=== PATIENT | male | born 1950 | race Caucasian/White ===

== ENCOUNTER → 2016-08-21 | Outpatient (CLI) | payer MEDICARE ==
--- NOTE | 2016-08-21 14:57 | XR ---
EXAM TYPE: LUMBAR SPINE X RAY SERIES COMPARISON: NONE HISTORY: Lower back pain FINDINGS: Alignment is anatomic. The pedicles are intact. The transverse processes are intact. There is no s pondylolysis or spondylolisthesis. Hypertrophic change of the spine noted. There is diffuse osteopen ia. Facet arthropathy at all levels with most marked changes at L4-S1. Superior endplate compression deformity of L1. Vascular calcifications noted. IMPRESSION: 1. Chronic superior endplate compression deformity L1. 2 multilevel facet arthropathy..
--- NOTE | 2016-08-22 08:41 | ECHOF ---
Referral Reason:R06.02 Shortness of breath MEASUREMENTS -------- HEIGHT: 182.9 cm WEIGHT: 127.0 kg BP: 199/90 RVIDd: 2.9 cm (< 3.3) IVSd: 1.2 cm (0.6 - 1.1) LVIDd: 3.8 cm (3.9 - 5.3) LVPWd: 1.3 cm (0.6 - 1.1) IVSs: 1.7 cm LVIDs: 2.9 cm LVPWs: 1.7 cm LA Diam: 3.4 cm (2.7 - 3.8) Ao Diam: 3.5 cm (2.0 - 3.7) AV Cusp: 1.6 cm (1.5 - 2.6) LA Diam: 2.6 cm (2.7 - 3.8) MV EXCURSION: 12.842 mm (> 18.000) MV EF SLOPE: 59 mm/s (70 - 150) EPSS: 0.8 cm MV E Bipin: 0.52 m/s MV DecT: 215 ms MV A Bipin: 0.91 m/s MV E/A Ratio: 0.57 FINDINGS -------- Sinus rhythm. This was a technically adequate study. The left ventricular size is normal. There is mild concentric left ventricular hypertrophy. Overall left ventricular systolic function is normal with, an EF between 55 - 60 %. The right ventricle is normal in size. The left atrial size is normal. The right atrium is normal in size. Aortic valve is trileaflet and is mildly thickened. There is mild aortic regurgitation. Mild mitral annular calcification present. Trace tricuspid regurgitation present. Trace/mild (physiologic) pulmonic regurgitation. The aortic root size is normal. There is no pericardial effusion. CONCLUSIONS -------- 1. Sinus rhythm. 2. The aortic root size is normal. 3. There is no pericardial effusion. 4. This was a technically adequate study. 5. Overall left ventricular systolic function is normal with, an EF between 55 - 60 %. 6. The left atrial size is normal. 7. Aortic valve is trileaflet and is mildly thickened. 8. There is mild aortic regurgitation. 9. Mild mitral annular calcification present. 10. Trace tricuspid regurgitation present. 11. Trace/mild (physiologic) pulmonic regurgitation. ENGINE REPAIRER: Geeta Sargent RDCS
== END | disposition home or self-care (01) ==
LOC: RADECHMAIN 13:43
PROVIDERS: ATTEND Family Medicine
DX: I08.8 Other rheumatic multiple valve diseases (principal); I10 Essential (primary) hypertension; M46.97 Unspecified inflammatory spondylopathy, lumbosacral region; M46.96 Unspecified inflammatory spondylopathy, lumbar region; M43.8X6 Other specified deforming dorsopathies, lumbar region
CPT/HCPCS: 72100; 93306

== ENCOUNTER → 2018-11-11 | Outpatient (CLI) | payer MEDICARE ==
--- NOTE | 2018-11-11 07:36 | US ---
EXAMINATION TYPE: US abdomen complete DATE OF EXAM: 11/11/2018 COMPARISON: CT 07/11/2016 CLINICAL HISTORY: K81.0 Acute Cholecystitis. Extremely difficult and limited exam due to overlying saman wel gas and patient body habitus EXAM MEASUREMENTS: Liver Length: 21.5 cm Gallbladder Wall: 0.2 cm CBD: 0.5 cm Spleen: 9.3 cm Right Kidney: 10.6 x 5.1 x 4.5 cm Left Kidney: 12.6 x 5.7 x 6.2 cm Pancreas: Obscured by bowel gas Liver: Limited visualization. Enlarged. Coarse echotexture, attenuating, these findings limit evalua tion for underlying hepatic masses. Gallbladder: Measuring upper limits of normal, no stones visualized Evidence for sonographic Longoria's sign: No CBD: wnl as visualized, distal portion obscured by bowel gas Spleen: Limited visualization, wnl as visualized Right Kidney: Limited visualization, wnl as visualized Left Kidney: No hydronephrosis or masses seen Upper IVC: Limited visualization, wnl as visualized Abd Aorta: Not visualized due to overlying bowel gas IMPRESSION: Suboptimal examination given patient body habitus and overlying bowel gas however no sono graphic evidence of acute cholecystitis is seen. If there is further concern HIDA scan with CCK could be performed to evaluate for biliary dyskinesia and/or chronic cholecystitis. Remainder of the abdom inal organs are again suboptimal with complete obscuration of the pancreas. The liver demonstrates so nographic findings most commonly related to hepatic steatosis.
== END ==
LOC: RADUSWWP 06:46
PROVIDERS: ATTEND Family Medicine
DX: K76.0 Fatty (change of) liver, not elsewhere classified (principal); Z87.19 Personal history of other diseases of the digestive system
CPT/HCPCS: 76700

== ENCOUNTER → 2018-11-11 | Outpatient (CLI) | payer MEDICARE ==
[2018-11-11 12:12] LABS: ALT 26 U/L (10-49); AST 18 U/L (14-35); Alkaline Phosphatase 93 U/L (41-126); Amylase 32 U/L (23-121); Bilirubin, Conjugated <0.20 mg/dL (0.20-0.40); Globulin 2.2 g/dL (1.6-3.3); Lipase 37 U/L (14-60); Total Bilirubin 0.4 mg/dL (0.2-1.2); Total Protein 6.6 g/dL (6.2-8.2)
== END ==
LOC: LABWHC1 07:27
PROVIDERS: ATTEND Family Medicine
DX: I10 Essential (primary) hypertension (principal); E11.9 Type 2 diabetes mellitus without complications; Z79.899 Other long term (current) drug therapy
CPT/HCPCS: 36415; 80076; 82150; 83690; 84403

== ENCOUNTER 2018-11-25 08:09 | Day surgery (SDC) | payer MEDICARE ==
[2018-11-23 11:59] VITALS: BMI 39.0
[~2018-11-25 08:09] MED LIST: LACTATED RINGERS 1,000 ML IV SCH
[2018-11-25 08:35] VITALS: RESP 18; TEMP 98.2
[2018-11-25 08:42] LABS: Glucose,Whole Blood 164 mg/dL (75-99)
[2018-11-25] MEDS ORDERED: LIDOCAINE 1% INJ 10MG/ML (20 ML MDV) ONE (08:57)
[2018-11-25] MEDS ORDERED: PROPOFOL 10 MG/ML 20 ML VIAL IV ONE (08:57)
--- NOTE | 2018-11-25 09:02 | P.GSHP ---
History of Present Illness H&P Date: 11/25/18 Chief Complaint: GERD This is a 68-year-old male referred from Dr. Mike Garrett. Patient's had complaints of GERD. He presents today for EGD. Past Medical History Past Medical History: Diabetes Mellitus, Hypertension Additional Past Medical History / Comment(s): crohns disease, IBS History of Any Multi-Drug Resistant Organisms: None Reported Additional Past Surgical History / Comment(s): toe surgery, knee surgery, lt shoulder surgery with hardware Past Anesthesia/Blood Transfusion Reactions: No Reported Reaction Smoking Status: Never smoker - Past Family History Mother Family Medical History: Cancer Additional Family Medical History / Comment(s): lung Father Family Medical History: Cancer Additional Family Medical History / Comment(s): lung Medications and Allergies Home Medications Medication Instructions Recorded Confirmed Type Insulin NPH Human Isophane 100 unit SQ BID PRN 11/23/18 11/23/18 History [NovoLIN N] Insulin Regular [HumuLIN R] 0 units SQ BID PRN 11/23/18 11/23/18 History Lisinopril-Hctz 20-25 mg 1 tab PO DAILY 11/23/18 11/23/18 History [Zestoretic 20-25] Omeprazole 40 mg PO DAILY 11/23/18 11/23/18 History Sucralfate [Carafate] 1 gm PO DAILY 11/23/18 11/23/18 History Allergies Allergy/AdvReac Type Severity Reaction Status Date / Time naproxen Allergy Swelling Verified 11/25/18 08:22 Surgical - Exam Vital Signs Temp Pulse Resp BP Pulse Ox 98.2 F 87 18 181/75 97 11/25/18 08:30 11/25/18 08:30 11/25/18 08:30 11/25/18 08:30 11/25/18 08:30 - General well developed, well nourished, no distress - Eyes PERRL - ENT normal pinna - Neck no masses - Respiratory normal expansion - Cardiovascular Rhythm: regular - Abdomen Abdomen: soft, non tender Results - Labs Abnormal Lab Results - Last 24 Hours (Table) 11/25/18 Range/Units 08:38 POC Glucose (mg/dL) 164 H (75-99) mg/dL Assessment and Plan Assessment: GERD. We'll perform EGD.
--- NOTE | 2018-11-25 09:09 | P.OP ---
Date of Procedure: 11/25/18 Preoperative Diagnosis: GERD Postoperative Diagnosis: Antral gastritis No significant hiatal hernia Minimal esophagitis Procedure(s) Performed: EGD Anesthesia: MAC Surgeon: Leif Bae Pathology: other (Antrum, esophagus) Condition: stable Disposition: PACU Description of Procedure: The patient's placed on the endoscopy table in the lateral position. He received IV sedation. The gastroscope placed oropharynx passed in the esophagus into the stomach. Scope then placed through the pylorus. The first and second portion of duodenum appeared normal. Scope summer back and the antrum and this appeared mildly inflamed. A biopsies performed. The scope was unretroflexed and remainder of the stomach appeared normal. There was no significant hiatal hernia. The GE junction was at 40 cm. The distal esophagus appeared minimally inflamed a biopsies performed. The proximal esophagus appeared normal. Scope was withdrawn for patient.
[2018-11-25 09:37] VITALS: BP 147/69; PULSE 82
== END 2018-11-25 10:00 | disposition home or self-care (01) ==
LOC: ORWHC2ENDO 08:09
PROVIDERS: ATTEND Surgery
DX: K21.9 Gastro-esophageal reflux disease without esophagitis (principal); E11.9 Type 2 diabetes mellitus without complications; I10 Essential (primary) hypertension; K29.70 Gastritis, unspecified, without bleeding; K50.90 Crohn's disease, unspecified, without complications; Z79.4 Long term (current) use of insulin; Z80.1 Family history of malignant neoplasm of trachea, bronchus and lung; Z79.899 Other long term (current) drug therapy; Z88.8 Allergy status to other drugs, medicaments and biological substances
CPT/HCPCS: 88305; 43239; J2001; J2704

== ENCOUNTER → 2019-05-09 | Outpatient (CLI) | payer MEDICARE ==
[2019-05-09 12:35] LABS: Basophils # (A) 0.1 k/uL (0-0.2); Basophils % (A) 1 %; Eosinophils # (A) 0.6 k/uL (0-0.7); Eosinophils % (A) 5 %; HCT 51.2 % (39.0-53.0); HGB 16.5 gm/dL (13.0-17.5); Lymphocytes # (A) 2.7 k/uL (1.0-4.8); Lymphocytes % (A) 24 %; MCH 27.7 pg (25.0-35.0); MCHC 32.3 g/dL (31.0-37.0); MCV 85.6 fL (80.0-100.0); Mean Platelet Volume 5.7; Monocytes # (A) 0.8 k/uL (0-1.0); Monocytes % (A) 7 %; Neutrophils # (A) 6.7 k/uL (1.3-7.7); Neutrophils % (A) 60 %; Platelet Count 342 k/uL (150-450); RBC 5.98 m/uL (4.30-5.90); RDW 14.5 % (11.5-15.5); WBC 11.1 k/uL (3.8-10.6)
[2019-05-09 12:43] LABS: Cholesterol 202 mg/dL (<200); HDL Cholesterol 43 mg/dL (40-60); LDL Cholesterol,Calculated 131 mg/dL (0-99); Triglycerides 140 mg/dL (<150)
== END | disposition home or self-care (01) ==
LOC: LABWHC1 11:42
PROVIDERS: ATTEND Family Medicine
DX: I10 Essential (primary) hypertension (principal); E11.9 Type 2 diabetes mellitus without complications; R97.20 Elevated prostate specific antigen [PSA]; Z79.899 Other long term (current) drug therapy
CPT/HCPCS: 36415; 80061; 84443; 85025

== ENCOUNTER → 2019-05-18 | Outpatient (CLI) | payer MEDICARE ==
[2019-05-18 20:24] LABS: Hemoglobin A1C 8.4 % (4.0-6.0)
[2019-05-18 20:31] LABS: African American GFR (CKD) 99.9 (60.0-200.0); Albumin 4.2 g/dL (3.80-4.90); Albumin/Globulin Ratio 1.75 (1.60-3.17); Anion Gap 6.7 mmol/L (4.00-12.00); BUN/Creat Ratio 25.56 Ratio (12.00-20.00); Calcium 9.7 mg/dL (8.7-10.3); Carbon Dioxide 27.3 mmol/L (21.6-31.8); Globulin 2.4 g/dL (1.6-3.3); Potassium 5.4 mmol/L (3.5-5.5); Total Bilirubin 0.5 mg/dL (0.3-1.2); Total Protein 6.6 g/dL (6.2-8.2)
== END | disposition home or self-care (01) ==
LOC: LABWHC1 10:24
PROVIDERS: ATTEND Family Medicine
DX: E11.9 Type 2 diabetes mellitus without complications (principal); I10 Essential (primary) hypertension; R97.20 Elevated prostate specific antigen [PSA]; Z79.899 Other long term (current) drug therapy
CPT/HCPCS: 36415; 80053; 83036; 84153; 84403

== ENCOUNTER → 2019-05-24 | Outpatient (CLI) | payer MEDICARE | END | disposition home or self-care (01) | LOC: RADUSWWP 11:54 | PROVIDERS: ATTEND Family Medicine | DX: I73.9 Peripheral vascular disease, unspecified (principal) | CPT/HCPCS: 93923 ==

== ENCOUNTER 2019-06-08 03:10 | Observation (INO) | payer MEDICARE ==
--- NOTE | 2019-06-08 03:27 | ED ---
SOB HPI - General Chief Complaint: Shortness of Breath Stated Complaint: SOB Time Seen by Provider: 06/08/19 03:23 Source: patient Mode of arrival: wheelchair Limitations: no limitations - History of Present Illness Initial Comments: Brijesh is a 69-year-old gentleman who presents to the ER today for evaluation of shortness of breath. Patient reports that he's had progressively worsening shortness of breath for couple of days duration. Tonight he couldn't sleep due to feeling that he couldn't catch his breath. This became progressively worse around 3 AM, he began to feel lightheaded and diaphoretic at which time he contacted a family member to bring him to the hospital for evaluation. Also reports he's been constipated for 2 weeks which she feels is contributing to not being able take a deep breath. - Related Data Home Medications Medication Instructions Recorded Confirmed Insulin NPH Human Isophane 100 unit SQ BID PRN 11/23/18 11/23/18 [NovoLIN N] Insulin Regular [HumuLIN R] 0 units SQ BID PRN 11/23/18 11/23/18 Lisinopril-Hctz 20-25 mg 1 tab PO DAILY 11/23/18 11/23/18 [Zestoretic 20-25] Omeprazole 40 mg PO DAILY 11/23/18 11/23/18 Sucralfate [Carafate] 1 gm PO DAILY 11/23/18 11/23/18 Allergies Allergy/AdvReac Type Severity Reaction Status Date / Time naproxen Allergy Swelling Verified 11/25/18 08:22 Review of Systems ROS Statement: Those systems with pertinent positive or pertinent negative responses have been documented in the HPI. ROS Other: All systems not noted in ROS Statement are negative. Past Medical History Past Medical History: Diabetes Mellitus, Hypertension Additional Past Medical History / Comment(s): crohns disease, IBS History of Any Multi-Drug Resistant Organisms: None Reported Additional Past Surgical History / Comment(s): toe surgery Past Psychological History: No Psychological Hx Reported Smoking Status: Never smoker Past Alcohol Use History: None Reported Past Drug Use History: None Reported General Exam - General Exam Comments Initial Comments: Physical Exam GENERAL: Patient is well-developed and well-nourished. Patient is diaphoretic with increased work of breathing HENT: Normocephalic, Atraumatic. EYES: PERRL, EOMI PULMONARY: Tachypnea CARDIOVASCULAR: RRR ABDOMEN: Morbidly obese SKIN: Excoriations on bilateral lower extremities Diaphoretic : Deferred NEUROLOGIC: Patient is alert and oriented x3. Moving all extremities spontaneously MUSCULOSKELETAL: Normal extremities with adequate strength and full range of motion. 1+ edema bilateral lower extremities PSYCHIATRIC: Normal psychiatric evaluation. Limitations: no limitations Course Vital Signs 06/08/19 06/08/19 06/08/19 03:11 05:10 06:25 Temperature 97.9 F 98.7 F Pulse Rate 97 82 80 Respiratory 18 18 17 Rate Blood Pressure 204/101 188/89 175/97 O2 Sat by Pulse 96 94 L 96 Oximetry Medical Decision Making - Medical Decision Making The patient was seen and evaluated, is a morbidly obese 69-year-old gentleman presenting with shortness of breath. Upon standing patient becomes very diaphoretic and short of breath with oxygen saturations dipping to the 80s. In addition patient is noted to be profoundly hypertensive upon arrival despite reporting compliance with his home lisinopril. On supplemental oxygenation and full workup was ordered. Chest x-ray no acute findings, patient remains symptomatic therefore computed tomography scan for pulmonary embolism was ordered resulted with negative findings aside from a sided pleural effusion. Catapres was ordered for hypertension Troponin is detectable but not significantly elevated Labs are otherwise unremarkable Given the patient's advanced age, profound hypertension I will plan to admit for hypertensive emergency area patient is agreeable to this plan. Patient care was discussed with patient's primary care physician Dr. Castillo who agrees with plan for admission for hypertensive emergency with signs of heart failure. - Lab Data Result diagrams: 06/08/19 03:48 06/08/19 03:48 Lab Results 06/08/19 06/08/19 06/08/19 Range/Units 03:48 03:48 03:48 WBC 10.3 (3.8-10.6) k/uL RBC 6.11 H (4.30-5.90) m/uL Hgb 16.8 (13.0-17.5) gm/dL Hct 52.0 (39.0-53.0) % MCV 85.1 (80.0-100.0) fL MCH 27.5 (25.0-35.0) pg MCHC 32.3 (31.0-37.0) g/dL RDW 14.3 (11.5-15.5) % Plt Count 301 (150-450) k/uL Neutrophils % 57 % Lymphocytes % 29 % Monocytes % 7 % Eosinophils % 5 % Basophils % 1 % Neutrophils # 5.8 (1.3-7.7) k/uL Lymphocytes # 2.9 (1.0-4.8) k/uL Monocytes # 0.7 (0-1.0) k/uL Eosinophils # 0.5 (0-0.7) k/uL Basophils # 0.1 (0-0.2) k/uL PT (9.0-12.0) sec INR (<1.2) APTT (22.0-30.0) sec Sodium 137 (137-145) mmol/L Potassium 4.5 (3.5-5.1) mmol/L Chloride 104 (98-107) mmol/L Carbon Dioxide 25 (22-30) mmol/L Anion Gap 8 mmol/L BUN 13 (9-20) mg/dL Creatinine 0.75 (0.66-1.25) mg/dL Est GFR (CKD-EPI)AfAm >90 (>60 ml/min/1.73 sqM) Est GFR (CKD-EPI)NonAf >90 (>60 ml/min/1.73 sqM) Glucose 185 H (74-99) mg/dL Calcium 9.9 (8.4-10.2) mg/dL Total Bilirubin 0.7 (0.2-1.3) mg/dL AST 22 (17-59) U/L ALT 21 (21-72) U/L Alkaline Phosphatase 95 (38-126) U/L Troponin I (0.000-0.034) ng/mL NT-Pro-B Natriuret Pep 550 pg/mL Total Protein 7.3 (6.3-8.2) g/dL Albumin 4.0 (3.5-5.0) g/dL 06/08/19 06/08/19 Range/Units 03:48 03:48 WBC (3.8-10.6) k/uL RBC (4.30-5.90) m/uL Hgb (13.0-17.5) gm/dL Hct (39.0-53.0) % MCV (80.0-100.0) fL MCH (25.0-35.0) pg MCHC (31.0-37.0) g/dL RDW (11.5-15.5) % Plt Count (150-450) k/uL Neutrophils % % Lymphocytes % % Monocytes % % Eosinophils % % Basophils % % Neutrophils # (1.3-7.7) k/uL Lymphocytes # (1.0-4.8) k/uL Monocytes # (0-1.0) k/uL Eosinophils # (0-0.7) k/uL Basophils # (0-0.2) k/uL PT 10.2 (9.0-12.0) sec INR 0.9 (<1.2) APTT 25.2 (22.0-30.0) sec Sodium (137-145) mmol/L Potassium (3.5-5.1) mmol/L Chloride (98-107) mmol/L Carbon Dioxide (22-30) mmol/L Anion Gap mmol/L BUN (9-20) mg/dL Creatinine (0.66-1.25) mg/dL Est GFR (CKD-EPI)AfAm (>60 ml/min/1.73 sqM) Est GFR (CKD-EPI)NonAf (>60 ml/min/1.73 sqM) Glucose (74-99) mg/dL Calcium (8.4-10.2) mg/dL Total Bilirubin (0.2-1.3) mg/dL AST (17-59) U/L ALT (21-72) U/L Alkaline Phosphatase (38-126) U/L Troponin I 0.027 (0.000-0.034) ng/mL NT-Pro-B Natriuret Pep pg/mL Total Protein (6.3-8.2) g/dL Albumin (3.5-5.0) g/dL - EKG Data -: EKG Interpreted by Ne EKG shows normal: sinus rhythm EKG Comments: EKG was obtained due to complaint of shortness of breath and hypertension, EKG w as obtained 3:53 AM, rate is 88, rhythm is sinus there is normal axis, there are normal intervals, MS is 196, QRS is 104, QTC is 464. There are no acute ST elevations or depressions there is no evidence of acute ischemia or infarction. There is significant respiratory artifact. Disposition Clinical Impression: Hypertensive emergency, Morbid obesity, Hypoxia Disposition: ADMITTED IP TO THIS HOSP Condition: Serious Referrals: Mike Castillo MD [Primary Care Provider] - 1-2 days
[2019-06-08 04:36] LABS: Basophils # (A) 0.1 k/uL (0-0.2); Basophils % (A) 1 %; Eosinophils # (A) 0.5 k/uL (0-0.7); Eosinophils % (A) 5 %; HGB 16.8 gm/dL (13.0-17.5); Lymphocytes # (A) 2.9 k/uL (1.0-4.8); Lymphocytes % (A) 29 %; MCH 27.5 pg (25.0-35.0); MCHC 32.3 g/dL (31.0-37.0); MCV 85.1 fL (80.0-100.0); Mean Platelet Volume 6.5; Monocytes # (A) 0.7 k/uL (0-1.0); Monocytes % (A) 7 %; Neutrophils # (A) 5.8 k/uL (1.3-7.7); Neutrophils % (A) 57 %; Platelet Count 301 k/uL (150-450); RBC 6.11 m/uL (4.30-5.90); RDW 14.3 % (11.5-15.5); WBC 10.3 k/uL (3.8-10.6)
[2019-06-08 04:41] LABS: ALT 21 U/L (21-72); AST 22 U/L (17-59); African American GFR (CKD) >90 (>60 ml/min/1.73 sqM); Alkaline Phosphatase 95 U/L (38-126); Anion Gap 8 mmol/L; Blood Urea Nitrogen 13 mg/dL (9-20); Calcium 9.9 mg/dL (8.4-10.2); Carbon Dioxide 25 mmol/L (22-30); Chloride 104 mmol/L (98-107); Glucose 185 mg/dL (74-99); Non-African American GFR(CKD) >90 (>60 ml/min/1.73 sqM); Potassium 4.5 mmol/L (3.5-5.1); Sodium 137 mmol/L (137-145); Total Bilirubin 0.7 mg/dL (0.2-1.3); Total Protein 7.3 g/dL (6.3-8.2)
[2019-06-08] MEDS ORDERED: cloNIDine HCL 0.2 MG TAB PO STA (04:48)
--- NOTE | 2019-06-08 04:49 | XR ---
EXAM: XR Chest, 2 Views CLINICAL HISTORY: ITS.REASON XR Reason: difficulty breathing TECHNIQUE: Frontal and lateral views of the chest. COMPARISON: No relevant prior studies available. FINDINGS: Lungs: No consolidation or mass. Pleural space: No effusion. Heart: No cardiomegaly. Bones/joints: No acute findings. IMPRESSION: No acute cardiopulmonary process.
[2019-06-08 04:53] LABS: INR 0.9 (<1.2); Partial Thromboplastin Time 25.2 sec (22.0-30.0); Prothrombin Time 10.2 sec (9.0-12.0)
[2019-06-08] MEDS ORDERED: ONDANSETRON 4 MG/2 ML VIAL IVP STA (06:12)
[2019-06-08] MEDS ORDERED: MORPHINE SULFATE 4 MG/ML SYRINGE IVP STA (06:12)
--- NOTE | 2019-06-08 06:32 | CT ---
EXAM: CT Angiography Chest With Intravenous Contrast CLINICAL HISTORY: ITS.REASON CT Reason: hypoxia TECHNIQUE: Axial computed tomographic angiography images of the chest with intravenous contrast. CTDI is 19 mGy and DLP is 705 mGy-cm. This CT exam was performed using one or more of the following dose reduction techniques: automated exposure control, adjustment of the mA and/or kV according to patient size, and/or use of iterative reconstruction technique. MIP reconstructed images were created and reviewed. COMPARISON: 06/08/19 x-ray FINDINGS: Pulmonary arteries: No filling defects. Aorta: No thoracic aortic aneurysm. Lungs: No mass. No consolidation. Pleural space: No pneumothorax. Trace left pleural effusion. Heart: No cardiomegaly. No pericardial effusion. Bones/joints: No acute fracture or dislocation. Likely chronic minimal wedging of T2, T3, and T4 without retropulsion. Soft tissues: 2.3 cm partially calcified nodule in the right thyroid gland. Lymph nodes: No enlarged lymph nodes. IMPRESSION: 1. No pulmonary embolism. Trace left pleural effusion. 2. Minimal upper thoracic spine vertebral body wedging. 3. 2.3 cm partially calcified right thyroid gland nodule. Correlate with ultrasound.
[2019-06-08] MEDS ORDERED: NALOXONE 0.4 MG/ML 1 ML VIAL IV PRN (07:50)
[2019-06-08 11:21] LABS: Glucose,Whole Blood 238 mg/dL (75-99)
[2019-06-08] MEDS: HYDROcodone/APAP 5-325MG 1 EACH TAB PO PRN ×2 (11:57→19:36)
[2019-06-08 12:51] LABS: Glucose,Whole Blood 197 mg/dL (75-99)
[2019-06-08] MEDS: INSULIN REGULAR 100 UNIT/ML VIAL SQ SCH ×2 (12:52→17:31)
--- NOTE | 2019-06-08 13:35 | HP ---
HISTORY AND PHYSICAL This 69-year-old white male came to the emergency room after being severely short of breath at home before going to bed last night. He could not catch his breath. He was found to hypertension acceleration on admission to 220/120. He has been unable to get out of the chair due to severe back pain and leg neuropathy. He stated he cannot walk or move due to severe back pain. He has been constipated for 2 weeks and unable to take a deep breath. HOME MEDICINES: 1. Novolin N 20 units subcu . 2. Humulin R b.i.d. 3. Zestoretic one daily. 4. Omeprazole 40 daily. 5. Carafate 1 gram daily. ALLERGIES: NAPROSYN. REVIEW OF SYSTEMS: Fourteen-point review of systems negative except for severe shortness of breath. His refuses to take a sleep apnea test. CT of the chest in the ER negative for PE. PAST MEDICAL HISTORY: Diabetes mellitus, hypertension, Crohn disease, irritable bowel syndrome. He has had toe surgery. SOCIAL HISTORY: No smoking. No alcohol or drugs. PHYSICAL EXAMINATION: PSYCH: Fair mood and affect. Well developed, well nourished, white male, increased breathing, appears comfortable. HEENT: Normocephalic, atraumatic. Pupils equal, round, reactive. Lungs are tachypneic. HEART: Regular rate and rhythm. ABDOMEN: Morbidly obese. SKIN: Excoriation lower extremities. NEUROLOGIC: Moves all 4 extremities. MUSCULOSKELETAL: Limited strength in the lower extremities otherwise, but he can move in bed; 1+ edema. PSYCH: Fair mood and affect. Troponin was not significantly elevated. He had profound hypertension. CT of the chest as mentioned above. He is refusing sleep apnea testing. Labs are reviewed. Creatinine 0.95, glucose 185. ASSESSMENT: 1. Hypertension emergency. 2. Morbid obesity. 3. Hypoxemia. 4. Negative PE scan. Cardiology, pulmonary consult. Please see further orders. Will have to give him a lumbar epidural as he is unable to move his legs from severe back pain. MMODL / IJN: [id number] /
[2019-06-08] MEDS: LISINOPRIL-HCTZ 20-25 MG 1 EACH TAB PO SCH (14:44)
[2019-06-08 15:01] LABS: T4, Free (Free Thyroxine) 1.07 ng/dL (0.78-2.19)
--- NOTE | 2019-06-08 15:03 | CT ---
EXAMINATION TYPE: CT lumbar spine wo con DATE OF EXAM: 06/08/2019 COMPARISON: None HISTORY: 69-year-old male Low back pain TECHNIQUE: Contiguous axial scanning of the lumbar spine without IV contrast. Coronal and sagittal re constructions performed. CT DLP: 988 mGycm Automated exposure control for dose reduction was used. FINDINGS: There is some excreting contrast from the kidneys compatible with patient's earlier PE CT. Moderate e pisodic calcifications infrarenal abdominal aorta and iliac arteries. Mild degenerative change at the SI joints. Large patient body habitus results in excess of normal age artifacts limiting the evaluation. Trace grade 1 retrolistheses at L1-L2, L2-L3, L3-L4 with multilevel hypertrophic facet arthropathy. Vertebral body heights are preserved. On the right, resulting in moderate neuroforaminal narrowing at L4-L5. Mild to moderate at T11-T12 an d L3-L4. Mild at L5-S1. On the left, changes result in moderate neural foraminal stenoses at L2-L3, L3-L4, L4-L5. There is excessive noise artifact limiting assessment for any focal disc herniation. No bony spinal c anal compromise. IMPRESSION: 1. MILD MULTILEVEL DEGENERATIVE DISC DISEASE. HYPERTROPHIC FACET ARTHROPATHY WITH GRADE 1 RETROLISTHE SES FROM L1 THROUGH L4 LEVELS. 2. NO VERTEBRAL COMPRESSION COLLAPSE. 3. EXCESSIVE NOISE ARTIFACTS FROM PATIENT'S LARGE BODY HABITUS LIMITS ASSESSMENT FOR ANY FOCAL DISC H ERNIATION. NO BONY SPINAL CANAL COMPROMISE. 4. VARIABLE BILATERAL NEUROFORAMINAL STENOSES OUTLINED ABOVE, MODERATE ON THE RIGHT AT L4-L5 AND M ODERATE ON THE LEFT FROM L2 THROUGH L5 LEVELS.
--- NOTE | 2019-06-08 16:08 | P.PAINCN ---
History of Present Illness - Reason for Consult Consult date: 06/08/19 - History of Present Illness This is a 69-year-old patient with a history of morbid obesity, hypertension, diabetes, irritable bowel syndrome referred by Dr. Castillo with a chief complaint of chronic pain in bilateral low back which radiates to right buttocks, not past by. He also has a secondary pain complaintpain in the anterior left thigh that feels like an "estephanie horse" which occasionally ra diates to left knee and left groin. His main pain complaint today is low back pain. Pain was rated as 9/10 this morning, reduced to 0/10 with IV pain medication, currently rated as 5/10. Patient has been taking medications from primary care physician including Jamul 5/325 once daily, which has been increased to every 8 hours while inpatient. Of note, he was primarily admitted for shortness of breath, hypertensive emergency and signs of heart failure. Patient denies new-onset weakness, bowel/bladder incontinence, or any other signs or symptoms of cauda equina syndrome. There are no signs of acute intoxication, and no indications of medication diversion or overuse. Patient notes that pain worsens significantly with activities, and improves with rest, and medication. He did receive a dose of IV pain medication today, which significantly helped his pain, and provided him complete pain relief lasting about 3 hours. Patient HAS NOT had surgery. Patient HAS had injections previouslynone in his low back, however obtains greater trochanter injections with the primary care physician, which helps with pain. Patient HAS NOT had physical therapy recently. In addition to above, 13-point review of systems is also negative for chest pain, new onset weakness, abdominal pain, diarrhea, extreme fatigue, malaise, fever, skin changes, homicidal or suicidal ideation, or bowel or bladder incontinence. He does endorse shortness of breath, which has improved since receiving IV pain medication, constipation and nausea. Past Medical History Past Medical History: Diabetes Mellitus, Hypertension Additional Past Medical History / Comment(s): IDDM type II, neuropathy bilateral feet, borderline high cholesterol, gastritis, chrons, IBS, back pain in winter months, chronic L thigh pain. History of Any Multi-Drug Resistant Organisms: None Reported Past Surgical History: Orthopedic Surgery Additional Past Surgical History / Comment(s): L shoulder/collar bone crush injury with hardware, L knee surgery d/t injury, L great toe ulcer with debridement, EGD, colonoscopies. Past Anesthesia/Blood Transfusion Reactions: No Reported Reaction Past Psychological History: No Psychological Hx Reported Additional Psychological History / Comment(s): Pt has an adult son living with him. He is indpendent. Smoking Status: Never smoker Past Alcohol Use History: Rare Past Drug Use History: None Reported - Past Family History Father Additional Family Medical History / Comment(s): Father was an alcoholic. He of liver cirrhosis at the age of 37 yrs. Mother Family Medical History: Cancer Additional Family Medical History / Comment(s): Mother had "female" cancer. She was an alcoholic. Medications and Allergies Home Medications Medication Instructions Recorded Confirmed Type Insulin NPH Human Isophane 20 unit SQ HS 11/23/18 06/08/19 History [NovoLIN N] Lisinopril-Hctz 20-25 mg 1 tab PO DAILY 11/23/18 06/08/19 History [Zestoretic 20-25] Aspirin 675 mg PO Q4H PRN 06/08/19 06/08/19 History Fluvastatin Sodium [Lescol Xl] 80 mg PO HS 06/08/19 06/08/19 History Hydrocodone/Acetaminophen [Jamul 1 tab PO DAILY PRN 06/08/19 06/08/19 History 5-325] Insulin Regular, Human [NovoLIN R] 25 unit SQ AC-TID 06/08/19 06/08/19 History Methylcellulose (with Sugar) 2 gm PO DAILY 06/08/19 06/08/19 History [Citrucel Powder] Omeprazole [PriLOSEC] 20 mg PO DAILY 06/08/19 06/08/19 History Testosterone Cypionate 200 mg IM Q14D 06/08/19 06/08/19 History [Depo-Testosterone] Allergies Allergy/AdvReac Type Severity Reaction Status Date / Time naproxen Allergy Swelling Verified 06/08/19 09:30 Physical Exam Vitals: Vital Signs Temp Pulse Pulse Resp BP BP Pulse Ox 06/08/19 12:32 97.4 F L 92 18 180/79 99 06/08/19 08:57 97.4 F L 69 18 118/59 96 06/08/19 07:20 76 16 115/70 95 06/08/19 06:25 98.7 F 80 17 175/97 96 06/08/19 05:10 82 18 188/89 94 L 06/08/19 03:11 97.9 F 97 18 204/101 96 Intake and Output 06/08/19 06/08/19 06/08/19 06:59 14:59 22:59 Other: Weight 129.274 kg Physical exam: GENERAL: Well appearing, in no acute distress, morbidly obese PSYCH: Mood and affect is appropriate. Awake, alert, and oriented SKIN: Skin color, texture, turgor normal, no rashes or lesions HEENT: Normocephalic, atraumatic. EOM intact CV: No pedal edema RESP: Respirations are unlabored, no audible wheezing GI: Abdomen obese MUSCULOSKELETAL: Bilateral lower extremity strength is normal and symmetric. No atrophy or tone abnormalities are noted. Lumbar spine: Mild Tenderness to palpation over the lumbar spine and paraspinous muscles bilaterally. Buttocks: No pain to palpation over the PSIS, Scooter test is negative bilaterally Extremities: Peripheral joint ROM is full and pain free without obvious instability or laxity in all four extremities. No edema or skin discolorations noted. Gait: Gait is slow NEUR: Bilateral lower extremity coordination and muscle stretch reflexes are physiologic and symmetric. Negative clonus. No loss of sensation is noted. Cranial nerves are grossly intact. Results Results: Imaging: CT lumbar spine obtained today shows mild multilevel degenerative disc disease and hypertrophic facet arthropathy, grade 1 retrolisthesis from L 1 through L4 levels. Variable bilateral neuroforaminal stenosismoderate on the right at L4- 5 and moderate on the left from L2 through L5. CBC & Chem 7: 06/08/19 03:48 06/08/19 03:48 Labs: Abnormal Lab Results - Last 24 Hours (Table) 06/08/19 06/08/19 06/08/19 Range/Units 03:48 03:48 03:48 RBC 6.11 H (4.30-5.90) m/uL Glucose 185 H (74-99) mg/dL POC Glucose (mg/dL) (75-99) mg/dL Triglycerides 183 H (<150) mg/dL Cholesterol 245 H (<200) mg/dL LDL Cholesterol, Calc 165 H (0-99) mg/dL TSH 0.282 L (0.465-4.680) mIU/L 06/08/19 06/08/19 Range/Units 11:19 12:47 RBC (4.30-5.90) m/uL Glucose (74-99) mg/dL POC Glucose (mg/dL) 238 H 197 H (75-99) mg/dL Triglycerides (<150) mg/dL Cholesterol (<200) mg/dL LDL Cholesterol, Calc (0-99) mg/dL TSH (0.465-4.680) mIU/L Assessment and Plan Assessment: Assessment: 1. Lumbar spondylosis without myelopathy or radiculopathy, lumbar degenerative disc disease 2. 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 Morbid obesity 4. Hypertensive emergency Plan: Plan: 1. Explanation: Currently, given chronic nature of patient's pain, with no acute change and nonradicular symptomatology, patient is not a candidate for interventional pain procedures. In the future, patient may be a candidate for lumbar medial branch workup. Would recommend follow-up in the pain clinic for this, with PCP referral. 2. Investigations: CT lumbar spine reviewed 3. Medications: Would consider addition of gabapentin 300 mg 3 times a day for meralgia paresthetica. Narcotic management per primary care physician Thank you for allowing us to participate in the care of this patient. Please contact us if questions arise. PQRS Measure Charge Sheet PQRS Narrative: Smoking Status Never smoker Do You Want the Pneumonia Vaccine Up to Date Vaccine AT THIS TIME? Blood Pressure [Left Arm 180/79 Sitting] Blood Pressure 115/70 Pain Intensity [None] 0 Pain Intensity 4 Pain Scale Used Numeric (1 - 10) Scale Used Numeric (1 - 10) Home Medications: Ambulatory Orders Insulin NPH Human Isophane [NovoLIN N] 20 unit SQ HS 11/23/18 Lisinopril-Hctz 20-25 mg [Zestoretic 20-25] 1 tab PO DAILY 11/23/18 Aspirin 675 mg PO Q4H PRN 06/08/19 Fluvastatin Sodium [Lescol Xl] 80 mg PO HS 06/08/19 Hydrocodone/Acetaminophen [Jamul 5-325] 1 tab PO DAILY PRN 06/08/19 Insulin Regular, Human [NovoLIN R] 25 unit SQ AC-TID 06/08/19 Methylcellulose (with Sugar) [Citrucel Powder] 2 gm PO DAILY 06/08/19 Omeprazole [PriLOSEC] 20 mg PO DAILY 06/08/19 Testosterone Cypionate [Depo-Testosterone] 200 mg IM Q14D 06/08/19
--- NOTE | 2019-06-08 16:56 | CONS ---
CONSULTATION DATE OF SERVICE: 06/08/2019 HISTORY OF PRESENT ILLNESS: Patient is a 69-year-old male who states that he was experiencing some shortness of breath yesterday which progressively worsened throughout the day. The patient states he thought maybe it was a result of his chronic back pain and left leg pain that has resulted in constipation for 2 weeks, and this was causing his breathing to worsen. The patient states he lay down in bed to try and rest and could not get any air in at all, at which time he panicked, tried to work through that for a couple of hours, sat up, tried to relax, did not have any improvements and thought it best to get his shoes and socks on. The patient states that when he bent over to put on his shoes and socks, he could not breathe at all. At that time he woke his son and was brought to the emergency room at [facility]. PAST MEDICAL HISTORY: Past medical history is significant for Crohn's disease, diabetes mellitus, hypertension, irritable bowel syndrome, as well as chronic back and leg pain. PAST SURGICAL HISTORY: Past surgical history is significant for toe surgery. ALLERGIES: ALLERGIES include NAPROXEN, which causes swelling. MEDICATIONS: Medications patient takes at home include: 1. Novolin N 100 units subcutaneously b.i.d. 2. Humulin R subcutaneously b.i.d. No dose is documented. 3. Zestoretic 20/25 one tablet p.o. daily. 4. Omeprazole 40 mg p.o. daily. 5. Carafate 1 gram p.o. daily. SOCIAL HISTORY: Patient denies ever smoking. Denies alcohol intake. Denies illicit drug use. FAMILY HISTORY: Noncontributory. REVIEW OF SYSTEMS: GENERAL: Negative for any fever or chills. Patient does admit to an approximate 15- pound weight gain over the past few months due to the chronic pain and inability to move around much. HEENT: Negative for headaches, dizziness or lightheadedness. The patient does have difficulty hearing and does have bilateral hearing aids. Denies any acute visual changes. Does get stuffed up during the change of seasons. Denies nose bleeds. Denies sore throat. Denies difficulty swallowing. RESPIRATORY: Positive for worsening shortness of breath. No cough. Does have some congestion. CARDIOVASCULAR: Negative for chest pain or palpitations. GI: Positive for abdominal pain related to the constipation and history of Crohn's. Denies nausea and vomiting. The patient does admit to quitting his Crohn's medications many years ago because he has the same symptoms with or without the medications. Patient again has had constipation for the past 2 weeks. : Positive for difficulty initiating a stream standing up. Patient often has to sit in order to urinate and thinks that may be due to the constipation as well. ENDOCRINE: Positive for diabetes mellitus. MUSCULOSKELETAL: Positive for chronic pain. NEUROLOGIC: Negative for any seizures. Patient does have neuropathy to both feet. PSYCHIATRIC: Denies any anxiety or depression. PHYSICAL EXAMINATION: GENERAL: This is a 69-year-old male who is seen sitting up in bed. He is awake and alert. VITAL SIGNS: Temperature is 97.4, heart rate 92, respiratory rate 18, blood pressure 180/79. Oxygen saturation is 99% on room air. HEENT: Head is normocephalic, atraumatic. Pupils equal, round, react to light. Ears and nose: No discharge is noted. Mouth with moist mucous membranes. Mallampati is class IV. NECK: Short, thick, supple. Trachea is midline. LUNGS: With diminished breath sounds. No clear rales or wheezes. HEART: S1 and S2 are heard. Not tachycardic. ABDOMEN: Soft, obese. Bowel sounds are heard. EXTREMITIES: No edema. NEUROLOGIC: Patient is awake and alert. LABS: White count is 10.3, hemoglobin 16.8, hematocrit 52.0 with 301,000 platelets. PT is 10.2, INR 0.9. PTT is 25.2. Sodium is 137, potassium 4.5, chloride 104. CO2 is 25. Anion gap is 8., BUN is 13, creatinine 0.75. Glucose is 185. Calcium 9.9. Total bilirubin 0.7, AST 22, ALT 21, alkaline phosphatase 95. Troponin 0.027 and 0.019, respectively. BNP is 550. Total protein 7.3, albumin 4.0, triglycerides 183, cholesterol 245, LDL 165, HDL 43. TSH 0.282 with a free T4 of 1.07. IMAGING: Chest x-ray shows no acute cardiopulmonary process. CTA of the chest shows no pulmonary embolism, trace left pleural effusion, minimal upper thoracic spine vertebral body wedging, a 2.3 cm partially calcified right thyroid gland nodule; correlate with ultrasound. IMPRESSION AT THIS TIME: 1. Hypertensive emergency. 2. Dyspnea, possibly related to obstructive sleep apnea or obesity hypoventilation syndrome. 3. Morbid obesity. 4. Chronic pain. 5. Diabetes mellitus. PLAN: Cardiology consult for hypertension. Supplemental oxygen to maintain oxygen saturations greater than or equal to 92%. GI and DVT prophylaxis. Patient was counseled on the long-term sequelae of untreated obstructive sleep apnea and was encouraged to have that worked up as an outpatient. Echocardiogram pending. Thank you for the consultation. We will follow patient closely with you, making further changes as necessary. MMODL / IJN: [id number] /
[2019-06-08 17:20] LABS: Glucose,Whole Blood 151 mg/dL (75-99)
--- NOTE | 2019-06-08 18:01 | ECHOF ---
Referral Reason:sob MEASUREMENTS -------- HEIGHT: 182.9 cm WEIGHT: 129.3 kg BP: 180/79 IVSd: 1.4 cm (0.6 - 1.1) LVIDd: 4.1 cm (3.9 - 5.3) LVPWd: 1.3 cm (0.6 - 1.1) IVSs: 1.8 cm LVIDs: 2.5 cm LVPWs: 1.9 cm LA Diam: 3.4 cm (2.7 - 3.8) RVIDd: 3.1 cm (< 3.3) LAESV Index (A-L): 27.48 ml/m Ao Diam: 3.4 cm (2.0 - 3.7) AV Cusp: 1.7 cm (1.5 - 2.6) EPSS: 0.9 cm MV E Bipin: 0.87 m/s MV DecT: 244 ms MV A Bipin: 0.81 m/s MV E/A Ratio: 1.08 MV EF SLOPE: 67.05 mm/s (70 - 150) MV EXCURSION: 16.66 mm (> 18.000) TAPSE: 18.13 mm FINDINGS -------- Sinus rhythm. This was a technically adequate study. The left ventricular size is normal. There is moderate concentric left ventricular hypertrophy. O verall left ventricular systolic function is normal with, an EF between 60 - 65 %. The diastolic fi lling pattern indicates impaired relaxation 15.99. The right ventricle is normal in size. Normal LA size by volume 22+/-6 ml/m2. The right atrium is normal in size. Interatrial and interventricular septum intact. There is mild aortic valve sclerosis. There is trace to mild mitral regurgitation. The tricuspid valve appears structurally normal. The pulmonic valve was not well visualized. The aortic root size is normal. IVC Not well visulized. There is no pericardial effusion. CONCLUSIONS -------- 1. Sinus rhythm. 2. This was a technically adequate study. 3. The left ventricular size is normal. 4. There is moderate concentric left ventricular hypertrophy. 5. Overall left ventricular systolic function is normal with, an EF between 60 - 65 %. 6. The diastolic filling pattern indicates impaired relaxation 15.99.. 7. The right ventricle is normal in size. 8. Normal LA size by volume 22+/-6 ml/m2. 9. The right atrium is normal in size. 10. Interatrial and interventricular septum intact. 11. There is mild aortic valve sclerosis. 12. There is trace to mild mitral regurgitation. 13. The tricuspid valve appears structurally normal. 14. The pulmonic valve was not well visualized. 15. The aortic root size is normal. 16. IVC Not well visulized. 17. There is no pericardial effusion. SENIOR FINANCIAL ACCOUNTANT: Geeta Sargent RDCS
[2019-06-08 19:54] LABS: Glucose,Whole Blood 97 mg/dL (75-99)
[2019-06-08] MEDS ORDERED: ATORVASTATIN 10 MG TAB PO SCH (21:00)
[2019-06-08] MEDS ORDERED: INSULIN NPH 300 UNIT/3 ML VIAL SQ SCH (21:00)
[2019-06-08 21:42] VITALS: RESP 16
[2019-06-09] MEDS: HYDROcodone/APAP 5-325MG 1 EACH TAB PO PRN ×2 (03:42→11:39)
[2019-06-09 06:52] LABS: Glucose,Whole Blood 162 mg/dL (75-99)
[2019-06-09] MEDS ORDERED: PANTOPRAZOLE 40 MG TABLET PO SCH (07:30)
[2019-06-09] MEDS: LISINOPRIL-HCTZ 20-25 MG 1 EACH TAB PO SCH (08:16)
[2019-06-09] MEDS: INSULIN REGULAR 100 UNIT/ML VIAL SQ SCH ×2 (08:16→12:39)
[2019-06-09] MEDS ORDERED: PSYLLIUM HUSK 100% 6 GM PACKET PO SCH (09:00)
[2019-06-09] MEDS ORDERED: LISINOPRIL-HCTZ 20-25 MG 1 EACH TAB PO SCH (09:00)
--- NOTE | 2019-06-09 09:09 | P.CNOR ---
History of Present Illness - [facility] Consult date: 06/09/19 Requesting physician: Mike Castillo Consult reason: low back pain History of present illness: Patient is very pleasant 69-year-old male who is seen and examined the bedside for further evaluation for chronic low back pain. Patient originally presented emergency department yesterday, 06/08/2019, with shortness of breath. He was also found to be hypertensive with a blood pressure of 204/101. He was admitted for further evaluation. His blood pressure has improved but he continues to be hypertensive. During his admission he admits to recent increased back and left lower extremity radiculopathy. He's been seen and examined by pain management as well. He states he has seasonal back pain which is well-controlled in the summer but tends to worsen during the colder months. Over the past 2 months he has had some pain that radiates from the lumbar spine over the left hip over the lateral thigh to the knee. He states he takes approximately 7-8 showers per day as the hot water and massage does help alleviate his thigh pain temporarily. He has not worked through formal physical therapy for his lower extremities. He denies any injuries. He states he currently rides his bicycle frequently. He denies any lower extremity weakness bilaterally. He denies any right lower extremity radiculopathy. He states after being seen examined by pain management they're not planning for any procedural intervention. He states he has been told he does not have any significant findings to correlate with symptoms. Consultation has also been placed with cardiology. Patient has a medical history which includes diabetes mellitus and hypertension. Past Medical History Past Medical History: Diabetes Mellitus, Hypertension Additional Past Medical History / Comment(s): IDDM type II, neuropathy bilateral feet, borderline high cholesterol, gastritis, chrons, IBS, back pain in winter months, chronic L thigh pain. History of Any Multi-Drug Resistant Organisms: None Reported Past Surgical History: Orthopedic Surgery Additional Past Surgical History / Comment(s): L shoulder/collar bone crush injury with hardware, L knee surgery d/t injury, L great toe ulcer with debridement, EGD, colonoscopies. Past Anesthesia/Blood Transfusion Reactions: No Reported Reaction Past Psychological History: No Psychological Hx Reported Additional Psychological History / Comment(s): Pt has an adult son living with him. He is indpendent. Smoking Status: Never smoker Past Alcohol Use History: Rare Past Drug Use History: None Reported - Past Family History Father Additional Family Medical History / Comment(s): Father was an alcoholic. He of liver cirrhosis at the age of 37 yrs. Mother Family Medical History: Cancer Additional Family Medical History / Comment(s): Mother had "female" cancer. She was an alcoholic. Medications and Allergies Home Medications Medication Instructions Recorded Confirmed Type Insulin NPH Human Isophane 20 unit SQ HS 11/23/18 06/08/19 History [NovoLIN N] Lisinopril-Hctz 20-25 mg 1 tab PO DAILY 11/23/18 06/08/19 History [Zestoretic 20-25] Aspirin 675 mg PO Q4H PRN 06/08/19 06/08/19 History Fluvastatin Sodium [Lescol Xl] 80 mg PO HS 06/08/19 06/08/19 History Hydrocodone/Acetaminophen [[place] 1 tab PO DAILY PRN 06/08/19 06/08/19 History 5-325] Insulin Regular, Human [NovoLIN R] 25 unit SQ AC-TID 06/08/19 06/08/19 History Methylcellulose (with Sugar) 2 gm PO DAILY 06/08/19 06/08/19 History [Citrucel Powder] Omeprazole [PriLOSEC] 20 mg PO DAILY 06/08/19 06/08/19 History Testosterone Cypionate 200 mg IM Q14D 06/08/19 06/08/19 History [Depo-Testosterone] Allergies Allergy/AdvReac Type Severity Reaction Status Date / Time naproxen Allergy Swelling Verified 06/08/19 09:30 Physical Examination Physical exam: Patient is awake, alert, and oriented 3 Vital signs stable Adequate chest excursion with deep inspiration and expiration Patient currently has EKG leads intact Abdomen soft nontender Examination of lumbar spine reveals skin is intact with no abrasions, lacerations, or bruises; no erythema, purulence or signs of infection Dorsiflexion, plantarflexion, and extensor hallucis longus positive sustained bilaterally Lower extremity strength 5/5 bilaterally Straight leg test negative bilateral lower extremities No signs or symptoms of DVT; no calf pain No pain with internal and external rotation of the hips bilaterally Neurovascularly intact Results Pertinent studies: CT of the lumbar spine taken on 06/08/2019: No evidence of bony spinal canal compromise; no evidence of vertebral body compression fracture; multilevel facet hypertrophy; L1-2 degenerative disc disease with anterior osteophytic spurring; L2-3 degenerative disc disease and moderate left neural foraminal stenosis; L3-4 retrolisthesis and moderate bilateral neural foraminal stenosis; L4-5 moderate bilateral neural foraminal stenosis; L5-S1 mild left neural foraminal narrowing - Labs Labs: Abnormal Lab Results - Last 24 Hours (Table) 06/08/19 06/08/19 06/08/19 Range/Units 03:48 11: 12:47 POC Glucose (mg/dL) 238 H 197 H (75-99) mg/dL Triglycerides 183 H (<150) mg/dL Cholesterol 245 H (<200) mg/dL LDL Cholesterol, Calc 165 H (0-99) mg/dL TSH 0.282 L (0.465-4.680) mIU/L 06/08/19 06/09/19 Range/Units 17:18 06:50 POC Glucose (mg/dL) 151 H 162 H (75-99) mg/dL Triglycerides (<150) mg/dL Cholesterol (<200) mg/dL LDL Cholesterol, Calc (0-99) mg/dL TSH (0.465-4.680) mIU/L H & H 06/08/19 Range/Units 03:48 Hgb 16.8 (13.0-17.5) gm/dL Hct 52.0 (39.0-53.0) % Coagulation 06/08/19 Range/Units 03:48 INR 0.9 (<1.2) Result Diagrams: 06/08/19 03:48 06/08/19 03:48 Assessment and Plan Assessment: Assessment: Chronic low back pain Acute left lower extremity radiculopathy Lumbar degenerative disc disease L3-4 retrolisthesis Multilevel lumbar foraminal stenosis Lumbar facet arthropathy Hypertension with hypertensive emergency Diabetes mellitus Obesity Shortness of breath at presentation (1) Chronic low back pain Current Visit: Yes Status: Acute Code(s): M54.5 - LOW BACK PAIN; G89.29 - OTHER CHRONIC PAIN SNOMED Code(s): 457504327 (2) Lumbar back pain with radiculopathy affecting left lower extremity Current Visit: Yes Status: Acute Code(s): M54.16 - RADICULOPATHY, LUMBAR REGION SNOMED Code(s): 273600066 (3) Lumbar degenerative disc disease Current Visit: Yes Status: Acute Code(s): M51.36 - OTHER INTERVERTEBRAL DISC DEGENERATION, LUMBAR REGION SNOMED Code(s): 05054497 (4) Spondylolisthesis, lumbar region Current Visit: Yes Status: Acute Code(s): M43.16 - SPONDYLOLISTHESIS, LUMBAR REGION SNOMED Code(s): 086153490947079 (5) Foraminal stenosis of lumbar region Current Visit: Yes Status: Acute Code(s): M48.061 - SPINAL STENOSIS, LUMBAR REGION WITHOUT NEUROGENIC REYNA SNOMED Code(s): 429224285 (6) Lumbar facet arthropathy Current Visit: Yes Status: Acute Code(s): M47.816 - SPONDYLOSIS W/O MYELOPATHY OR RADICULOPATHY, LUMBAR REGION SNOMED Code(s): 929481511 (7) Hypertension Current Visit: Yes Status: Acute Code(s): I10 - ESSENTIAL (PRIMARY) HYPERTENSION SNOMED Code(s): 07895929 (8) Diabetes mellitus Current Visit: Yes Status: Acute Code(s): E11.9 - TYPE 2 DIABETES MELLITUS WITHOUT COMPLICATIONS SNOMED Code(s): 83201346 (9) Hypertensive emergency Current Visit: Yes Status: Acute Code(s): I16.1 - HYPERTENSIVE EMERGENCY SNOMED Code(s): 235298466968995 (10) Morbid obesity Current Visit: Yes Status: Acute Code(s): E66.01 - MORBID (SEVERE) OBESITY DUE TO EXCESS CALORIES SNOMED Code(s): 013226432 Plan: Plan: 1. After reviewing of imaging, physical examination the patient, and further discussion with the patient, we're not currently planning for any acute surgical intervention regards to his lumbar spine. He does have chronic low back pain which is seasonal. His pain is well-controlled during the summer months and is exacerbated during colder months. He has been experiencing newer left lower extremity radiculopathy radiating over the left anterior thigh that improves w ith heat and massage. He denies any injuries. We did discuss he could benefit by working through formal physical therapy. He's been seen and examined by pain management was not planning for procedural intervention at this time. His pain continues to be controlled with medication as prescribed by medicine. We discussed he should continue with oral medication for pain control. If his symptoms do not improve with time he could benefit from procedural treatment with pain management. We will plan to have him follow-up on an as-needed basis in the outpatient setting. We discussed he should exhaust all conservative treatment options before discussing the possibility of surgical intervention. He currently has other medical diagnoses which are required further workup including hypertension. At this time, patient be cleared for discharge from an orthopedic spine standpoint once cleared by other medical providers. Patient may continue to participate in regular activities of daily living to tolerance in regards to his lumbar spine. 2. Patient will continue be seen examined by other medical providers including medicine and cardiology for his other medical diagnoses including hypertension, diabetes mellitus, and shortness of breath Time with Patient: Greater than 30 (Including obtaining history, physical examination, reviewing of imaging, and dictation.)
--- NOTE | 2019-06-09 11:12 | P.CRDCN ---
History of Present Illness History of present illness: HISTORY OF PRESENTING ILLNESS This is a pleasant 69-year-old male past medical history significant for hypertension, dyslipdemia, insulin dependent diabetes mellitus, chronic back pain, crohns disease and obesity. He presented with shortness of breath, back pain and constipation. He does not follow in the office with a cathode maker for any reason. We have been asked to see him in consultation for uncontrolled hypertension. He states he has been struggling with constipation and has not had a bowel movement for the last 14 days. He took some over the counter laxatives yesterday and did have small results. He also has been struggling with left lower back pain with radiation down the left leg and mid back pain. He states he has these pains every year in the winter months and they subside in the spring/summer. The pain yesterday was particularly intense and he wasn't getting any relief from prescribed norco. Last evening while he was attempting to lay down to sleep he felt acutely short of breath. He sat up straight and the breathing improved back to baseline. He attempted this process a couple more times and each time the same scenario played out with dyspnea when he laid flat that improved when he sat up. He denies associated chest pain, dizziness or palpitations. No further shortness of breath since arriving at the hospital. Blood pressure on arrival was 204/101 and 188/89. He state he took his prescribed lisinopril/hctz that morning. He does not check his blood pressure at home. He also states he was in significant back pain upon arrival. He was given IV morphine and clonidine. Blood pressure did come down however is back up in the 180's. Home meds weren't resumed this morning and he didn't get lisinopril/hctz. DIAGNOSTICS EKG reveals sinus mechanism with no acute ST or T-wave abnormalities. Chest xray negative for an acute cardiopulmonary process. Laboratory reviewed, WBC 10.3, hgb 16.8, plt 201, sodium 137, potassium 4.5, creatinine 0.75, troponin 0.027, proBNP 550. Current cardiac medications include lisinopril/hctz 20/25 mg daily. and fluv astatin. Most recent echocardiogram obtained 2017 revealed preserved LV systolic function with EF 55-560% with no wall motion abnormalities. REVIEW OF SYSTEMS At the time of my exam: CONSTITUTIONAL: Denies fever or chills. CARDIOVASCULAR: Denies chest pain, shortness of breath, orthopnea, PND or p alpitations. RESPIRATORY: Denies cough. GASTROINTESTINAL: Denies abdominal pain, diarrhea, constipation, nausea or vomiting. MUSCULOSKELETAL: Denies myalgias. NEUROLOGIC: Denies numbness, tingling or weakness. ENDOCRINE: Denies fatigue, weight change, polydipsia or polyurina. GENITOURINARY: Denies burning, hematuria or urgency with micturation. HEMATOLOGIC: Denies history of anemia or bleeding. PHYSICAL EXAMINATION Blood pressure 180/79 heart rate 92 afebrile and maintaining oxygen saturaiton on room air. CONSTITUTIONAL: No apparent distress. HEENT: Head is normocephalic. Pupils are equal, round. Sclerae anicteric. Mucous membranes of the mouth are moist. No JVD. No carotid bruit. CHEST EXAMINATION: Lungs are clear to auscultation. No chest wall tenderness is noted on palpation or with deep breathing. Diminished at the bases. HEART EXAMINATION: Regular rate and rhythm. S1, S2 heard. Soft systolic ejection murmur at the base, no gallops or rub. ABDOMEN: Soft, nontender. Positive bowel sounds. EXTREMITIES: 2+ peripheral pulses, no lower extremity edema and no calf tenderness. NEUROLOGIC EXAMINATION: Patient is awake, alert and oriented x3. ASSESSMENT Shortness of breath, clinically euvolemic Hypertension, uncontrolled Acute on chronic back pain Constipation Dyslipidemia, pt has not been taking his statin on advice of PCP Insulin dependent diabetes mellitus Obestiy, BMI PLAN Check d-dimer and second troponin to rule out an acute event. Obtain 2D echocardiogram and doppler study to assess cardiac structure and function. Discontinue lisinopril/hcz and change to lisinopril 20 mg daily along with dyazide 37.5/25 mg daily. Initiate on atorvastatin 40 mg daily. Follow up in the office with Dr. Wilson for blood pressure evaluation in 1 week and outpatient stress testing once blood pressures are controlled. Thank you kindly for this consultation. Nurse Practitioner note has been reviewed, I agree with a documented findings and plan of care. Patient was seen and examined. Past Medical History Past Medical History: Diabetes Mellitus, Hypertension Additional Past Medical History / Comment(s): IDDM type II, neuropathy bilateral feet, borderline high cholesterol, gastritis, chrons, IBS, back pain in winter months, chronic L thigh pain. History of Any Multi-Drug Resistant Organisms: None Reported Past Surgical History: Orthopedic Surgery Additional Past Surgical History / Comment(s): L shoulder/collar bone crush injury with hardware, L knee surgery d/t injury, L great toe ulcer with debridement, EGD, colonoscopies. Past Anesthesia/Blood Transfusion Reactions: No Reported Reaction Past Psychological History: No Psychological Hx Reported Additional Psychological History / Comment(s): Pt has an adult son living with him. He is indpendent. Smoking Status: Never smoker Past Alcohol Use History: Rare Past Drug Use History: None Reported - Past Family History Father Additional Family Medical History / Comment(s): Father was an alcoholic. He of liver cirrhosis at the age of 37 yrs. Mother Family Medical History: Cancer Additional Family Medical History / Comment(s): Mother had "female" cancer. She was an alcoholic. Medications and Allergies Home Medications Medication Instructions Recorded Confirmed Type Insulin NPH Human Isophane 20 unit SQ HS 11/23/18 06/08/19 History [NovoLIN N] Aspirin 675 mg PO Q4H PRN 06/08/19 06/08/19 History Hydrocodone/Acetaminophen [[place] 1 tab PO DAILY PRN 06/08/19 06/08/19 History 5-325] Insulin Regular, Human [NovoLIN R] 25 unit SQ AC-TID 06/08/19 06/08/19 History Methylcellulose (with Sugar) 2 gm PO DAILY 06/08/19 06/08/19 History [Citrucel Powder] Omeprazole [PriLOSEC] 20 mg PO DAILY 06/08/19 06/08/19 History Testosterone Cypionate 200 mg IM Q14D 06/08/19 06/08/19 History [Depo-Testosterone] Atorvastatin [Lipitor] 40 mg PO DAILY #90 tab 06/09/19 Rx Lisinopril [Zestril] 20 mg PO DAILY #90 tab 06/09/19 Rx Triamterene-Hctz 37.5-25Mg 1 each PO DAILY #90 cap 06/09/19 Rx [Dyazide 37.5-25 Capsule] Allergies Allergy/AdvReac Type Severity Reaction Status Date / Time naproxen Allergy Swelling Verified 06/08/19 09:30 Physical Exam Vitals: Vital Signs Temp Pulse Pulse Resp BP BP Pulse Ox 06/08/19 12:32 97.4 F L 92 18 180/79 99 06/08/19 08:57 97.4 F L 69 18 118/59 96 06/08/19 07:20 76 16 115/70 95 06/08/19 06:25 98.7 F 80 17 175/97 96 06/08/19 05:10 82 18 188/89 94 L 06/08/19 03:11 97.9 F 97 18 204/101 96 Intake and Output 06/07/19 06/08/19 06/08/19 22:59 06:59 14:59 Other: Weight 129.274 kg Results 06/08/19 03:48 06/08/19 03:48 Cardiac Enzymes 06/08/19 06/08/19 Range/Units 03:48 03:48 AST 22 (17-59) U/L Troponin I 0.027 (0.000-0.034) ng/mL Coagulation 06/08/19 Range/Units 03:48 PT 10.2 (9.0-12.0) sec APTT 25.2 (22.0-30.0) sec CBC 06/08/19 Range/Units 03:48 WBC 10.3 (3.8-10.6) k/uL RBC 6.11 H (4.30-5.90) m/uL Hgb 16.8 (13.0-17.5) gm/dL Hct 52.0 (39.0-53.0) % Plt Count 301 (150-450) k/uL Comprehensive Metabolic Panel 06/08/19 Range/Units 03:48 Sodium 137 (137-145) mmol/L Potassium 4.5 (3.5-5.1) mmol/L Chloride 104 (98-107) mmol/L Carbon Dioxide 25 (22-30) mmol/L BUN 13 (9-20) mg/dL Creatinine 0.75 (0.66-1.25) mg/dL Glucose 185 H (74-99) mg/dL Calcium 9.9 (8.4-10.2) mg/dL AST 22 (17-59) U/L ALT 21 (21-72) U/L Alkaline Phosphatase 95 (38-126) U/L Total Protein 7.3 (6.3-8.2) g/dL Albumin 4.0 (3.5-5.0) g/dL Current Medications Generic Name Dose Route Start Last Admin Trade Name Freq PRN Reason Stop Dose Admin Hydrocodone Bitart/Acetaminophen 1 each 06/08/19 11:39 06/08/19 11:57 [place] 5-325 PO 1 each Q8HR PRN Administration Pain Atorvastatin Calcium 10 mg 06/08/19 21:00 Lipitor PO HS CHAY Lisinopril/HCTZ 1 each 06/08/19 13:45 Zestoretic 20-25 PO DAILY CHAY Insulin Human NPH 20 unit 06/08/19 21:00 Humulin N SQ HS CHAY Insulin Human Regular 25 unit 06/08/19 12:30 06/08/19 12:52 Humulin R SQ 25 unit AC-TID CHAY Administration Naloxone HCl 0.2 mg 06/08/19 07:50 Narcan IV Q2M PRN Opioid Reversal Pantoprazole Sodium 40 mg 06/09/19 07:30 Protonix PO AC-BRKFST CHAY Psyllium Hydrophilic Mucilloid 6 gm 06/09/19 09:00 Metamucil PO DAILY CHAY Intake and Output 06/07/19 06/08/19 06/08/19 22:59 06:59 14:59 Other: Weight 129.274 kg 06/08/19 03:48 06/08/19 03:48
[2019-06-09 11:15] LABS: Glucose,Whole Blood 123 mg/dL (75-99)
[2019-06-09] MEDS ORDERED: ATORVASTATIN 40 MG TAB PO SCH (11:15)
[2019-06-09] MEDS ORDERED: TRIAMTERENE-HCTZ 37.5-25MG 1 EACH CAP PO SCH (11:15)
[2019-06-09 12:47] VITALS: BP 128/63; PULSE 74; TEMP 98.5
--- NOTE | 2019-06-09 19:43 | PN ---
PROGRESS NOTE DATE OF SERVICE: 06/09/2019 This patient is less short of breath and is doing better overall. On physical examination, respiratory rate is 16, pulse rate of 74, temperature 98.5, blood pressure 128/63. Oxygen saturation on room air is 95%. HEENT reveals pupils that are redundant tissue in the posterior pharynx. Chest reveals occasional crackles at the base. Cardiovascular system is in S1, S2. Abdomen is soft. There is trace pedal edema. IMPRESSION AT THIS TIME: 1. Dyspnea, most likely secondary to obstructive sleep apnea and obesity hypoventilation syndrome with early cor pulmonale and pulmonary hypertension. 2. Hypertensive urgency. 3. Morbid obesity. 4. Diabetes mellitus. At this point in time, I agree with discharge planning. If the patient is motivated, would recommend an outpatient sleep study. Depending on how he does, we shall make further changes to his care. I would like to thank you for giving me the privilege of participating in his care. MMODL / IJN: [id number] /
[2019-06-10] MEDS ORDERED: LISINOPRIL 20 MG TAB PO SCH (09:00)
--- NOTE | 2019-06-18 21:55 | DS ---
DISCHARGE SUMMARY DATE OF ADMISSION: 06/08/2019. DATE OF DISCHARGE: 06/09/2019. DISCHARGE MEDICATIONS: 1. NPH insulin 20 units at night. 2. Lisinopril/hydrochlorothiazide 20/25 daily. 3. [place] 5/325 daily. 4. Testosterone Q 14 days 200 mg. 5. Aspirin 675 q 4 hours p.r.n. 6. Lescol-XL 80 mg daily. 7. Prilosec 20 mg daily. 8. Atorvastatin 40 mg daily. 9. Zestril 10 mg daily. Follow up in office in 1-2 weeks. CONDITION: Stable. PROGNOSIS: Guarded. The patient was admitted with hypertension acceleration due to significant lumbar pain. He had MRI of his lumbar spine. Consult with Pain Clinic. He will follow up with the Pain Clinic for possible injections in the spine. Cleared for neurosurgical evaluation. Pain medicines controlled his hypertension, due to decrease in pain amount. He will follow up as an outpatient in my office. MMODL / IJN: [id number] /
== END 2019-06-09 15:43 | disposition home or self-care (01) ==
LOC: EC 03:10 → 3NMEDONC 07:58
PROVIDERS: ADMIT Family Medicine; ATTEND Family Medicine
DX: M48.061 Spinal stenosis, lumbar region without neurogenic claudication (principal); M47.816 Spondylosis without myelopathy or radiculopathy, lumbar region; M47.26 Other spondylosis with radiculopathy, lumbar region; M43.16 Spondylolisthesis, lumbar region; M47.16 Other spondylosis with myelopathy, lumbar region; M51.16 Intervertebral disc disorders with radiculopathy, lumbar region; I16.1 Hypertensive emergency; I10 Essential (primary) hypertension; E66.01 Morbid (severe) obesity due to excess calories; Z68.38 Body mass index [BMI] 38.0-38.9, adult; K58.9 Irritable bowel syndrome, unspecified; G89.29 Other chronic pain; M79.652 Pain in left thigh; K59.00 Constipation, unspecified; E11.40 Type 2 diabetes mellitus with diabetic neuropathy, unspecified; R09.02 Hypoxemia; E78.00 Pure hypercholesterolemia, unspecified; M12.9 Arthropathy, unspecified; R06.09 Other forms of dyspnea; E11.41 Type 2 diabetes mellitus with diabetic mononeuropathy; G57.90 Unspecified mononeuropathy of unspecified lower limb; G62.9 Polyneuropathy, unspecified; E78.5 Hyperlipidemia, unspecified; Z87.19 Personal history of other diseases of the digestive system; Z87.828 Personal history of other (healed) physical injury and trauma; Z79.4 Long term (current) use of insulin; Z79.899 Other long term (current) drug therapy; Z79.82 Long term (current) use of aspirin; Z79.891 Long term (current) use of opiate analgesic; Z88.8 Allergy status to other drugs, medicaments and biological substances; Z81.1 Family history of alcohol abuse and dependence; Z83.79 Family history of other diseases of the digestive system; Z80.9 Family history of malignant neoplasm, unspecified
CPT/HCPCS: 96374; 96375; 99285; 36415; 93005; 93306; 85379; 84439; 83880; 80061; 80053; 84443; 84484; 85025; 85610; 85730; 71046; 72131; 71275; G0378 ×2; J2270; J2405; Q9967

== ENCOUNTER 2019-07-23 14:16 | Inpatient (IN) | payer MEDICARE ==
[2019-07-23] MEDS ORDERED: SODIUM CHLORIDE 0.9% 500 ML 500 ML IV STA (16:44)
[2019-07-23] MEDS ORDERED: SODIUM CHLORIDE 0.9% 1,000 ML IV STA (16:44)
--- NOTE | 2019-07-23 16:59 | XR ---
EXAMINATION TYPE: XR foot complete LT DATE OF EXAM: 07/23/2019 COMPARISON: NONE HISTORY: Foot infection TECHNIQUE: 3 views FINDINGS: There is plantar calcaneal spurring. There is soft tissue calcification posteriorly along t he Achilles tendon. Metatarsals are intact. I see no fracture nor dislocation. There is soft tissue s welling of the second toe. I see no focal bone destruction. IMPRESSION: Soft tissue swelling of the second toe. No specific sign of osteomyelitis.
[2019-07-23 17:30] LABS: Basophils % (A) 0 %; Eosinophils # (A) 0.3 k/uL (0-0.7); Eosinophils % (A) 2 %; HCT 47.1 % (39.0-53.0); HGB 15.6 gm/dL (13.0-17.5); Lymphocytes # (A) 3.5 k/uL (1.0-4.8); Lymphocytes % (A) 22 %; MCH 28.1 pg (25.0-35.0); MCHC 33.1 g/dL (31.0-37.0); MCV 84.8 fL (80.0-100.0); Mean Platelet Volume 6.9; Monocytes # (A) 1.5 k/uL (0-1.0); Monocytes % (A) 9 %; Neutrophils # (A) 10.4 k/uL (1.3-7.7); Neutrophils % (A) 64 %; Platelet Count 415 k/uL (150-450); RBC 5.55 m/uL (4.30-5.90); WBC 16.1 k/uL (3.8-10.6)
--- NOTE | 2019-07-23 17:37 | ED ---
Wound/Laceration HPI - General Chief Complaint: Wound/Laceration Stated Complaint: toe infection/wound Time Seen by Provider: 07/23/19 16:22 Source: patient, RN notes reviewed, old records reviewed Mode of arrival: ambulatory Limitations: no limitations - History of Present Illness Initial Comments: This is a 6-year-old male here for evaluation significant drainage from left foot. State that they think his second toe. Severity drainage and severe pain streaking up the leg. No fevers patient does have history of neuropathy and has had surgery on his left great toe. Patient unsure how long symptoms going on for he does have history of diabetes with peripheral neuropathy and has had 2 diabetes and diabetic foot ulcers -: days(s) Extremity Location: Left: Foot Patient Tetanus UTD: Yes Context: accidental, other (Secondary to chronic disease) Associated Symptoms: pain, loss of feeling/numbness - Related Data Home Medications Medication Instructions Recorded Confirmed Insulin NPH Human Isophane 20 unit SQ HS 11/23/18 06/08/19 [NovoLIN N] Aspirin 675 mg PO Q4H PRN 06/08/19 06/08/19 Hydrocodone/Acetaminophen [[place] 1 tab PO DAILY PRN 06/08/19 06/08/19 5-325] Insulin Regular, Human [NovoLIN R] 25 unit SQ AC-TID 06/08/19 06/08/19 Methylcellulose (with Sugar) 2 gm PO DAILY 06/08/19 06/08/19 [Citrucel Powder] Omeprazole [PriLOSEC] 20 mg PO DAILY 06/08/19 06/08/19 Testosterone Cypionate 200 mg IM Q14D 06/08/19 06/08/19 [Depo-Testosterone] Previous Rx's Medication Instructions Recorded Atorvastatin [Lipitor] 40 mg PO DAILY #90 tab 06/09/19 Lisinopril [Zestril] 20 mg PO DAILY #90 tab 06/09/19 Triamterene-Hctz 37.5-25Mg 1 each PO DAILY #90 cap 06/09/19 [Dyazide 37.5-25 Capsule] Allergies Allergy/AdvReac Type Severity Reaction Status Date / Time naproxen Allergy Swelling Verified 07/23/19 15:24 Review of Systems ROS Statement: Those systems with pertinent positive or pertinent negative responses have been documented in the HPI. ROS Other: All systems not noted in ROS Statement are negative. Past Medical History Past Medical History: Diabetes Mellitus, Hypertension Additional Past Medical History / Comment(s): IDDM type II, neuropathy bilateral feet, borderline high cholesterol, gastritis, chrons, IBS, back pain in winter months, chronic L thigh pain. History of Any Multi-Drug Resistant Organisms: None Reported Past Surgical History: Orthopedic Surgery Additional Past Surgical History / Comment(s): L shoulder/collar bone crush injury with hardware, L knee surgery d/t injury, L great toe ulcer with debridement, EGD, colonoscopies. Past Anesthesia/Blood Transfusion Reactions: No Reported Reaction Past Psychological History: No Psychological Hx Reported Smoking Status: Never smoker Past Alcohol Use History: Rare Past Drug Use History: None Reported - Past Family History Mother Family Medical History: Cancer Father Family Medical History: Cancer General Exam - General Exam Comments Initial Comments: Patient is open wound draining from left toe, second digit left foot Limitations: no limitations General appearance: alert, in no apparent distress Head exam: Present: atraumatic, normocephalic, normal inspection Eye exam: Present: normal appearance, PERRL, EOMI. Absent: scleral icterus, conjunctival injection, periorbital swelling ENT exam: Present: normal exam, mucous membranes moist Neck exam: Present: normal inspection. Absent: tenderness, meningismus, lymphadenopathy Respiratory exam: Present: normal lung sounds bilaterally. Absent: respiratory distress, wheezes, rales, rhonchi, stridor Cardiovascular Exam: Present: regular rate, normal rhythm, normal heart sounds. Absent: systolic murmur, diastolic murmur, rubs, gallop, clicks GI/Abdominal exam: Present: soft, normal bowel sounds. Absent: distended, tenderness, guarding, rebound, rigid Extremities exam: Present: normal inspection, full ROM, normal capillary refill. Absent: tenderness, pedal edema, joint swelling, calf tenderness Back exam: Present: normal inspection Neurological exam: Present: alert, oriented X3, CN II-XII intact Psychiatric exam: Present: normal affect, normal mood Skin exam: Present: warm, dry, intact, normal color. Absent: rash Course Vital Signs 07/23/19 15:22 Temperature 97.8 F Pulse Rate 79 Respiratory 16 Rate Blood Pressure 136/81 O2 Sat by Pulse 97 Oximetry - Reevaluation(s) Reevaluation #1: 07/23/19 18:09 Medical records reviewed Reevaluation #2: 07/23/19 18:10 Pain improve - Consultations Consultation #1: Spoke with Dr. Mcclain/[facility] is agreeable to admit patient Medical Decision Making - Medical Decision Making 69 male to the ER for evaluation of diabetic foot ulcer, streaking up the leg. Patient placed on antibiotics will be admitted for wound management - Lab Data Result diagrams: 07/23/19 17:00 07/23/19 17:00 Lab Results 07/23/19 07/23/19 07/23/19 Range/Units 17:00 17:00 17:00 WBC 16.1 H (3.8-10.6) k/uL RBC 5.55 (4.30-5.90) m/uL Hgb 15.6 (13.0-17.5) gm/dL Hct 47.1 (39.0-53.0) % MCV 84.8 (80.0-100.0) fL MCH 28.1 (25.0-35.0) pg MCHC 33.1 (31.0-37.0) g/dL RDW 13.0 (11.5-15.5) % Plt Count 415 (150-450) k/uL Neutrophils % 64 % Lymphocytes % 22 % Monocytes % 9 % Eosinophils % 2 % Basophils % 0 % Neutrophils # 10.4 H (1.3-7.7) k/uL Lymphocytes # 3.5 (1.0-4.8) k/uL Monocytes # 1.5 H (0-1.0) k/uL Eosinophils # 0.3 (0-0.7) k/uL Basophils # 0.0 (0-0.2) k/uL PT (9.0-12.0) sec INR (<1.2) APTT (22.0-30.0) sec Sodium 139 (137-145) mmol/L Potassium 4.5 (3.5-5.1) mmol/L Chloride 101 (98-107) mmol/L Carbon Dioxide 26 (22-30) mmol/L Anion Gap 12 mmol/L BUN 19 (9-20) mg/dL Creatinine 0.75 (0.66-1.25) mg/dL Est GFR (CKD-EPI)AfAm >90 (>60 ml/min/1.73 sqM) Est GFR (CKD-EPI)NonAf >90 (>60 ml/min/1.73 sqM) Glucose 91 (74-99) mg/dL Plasma Lactic Acid Vincent 1.8 (0.7-2.0) mmol/L Calcium 11.0 H (8.4-10.2) mg/dL Total Bilirubin 0.8 (0.2-1.3) mg/dL AST 28 (17-59) U/L ALT 41 (4-49) U/L Alkaline Phosphatase 143 H (38-126) U/L Troponin I (0.000-0.034) ng/mL Total Protein 7.5 (6.3-8.2) g/dL Albumin 4.1 (3.5-5.0) g/dL 07/23/19 07/23/19 Range/Units 17:00 17:00 WBC (3.8-10.6) k/uL RBC (4.30-5.90) m/uL Hgb (13.0-17.5) gm/dL Hct (39.0-53.0) % MCV (80.0-100.0) fL MCH (25.0-35.0) pg MCHC (31.0-37.0) g/dL RDW (11.5-15.5) % Plt Count (150-450) k/uL Neutrophils % % Lymphocytes % % Monocytes % % Eosinophils % % Basophils % % Neutrophils # (1.3-7.7) k/uL Lymphocytes # (1.0-4.8) k/uL Monocytes # (0-1.0) k/uL Eosinophils # (0-0.7) k/uL Basophils # (0-0.2) k/uL PT 9.8 (9.0-12.0) sec INR 0.9 (<1.2) APTT 23.6 (22.0-30.0) sec Sodium (137-145) mmol/L Potassium (3.5-5.1) mmol/L Chloride (98-107) mmol/L Carbon Dioxide (22-30) mmol/L Anion Gap mmol/L BUN (9-20) mg/dL Creatinine (0.66-1.25) mg/dL Est GFR (CKD-EPI)AfAm (>60 ml/min/1.73 sqM) Est GFR (CKD-EPI)NonAf (>60 ml/min/1.73 sqM) Glucose (74-99) mg/dL Plasma Lactic Acid Vincent (0.7-2.0) mmol/L Calcium (8.4-10.2) mg/dL Total Bilirubin (0.2-1.3) mg/dL AST (17-59) U/L ALT (4-49) U/L Alkaline Phosphatase (38-126) U/L Troponin I 0.013 (0.000-0.034) ng/mL Total Protein (6.3-8.2) g/dL Albumin (3.5-5.0) g/dL - EKG Data -: EKG Interpreted by Me (EKG shows sinus rhythm of 83, NM 90, QRS 100, QTC 477) - Radiology Data Radiology results: report reviewed (xr foot negative for acute disease), image reviewed Disposition Clinical Impression: Diabetes mellitus, Diabetic foot ulcer Narrative: Second Toe Left Foot draining Diabetic Ulcer Disposition: ADMITTED IP TO THIS [facility] Condition: Good Is patient prescribed a controlled substance at d/c from ED?: No Referrals: Mike Castillo MD [Primary Care Provider] - 1-2 days
[2019-07-23 17:38] LABS: INR 0.9 (<1.2); Prothrombin Time 9.8 sec (9.0-12.0)
[2019-07-23 17:39] LABS: Partial Thromboplastin Time 23.6 sec (22.0-30.0)
[2019-07-23 17:42] LABS: ALT 41 U/L (4-49); AST 28 U/L (17-59); African American GFR (CKD) >90 (>60 ml/min/1.73 sqM); Albumin 4.1 g/dL (3.5-5.0); Alkaline Phosphatase 143 U/L (38-126); Anion Gap 12 mmol/L; Blood Urea Nitrogen 19 mg/dL (9-20); Carbon Dioxide 26 mmol/L (22-30); Chloride 101 mmol/L (98-107); Glucose 91 mg/dL (74-99); Non-African American GFR(CKD) >90 (>60 ml/min/1.73 sqM); Potassium 4.5 mmol/L (3.5-5.1); Sodium 139 mmol/L (137-145); Total Bilirubin 0.8 mg/dL (0.2-1.3); Total Protein 7.5 g/dL (6.3-8.2)
[2019-07-23] MEDS ORDERED: SODIUM CHLORIDE 0.9% 1,000 ML IV ONE (18:12)
[2019-07-23] MEDS ORDERED: VANCOMYCIN IV PER PHARMACY 1 EACH MISC MISCELLANE PRN (18:12)
[2019-07-23] MEDS ORDERED: VANCOMYCIN 2,250 MG in SODIUM CHLORIDE 0.9% 500 ML 500 ML IVPB ONE (18:30)
[2019-07-23 21:43] LABS: Glucose,Whole Blood 160 mg/dL (75-99)
[2019-07-23] MEDS: INSULIN NPH 300 UNIT/3 ML VIAL SQ SCH (22:12)
[2019-07-23] MEDS: NON FORMULARY DRUG (Lubiprostone [Amitiza] 24 MCG) PO SCH (22:12)
[2019-07-23] MEDS: HYDROcodone/APAP 7.5-325MG 1 EACH TAB PO SCH (22:17)
[2019-07-23] MEDS: GABAPENTIN 300 MG CAP PO SCH (22:17)
[2019-07-24 07:11] LABS: Glucose,Whole Blood 98 mg/dL (75-99)
[2019-07-24] MEDS ORDERED: INSULIN ASPART (NovoLOG) 100 UNIT/ML VIAL SQ SCH (07:30)
[2019-07-24] MEDS: INSULIN ASPART (NovoLOG) 100 UNIT/ML VIAL SQ SCH ×4 (07:36→21:30)
[2019-07-24] MEDS: LISINOPRIL 10 MG TAB PO SCH (07:44)
[2019-07-24] MEDS: HYDROcodone/APAP 7.5-325MG 1 EACH TAB PO SCH ×3 (07:44→21:30)
[2019-07-24] MEDS: ATORVASTATIN 40 MG TAB PO SCH (07:44)
[2019-07-24] MEDS: TRIAMTERENE-HCTZ 37.5-25MG 1 EACH CAP PO SCH (07:45)
[2019-07-24] MEDS: GABAPENTIN 300 MG CAP PO SCH ×3 (07:45→21:31)
[2019-07-24] MEDS: NON FORMULARY DRUG (Lubiprostone [Amitiza] 24 MCG) PO SCH ×2 (07:46→21:40)
[2019-07-24] MEDS: PSYLLIUM HUSK 100% 6 GM PACKET PO SCH (07:46)
[2019-07-24] MEDS: ENOXAPARIN 40 MG/0.4 ML SYRINGE SQ SCH (07:46)
[2019-07-24] MEDS ORDERED: VANCOMYCIN 2,250 MG in SODIUM CHLORIDE 0.9% 500 ML 500 ML IVPB SCH (08:00)
[2019-07-24] MEDS: INSULIN REGULAR 100 UNIT/ML VIAL SQ SCH ×3 (09:36→17:16)
[2019-07-24] MEDS: VANCOMYCIN 2,250 MG in SODIUM CHLORIDE 0.9% 500 ML 500 ML IVPB SCH ×2 (09:41→23:42)
[2019-07-24 12:04] LABS: Glucose,Whole Blood 140 mg/dL (75-99)
--- NOTE | 2019-07-24 13:18 | HP ---
HISTORY AND PHYSICAL CHIEF COMPLAINT: A 69-year-old white male with significant drainage from his left foot second toe, severe drainage and severe pain and apparently an ulcer had just broke and bled into his sock at home. He has a history of diabetic neuropathy and he has hard callus on this area for the past couple years he has been fighting with, but no open wounds until just yesterday when it burst open and his entire toe is red and swollen, his left foot second toe. Chronic diabetic neuropathy. MEDICATIONS: He is on: 1. NPH insulin 20 units subcu at bedtime. 2. Aspirin 81 mg at home. 3. [place] 10 q.4 hours p.r.n. at home. 4. Novolin Regular 25 units subcu a.c. t.i.d. 5. Citrucel powder 2 grams daily. 6. 20 mg daily. 7. Testosterone 200 mg IM every 14 days. ALLERGIES: Allergies are to NAPROSYN. REVIEW OF SYSTEMS: Fourteen-point review of systems negative except for as mentioned in HPI. PAST MEDICAL HISTORY: Diabetes mellitus, hypertension, lumbar neuropathy, lumbar radiculopathy, type 2 diabetes insulin, irritable bowel syndrome, chronic thigh pain from nerve damage from his back, diabetic neuropathy, hypercholesterolemia, obesity, GERD. SURGERIES: Surgery of left shoulder, collarbone crush injury with hardware, left knee surgery, left great toe debridement in the past, EGD, colonoscopy. SOCIAL HISTORY: Does not smoke. Rare alcohol. No illicit drugs. FAMILY HISTORY: Mother with cancer. Father had cancer. PHYSICAL EXAMINATION: Temperature 97.8, pulse is 70s to 80s, respiratory rate is 16 to 18, blood pressure 130s over 80s, O2 saturation 97%. CARDIOVASCULAR: S1, S2. LUNGS: Transmitted upper airway sounds. BACK: Lumbar tenderness to palpation of paralumbar spine. Straight leg raise test positive in the left leg and right leg. Cranial nerves are intact. PSYCH: Fair mood and affect. SKIN: Significant redness to the second toe with necrotic ulcer on the medial aspect of the second toe on the left foot on the entire medial side of the toe black eschar type purulent drainage. The entire toe is red and warm. VASCULAR: Has 1+ dorsalis pedis, posterior tibial pulses to the leg. HEMATOLOGY: Negative Homans. White count 16.1, hemoglobin is 15.6, BUN is 19, creatinine 0.75. Lactic acid is 1.8. LFTs are normal. ASSESSMENT: 1. Diabetic wound infection of the left great toe with purulent drainage. Rule out osteomyelitis. 2. Severe cellulitis of the left foot, especially the toe in the dorsum of the tarsal area of the foot. 3. Insulin-dependent diabetes mellitus. 4. Diabetic neuropathy. 5. Lumbar disc disease. 6. Morbid obesity. Continue current medications include vancomycin, Rocephin. Infectious disease consult. Vascular consult. Bone scan of the foot will be done. Possible arterial Doppler will be ordered. Please see further orders. MMODL / IJN: [id number] /
[2019-07-24 14:52] VITALS: BMI 38.0
--- NOTE | 2019-07-24 14:54 | P.GSCN ---
History of Present Illness Consult date: 07/24/19 Reason for Consult: Necrotic left second toe Requesting physician: Mike Castillo History of present illness: The patient states that he's had an ulcer on the distal tip of the left second toe for several years. He is a poorly controlled insulin-dependent diabetic. He is severely obese. His sugars run in the 200s. Review of Systems All systems: negative - Constitutional Denies fever, Denies weight loss - EENT Eyes: denies blurred vision Ears, nose, mouth and throat: Denies dysphagia - Cardiovascular Denies chest pain, Denies shortness of breath - Respiratory Denies cough, Denies dyspnea, Denies hemoptysis - Gastrointestinal Reports as per HPI - Genitourinary Denies dysuria, Denies hematuria - Musculoskeletal Musculoskeleta Comment(s): Diabetic neuropathy affecting the feet - Integumentary Denies rash, Denies unusual bruising - Neurological Reports numbness, Reports sensory deficit, Denies confusion, Denies headaches, Denies paralysis, Denies syncope, Denies transient paralysis - Endocrine Endocrine Comment(s): Poorly controlled diabetes with sugars running in the 200s chronically - Hematologic/Lymphatic Denies easy bleeding, Denies easy bruising Past Medical History Past Medical History: Diabetes Mellitus, Hypertension Additional Past Medical History / Comment(s): IDDM type II, neuropathy bilateral feet, borderline high cholesterol, gastritis, chrons, IBS, back pain in winter months, chronic bilateral thigh pain. History of Any Multi-Drug Resistant Organisms: None Reported Past Surgical History: Orthopedic Surgery Additional Past Surgical History / Comment(s): L shoulder/collar bone crush injury with hardware, L knee surgery d/t injury, L great toe ulcer with debridement, EGD, colonoscopies. Past Anesthesia/Blood Transfusion Reactions: No Reported Reaction Past Psychological History: No Psychological Hx Reported Additional Psychological History / Comment(s): Pt has an adult son living with him. He is indpendent. Smoking Status: Never smoker Past Alcohol Use History: Rare Past Drug Use History: None Reported - Past Family History Mother Family Medical History: Cancer Father Family Medical History: Cancer Medications and Allergies Home Medications Medication Instructions Recorded Confirmed Type Insulin NPH Human Isophane 20 unit SQ HS 11/23/18 07/23/19 History [NovoLIN N] Aspirin 675 mg PO Q4H PRN 06/08/19 07/23/19 History Insulin Regular, Human [NovoLIN R] 25 unit SQ AC-TID 06/08/19 07/23/19 History Methylcellulose (with Sugar) 2 gm PO DAILY 06/08/19 07/23/19 History [Citrucel Powder] Testosterone Cypionate 200 mg IM Q14D 06/08/19 07/23/19 History [Depo-Testosterone] Atorvastatin [Lipitor] 40 mg PO DAILY #90 tab 06/09/19 07/23/19 Rx Gabapentin [Neurontin] 300 mg PO TID 07/23/19 07/23/19 History HYDROcodone/APAP 7.5-325MG [[place] 1 tab PO TID 07/23/19 07/23/19 History 7.5-325] Lisinopril 30 mg PO DAILY 07/23/19 07/23/19 History Lubiprostone [Amitiza] 24 mcg PO BID 07/23/19 07/23/19 History Triamterene-Hctz 37.5-25Mg 1 cap PO DAILY 07/23/19 07/23/19 History [Dyazide 37.5-25 Capsule] Allergies Allergy/AdvReac Type Severity Reaction Status Date / Time naproxen Allergy Swelling Verified 07/23/19 18:20 Surgical - Exam Osteopathic Statement: *. No significant issues noted on an osteopathic structural exam other than those noted in the History and Physical/Consult. Vital Signs Temp Pulse Resp BP Pulse Ox 97.8 F 79 16 136/81 97 07/23/19 15:22 07/23/19 15:22 07/23/19 15:22 07/23/19 15:22 07/23/19 15:22 - General well developed, well nourished, no distress, obese - Eyes normal ocular movement, no icteric - ENT no hearing loss, no congestion - Neck no masses, trachea midline - Respiratory normal respiratory effort, clear to auscultation - Abdomen Abdomen: soft, non tender, no guarding, no rigid, no rebound - Integumentary no rash, no abnormal pigmentation - Neurologic no disoriented, no combative - Musculoskeletal Blackened left second toe - Psychiatric oriented to time, oriented to person, oriented to place, speech is normal, memory intact Results - Labs 07/23/19 17:00 07/23/19 17:00 Abnormal Lab Results - Last 24 Hours (Table) 07/23/19 07/23/19 07/23/19 Range/Units 17:00 17:00 21:40 WBC 16.1 H (3.8-10.6) k/uL Neutrophils # 10.4 H (1.3-7.7) k/uL Monocytes # 1.5 H (0-1.0) k/uL POC Glucose (mg/dL) 160 H (75-99) mg/dL Calcium 11.0 H (8.4-10.2) mg/dL Alkaline Phosphatase 143 H (38-126) U/L 07/24/19 Range/Units 12:02 WBC (3.8-10.6) k/uL Neutrophils # (1.3-7.7) k/uL Monocytes # (0-1.0) k/uL POC Glucose (mg/dL) 140 H (75-99) mg/dL Calcium (8.4-10.2) mg/dL Alkaline Phosphatase (38-126) U/L Microbiology - Last 24 Hours (Table) 07/23/19 22:30 Gram Stain - Preliminary Toe - Left Second Wound Culture - Preliminary Diabetes panel 07/23/19 Range/Units 17:00 Sodium 139 (137-145) mmol/L Potassium 4.5 (3.5-5.1) mmol/L Chloride 101 (98-107) mmol/L Carbon Dioxide 26 (22-30) mmol/L BUN 19 (9-20) mg/dL Creatinine 0.75 (0.66-1.25) mg/dL Glucose 91 (74-99) mg/dL Calcium 11.0 H (8.4-10.2) mg/dL AST 28 (17-59) U/L ALT 41 (4-49) U/L Alkaline Phosphatase 143 H (38-126) U/L Total Protein 7.5 (6.3-8.2) g/dL Albumin 4.1 (3.5-5.0) g/dL Calcium panel 07/23/19 Range/Units 17:00 Calcium 11.0 H (8.4-10.2) mg/dL Albumin 4.1 (3.5-5.0) g/dL Pituitary panel 07/23/19 Range/Units 17:00 Sodium 139 (137-145) mmol/L Potassium 4.5 (3.5-5.1) mmol/L Chloride 101 (98-107) mmol/L Carbon Dioxide 26 (22-30) mmol/L BUN 19 (9-20) mg/dL Creatinine 0.75 (0.66-1.25) mg/dL Glucose 91 (74-99) mg/dL Calcium 11.0 H (8.4-10.2) mg/dL Adrenal panel 07/23/19 Range/Units 17:00 Sodium 139 (137-145) mmol/L Potassium 4.5 (3.5-5.1) mmol/L Chloride 101 (98-107) mmol/L Carbon Dioxide 26 (22-30) mmol/L BUN 19 (9-20) mg/dL Creatinine 0.75 (0.66-1.25) mg/dL Glucose 91 (74-99) mg/dL Calcium 11.0 H (8.4-10.2) mg/dL Total Bilirubin 0.8 (0.2-1.3) mg/dL AST 28 (17-59) U/L ALT 41 (4-49) U/L Alkaline Phosphatase 143 H (38-126) U/L Total Protein 7.5 (6.3-8.2) g/dL Albumin 4.1 (3.5-5.0) g/dL Assessment and Plan (1) Chronic ulcer of toe of left foot with necrosis of muscle Current Visit: Yes Status: Acute Code(s): L97.523 - NON-PRS CHRONIC ULCER OTH PRT LEFT FOOT W NECROSIS OF MUSCLE SNOMED Code(s): 347891366 (2) Diabetic ulcer of left foot associated with diabetes mellitus due to underlying condition, with necrosis of muscle Current Visit: Yes Status: Acute Code(s): E08.621 - DIABETES MELLITUS DUE TO UNDERLYING CONDITION W FOOT ULCER; L97.523 - NON-PRS CHRONIC ULCER OTH PRT LEFT FOOT W NECROSIS OF MUSCLE SNOMED Code(s): 405531384 (3) Morbid obesity Current Visit: No Status: Acute Code(s): E66.01 - MORBID (SEVERE) OBESITY DUE TO EXCESS CALORIES SNOMED Code(s): 058752318 Plan: I discussed options with the patient in detail. #1 We will get baseline lower extremity arterial Doppler studies #2 I'm recommended that he be much more diligent about controlling his blood sugars due to long-standing morbidities associated with poor control #3 I've recommended amputation of the left second toe as soon as possible. Regardless of the findings of his Doppler study this should occur before he gets a more proximal infectious process. The patient verbalizes an understanding of our recommendations and his agreement with them.
--- NOTE | 2019-07-24 17:01 | NM ---
EXAMINATION TYPE: NM bone 3 phase DATE OF EXAM: 07/24/2019 COMPARISON: NONE HISTORY: Triple phase bone scintigraphy was performed following the injection of 20.2 mCi Tc 99m MDP. Immedia te images and 3.5 hours post injection images acquired. FINDINGS: The flow study shows hyperemia of the left foot compared to the right. There is hyperemia of the toes of the left foot. There is on the delayed images significant increased uptake in the left second toe . There is also focal significant increased uptake in the distal left and right tibia. The remainder of exam is unremarkable. IMPRESSION: Delayed increased uptake in the left second toe is consistent with osteomyelitis. There is symmetric intense increased uptake in the distal left tibia and right tibia of uncertain sig nificance. This could relate to a bone infarct. There is mild delayed increased uptake in the tip of the right big toe that is also mildly suspicious for osteomyelitis or arthritic disease.
[2019-07-24 17:03] LABS: Glucose,Whole Blood 72 mg/dL (75-99)
[2019-07-24 20:39] LABS: Glucose,Whole Blood 149 mg/dL (75-99)
[2019-07-24] MEDS: INSULIN NPH 300 UNIT/3 ML VIAL SQ SCH (21:30)
--- NOTE | 2019-07-24 21:44 | P.CONS ---
History of Present Illness - Reason for Consult Consult date: 07/24/19 left 2nd toe infection Requesting physician: Joyce Mcclain - Chief Complaint left 2nd toe swelling , redness and drainage x few days - History of Present Illness Patient is a 77-year-old male presenting to the ER at [facility] yesterday with a chief complaint of left second toe pain swelling redness and discoloration patient did not recall any history of any trauma he noticed his left second toe started getting more swollen right with some disc oloration also noticing swelling redness and discomfort to the left foot dorsum area the pain to the left foot also moved without aching at times sharp about 8 out of 10 and radiation with some improvement with the pain medication patient denies high-grade fever however did have some chills with the symptom the patient was evaluated by the ER physician on arrival to the ER the patient has been afebrile patient did have glucose was 16.1 kidney function was normal patient did have x-rays of the left foot which did show second toe soft tissue swelling no evidence of any bony destruction local blood culture was obtained patient has been started on Rocephin and vancomycin admitted to hospital inf ectious was consulted for further recommendation regarding antibiotic therapy. Review of Systems CONSTITUTIONAL: Positive for weakness did have some chills but denies high- grade fever. EYES: No complaint. ENT: No complaint. RESPIRATORY: No complaint. CARDIOVASCULAR: No complaint. GENITOURINARY: No complaint. GASTROINTESTINAL: No complaint. MUSCULOSKELETAL: As per history of present illness. INTEGUMENTARY: As per history of present illness. PSYCHOLOGIC: No complaint. ENDOCRINE: No complaint. NEUROLOGIC: No complaint Past Medical History Past Medical History: Diabetes Mellitus, Hypertension Additional Past Medical History / Comment(s): IDDM type II, neuropathy bilateral feet, borderline high cholesterol, gastritis, chrons, IBS, back pain in winter months, chronic bilateral thigh pain. History of Any Multi-Drug Resistant Organisms: None Reported Past Surgical History: Orthopedic Surgery Additional Past Surgical History / Comment(s): L shoulder/collar bone crush injury with hardware, L knee surgery d/t injury, L great toe ulcer with debridement, EGD, colonoscopies. Past Anesthesia/Blood Transfusion Reactions: No Reported Reaction Past Psychological History: No Psychological Hx Reported Additional Psychological History / Comment(s): Pt has an adult son living with him. He is indpendent. Smoking Status: Never smoker Past Alcohol Use History: Rare Past Drug Use History: None Reported - Past Family History Mother Family Medical History: Cancer Father Family Medical History: Cancer Medications and Allergies Home Medications Medication Instructions Recorded Confirmed Type Insulin NPH Human Isophane 20 unit SQ HS 11/23/18 07/23/19 History [NovoLIN N] Aspirin 675 mg PO Q4H PRN 06/08/19 07/23/19 History Insulin Regular, Human [NovoLIN R] 25 unit SQ AC-TID 06/08/19 07/23/19 History Methylcellulose (with Sugar) 2 gm PO DAILY 06/08/19 07/23/19 History [Citrucel Powder] Testosterone Cypionate 200 mg IM Q14D 06/08/19 07/23/19 History [Depo-Testosterone] Atorvastatin [Lipitor] 40 mg PO DAILY #90 tab 06/09/19 07/23/19 Rx Gabapentin [Neurontin] 300 mg PO TID 07/23/19 07/23/19 History HYDROcodone/APAP 7.5-325MG [[place] 1 tab PO TID 07/23/19 07/23/19 History 7.5-325] Lisinopril 30 mg PO DAILY 07/23/19 07/23/19 History Lubiprostone [Amitiza] 24 mcg PO BID 07/23/19 07/23/19 History Triamterene-Hctz 37.5-25Mg 1 cap PO DAILY 07/23/19 07/23/19 History [Dyazide 37.5-25 Capsule] Allergies Allergy/AdvReac Type Severity Reaction Status Date / Time naproxen Allergy Swelling Verified 07/23/19 18:20 Physical Exam Vitals: Vital Signs Temp Pulse Resp BP Pulse Ox 07/24/19 13:35 98.1 F 65 16 169/80 99 07/24/19 08:40 97 07/24/19 05:53 97.9 F 67 17 163/82 98 Intake and Output 07/24/19 07/24/19 07/24/19 06:59 14:59 22:59 Intake Total 1000 Output Total 600 Balance -600 1000 Intake: Oral 1000 Output: Urine 600 Other: # Voids 2 Weight 127.006 kg GENERAL DESCRIPTION: Elderly male lying in bed, no distress. No tachypnea or accessory muscle of respiration use. HEENT: Shows Pallor , no scleral icterus. Oral mucous membrane is dry. NECK: Trachea central, no thyromegaly. LUNGS: Unlabored breathing. Clear to auscultation anteriorly. No wheeze or crackle. HEART: S1, S2, regular rate and rhythm. ABDOMEN: Soft, no tenderness , guarding or rigidity EXTREMITIES: Left second toe with swelling redness discoloration and foul- smelling drainage with some redness extending to dorsum of the left foot. SKIN: No rash, no masses palpable. NEUROLOGICAL: The patient is awake, alert, oriented x3, mood and affect normal. Results CBC & Chem 7: 07/23/19 17:00 07/23/19 17:00 Labs: Abnormal Lab Results - Last 24 Hours (Table) 07/23/19 07/24/19 07/24/19 Range/Units 21:40 12:02 17:01 POC Glucose (mg/dL) 160 H 140 H 72 L (75-99) mg/dL 07/24/19 Range/Units 20:37 POC Glucose (mg/dL) 149 H (75-99) mg/dL Microbiology - Last 24 Hours (Table) 07/23/19 17:00 Blood Culture - Preliminary Blood No Growth after 24 hours 07/23/19 22:30 Gram Stain - Preliminary Toe - Left Second Wound Culture - Preliminary Assessment and Plan Assessment: patient with left diabetic foot infection, Chung's grade 4 in this patient who did have a gangrene of his left second toe will need to call for both gram- positive as well as gram-negative pathogen with a likely likely responsible for this infection in this patient who did have uncontrolled diabetes mellitus (1) Wet gangrene Current Visit: Yes Status: Acute Code(s): I96 - GANGRENE, NOT ELSEWHERE CLASSIFIED SNOMED Code(s): 034995382 (2) Diabetic foot ulcer Current Visit: Yes Status: Acute Code(s): E11.621 - TYPE 2 DIABETES MELLITUS WITH FOOT ULCER; L97.509 - NON-PRESSURE CHRONIC ULCER OTH PRT UNSP FOOT W UNSP SEVERITY SNOMED Code(s): 454338974 Plan: 1-vancomycin pharmacy to dose her with a target trough of 15 while watching her kidney function and Vanco trough closely. 2-add Unasyn 3 g every 6 hours discontinue Rocephin 3-patient more likely will lose his left second toe because of gangrenous gonzales nges for which vascular surgery has been consulted We will follow on clinical condition and cultures to further adjust medication if needed Thank you for this consultation we will follow the patient along with you Time with Patient: Greater than 30
[2019-07-25] MEDS: AMPICILLIN-SULBACTAM 3 GM in SODIUM CHLORIDE 0.9% 100 ML IVPB SCH ×5 (00:06→23:58)
[2019-07-25 07:27] LABS: Glucose,Whole Blood 167 mg/dL (75-99)
[2019-07-25] MEDS: PSYLLIUM HUSK 100% 6 GM PACKET PO SCH (08:03)
[2019-07-25] MEDS: LISINOPRIL 10 MG TAB PO SCH (08:03)
[2019-07-25] MEDS: GABAPENTIN 300 MG CAP PO SCH ×3 (08:03→22:00)
[2019-07-25] MEDS: HYDROcodone/APAP 7.5-325MG 1 EACH TAB PO SCH ×3 (08:03→21:59)
[2019-07-25] MEDS: ENOXAPARIN 40 MG/0.4 ML SYRINGE SQ SCH (08:04)
[2019-07-25] MEDS: INSULIN ASPART (NovoLOG) 100 UNIT/ML VIAL SQ SCH ×4 (08:04→21:50)
[2019-07-25] MEDS: ATORVASTATIN 40 MG TAB PO SCH (08:04)
[2019-07-25] MEDS: INSULIN REGULAR 100 UNIT/ML VIAL SQ SCH ×3 (08:05→17:44)
[2019-07-25] MEDS: NON FORMULARY DRUG (Lubiprostone [Amitiza] 24 MCG) PO SCH ×2 (08:05→21:50)
[2019-07-25] MEDS: TRIAMTERENE-HCTZ 37.5-25MG 1 EACH CAP PO SCH (08:06)
[2019-07-25] MEDS ORDERED: IV FLUID CONTINUATION 1,000 ML IV ONE (09:23)
[2019-07-25] MEDS ORDERED: ONDANSETRON 4 MG/2 ML VIAL IVP ONE (09:32)
[2019-07-25] MEDS ORDERED: MIDAZOLAM 2 MG/2 ML VIAL ONE (09:34)
[2019-07-25] MEDS ORDERED: PROPOFOL 10 MG/ML 20 ML VIAL IV ONE (09:34)
[2019-07-25] MEDS ORDERED: fentaNYL (PF) 50 MCG/ML 2 ML AMP ONE (09:34)
[2019-07-25 10:02] LABS: ALT 30 U/L (4-49); AST 20 U/L (17-59); African American GFR (CKD) >90 (>60 ml/min/1.73 sqM); Albumin 3.4 g/dL (3.5-5.0); Alkaline Phosphatase 149 U/L (38-126); Anion Gap 8 mmol/L; Blood Urea Nitrogen 16 mg/dL (9-20); Calcium 9.9 mg/dL (8.4-10.2); Carbon Dioxide 25 mmol/L (22-30); Chloride 104 mmol/L (98-107); Glucose 159 mg/dL (74-99); Non-African American GFR(CKD) >90 (>60 ml/min/1.73 sqM); Potassium 4.5 mmol/L (3.5-5.1); Sodium 137 mmol/L (137-145); Total Bilirubin 0.7 mg/dL (0.2-1.3); Total Protein 6.5 g/dL (6.3-8.2)
[2019-07-25 10:07] LABS: Basophils % (A) 0 %; Eosinophils # (A) 0.3 k/uL (0-0.7); Eosinophils % (A) 2 %; HCT 43.7 % (39.0-53.0); HGB 14.3 gm/dL (13.0-17.5); Lymphocytes # (A) 2.6 k/uL (1.0-4.8); Lymphocytes % (A) 23 %; MCH 27.8 pg (25.0-35.0); MCHC 32.8 g/dL (31.0-37.0); MCV 84.8 fL (80.0-100.0); Monocytes # (A) 0.9 k/uL (0-1.0); Monocytes % (A) 8 %; Neutrophils # (A) 7.2 k/uL (1.3-7.7); Neutrophils % (A) 64 %; Platelet Count 365 k/uL (150-450); RBC 5.15 m/uL (4.30-5.90); RDW 13.1 % (11.5-15.5); WBC 11.3 k/uL (3.8-10.6)
--- NOTE | 2019-07-25 10:08 | P.OP ---
Date of Procedure: 07/25/19 Preoperative Diagnosis: Necrotic left second toe Postoperative Diagnosis: Same Procedure(s) Performed: Amputation left second toe through the proximal phalanx Anesthesia: MAC Surgeon: Shekhar Gibbons Estimated Blood Loss (ml): 30 Pathology: none sent Condition: stable Disposition: PACU Indications for Procedure: The patient had developed necrosis and purulence with total degeneration of the second toe. Operative Findings: The bone at the proximal proximal phalanx appeared healthy as did the tissues surrounding the area of amputation at the base of the toe. There appeared to be ample blood supply by physical appearance.. Description of Procedure: With the patient in supine position, under benefit of IV sedation, we prepped and draped in standard fashion. We made a circumferential incision around the base of the left second toe. We took it directly down to the bone using sharp dissection. The bone was divided with a bone cutter. We removed all obvious tendons with sharp dissection. We took the bone at least a centimeter above the skin line leaving only the proximal head of the proximal phalanx. We irrigated with saline and dressed the wound with absorptive silver. Sterile dressings were applied. The patient was taken recovery area in stable condition.
--- NOTE | 2019-07-25 10:09 | P.PN ---
Progress Note - Text Progress Note Date: 07/25/19 The patient underwent successful amputation of the left second toe. Proximal tissues appeared healthy. Due to the purulence of the toe we did not primarily close the wound. We dressed it with absorptive silver. We will follow as soon as possible in wound care. A wound VAC could be placed during hospital stay for follow-up in wound care. Antibiotics are deferred to ID.
[2019-07-25 10:24] LABS: Glucose,Whole Blood 151 mg/dL (75-99)
[2019-07-25] MEDS: VANCOMYCIN 2,250 MG in SODIUM CHLORIDE 0.9% 500 ML 500 ML IVPB SCH ×2 (11:09→22:00)
[2019-07-25] MEDS ORDERED: MORPHINE SULFATE 4 MG/ML SYRINGE IVP STA (11:12)
[2019-07-25 11:50] LABS: Erythrocyte Sedimentation Rate 43 mm/hr (0-15)
[2019-07-25 12:36] LABS: Glucose,Whole Blood 164 mg/dL (75-99)
[2019-07-25 17:20] LABS: Glucose,Whole Blood 197 mg/dL (75-99)
[2019-07-25 19:42] LABS: Hemoglobin A1C 8.2 % (4.0-6.0)
--- NOTE | 2019-07-25 19:50 | PN ---
PROGRESS NOTE This is a white male who has osteomyelitis of the left second toe. He underwent amputation of the left second toe today. The tissues were healthy. A wound V.A.C. was placed. Due to the purulence of the toe they did not do a primary closure and they had the wound V.A.C. put on. Will wait for infectious disease recommendations and possibly rehab placement on this patient. CARDIOVASCULAR: S1, S2. LUNGS: Clear. GI: Soft. Temperature 98, pulse 72 to 95, respiratory rate 16 to 18, blood pressure 119 to 150 over 60s to 70s. ASSESSMENT: 1. Osteomyelitis, left second toe, status post amputation of the toe. 2. Diabetic neuropathy. 3. Diabetes mellitus. 4. Morbid obesity. 5. Obstructive sleep apnea. Continue current antibiotics and medications. Wound V.A.C. to the toe. Await infectious disease recommendations. MMAGAPITO / VI: [id number] /
[2019-07-25 21:47] LABS: Glucose,Whole Blood 80 mg/dL (75-99)
--- NOTE | 2019-07-25 23:41 | PN ---
PROGRESS NOTE DATE OF SERVICE: 07/25/2019 REASON FOR FOLLOWUP: Left second toe diabetic foot infection with wet gangrene. INTERVAL HISTORY: The patient is currently afebrile. The patient was taken to the OR this morning. The patient is status post left second toe amputation. Patient tolerated the procedure. Post surgery the patient's pain is currently controlled. Denies having any chest pain, shortness of breath or cough. No abdominal pain or diarrhea. PHYSICAL EXAMINATION: Blood pressure is 158/76, pulse of 74, temperature 97.7. He is 97% on room air. General description is an elderly male lying in bed in no distress. RESPIRATORY SYSTEM: Unlabored breathing. Clear to auscultation anteriorly. HEART: S1, S2. Regular rate and rhythm. ABDOMEN: Soft. No tenderness. Left foot is currently dressed up. No obvious drainage on the dressing. LABS: Hemoglobin is 14.3, white count 11.3 with a BUN of 16, creatinine 0.63. Second toe culture with Gram-negative bacilli. DIAGNOSTIC IMPRESSION AND PLAN: Patient with left second toe wet gangrene, status post amputation with the infected part removed. Patient will not need to be on long-term antibiotic, especially if the blood culture remains negative. Will monitor his clinical course closely. Continue with supportive care. MMODL / IJN: [id number] /
[2019-07-26 00:20] LABS: Glucose,Whole Blood 274 mg/dL (75-99)
[2019-07-26] MEDS: INSULIN NPH 300 UNIT/3 ML VIAL SQ SCH ×2 (00:47→23:25)
[2019-07-26] MEDS: AMPICILLIN-SULBACTAM 3 GM in SODIUM CHLORIDE 0.9% 100 ML IVPB SCH ×3 (06:31→17:23)
[2019-07-26 06:55] LABS: Glucose,Whole Blood 159 mg/dL (75-99)
[2019-07-26] MEDS: ENOXAPARIN 40 MG/0.4 ML SYRINGE SQ SCH (07:29)
[2019-07-26] MEDS: PSYLLIUM HUSK 100% 6 GM PACKET PO SCH (07:29)
[2019-07-26] MEDS: INSULIN ASPART (NovoLOG) 100 UNIT/ML VIAL SQ SCH ×4 (07:30→23:26)
[2019-07-26] MEDS: GABAPENTIN 300 MG CAP PO SCH ×3 (07:30→23:27)
[2019-07-26] MEDS: ATORVASTATIN 40 MG TAB PO SCH (07:30)
[2019-07-26] MEDS: LISINOPRIL 10 MG TAB PO SCH (07:31)
[2019-07-26] MEDS: TRIAMTERENE-HCTZ 37.5-25MG 1 EACH CAP PO SCH (07:31)
[2019-07-26] MEDS: INSULIN REGULAR 100 UNIT/ML VIAL SQ SCH ×3 (07:37→17:14)
[2019-07-26] MEDS: NON FORMULARY DRUG (Lubiprostone [Amitiza] 24 MCG) PO SCH ×2 (07:42→23:23)
[2019-07-26] MEDS: HYDROcodone/APAP 7.5-325MG 1 EACH TAB PO SCH ×3 (08:42→23:26)
[2019-07-26] MEDS ORDERED: VANCOMYCIN TROUGH DUE 1 EACH MISC MISCELLANE ONE (09:00)
[2019-07-26] MEDS: VANCOMYCIN 2,250 MG in SODIUM CHLORIDE 0.9% 500 ML 500 ML IVPB SCH (09:29)
[2019-07-26 09:34] LABS: African American GFR (CKD) >90 (>60 ml/min/1.73 sqM); Non-African American GFR(CKD) >90 (>60 ml/min/1.73 sqM)
[2019-07-26 11:34] LABS: Glucose,Whole Blood 175 mg/dL (75-99)
[2019-07-26] MEDS ORDERED: MORPHINE SULFATE 4 MG/ML SYRINGE IVP STA (11:57)
--- NOTE | 2019-07-26 12:22 | P.PN ---
Subjective Progress Note Date: 07/26/19 Principal diagnosis: Necrotic left second toe. Previous medical history of multiple medical comorbidities including insulin dependant diabetes with current HgbA1c 8.2%, neuropathy to bilateral feet, previous left great toe ulcer with debridement, obesity POD#1 amputation left second toe through the proximal phalanx The patient is currently sitting up in bed in no acute distress with son at the bedside. States pain is minimal to left second toe, most of his pain is in his back. States he has been up to bedside commode with difficulty due to non- weight bearing status of left foot. Concerned over how he's going to bathe and function at home. Otherwise no new complaints. Objective - Vital Signs Vital signs: Vital Signs Temp 98.1 F 07/26/19 05:53 Pulse 69 07/26/19 05:53 Resp 12 07/26/19 05:53 BP 183/73 07/26/19 05:53 Pulse Ox 97 07/26/19 05:53 Intake & Output 07/25/19 07/26/19 07/26/19 18:59 06:59 18:59 Intake Total 250 Output Total 1002 1974 Balance -752 -1974 Weight 127.006 kg Intake: IV 250 Output: Urine 1000 1974 Estimated Blood Loss 2 Other: Voiding Method Toilet Toilet Urinal Urinal - Constitutional General appearance: Present: cooperative, no acute distress, obese - Respiratory Details: Lung sounds clear bilaterally. Respirations even, non-labored. Currently on room air with oxygen saturation 97%. - Cardiovascular Rhythm: regular Heart sounds: normal: S1, S2 - Gastrointestinal Gastrointestinal Comment(s): Abdomen soft, non-tender, non-distended, obese. Bowel sounds present x 4 quadrants. Tolerating diet - Genitourinary Genitourinary Comment(s): Continues to void - Integumentary Integumentary Comment(s): Skin is warm and dry. Left foot dressing removed, appears clean with minimal bloody drainage, no purulence noted. Measured: 2.5 cm dorsal to planter surface, 1.5 cm medial to lateral, and 1.5 cm deep. - Neurologic Neurologic: Present: CNII-XII intact - Musculoskeletal Musculoskeletal: Present: strength equal bilaterally - Psychiatric Psychiatric: Present: A&O x's 3, appropriate affect, intact judgment & insight - Allied health notes Allied health notes reviewed: nursing - Labs CBC & Chem 7: 07/25/19 08:58 07/26/19 08:19 Labs: Abnormal Lab Results - Last 24 Hours (Table) 07/25/19 07/25/19 07/25/19 Range/Units 08:58 12:34 17:03 POC Glucose (mg/dL) 164 H 197 H (75-99) mg/dL Hemoglobin A1c 8.2 H (4.0-6.0) % 07/26/19 07/26/19 07/26/19 Range/Units 00:20 06:54 11:31 POC Glucose (mg/dL) 274 H 159 H 175 H (75-99) mg/dL Hemoglobin A1c (4.0-6.0) % Microbiology - Last 24 Hours (Table) 07/23/19 22:30 Gram Stain - Final Toe - Left Second Wound Culture - Final Proteus vulgaris 07/23/19 17:00 Blood Culture - Preliminary Blood No Growth after 48 hours Assessment and Plan Assessment: 1. Necrotic left second toe, wound culture consistent with Proteus vulgaris, S/P amputation left second toe through the proximal phalanx 2. Insulin dependent diabetes with current HgbA1c 8.2% 3. Neuropathy to bilateral feet 4. Previous left great toe ulcer with debridement 5. Obesity Plan: The left second toe wound was irrigated with sterile saline. Wound vac was applied, to be changed M, W, F. Patient to follow up in wound care center with Dr. Gibbons. Left lower extremity should remain off-loaded, elevate when sitting. Patient's blood sugar should be better controlled. Antibiotics per infectious disease. Other medical comorbidities to be managed by Dr. Castillo. Will continue to see as needed while hospitalized. Time with Patient: Greater than 30
[2019-07-26 13:54] LABS: Glucose,Whole Blood 128 mg/dL (75-99)
[2019-07-26 17:06] LABS: Glucose,Whole Blood 70 mg/dL (75-99)
[2019-07-26 17:19] LABS: Glucose,Whole Blood 69 mg/dL (75-99)
[2019-07-26 17:54] LABS: Glucose,Whole Blood 107 mg/dL (75-99)
--- NOTE | 2019-07-26 21:27 | PN ---
PROGRESS NOTE Status post amputation for diabetic wound of the left second toe and positive bone scan for osteomyelitis. He apparently has to have no weightbearing. Otherwise, he has pain in his back radiating down his leg. LABORATORY DATA: Labs show sugars in the mid 100s. Creatinine 0.92. He is 96% on room air. Blood pressure 138/78, respiratory rate 12-16, pulse 60s-70s, temp 97-98. CARDIOVASCULAR: S1, S2. LUNGS: Transmitted upper airway sounds. Scattered wheeze. EXTREMITIES: Have bandages over the entire left lower leg status post amputation of the toe. ASSESSMENT: 1. Chronic obstructive pulmonary disease. 2. Neuropathy. 3. The patient remains status post amputation with left second toe gangrene status post amputation with affective part removed. Will not need to be on long-term antibiotics if the blood culture remains negative. Please see further orders for Dr. Murguia's antibiotic recommendation. Continue PT/OT and possible discharge home soon. MMODL / IJN: [id number] /
[2019-07-26] MEDS ORDERED: VANCOMYCIN 2,000 MG in SODIUM CHLORIDE 0.9% 500 ML 500 ML IVPB SCH (22:00)
[2019-07-26 22:29] LABS: Glucose,Whole Blood 213 mg/dL (75-99)
[2019-07-26 23:20] LABS: Glucose,Whole Blood 258 mg/dL (75-99)
[2019-07-27] MEDS: AMPICILLIN-SULBACTAM 3 GM in SODIUM CHLORIDE 0.9% 100 ML IVPB SCH ×3 (00:06→12:53)
[2019-07-27 07:03] LABS: Glucose,Whole Blood 170 mg/dL (75-99)
[2019-07-27] MEDS: LISINOPRIL 10 MG TAB PO SCH (07:32)
[2019-07-27] MEDS: PSYLLIUM HUSK 100% 6 GM PACKET PO SCH (07:32)
[2019-07-27] MEDS: INSULIN ASPART (NovoLOG) 100 UNIT/ML VIAL SQ SCH ×2 (07:32→12:53)
[2019-07-27] MEDS: ATORVASTATIN 40 MG TAB PO SCH (07:32)
[2019-07-27] MEDS: INSULIN REGULAR 100 UNIT/ML VIAL SQ SCH ×2 (07:32→12:53)
[2019-07-27] MEDS: GABAPENTIN 300 MG CAP PO SCH (07:33)
[2019-07-27] MEDS: ENOXAPARIN 40 MG/0.4 ML SYRINGE SQ SCH (07:33)
[2019-07-27] MEDS: TRIAMTERENE-HCTZ 37.5-25MG 1 EACH CAP PO SCH (07:33)
[2019-07-27] MEDS: HYDROcodone/APAP 7.5-325MG 1 EACH TAB PO SCH (08:04)
--- NOTE | 2019-07-27 08:11 | PN ---
PROGRESS NOTE DATE OF SERVICE: 07/26/2019 REASON FOR FOLLOWUP: Left second toe wet gangrene. INTERVAL HISTORY: The patient is currently afebrile, has been breathing comfortably. Patient denies having any chest pain or any cough. No nausea, no vomiting. No abdominal pain or any worsening pain to the left foot. PHYSICAL EXAMINATION: Blood pressure 132/78 with a pulse of 77, temperature is 97.7, he is 96% on room air. General description is an elderly male, lying in bed in no distress. RESPIRATORY SYSTEM: Unlabored breathing, clear to auscultation anteriorly. HEART: S1, S2. Regular rate and rhythm. The patient also with left 2nd toe amputated, side wound base looks clean with no slough tissue. No surrounding swelling, redness or any drainage. LABS: No new labs have been obtained today. Local cultures to finalize Proteus white count is sensitive to Unasyn. DIAGNOSTIC IMPRESSION AND PLAN: Patient with left 2nd to white gangrene status post amputation. Culture has been Proteus with no evidence of any MRSA. Vancomycin will be discontinued. The patient will continue with Unasyn. Local care has been switched over to wound VAC and monitor his clinical course closely. MMODL / IJN: [id number] /
[2019-07-27 08:23] LABS: Basophils # (A) 0.1 k/uL (0-0.2); Basophils % (A) 1 %; Eosinophils # (A) 0.7 k/uL (0-0.7); Eosinophils % (A) 5 %; HCT 43.3 % (39.0-53.0); HGB 14.5 gm/dL (13.0-17.5); Lymphocytes # (A) 3.3 k/uL (1.0-4.8); Lymphocytes % (A) 27 %; MCH 28.9 pg (25.0-35.0); MCHC 33.4 g/dL (31.0-37.0); MCV 86.6 fL (80.0-100.0); Mean Platelet Volume 6.8; Monocytes # (A) 0.9 k/uL (0-1.0); Monocytes % (A) 7 %; Neutrophils # (A) 6.9 k/uL (1.3-7.7); Neutrophils % (A) 57 %; Platelet Count 412 k/uL (150-450); RDW 12.9 % (11.5-15.5); WBC 12.1 k/uL (3.8-10.6)
[2019-07-27 08:28] LABS: ALT 26 U/L (4-49); AST 21 U/L (17-59); African American GFR (CKD) >90 (>60 ml/min/1.73 sqM); Albumin 3.6 g/dL (3.5-5.0); Alkaline Phosphatase 133 U/L (38-126); Anion Gap 9 mmol/L; Blood Urea Nitrogen 21 mg/dL (9-20); Calcium 10.3 mg/dL (8.4-10.2); Carbon Dioxide 30 mmol/L (22-30); Chloride 102 mmol/L (98-107); Glucose 152 mg/dL (74-99); Non-African American GFR(CKD) >90 (>60 ml/min/1.73 sqM); Potassium 4.6 mmol/L (3.5-5.1); Sodium 141 mmol/L (137-145); Total Bilirubin 0.7 mg/dL (0.2-1.3); Total Protein 6.9 g/dL (6.3-8.2)
[2019-07-27 12:09] LABS: Glucose,Whole Blood 189 mg/dL (75-99)
[2019-07-27] MEDS: NON FORMULARY DRUG (Lubiprostone [Amitiza] 24 MCG) PO SCH (12:52)
[2019-07-27 15:12] VITALS: BP 151/81; PULSE 65; RESP 16; TEMP 98.2
--- NOTE | 2019-07-27 16:44 | P.DS ---
Providers Date of admission: 07/23/19 18:12 Expected date of discharge: 07/27/19 Attending physician: Mike Castillo Consults: 07/23/19 20:59 Consult Physician Routine Consulting Provider: Brent Murguia Consult Reason/Comments: diabetic foot ulcer Do you want consulting provider notified?: Yes 07/24/19 12:25 Consult Physician Routine Consulting Provider: Shekhar Gibbons Consult Reason/Comments: necrotic left foot second toe Do you want consulting provider notified?: Yes Primary care physician: [facility] Course: Final Diagnoses: Diabetic foot ulcer ,Necrotic left second toe, gangrene, Proteus Vulgaris, status post amputation History of left great toe ulcer with debridement Diabetes mellitus, insulin-dependent, hemoglobin A1c 8.2 Neuropathy, diabetic Obesity, BMI 38 COPD Hospital course: This is a 69-year-old gentleman admitted with necrotic left second toe ,status post amputation. Tolerated procedure well. Evaluated by infectious disease, vascular surgery .Maintained on IV antibiotics. Patient is nonweightbearing status of left foot, will require a walker at discharge. Wound VAC applied, follow-up in wound care center, as advised. Significant clinical improvement. Cleared by vascular surgery and infectious disease for discharge. Tight blood sugar control. Patient being discharged home with home care in a stable condition with guarded prognosis. EXAM: GENERAL DESCRIPTION: Alert & Oriented X 3, no acute distress LUNGS: Unlabored breathing. Clear to auscultation anteriorly. No wheeze or crackle. HEART: S1, S2, regular rate and rhythm. ABDOMEN: Soft, no tenderness , guarding or rigidity. Positive bowel sounds EXTREMITIES: Left foot dressing clean dry and intact. Wound VAC applied. NEUROLOGICAL: No gross focal deficits. Microbiology - Last 24 Hours (Table) 07/23/19 22:30 Gram Stain - Final Toe - Left Second Wound Culture - Final Proteus vulgaris 07/23/19 17:00 Blood Culture - Preliminary Blood No Growth after 48 hours The impression and plan of care has been dictated as directed. : I performed a history and examination of this patient, discussed the same with the dictator. I agree with the dictator's note ,documented as a scribe. Any additional findings or plans will be noted. Patient Condition at Discharge: Stable Plan - Discharge Summary Discharge Rx Participant: No New Discharge Prescriptions: Continue Insulin NPH Human Isophane [NovoLIN N] 20 unit SQ HS Testosterone Cypionate [Depo-Testosterone] 200 mg IM Q14D Methylcellulose (with Sugar) [Citrucel Powder] 2 gm PO DAILY Insulin Regular, Human [NovoLIN R] 25 unit SQ AC-TID Atorvastatin [Lipitor] 40 mg PO DAILY #90 tab Lubiprostone [Amitiza] 24 mcg PO BID HYDROcodone/APAP 7.5-325MG [[place] 7.5-325] 1 tab PO TID Lisinopril 30 mg PO DAILY Gabapentin [Neurontin] 300 mg PO TID Triamterene-Hctz 37.5-25Mg [Dyazide 37.5-25 Capsule] 1 cap PO DAILY Discontinued Aspirin 675 mg PO Q4H PRN PRN Reason: Pain Discharge Medication List Insulin NPH Human Isophane [NovoLIN N] 20 unit SQ HS 11/23/18 [History] Insulin Regular, Human [NovoLIN R] 25 unit SQ AC-TID 06/08/19 [History] Methylcellulose (with Sugar) [Citrucel Powder] 2 gm PO DAILY 06/08/19 [History] Testosterone Cypionate [Depo-Testosterone] 200 mg IM Q14D 06/08/19 [History] Atorvastatin [Lipitor] 40 mg PO DAILY #90 tab 06/09/19 [Rx] Gabapentin [Neurontin] 300 mg PO TID 07/23/19 [History] HYDROcodone/APAP 7.5-325MG [[place] 7.5-325] 1 tab PO TID 07/23/19 [History] Lisinopril 30 mg PO DAILY 07/23/19 [History] Lubiprostone [Amitiza] 24 mcg PO BID 07/23/19 [History] Triamterene-Hctz 37.5-25Mg [Dyazide 37.5-25 Capsule] 1 cap PO DAILY 07/23/19 [History] Follow up Appointment(s)/Referral(s): [facility], [NON-STAFF] - Mike Castillo MD [Primary Care Provider] - 08/04/19 9:45 am [facility], [REFERRING] - [facility] [NON-STAFF] - 08/02/19 9:45 am (With Dr. Gibbons) Patient Instructions/Handouts: Diabetic Foot Ulcers (DC) Activity/Diet/Wound Care/Special Instructions: Antibiotics and wound care as per ID Dressing change to be completed every other day by home care: Clean wound with sterile saline Apply absorptive silver to wound bed Cover with 4x4 Wrap with kerlix Elevate left lower extremity when sitting Strict non-weight bearing to left lower extremity Walker Supplied by [facility] IV antibiotics will deliver karly [facility] home care will see you at home tomorrow 07/28/19 to set up and teach infusion.
--- NOTE | 2019-07-27 17:21 | PN ---
PROGRESS NOTE DATE OF SERVICE: 07/27/2019 REASON FOR FOLLOWUP: Left 2nd toe wet gangrene. INTERVAL HISTORY: The patient is currently afebrile, has been breathing comfortably. The patient denies having any chest pain or any cough. No nausea, vomiting. No abdominal pain. No pain to the ( ) area. PHYSICAL EXAMINATION: Blood pressure 153/74 with a pulse of 68, temperature 97.6, he is 98% on room air. General description is an elderly male up in the bed in no distress. Respiratory system: Unlabored breathing, clear to auscultation anteriorly. Heart S1, S2. Regular rate and rhythm. Abdomen soft, no tenderness. Left 2nd toe currently covered with a wound VAC. LABS: Hemoglobin 14.5, white count 12.1, creatinine 0.80. Wound culture with Proteus vulgaris. DIAGNOSTIC IMPRESSION AND PLAN: Patient with left 2nd toe wet gangrene status post amputation of left 2nd toe in view of the inflammation at the base of the wound and the wound culture with Proteus. Antibiotic will be adjusted to Rocephin 2 g daily along with oral Flagyl for 2 weeks. Local wound care with Vancomycin. Follow up in the office 1 week. Continue supportive care. MMODL / IJN: [id number] /
--- NOTE | 2019-08-01 07:58 | CDI ---
Documentation Clarification Form Date: 08/01/19 From: Selena Pulliam Phone: If you have a question about this query, please contact Patience Morales Crackling Press Operator at [phone] between 8am and 5pm. Admit Date: 07/23/19 Discharge Date: 07/27/19 Patient Name: Brijesh Akers Visit Number: [id number] ATTENTION: The Clinical Documentation Specialists (CDI) and [facility] Coding Staff appreciate your assistance in clarifying documentation. Please respond to the clarification below the line at the bottom and electronically sign. The CDI & [facility] Coding staff will review the response and follow-up if needed. Please note: Queries are made part of the Legal Health Record. If you have any questions, please contact the author of this message via ITS. Dear Dr. Mike Castillo, The patient has uncontrolled Type II diabetes, as indicated in the consult by Dr Murguia. POC Glucose: 160, 98, 140, 72, 149, 167, 151, 164, 197, 80, 274, 159, 175, 128, 70, 69, 107, 213, 258, 170, 189 Glucose: 91, 159, 152 A1c: 8.2 Treatment: Insulin NovoLOG Sliding Scale Protocol Per [facility] 2016 - query the provider for clarification whether the patient has hyperglycemia or hypoglycemia so that the appropriate code may be reported - uncontrolled diabetes indicates that the patient's blood sugar is not at an acceptable level, because it is either too high or too low. In order to capture the severity of Illness and necessary documentation specificity, please clarify if Type 2 uncontrolled diabetes is: Hyperglycemia Hypoglycemia Other, please specify Unable to Determine Please continue to document in your progress notes and discharge summary in order to capture severity of illness and risk of mortality. Include clinical findings that support your diagnosis. MTDD
--- NOTE | 2019-08-01 08:07 | CDI ---
Documentation Clarification Form Date: 08/01/19 From: Selena Pulliam Phone: If you have a question about this query, please contact Patience Morales, Transportation Agent at [phone] between 8am and 5pm. Admit Date: 07/23/19 Discharge Date: 07/27/19 Patient Name: Brijesh Akers Visit Number: [id number] ATTENTION: The Clinical Documentation Specialists (CDI) and [facility] Coding Staff appreciate your assistance in clarifying documentation. Please respond to the clarification below the line at the bottom and electronically sign. The CDI & [facility] Coding staff will review the response and follow-up if needed. Please note: Queries are made part of the Legal Health Record. If you have any questions, please contact the author of this message via ITS. Dear Dr. Mike Castillo, The diagnosis osteomyelitis was documented in the bone scan, and PNs 07/25 & 07/26, but is not noted in subsequent documentation. History/Risk Factors: HTN, MARYJANE, COPD, GERD, IBS, chronic pain Clinical Indicators: DM w neuropathy, ulcer w gangrene, cellulitis of LLL Path report: Left second toe, non-traumatic amputation: ulceration with suppurative necrosis gangrene focally extending to the periosseous space. Treatment: Amputation left second toe through the proximal phalanx and IV antibiotics Please clarify if the osteomyelitis was: Present/active/treated this admission Ruled out osteomyelitis Other, please specify Clinically unable to determine MTDD
--- NOTE | 2019-08-03 09:47 | DS ---
DISCHARGE SUMMARY Please add to the discharge summary: Hyperglycemia secondary to cellulitis and osteomyelitis of the foot. Osteomyelitis of the second toe on the left foot. MMODL / IJN: [id number] /
== END 2019-07-27 16:39 | disposition home health service (06) | DRG 617 ==
LOC: EC 14:16 → 6NMEDSUR 18:12
PROVIDERS: ADMIT Family Medicine; ATTEND Family Medicine
PROC: 0Y6S0Z1 Detachment at Left 2nd Toe, High, Open Approach (ICD-10-PCS; principal; 2019-07-25 07:30)
PROC: 05HF33Z Insertion of Infusion Device into Left Cephalic Vein, Percutaneous Approach (ICD-10-PCS; 2019-07-27 13:40)
DX: E11.69 Type 2 diabetes mellitus with other specified complication (principal); E11.52 Type 2 diabetes mellitus with diabetic peripheral angiopathy with gangrene; L03.116 Cellulitis of left lower limb; M86.9 Osteomyelitis, unspecified; I96 Gangrene, not elsewhere classified; E11.621 Type 2 diabetes mellitus with foot ulcer; E11.42 Type 2 diabetes mellitus with diabetic polyneuropathy; L97.523 Non-pressure chronic ulcer of other part of left foot with necrosis of muscle; B96.4 Proteus (mirabilis) (morganii) as the cause of diseases classified elsewhere; I10 Essential (primary) hypertension; E11.65 Type 2 diabetes mellitus with hyperglycemia; E78.00 Pure hypercholesterolemia, unspecified; G47.33 Obstructive sleep apnea (adult) (pediatric); J44.9 Chronic obstructive pulmonary disease, unspecified; K21.9 Gastro-esophageal reflux disease without esophagitis; K58.9 Irritable bowel syndrome, unspecified; G89.29 Other chronic pain; M79.651 Pain in right thigh; M79.652 Pain in left thigh; M51.16 Intervertebral disc disorders with radiculopathy, lumbar region; E66.01 Morbid (severe) obesity due to excess calories; Z68.38 Body mass index [BMI] 38.0-38.9, adult; Z79.82 Long term (current) use of aspirin; Z79.890 Hormone replacement therapy; Z79.4 Long term (current) use of insulin; Z79.899 Other long term (current) drug therapy; Z71.3 Dietary counseling and surveillance; Z87.19 Personal history of other diseases of the digestive system; Z98.890 Other specified postprocedural states; Z88.6 Allergy status to analgesic agent; Z80.9 Family history of malignant neoplasm, unspecified
CPT/HCPCS: 36410; 36415; 76937; 78315; 80053; 80202; 82565; 83036; 83605; 84484; 85025; 85610; 85652; 85730; 87040; 87070; 87077; 87186; 87205; 88305; 88311; 93005; 94760; 96360; 99285

== ENCOUNTER 2019-09-26 14:13 | Inpatient (IN) | payer MEDICARE ==
[2019-09-26] MEDS ORDERED: MORPHINE SULFATE 4 MG/ML SYRINGE IVP STA (15:11)
[2019-09-26] MEDS ORDERED: SODIUM CHLORIDE 0.9% 1,000 ML IV ONE (15:12)
[2019-09-26 15:39] LABS: Basophils % (A) 0 %; Eosinophils # (A) 0.3 k/uL (0-0.7); Eosinophils % (A) 2 %; HGB 15.1 gm/dL (13.0-17.5); Lymphocytes # (A) 1.8 k/uL (1.0-4.8); Lymphocytes % (A) 15 %; MCH 27.3 pg (25.0-35.0); MCHC 32.1 g/dL (31.0-37.0); MCV 85.2 fL (80.0-100.0); Mean Platelet Volume 7.1; Monocytes % (A) 9 %; Neutrophils # (A) 8.4 k/uL (1.3-7.7); Neutrophils % (A) 71 %; Platelet Count 341 k/uL (150-450); RBC 5.51 m/uL (4.30-5.90); RDW 13.6 % (11.5-15.5); WBC 11.8 k/uL (3.8-10.6)
--- NOTE | 2019-09-26 15:44 | XR ---
EXAMINATION TYPE: XR foot complete LT DATE OF EXAM: 09/26/2019 COMPARISON: 07/23/2019 HISTORY: Cellulitis TECHNIQUE: Three-view left foot FINDINGS: There is been interval amputation of the second digit. The medial distal second metatarsal head has poor visualization of the medial cortex. Early osteomyelitis at this level is not excluded. There is some soft tissue abnormality at the amputation site. First and third digits appear intact. Fourth fifth digits appear unremarkable. Metatarsal phalangeal joint spaces otherwise appear unremarkable. No acute fractures or dislocations are evident. Plantar c alcaneal heel spur is present. Calcification is noted along the plantar fascia and within the Christine s tendon region. IMPRESSION: 1. Subtle thinning and possible loss of the medial distal second metatarsal cortex could indicate ea rly underlying osteomyelitis.
[2019-09-26] MEDS: SODIUM CHLORIDE 0.9% 1,000 ML IV SCH (15:50)
--- NOTE | 2019-09-26 15:50 | ED ---
General Adult HPI - General Chief complaint: Extremity Injury, Lower Stated complaint: left foot pain Time Seen by Provider: 09/26/19 14:39 Source: patient, RN notes reviewed, old records reviewed Mode of arrival: wheelchair Limitations: no limitations - History of Present Illness Initial comments: Brijesh is a 69-year-old male with a history of diabetes presents emergency department today with redness and swelling over the left dorsum of his foot. Patient reports that he has noticed this worsening redness and swelling over the past 3 days. Patient reports that he had his second toe removed by Dr. Gibbons on the beginning of July. He is following up with wound care. He reports that he last saw wound care and previous Wednesday and at that time he did have some extensive debridement at that time. He is worried that that reintroduced infection. Patient is a diabetic. He is not on antibiotics at this time. - Related Data Home Medications Medication Instructions Recorded Confirmed Insulin NPH Human Isophane 20 unit SQ HS 11/23/18 07/23/19 [NovoLIN N] Insulin Regular, Human [NovoLIN R] 25 unit SQ AC-TID 06/08/19 07/23/19 Methylcellulose (with Sugar) 2 gm PO DAILY 06/08/19 07/23/19 [Citrucel Powder] Testosterone Cypionate 200 mg IM Q14D 06/08/19 07/23/19 [Depo-Testosterone] Gabapentin [Neurontin] 300 mg PO TID 07/23/19 07/23/19 HYDROcodone/APAP 7.5-325MG [[place] 1 tab PO TID 07/23/19 07/23/19 7.5-325] Lisinopril 30 mg PO DAILY 07/23/19 07/23/19 Lubiprostone [Amitiza] 24 mcg PO BID 07/23/19 07/23/19 Triamterene-Hctz 37.5-25Mg 1 cap PO DAILY 07/23/19 07/23/19 [Dyazide 37.5-25 Capsule] Previous Rx's Medication Instructions Recorded Atorvastatin [Lipitor] 40 mg PO DAILY #90 tab 06/09/19 Allergies Allergy/AdvReac Type Severity Reaction Status Date / Time naproxen Allergy Swelling Verified 09/26/19 14:27 Review of Systems ROS Statement: Those systems with pertinent positive or pertinent negative responses have been documented in the HPI. ROS Other: All systems not noted in ROS Statement are negative. Past Medical History Past Medical History: Diabetes Mellitus, Hypertension Additional Past Medical History / Comment(s): IDDM type II, neuropathy bilateral feet, borderline high cholesterol, gastritis, chrons, IBS, back pain in winter months, chronic bilateral thigh pain. History of Any Multi-Drug Resistant Organisms: None Reported Past Surgical History: Orthopedic Surgery Additional Past Surgical History / Comment(s): L shoulder/collar bone crush injury with hardware, L knee surgery d/t injury, L great toe ulcer with debridement, EGD, colonoscopies. Past Anesthesia/Blood Transfusion Reactions: No Reported Reaction Past Psychological History: No Psychological Hx Reported Smoking Status: Never smoker Past Alcohol Use History: Rare Past Drug Use History: None Reported - Past Family History Mother Family Medical History: Cancer Father Family Medical History: Cancer General Exam Limitations: no limitations General appearance: alert, in no apparent distress Head exam: Present: atraumatic, normocephalic, normal inspection Eye exam: Present: normal appearance, PERRL, EOMI. Absent: scleral icterus, conjunctival injection, periorbital swelling ENT exam: Present: normal exam, mucous membranes moist Neck exam: Present: normal inspection. Absent: tenderness, meningismus, lymphadenopathy Respiratory exam: Present: normal lung sounds bilaterally. Absent: respiratory distress, wheezes, rales, rhonchi, stridor Cardiovascular Exam: Present: regular rate, normal rhythm, normal heart sounds. Absent: systolic murmur, diastolic murmur, rubs, gallop, clicks GI/Abdominal exam: Present: soft, normal bowel sounds. Absent: distended, tenderness, guarding, rebound, rigid Extremities exam: Present: full ROM, normal capillary refill. Absent: normal inspection, tenderness, pedal edema, joint swelling, calf tenderness Left Knee exam: Present: normal inspection, full ROM Lower Leg exam: Present: normal inspection, full ROM Ankle exam: Present: normal inspection, full ROM Foot/Toe exam: Present: tenderness, swelling (Patient has tenderness, swelling erythema over the dorsum of the foot. Patient has amputated left second toe. Patient has open and oozing wound at the amputation site.). Absent: normal inspection, full ROM Gait: observed and normal Back exam: Present: normal inspection Course Vital Signs 09/26/19 09/26/19 14:18 17:13 Temperature 98.3 F Pulse Rate 96 89 Respiratory 18 18 Rate Blood Pressure 106/78 145/68 O2 Sat by Pulse 97 98 Oximetry Medical Decision Making - Medical Decision Making 69-year-old male presents today for erythema, swelling over the dorsum of the left foot. He is left second toe amputation Yamini has been following with wound care. He reports that his last wound care was last week, he scheduled for more tomorrow but noticed worsening redness and swelling for the past 2 days. Patient's x-ray shows some concern for beginning of osteomyelitis over the left second metatarsal. Patient previous wound culture was positive for enterococcus, Clostridium perfringens, cephalexin arteries. Patient has susceptibility to Zosyn and vancomycin. These were initiated on Patient. Patient is here with his son and they were informed of treatment plan for admission. Discussed the case with Dr. Rey Diggs discussed the case with Dr. Bowen. - Lab Data Result diagrams: 09/26/19 15:20 09/26/19 15:20 Lab Results 09/26/19 09/26/19 09/26/19 Range/Units 15:20 15:20 15:20 WBC 11.8 H (3.8-10.6) k/uL RBC 5.51 (4.30-5.90) m/uL Hgb 15.1 (13.0-17.5) gm/dL Hct 47.0 (39.0-53.0) % MCV 85.2 (80.0-100.0) fL MCH 27.3 (25.0-35.0) pg MCHC 32.1 (31.0-37.0) g/dL RDW 13.6 (11.5-15.5) % Plt Count 341 (150-450) k/uL Neutrophils % 71 % Lymphocytes % 15 % Monocytes % 9 % Eosinophils % 2 % Basophils % 0 % Neutrophils # 8.4 H (1.3-7.7) k/uL Lymphocytes # 1.8 (1.0-4.8) k/uL Monocytes # 1.0 (0-1.0) k/uL Eosinophils # 0.3 (0-0.7) k/uL Basophils # 0.0 (0-0.2) k/uL Sodium 132 L (137-145) mmol/L Potassium 5.4 H (3.5-5.1) mmol/L Chloride 95 L (98-107) mmol/L Carbon Dioxide 26 (22-30) mmol/L Anion Gap 11 mmol/L BUN 29 H (9-20) mg/dL Creatinine 1.03 (0.66-1.25) mg/dL Est GFR (CKD-EPI)AfAm 85 (>60 ml/min/1.73 sqM) Est GFR (CKD-EPI)NonAf 74 (>60 ml/min/1.73 sqM) Glucose 183 H (74-99) mg/dL Plasma Lactic Acid Vincent 1.1 (0.7-2.0) mmol/L Calcium 10.4 H (8.4-10.2) mg/dL Total Bilirubin 0.8 (0.2-1.3) mg/dL AST 33 (17-59) U/L ALT 40 (4-49) U/L Alkaline Phosphatase 183 H (38-126) U/L Total Protein 7.5 (6.3-8.2) g/dL Albumin 4.0 (3.5-5.0) g/dL - Radiology Data Radiology results: report reviewed Subtle thickening and possible loss of the medial distal second metatarsal cortex could indicate early underlining osteomyelitis. Disposition Clinical Impression: Diabetic ulcer of left foot associated with diabetes mellitus due to underlying condition, with necrosis of muscle, Cellulitis of foot Disposition: ADMITTED IP TO THIS [facility] Condition: Stable Is patient prescribed a controlled substance at d/c from ED?: No Referrals: Mike Castillo MD [Primary Care Provider] - 1-2 days Time of Disposition: 17:34
[2019-09-26 15:51] LABS: Calcium 10.4 mg/dL (8.4-10.2); Potassium 5.4 mmol/L (3.5-5.1); Total Bilirubin 0.8 mg/dL (0.2-1.3); Total Protein 7.5 g/dL (6.3-8.2)
[2019-09-26] MEDS ORDERED: LEVOFLOXACIN 750MG-D5W PMX 750 MG in DEXTROSE/WATER 1 150ML.BAG IVPB STA (17:10)
[2019-09-26] MEDS ORDERED: PIPERACILLIN-TAZOBACTAM 3.375 GM in SODIUM CHLORIDE 0.9% 100 ML IVPB STA (17:10)
[2019-09-26] MEDS ORDERED: NALOXONE 0.4 MG/ML 1 ML VIAL IV PRN (17:36)
[2019-09-26] MEDS ORDERED: LORazepam 2 MG/ML INJ IV PRN (17:36)
[2019-09-26] MEDS ORDERED: ACETAMINOPHEN TAB 325 MG TAB PO PRN (17:36)
[2019-09-26] MEDS ORDERED: TESTOSTERONE CYPIONATE 200 MG/ML 1ML VIAL IM SCH (17:45)
[2019-09-26 20:48] LABS: Glucose,Whole Blood 179 mg/dL (75-99)
[2019-09-26] MEDS ORDERED: INSULIN NPH 300 UNIT/3 ML VIAL SQ SCH (21:00)
[2019-09-26] MEDS: GABAPENTIN 300 MG CAP PO SCH (21:18)
[2019-09-26] MEDS: HYDROcodone/APAP 7.5-325MG 1 EACH TAB PO SCH (21:18)
[2019-09-26] MEDS: INSULIN DETEMIR (LEVEMIR) 100 UNIT/ML SYR SQ SCH (21:19)
[2019-09-26] MEDS: INSULIN ASPART (NovoLOG) 100 UNIT/ML VIAL SQ SCH (21:19)
[2019-09-26] MEDS: MORPHINE SULFATE 4 MG/ML SYRINGE IV PRN (23:35)
--- NOTE | 2019-09-26 23:45 | HP ---
HISTORY AND PHYSICAL This patient is a 69-year-old white male who was admitted with diabetic redness, swelling of the left dorsum of his foot that started after his foot was debrided like over a week ago by a surgeon. Since this time, redness and swelling and purulent pus have been coming out of the wound. We had a prior amputation of his toe. His entire foot is red, swollen, warm with streaking up the entire foot. Suspect broad-spectrum osteomyelitis throughout his foot. Await bone scan. Infectious disease and vascular consults. Broad-spectrum antibiotics will be continued. HOME MEDICATIONS: Novolin N, Novolin R, testosterone infusion, Neurontin 300 t.i.d., [place] 7.5 t.i.d., lisinopril 30 daily, Amitiza 25 mcg b.i.d., Dyazide 1 tablet daily. ALLERGIES: NAPROSYN. REVIEW OF SYSTEMS: Fourteen-point review of systems negative except for mentioned in HPI. MEDICAL HISTORY: Diabetes mellitus, hypertension, hypercholesterolemia, gastritis, IBS, chronic thigh pain, left shoulder and collar bone crush injury, left knee surgery, left great toe ulcer debridement, EGD, colonoscopies. SOCIAL HISTORY: Never smoked. Rare alcohol. No illicit drugs. FAMILY HISTORY: Mother cancer. Father cancer. PHYSICAL EXAMINATION: BMI is over 40. CARDIOVASCULAR: S1, S2. LUNGS: Clear. PSYCH: Poor mood and affect. HEMATOLOGIC: Generalized edema. ENDOCRINE: BMI is over 30. Entire foot on the right side is red, swollen and warm with the base of the toe where it was amputated with purulent drainage from it. Entire redness throughout the foot and streaking up the right foot and lower leg. VITAL SIGNS: Blood pressure 106 to 145 over 60s to 70s. Respiratory 18-20. Oxygen 97 to 98. Previous wound culture was positive for enterococcus, Clostridium perfringens cephalexin arteries susceptible to Zosyn, vancomycin which are being started. White count is 11.8. Will continue with IV antibiotics, broad-spectrum, and wait for infectious disease and vascular consults. Prognosis extremely guarded. Possibly amputation will be needed. MMODL / IJN: [id number] /
[2019-09-27] MEDS: PIPERACILLIN-TAZOBACTAM 3.375 GM in SODIUM CHLORIDE 0.9% 100 ML IVPB SCH ×2 (02:40→09:47)
[2019-09-27] MEDS: MORPHINE SULFATE 4 MG/ML SYRINGE IV PRN ×2 (03:36→08:05)
[2019-09-27] MEDS: SODIUM CHLORIDE 0.9% 1,000 ML IV SCH ×2 (04:59→17:07)
[2019-09-27 06:52] LABS: Glucose,Whole Blood 137 mg/dL (75-99)
[2019-09-27] MEDS: HYDROcodone/APAP 7.5-325MG 1 EACH TAB PO SCH ×3 (07:08→21:43)
[2019-09-27] MEDS: GABAPENTIN 300 MG CAP PO SCH ×3 (07:08→21:44)
[2019-09-27] MEDS: ATORVASTATIN 40 MG TAB PO SCH (07:08)
[2019-09-27] MEDS: LISINOPRIL 10 MG TAB PO SCH (07:08)
[2019-09-27] MEDS: INSULIN ASPART (NovoLOG) 100 UNIT/ML VIAL SQ SCH ×4 (07:09→21:11)
[2019-09-27] MEDS: PANTOPRAZOLE 40 MG/10 ML VIAL IV SCH (07:11)
[2019-09-27] MEDS: PSYLLIUM HUSK 100% 6 GM PACKET PO SCH (07:11)
[2019-09-27] MEDS ORDERED: INSULIN REGULAR 100 UNIT/ML VIAL SQ SCH (07:30)
[2019-09-27 07:37] LABS: Basophils % (A) 0 %; Eosinophils # (A) 0.3 k/uL (0-0.7); Eosinophils % (A) 2 %; HGB 13.4 gm/dL (13.0-17.5); Lymphocytes # (A) 2.9 k/uL (1.0-4.8); Lymphocytes % (A) 20 %; MCH 27.4 pg (25.0-35.0); MCV 85.8 fL (80.0-100.0); Mean Platelet Volume 7.4; Monocytes # (A) 1.4 k/uL (0-1.0); Monocytes % (A) 10 %; Neutrophils # (A) 9.8 k/uL (1.3-7.7); Neutrophils % (A) 67 %; Platelet Count 343 k/uL (150-450); RBC 4.89 m/uL (4.30-5.90); RDW 13.7 % (11.5-15.5); WBC 14.7 k/uL (3.8-10.6)
[2019-09-27 07:54] LABS: ALT 28 U/L (4-49); AST 24 U/L (17-59); African American GFR (CKD) >90 (>60 ml/min/1.73 sqM); Albumin 3.5 g/dL (3.5-5.0); Alkaline Phosphatase 164 U/L (38-126); Anion Gap 9 mmol/L; Blood Urea Nitrogen 22 mg/dL (9-20); Calcium 9.9 mg/dL (8.4-10.2); Carbon Dioxide 26 mmol/L (22-30); Chloride 99 mmol/L (98-107); Glucose 127 mg/dL (74-99); Non-African American GFR(CKD) 81 (>60 ml/min/1.73 sqM); Potassium 5.3 mmol/L (3.5-5.1); Sodium 134 mmol/L (137-145); Total Bilirubin 0.9 mg/dL (0.2-1.3); Total Protein 6.8 g/dL (6.3-8.2)
[2019-09-27] MEDS: TRIAMTERENE-HCTZ 37.5-25MG 1 EACH CAP PO SCH (07:59)
--- NOTE | 2019-09-27 10:52 | P.CONS ---
History of Present Illness - Reason for Consult Consult date: 09/27/19 Wound care - History of Present Illness This is a 69-year-old patient known to the wound care center with a nonhealing ulceration to the left second digit. Patient is post amputation of the left second toe secondary to necrotic infection. He is a poorly controlled diabetic. With a long-standing ulcer of the toe. Patient has been seen in the wound care center for approximate 6 weeks. At that time it was instructed for patient to follow-up with vascular surgery due to decline in the ulceration. Patient canceled the appointment due to cost. He was then rescheduled to see vascular surgery this month. Patient called the wound care center on Wednesday complaining of increased drainage redness to the dorsal foot and discomfort. Patient was instructed to go to the emergency center at that time for evaluation due to possible osteo-myelitis and/or infection. At that time patient declines stating that he would return to his next wound care visit. However he had increased pain and drainage and proceeded to the emergency department. X-ray in the emergency department did show possible osteomalacia. He is scheduled for bone scan today. Patient has been utilizing collagen silver at home. Review of Systems Review Of Systems: Constitutional: No fever, no chills, no night sweats. No weight change. Report weakness, fatigue no lethargy. No daytime sleepiness. Integumentary:reports wounds, no lesions. No rash or pruritus. No unusual bruising. No change in hair or nails. Past Medical History Past Medical History: Diabetes Mellitus, Hypertension Additional Past Medical History / Comment(s): IDDM type II, neuropathy bilateral feet, borderline high cholesterol, gastritis, chrons, IBS, back pain in winter months, chronic bilateral thigh pain. History of Any Multi-Drug Resistant Organisms: None Reported Past Surgical History: Orthopedic Surgery Additional Past Surgical History / Comment(s): L shoulder/collar bone crush injury with hardware, L knee surgery d/t injury, L great toe ulcer with debridement, EGD, colonoscopies. Past Anesthesia/Blood Transfusion Reactions: No Reported Reaction Past Psychological History: No Psychological Hx Reported Additional Psychological History / Comment(s): Pt has an adult son living with him. He is indpendent. Smoking Status: Never smoker Past Alcohol Use History: Rare Past Drug Use History: None Reported - Past Family History Mother Family Medical History: Cancer Father Family Medical History: Cancer Medications and Allergies Home Medications Medication Instructions Recorded Confirmed Type Insulin NPH Human Isophane See Protocol SQ HS 11/23/18 09/26/19 History [NovoLIN N] Insulin Regular, Human [NovoLIN R] See Protocol SQ AC-TID 06/08/19 09/26/19 History Methylcellulose (with Sugar) 2 gm PO DAILY 06/08/19 09/26/19 History [Citrucel Powder] Testosterone Cypionate 200 mg IM Q14D 06/08/19 09/26/19 History [Depo-Testosterone] Atorvastatin [Lipitor] 40 mg PO DAILY #90 tab 06/09/19 09/26/19 Rx Gabapentin [Neurontin] 300 mg PO TID@0900,1300,1800 07/23/19 09/26/19 History HYDROcodone/APAP 7.5-325MG [[place] 1 tab PO TID@0900,1300,1800 07/23/19 09/26/19 History 7.5-325] Lisinopril 30 mg PO DAILY 07/23/19 09/26/19 History Triamterene-Hctz 37.5-25Mg 1 cap PO DAILY 07/23/19 09/26/19 History [Dyazide 37.5-25 Capsule] Terbinafine [LamISIL] 250 mg PO DAILY 09/26/19 09/26/19 History Allergies Allergy/AdvReac Type Severity Reaction Status Date / Time naproxen Allergy Swelling Verified 09/26/19 19:15 Physical Exam Vitals: Vital Signs Temp Pulse Pulse Resp BP BP Pulse Ox 09/27/19 07:30 17 09/27/19 07:00 99.2 F 86 17 147/67 94 L 09/27/19 04:02 73 131/69 09/27/19 04:00 16 09/27/19 03:24 98.2 F 73 18 179/69 98 09/27/19 00:00 16 09/26/19 20:00 90 16 09/26/19 19:35 97.7 F 90 16 150/76 97 09/26/19 18:21 87 18 147/53 98 09/26/19 17:13 89 18 145/68 98 09/26/19 14:18 98.3 F 96 18 106/78 97 Intake and Output 09/26/19 09/27/19 09/27/19 22:59 06:59 14:59 Output Total 300 Balance -300 Output: Urine 300 Other: Voiding Method Toilet Toilet Urinal Urinal # Voids 1 1 Weight 119.295 kg Physical exam: General Appearance: Alert, cooperative, no distress, appears stated age. Skin: Patient has a grade 3 diabetic foot ulcer of the lower extremity located t o the left second digit. Measuring approximately 0.6 x 0.6 x 1.1 cm. There is bone exposed. No tunneling or undermining noted. Small amount of purulent drainage. There is erythema and induration noted to the dorsal foot. Patient also has a ulceration to the medial fifth digit that is healed at this time, all other Skin color, texture, tugor normal, no rashes or lesions. Neurologic: Alert oriented x3 Results CBC & Chem 7: 09/27/19 06:33 09/27/19 06:33 Labs: Abnormal Lab Results - Last 24 Hours (Table) 09/26/19 09/26/19 09/26/19 Range/Units 15:20 15:20 20:47 WBC 11.8 H (3.8-10.6) k/uL Neutrophils # 8.4 H (1.3-7.7) k/uL Monocytes # (0-1.0) k/uL Sodium 132 L (137-145) mmol/L Potassium 5.4 H (3.5-5.1) mmol/L Chloride 95 L (98-107) mmol/L BUN 29 H (9-20) mg/dL Glucose 183 H (74-99) mg/dL POC Glucose (mg/dL) 179 H (75-99) mg/dL Calcium 10.4 H (8.4-10.2) mg/dL Alkaline Phosphatase 183 H (38-126) U/L 09/27/19 09/27/19 09/27/19 Range/Units 06:33 06:33 06:51 WBC 14.7 H (3.8-10.6) k/uL Neutrophils # 9.8 H (1.3-7.7) k/uL Monocytes # 1.4 H (0-1.0) k/uL Sodium 134 L (137-145) mmol/L Potassium 5.3 H (3.5-5.1) mmol/L Chloride (98-107) mmol/L BUN 22 H (9-20) mg/dL Glucose 127 H (74-99) mg/dL POC Glucose (mg/dL) 137 H (75-99) mg/dL Calcium (8.4-10.2) mg/dL Alkaline Phosphatase 164 H (38-126) U/L Microbiology - Last 24 Hours (Table) 09/26/19 15:20 Gram Stain - Preliminary Foot - Left Wound Culture - Preliminary Gram Neg Bacilli Presumptive MRSA Assessment and Plan (1) Diabetic ulcer of left foot associated with diabetes mellitus due to underlying condition, with necrosis of bone Current Visit: Yes Status: Acute Code(s): E08.621 - DIABETES MELLITUS DUE TO UNDERLYING CONDITION W FOOT ULCER; L97.524 - NON-PRS CHRONIC ULCER OTH PRT LEFT FOOT W NECROSIS OF BONE SNOMED Code(s): 201508260 (2) Non-pressure chronic ulcer of other part of left foot with necrosis of bone Current Visit: Yes Status: Acute Code(s): L97.524 - NON-PRS CHRONIC ULCER OTH PRT LEFT FOOT W NECROSIS OF BONE SNOMED Code(s): 165998189 Plan: Apply dry absorptive silver, dry gauze, rolled gauze and secure with paper tape. Nonweightbearing to the forefoot of left foot. Patient to evaluated by vascular surgery for further recommendations. Patient will continue outpatient wound care upon discharge. Continue with prescribed antibiotics per infectious disease. Thank you come in for the consultation. Any questions please contact the wound care center DNP note has been reviewed and discussed with Dr. Gibbons and the impression and plan of care has been directed as dictated.
[2019-09-27 11:41] LABS: Glucose,Whole Blood 195 mg/dL (75-99)
--- NOTE | 2019-09-27 13:04 | NM ---
EXAMINATION TYPE: NM bone 3 phase DATE OF EXAM: 09/27/2019 COMPARISON: Prior 3 phase bone scan July 24, 2019. Most recent left foot x-ray September 26, 2019 and older x-ray July 23, 2019 HISTORY: History of second toe amputation 2 weeks ago with wound and cellulitis at site of amputation . Triple phase bone scintigraphy was performed following the injection of 23.2 mCi Tc 99m MDP. Immedia te images and 5 hours post injection images acquired. Images are performed of the bilateral ankles an d feet. FINDINGS: There is abnormal increased radiotracer uptake to the left foot versus right foot more prominent at f orefoot level medially on dynamic arterial images and soft tissue phase images similar to prior three -phase bone scan though is noted less prominent. Delayed phase images however do not show suspicious radiotracer uptake at area of clinical concern second toe remnant to suggest acute osteomyelitis. Fin dings support diagnosis of acute cellulitis or soft tissue infection. Delayed images show persistent radiotracer uptake in the distal tibias bilaterally and distal first t oe on the right of uncertain etiology possible degenerative change. IMPRESSION: As above.
[2019-09-27] MEDS: HYDROmorphone 1 MG/ML 1 ML SYRINGE IVP PRN ×2 (13:16→17:07)
[2019-09-27 14:11] VITALS: BMI 34.7
[2019-09-27] MEDS ORDERED: VANCOMYCIN IV PER PHARMACY 1 EACH MISC MISCELLANE PRN (15:05)
[2019-09-27] MEDS ORDERED: VANCOMYCIN 2,000 MG in SODIUM CHLORIDE 0.9% 500 ML 500 ML IVPB ONE (15:30)
[2019-09-27 17:05] LABS: Glucose,Whole Blood 154 mg/dL (75-99)
[2019-09-27 20:35] LABS: Glucose,Whole Blood 206 mg/dL (75-99)
[2019-09-27 20:50] LABS: Hemoglobin A1C 6.8 % (4.0-6.0)
[2019-09-27] MEDS: INSULIN DETEMIR (LEVEMIR) 100 UNIT/ML SYR SQ SCH (21:11)
[2019-09-27] MEDS: CEFEPIME 2 GM in SODIUM CHLORIDE 0.9% 100 ML IVPB SCH (21:13)
--- NOTE | 2019-09-27 22:46 | PN ---
PROGRESS NOTE This patient is a 69-year-old white male who states he is in chronic pain. Pain is not being controlled on his morphine 4 mg q.4 hours. His foot infection has osteomyelitis. He will have to be switched over to Dilaudid. The findings on the bone scan show acute cellulitis with soft tissue infection. Continue with IV cefepime. Await vascular surgery recommendations. Pain medicine will be changed. CARDIOVASCULAR: S1, S2. LUNGS: Clear. GI: Soft. His wound infection has stagnation of the wound related to residual bone and severe cellulitis of the foot, Apparently the patient missed two outpatient treatments with Vascular Surgery. is going to see him for vascular surgery along with Dr. Gibbons for possible debridement. Unclear etiology at this point. Three drug-resistant bacteria, including Clostridium perfringens, necrosis of the bone, non-pressure chronic ulcer on the other part of the left foot with necrosis of bone. Non-weightbearing. Vascular surgery recommendations. Continue IV cefepime. Please see further orders. MMODL / IJN: [id number] /
--- NOTE | 2019-09-27 23:26 | P.CONS ---
History of Present Illness - Reason for Consult Consult date: 09/27/19 left foot cellulitis Requesting physician: Mike Castillo - Chief Complaint left foot pain and redness x 1 week - History of Present Illness Patient is a 77-year-old male who was admitted to [facility] and of June 2019 with left second toe gangrene in this patient who status post left second toe amputation cultures at that time were positive for Serratia and Proteus patient was advised Rocephin 2 g daily and oral Flagyl for 2 weeks patient has been following with [facility] wound care center since his discharge from the hospital patient did went for his wound care visit last week but apparently the patient did have debridement of his left second toe wound patient mention subsequently he noticed that the area becoming more painful swollen and red patient describes the pain to be almost 10 out of 10 in severity and has been mostly throbbing to dull aching with associated swelling and noticed the redness however has been to his left foot with worsening swelling redness of the patient did call the wound care center he was advised to go to the hospital patient presented to [facility] ER yesterday on arrival to the ER the patient was afebrile white count was elevated 14,000 she did have x-rays of the foot there was suspicious for early osteomyelitis patient was started on Zosyn he did have local wound cultures obtained infectious disease was consulted for further recommendation about antibiotic patient also have a bone scan that has been not suspicious for osteomyelitis. Local wound cultures are showing MRSA and gram-negative Review of Systems Positive point has been mentioned in HPI rest of the systems are negative Past Medical History Past Medical History: Diabetes Mellitus, Hypertension Additional Past Medical History / Comment(s): IDDM type II, neuropathy bilateral feet, borderline high cholesterol, gastritis, chrons, IBS, back pain in winter months, chronic bilateral thigh pain. History of Any Multi-Drug Resistant Organisms: None Reported Past Surgical History: Orthopedic Surgery Additional Past Surgical History / Comment(s): L shoulder/collar bone crush injury with hardware, L knee surgery d/t injury, L great toe ulcer with debridement, EGD, colonoscopies. Past Anesthesia/Blood Transfusion Reactions: No Reported Reaction Past Psychological History: No Psychological Hx Reported Additional Psychological History / Comment(s): Pt has an adult son living with him. He is indpendent. Smoking Status: Never smoker Past Alcohol Use History: Rare Past Drug Use History: None Reported - Past Family History Mother Family Medical History: Cancer Father Family Medical History: Cancer Medications and Allergies Home Medications Medication Instructions Recorded Confirmed Type Insulin NPH Human Isophane See Protocol SQ HS 11/23/18 09/26/19 History [NovoLIN N] Insulin Regular, Human [NovoLIN R] See Protocol SQ AC-TID 06/08/19 09/26/19 History Methylcellulose (with Sugar) 2 gm PO DAILY 06/08/19 09/26/19 History [Citrucel Powder] Testosterone Cypionate 200 mg IM Q14D 06/08/19 09/26/19 History [Depo-Testosterone] Atorvastatin [Lipitor] 40 mg PO DAILY #90 tab 06/09/19 09/26/19 Rx Gabapentin [Neurontin] 300 mg PO TID@0900,1300,1800 07/23/19 09/26/19 History HYDROcodone/APAP 7.5-325MG [[place] 1 tab PO TID@0900,1300,1800 07/23/19 09/26/19 History 7.5-325] Lisinopril 30 mg PO DAILY 07/23/19 09/26/19 History Triamterene-Hctz 37.5-25Mg 1 cap PO DAILY 07/23/19 09/26/19 History [Dyazide 37.5-25 Capsule] Terbinafine [LamISIL] 250 mg PO DAILY 09/26/19 09/26/19 History Allergies Allergy/AdvReac Type Severity Reaction Status Date / Time naproxen Allergy Swelling Verified 09/26/19 19:15 Physical Exam Vitals: Vital Signs Temp Pulse Pulse Resp BP BP Pulse Ox 09/27/19 07:30 17 09/27/19 07:00 99.2 F 86 17 147/67 94 L 09/27/19 04:02 73 131/69 09/27/19 04:00 16 09/27/19 03:24 98.2 F 73 18 179/69 98 09/27/19 00:00 16 09/26/19 20:00 90 16 09/26/19 19:35 97.7 F 90 16 150/76 97 09/26/19 18:21 87 18 147/53 98 09/26/19 17:13 89 18 145/68 98 Intake and Output 09/26/19 09/27/19 09/27/19 22:59 06:59 14:59 Output Total 300 Balance -300 Output: Urine 300 Other: Voiding Method Toilet Toilet Urinal Urinal # Voids 1 1 1 Weight 119.295 kg 119.295 kg GENERAL DESCRIPTION: Elderly male lying in bed, no distress. No tachypnea or accessory muscle of respiration use. HEENT: Shows Pallor , no scleral icterus. Oral mucous membrane is dry. NECK: Trachea central, no thyromegaly. LUNGS: Unlabored breathing. Clear to auscultation anteriorly. No wheeze or crackle. HEART: S1, S2, regular rate and rhythm. ABDOMEN: Soft, no tenderness , guarding or rigidity EXTREMITIES: Left foot is swollen and red warm and tender to touch left second toe amputation site with a superficial wound with no slough tissue sKIN: No rash, no masses palpable. NEUROLOGICAL: The patient is awake, alert, oriented x3, mood and affect normal. Results CBC & Chem 7: 09/27/19 06:33 09/27/19 06:33 Labs: Abnormal Lab Results - Last 24 Hours (Table) 09/26/19 09/26/19 09/26/19 Range/Units 15:20 15:20 20:47 WBC 11.8 H (3.8-10.6) k/uL Neutrophils # 8.4 H (1.3-7.7) k/uL Monocytes # (0-1.0) k/uL Sodium 132 L (137-145) mmol/L Potassium 5.4 H (3.5-5.1) mmol/L Chloride 95 L (98-107) mmol/L BUN 29 H (9-20) mg/dL Glucose 183 H (74-99) mg/dL POC Glucose (mg/dL) 179 H (75-99) mg/dL Calcium 10.4 H (8.4-10.2) mg/dL Alkaline Phosphatase 183 H (38-126) U/L 09/27/19 09/27/19 09/27/19 Range/Units 06:33 06:33 06:51 WBC 14.7 H (3.8-10.6) k/uL Neutrophils # 9.8 H (1.3-7.7) k/uL Monocytes # 1.4 H (0-1.0) k/uL Sodium 134 L (137-145) mmol/L Potassium 5.3 H (3.5-5.1) mmol/L Chloride (98-107) mmol/L BUN 22 H (9-20) mg/dL Glucose 127 H (74-99) mg/dL POC Glucose (mg/dL) 137 H (75-99) mg/dL Calcium (8.4-10.2) mg/dL Alkaline Phosphatase 164 H (38-126) U/L 09/27/19 Range/Units 11:39 WBC (3.8-10.6) k/uL Neutrophils # (1.3-7.7) k/uL Monocytes # (0-1.0) k/uL Sodium (137-145) mmol/L Potassium (3.5-5.1) mmol/L Chloride (98-107) mmol/L BUN (9-20) mg/dL Glucose (74-99) mg/dL POC Glucose (mg/dL) 195 H (75-99) mg/dL Calcium (8.4-10.2) mg/dL Alkaline Phosphatase (38-126) U/L Microbiology - Last 24 Hours (Table) 09/26/19 15:20 Gram Stain - Preliminary Foot - Left Wound Culture - Preliminary Gram Neg Bacilli Presumptive MRSA Assessment and Plan Assessment: 1-patient presented to hospital with acute cellulitis of the left foot in this patient who did have history of left second toe gangrene status post amputation with recent debridement of his left foot second toe amputated site wound debridement, x-ray has been suspicious for osteomyelitis though the bone scan was not suspicious for it in the wound culture now showing presented with MRSA and gram-negative bacilli (1) Cellulitis of foot Current Visit: Yes Status: Acute Code(s): L03.119 - CELLULITIS OF UNSPECIFIED PART OF LIMB SNOMED Code(s): 793217712 Plan: 1-discontinue Zosyn 2-vancomycin pharmacy to dose her with a target trough of 15 while watching her kidney function and Vanco trough closely. 3-cefepime 2 g every 12 hours We will follow on clinical condition and cultures to further adjust medication if needed Thank you for this consultation we will follow the patient along with you Time with Patient: Greater than 30
[2019-09-27] MEDS: VANCOMYCIN 2,000 MG in SODIUM CHLORIDE 0.9% 500 ML 500 ML IVPB SCH (23:33)
[2019-09-28] MEDS: HYDROmorphone 1 MG/ML 1 ML SYRINGE IVP PRN ×6 (01:05→23:43)
[2019-09-28 06:48] LABS: Glucose,Whole Blood 124 mg/dL (75-99)
[2019-09-28] MEDS: SODIUM CHLORIDE 0.9% 1,000 ML IV SCH ×2 (07:01→20:34)
[2019-09-28] MEDS: PSYLLIUM HUSK 100% 6 GM PACKET PO SCH (07:01)
[2019-09-28] MEDS: LISINOPRIL 10 MG TAB PO SCH (07:01)
[2019-09-28] MEDS: GABAPENTIN 300 MG CAP PO SCH ×3 (07:01→21:25)
[2019-09-28] MEDS: ATORVASTATIN 40 MG TAB PO SCH (07:01)
[2019-09-28] MEDS: PANTOPRAZOLE 40 MG/10 ML VIAL IV SCH (07:01)
[2019-09-28] MEDS: INSULIN ASPART (NovoLOG) 100 UNIT/ML VIAL SQ SCH ×4 (07:02→20:41)
[2019-09-28] MEDS: TRIAMTERENE-HCTZ 37.5-25MG 1 EACH CAP PO SCH (07:03)
[2019-09-28] MEDS: HYDROcodone/APAP 7.5-325MG 1 EACH TAB PO SCH ×3 (08:33→21:25)
[2019-09-28] MEDS: CEFEPIME 2 GM in SODIUM CHLORIDE 0.9% 100 ML IVPB SCH ×2 (08:33→20:32)
[2019-09-28 11:24] LABS: Glucose,Whole Blood 161 mg/dL (75-99)
[2019-09-28] MEDS ORDERED: ONDANSETRON 4 MG/2 ML VIAL IVP PRN (12:01)
[2019-09-28] MEDS: VANCOMYCIN 2,000 MG in SODIUM CHLORIDE 0.9% 500 ML 500 ML IVPB SCH ×2 (12:07→23:01)
--- NOTE | 2019-09-28 13:31 | P.GSCN ---
History of Present Illness Consult date: 09/28/19 Reason for Consult: Non-healing Diabetic toe ulcer, s/p amputaion. History of present illness: The patient is a pleasant 69-year-old male known to the wound care center and Dr. Gibbons for a nonhealing ulcer to the left second digit status post amputation in June 2019. The patient has been following in the wound care clinic for the last 6 weeks, last week the patient did under go a debridement with Dr. Gibbons. The patient states the past couple days the pain had increased, as well as redness up his foot thus he came to the emergency department to be evaluated. Dr. Gibbons had recommended the patient to see vascular surgical services outpatient, however the patient never set up the appointment. The patient has a past medical history that includes type 2 diabetes mellitus, hypertension, neuropathy in bilateral feet, hyperlipidemia, gastritis, Crohn's, IBS. The patient denies any pain in his lower extremities at rest or with ambulation, other than the left foot where the ulcer is and bilateral hip pain. Patient denies any fevers, chills, shortness of breath, or chest pain. The patient has full range of motion of bilateral lower extremities and toes. Patient had a left foot x-ray that had shown subtle thickening and possible loss of the medial distal second metatarsal cortex that could indicate early underlying osteomyelitis. A nuclear med scan was ordered and completed that states delayed phase image however does not show suspicious radiotracer uptake. Clinical concern second toe remnant to suggest acute osteomyelitis. Findings support diagnosis of acute cellulitis or soft tissue infection. The patient previously underwent arterial Doppler studies of the lower extremities and May 2019 which showed multiphasic Doppler waveforms throughout the right lower extremity. Multiphasic at the femoral and popliteal on the left with a bit more atypical at the ankle level. Ankle brachial indices were 0.8 on the right and 0.72 on the left. The toe pressures 120 on the right, 95 on the left. Review of Systems Review of Systems completed and all pertinent positives and negatives as stated in the HPI. Past Medical History Past Medical History: Diabetes Mellitus, Hypertension Additional Past Medical History / Comment(s): IDDM type II, neuropathy bilateral feet, borderline high cholesterol, gastritis, chrons, IBS, back pain in winter months, chronic bilateral thigh pain. History of Any Multi-Drug Resistant Organisms: MRSA Year Discovered:: 09/26/19 MDRO Source:: LEFT FOOT Past Surgical History: Orthopedic Surgery Additional Past Surgical History / Comment(s): L shoulder/collar bone crush injury with hardware, L knee surgery d/t injury, L great toe ulcer with debridement, EGD, colonoscopies. Past Anesthesia/Blood Transfusion Reactions: No Reported Reaction Past Psychological History: No Psychological Hx Reported Additional Psychological History / Comment(s): Pt has an adult son living with him. He is indpendent. Smoking Status: Never smoker Past Alcohol Use History: Rare Past Drug Use History: None Reported - Past Family History Mother Family Medical History: Cancer Father Family Medical History: Cancer Medications and Allergies Home Medications Medication Instructions Recorded Confirmed Type Insulin NPH Human Isophane See Protocol SQ HS 11/23/18 09/26/19 History [NovoLIN N] Insulin Regular, Human [NovoLIN R] See Protocol SQ AC-TID 06/08/19 09/26/19 History Methylcellulose (with Sugar) 2 gm PO DAILY 06/08/19 09/26/19 History [Citrucel Powder] Testosterone Cypionate 200 mg IM Q14D 06/08/19 09/26/19 History [Depo-Testosterone] Atorvastatin [Lipitor] 40 mg PO DAILY #90 tab 06/09/19 09/26/19 Rx Gabapentin [Neurontin] 300 mg PO TID@0900,1300,1800 07/23/19 09/26/19 History HYDROcodone/APAP 7.5-325MG [[place] 1 tab PO TID@0900,1300,1800 07/23/19 09/26/19 History 7.5-325] Lisinopril 30 mg PO DAILY 07/23/19 09/26/19 History Triamterene-Hctz 37.5-25Mg 1 cap PO DAILY 07/23/19 09/26/19 History [Dyazide 37.5-25 Capsule] Terbinafine [LamISIL] 250 mg PO DAILY 09/26/19 09/26/19 History Allergies Allergy/AdvReac Type Severity Reaction Status Date / Time naproxen Allergy Swelling Verified 09/26/19 19:15 Surgical - Exam Vital Signs Temp Pulse Resp BP Pulse Ox 98.3 F 96 18 106/78 97 09/26/19 14:18 09/26/19 14:18 09/26/19 14:18 09/26/19 14:18 09/26/19 14:18 General appearance: The patient is alert, oriented, in no acute distress. HET: Head is normocephalic and atraumatic. Neck: Supple without lymphadenopathy. Trachea midline. Heart: S1 S2. Regular rate and rhythm. Lungs: No crackles or wheezes are heard. Abdomen: Soft, nontender, nondistended with bowel sounds. No peritoneal signs. No palpable organomegaly or masses. Extremities: Right Normal skin color and turgor. Good capillary refill bilaterally. Palpable bilateral femoral pulses. Right lower extremity with Multiphasic popliteal PT and DP signal. Left lower extremity with pedal edema, erythema along the dorsal aspect of foot, and dressing that is clean dry and intact over second toe amputation site. Left lower extremity with multiphasic popliteal and PT signal, with monophasic DP. Sensorimotor intact bilaterally. Neurological: No focal deficits. Strength and sensation are grossly intact. Results - Labs 09/27/19 06:33 09/28/19 06:48 Abnormal Lab Results - Last 24 Hours (Table) 09/27/19 09/27/19 09/27/19 Range/Units 06:33 11:39 17:03 POC Glucose (mg/dL) 195 H 154 H (75-99) mg/dL Hemoglobin A1c 6.8 H (4.0-6.0) % 09/27/19 09/28/19 Range/Units 20:33 06:45 POC Glucose (mg/dL) 206 H 124 H (75-99) mg/dL Hemoglobin A1c (4.0-6.0) % Microbiology - Last 24 Hours (Table) 09/26/19 15:20 Blood Culture - Preliminary Blood No Growth after 24 hours 09/26/19 15:20 Gram Stain - Preliminary Foot - Left Wound Culture - Preliminary Gram Neg Bacilli Presumptive MRSA Diabetes panel 09/27/19 09/28/19 Range/Units 06:33 06:48 Creatinine 1.11 (0.66-1.25) mg/dL Hemoglobin A1c 6.8 H (4.0-6.0) % Pituitary panel 09/28/19 Range/Units 06:48 Creatinine 1.11 (0.66-1.25) mg/dL Adrenal panel 09/28/19 Range/Units 06:48 Creatinine 1.11 (0.66-1.25) mg/dL Assessment and Plan Assessment: #1 Nonhealing Diabetic ulcer of the left foot, status post second toe amputation #2 peripheral arterial disease #3 diabetes mellitus type 2 Plan: Will order CT angiogram of the abdomen and pelvis with runoff to further evaluate lower extremity peripheral arterial disease. Continue with current treatment recommendations per wound care. Continue with current recommendations per infectious disease for antibiotic therapy. Further recommendations to come. Thank you for this consultation and allowing us to take part in the plan of care of this patient during his hospital stay. The above dictated assessment and findings were discussed with Dr. Oreilly. The impression and plan of care have been directed as dictated.
[2019-09-28 16:28] LABS: Glucose,Whole Blood 157 mg/dL (75-99)
[2019-09-28 20:35] LABS: Glucose,Whole Blood 149 mg/dL (75-99)
[2019-09-28] MEDS: INSULIN DETEMIR (LEVEMIR) 100 UNIT/ML SYR SQ SCH (20:35)
--- NOTE | 2019-09-28 20:49 | PN ---
PROGRESS NOTE SUBJECTIVE: 77-year-old white male, diabetic ulcerations, cellulitis of the foot. Bone scan is negative for osteomyelitis. Awaiting antibiotics for the PICC line to be placed possibly tomorrow and discharge home depending on wound cultures. Wait for Dr. Murguia's recommendations. CTA with runoff in the legs. CTA is pending. Awaiting vascular recommendations. CARDIOVASCULAR: S1, S2. Lungs are clear. Pain control is much better with IV Dilaudid. Morphine was not working. Left foot integument exam looks like decreased redness to the foot about 50% less than admission. He has a dressing over his amputated toe area which has a linear incision. ASSESSMENT: 1. Diabetic wound infection, osteomyelitis ruled out. 2. Cellulitis of the foot. Continue IV antibiotics. Await for recommendations per Infectious Disease for PICC line placement versus oral medications to be discharged home tomorrow most likely awaiting CTA with runoff of the fem fem pop area. 3. Test will be read. 4. Please see further orders. MMODL / IJN: [id number] /
--- NOTE | 2019-09-28 21:44 | CT ---
EXAMINATION TYPE: CT angio abd aorta w/Runoff DATE OF EXAM: 09/28/2019 COMPARISON: CT abdomen and pelvis 09/11/2015 HISTORY: 69-year-old male Non-healing diabetic ulcer s/p left toe amputation. TECHNIQUE: Contiguous axial scanning of the abdomen and pelvis with bilateral lower extremity run off performed without and with IV Contrast, patient injected with 100 mL of Isovue 370. Coronal/sagittal reconstructions performed. 3-D reconstructions generated on a dedicated independent workstation. CT DLP: 3983 mGycm Automated exposure control for dose reduction was used. FINDINGS: ABDOMEN: Heart upper limits of normal in size without pericardial effusion. Moderate bilateral gynecomastia. There are left breast microcalcifications demonstrated. Consider xavi mographic evaluation. Strands of atelectasis at the lung bases. No pleural effusion. Tiny hiatal hernia. Noncontrast and arterial phase imaging of the liver, gallbladder, adrenal glands and kidneys, spleen, pancreas show no gross abnormality. No dilated small bowel, free fluid, or free air. No mesenteric or retroperitoneal lymphadenopathy. Tiny fatty umbilical hernia. Moderate stool except in the sigmoid colon. Redundant sigmoid colon. No pericolonic inflammatory her ge. PELVIS: Bladder urine distended. Prostate gland measures 5.0 cm wide. Some pelvic phleboliths are noted. No a bnormal fluid collection in the pelvis. A couple prominent external iliac chain lymph nodes measuring up to 1.0 cm, nonspecific, probably reactive, minimally larger from 2016. VASCULATURE: Moderate atherosclerotic calcifications abdominal aorta. No aneurysm. Moderate atherosclerotic calcif ications are present at the origins of the celiac axis and bilateral roy renal arteries. RIGHT: Suspect moderate to severe noncalcified plaque within the proximal right SFA. Refer to axial image 16 5. Other areas of moderate atherosclerotic plaque and calcification throughout the remainder of the SFA. Mild scattered atherosclerotic calcifications within the popliteal artery. The artery becomes very diminutive below the knee. Anterior tibial artery not clearly seen beyond the upper third leg level. Peroneal artery not clearly seen beyond the mid leg level. Minimal faint posterior tibial artery runoff into the foot. LEFT: Moderate atherosclerotic calcification and narrowing proximal SFA. Severe atherosclerotic narrowing SFA at the adductor hiatus. Additional short segment moderate to severe atherosclerotic change upper to mid popliteal artery. The popliteal artery becomes extremely diminutive along its distal portion. Nonvisualization of the posterior tibial artery. Faint visualization of the peroneal artery to the di stal third leg level. Faint visualization of the anterior tibial artery to the hindfoot level. BONES: Some soft tissue air and post surgical changes involving the left second toe. Prominent fatty atrophy/infarcts involving the triceps surae musculature. IMPRESSION: 1. MODERATE ATHEROSCLEROTIC CALCIFICATIONS THROUGHOUT THE ABDOMINAL AORTA WITHOUT ANEURYSM. RIGHT: 2. MODERATE TO SEVERE NONCALCIFIED PLAQUE PROXIMAL SFA, additional scattered moderate atherosclerotic change throughout the remainder of the SFA, artery becoming very diminutive below the knee. 3. Anterior tibial artery not clearly seen beyond the upper third lead level. Peroneal artery not amrit eliseo seen beyond the mid leg level. Minimal faint runoff via the posterior tibial artery. LEFT: 4. Moderate atherosclerotic narrowing proximal SFA and severe atherosclerotic narrowing at the level of the adductor hiatus. 5. Moderate to severe short segment narrowing upper to mid popliteal artery. 6. Popliteal artery becomes extremely diminutive along its distal portion with nonvisualization of th e posterior tibial artery. Faint visualization of the peroneal artery to the distal third leg level. Faint visualization of the anterior tibial artery to the hindfoot level. OTHER: 7. Moderate bilateral gynecomastia. Microcalcifications in the left breast. Recommend diagnostic mamm ographic workup to further assess morphology of the calcifications.
--- NOTE | 2019-09-28 23:32 | PN ---
PROGRESS NOTE DATE OF SERVICE: 09/28/2019 REASON FOR FOLLOWUP: Left foot wound and cellulitis. INTERVAL HISTORY: The patient is currently afebrile, has been breathing comfortably. The patient denies having any chest pain or shortness of breath or cough. No nausea, no vomiting. No abdominal pain. Pain to the left foot is slight decreased in intensity. PHYSICAL EXAMINATION: Blood pressure 117/70 with a pulse of 73, temperature 99. He is 96% on room air. General description is an elderly male lying in bed in no distress. RESPIRATORY SYSTEM: Unlabored breathing. Clear to auscultation anteriorly. HEART: S1, S2. Regular rate and rhythm. ABDOMEN: Soft. No tenderness. Left foot swelling and redness slightly decreased. LABS: Creatinine is 1.11. Wound culture with presumptive MRSA and enterobacter. DIAGNOSTIC IMPRESSION AND PLAN: Patient with left foot wound with secondary cellulitis. Cultures with enterobacter and presumptive MRSA. Currently covered with cefepime and vancomycin; to continue while waiting for his condition to stabilize. Continue with supportive care. MMODL / IJN: [id number] /
[2019-09-29 06:56] LABS: Glucose,Whole Blood 156 mg/dL (75-99)
[2019-09-29] MEDS: INSULIN ASPART (NovoLOG) 100 UNIT/ML VIAL SQ SCH ×4 (07:07→21:56)
[2019-09-29] MEDS: PSYLLIUM HUSK 100% 6 GM PACKET PO SCH (07:50)
[2019-09-29] MEDS: CEFEPIME 2 GM in SODIUM CHLORIDE 0.9% 100 ML IVPB SCH ×2 (07:50→21:50)
[2019-09-29] MEDS: LISINOPRIL 10 MG TAB PO SCH (07:50)
[2019-09-29] MEDS: ATORVASTATIN 40 MG TAB PO SCH (07:50)
[2019-09-29] MEDS: TRIAMTERENE-HCTZ 37.5-25MG 1 EACH CAP PO SCH (07:51)
[2019-09-29] MEDS: PANTOPRAZOLE 40 MG TABLET PO SCH (07:51)
[2019-09-29] MEDS: GABAPENTIN 300 MG CAP PO SCH ×3 (07:51→21:51)
[2019-09-29] MEDS: SODIUM CHLORIDE 0.9% 1,000 ML IV SCH ×2 (07:52→21:57)
[2019-09-29] MEDS: HYDROcodone/APAP 7.5-325MG 1 EACH TAB PO SCH ×3 (08:00→21:50)
--- NOTE | 2019-09-29 10:59 | P.PN ---
Subjective Progress Note Date: 09/29/19 Patient was seen and examined sitting up in bed. Patient denies any changes through the night. Patient denies any fever or chills. His left toe amputation with dressing that is clean dry and intact. Patient states the pain in his left lower extremity has improved. CT angiogram of abdomen and aorta with runoff show moderate arthrosclerotic calcification throughout the abdominal aorta without aneurysm. Right lower extremity with moderate to severe noncalcified plaque proximal SFA. Anterior tibial artery not clearly seen beyond the upper third lead lead level. Minimal faint runoff via the posterior tibial artery. Left lower extremity shows moderate artherosclerotic narrowing proximal SFA and severe atherosclerotic narrowing at the level of the adductor hiatus. Moderate to severe short segment narrowing upper to mid popliteal artery. Popliteal artery becomes extremely diminutive along its distal portion with nonvisualization of the posterior tibial artery. Faint visualization of the peroneal artery to the distal third leg level. Faint visualization of the anterior tibial artery to the hindfoot. Objective - Vital Signs Vital signs: Vital Signs Temp 98.5 F 09/29/19 07:40 Pulse 75 09/29/19 07:40 Resp 16 09/29/19 07:40 BP 145/68 09/29/19 07:40 Pulse Ox 95 09/29/19 07:40 Intake & Output 09/28/19 09/29/19 09/29/19 18:59 06:59 18:59 Output Total 1050 Balance -1050 Output: Urine 1050 Other: Voiding Method Toilet Toilet Toilet Urinal Urinal Urinal # Voids 1 1 - Exam General appearance: The patient is alert, oriented, in no acute distress. HET: Head is normocephalic and atraumatic. Neck: Supple without lymphadenopathy. Trachea midline. Heart: S1 S2. Regular rate and rhythm. Lungs: No crackles or wheezes are heard. Extremities: Normal skin color and turgor. Left foot dorsal aspect with erythema and edema. Bilateral PT and DP Doppler signals. Sensorimotor intact. Neurological: No focal deficits. Strength and sensation are grossly intact. - Labs CBC & Chem 7: 09/27/19 06:33 09/29/19 07:06 Labs: Abnormal Lab Results - Last 24 Hours (Table) 09/28/19 09/28/19 09/28/19 Range/Units 11:23 16:26 20:33 POC Glucose (mg/dL) 161 H 157 H 149 H (75-99) mg/dL 09/29/19 Range/Units 06:52 POC Glucose (mg/dL) 156 H (75-99) mg/dL Microbiology - Last 24 Hours (Table) 09/26/19 15:20 Blood Culture - Preliminary Blood No Growth after 48 hours 09/26/19 15:20 Gram Stain - Preliminary Foot - Left Wound Culture - Preliminary Enterobacter cloacae Presumptive MRSA Assessment and Plan Assessment: #1 Nonhealing Diabetic ulcer of the left foot, status post second toe amputation #2 peripheral arterial disease #3 diabetes mellitus type 2 Plan: CT angiogram of abdomen and aorta with runoff reviewed with Dr. Mcdonald. From a vascular standpoint there is no need for acute intervention, Dr. Mcdonald recommends patient follow-up in their office for further outpatient workup. Continue recommendations per infectious disease and wound care. Further recommendations to follow. The above dictated assessment and findings were discussed with Dr. Mcdonald. The impression and plan of care have been directed as dictated.
[2019-09-29] MEDS ORDERED: VANCOMYCIN TROUGH DUE 1 EACH MISC MISCELLANE ONE (11:00)
[2019-09-29] MEDS: HYDROmorphone 1 MG/ML 1 ML SYRINGE IVP PRN ×2 (11:10→19:15)
[2019-09-29] MEDS: VANCOMYCIN 2,000 MG in SODIUM CHLORIDE 0.9% 500 ML 500 ML IVPB SCH (11:12)
[2019-09-29 11:43] LABS: Glucose,Whole Blood 137 mg/dL (75-99)
[2019-09-29 12:14] LABS: Prothrombin Time 10.5 sec (9.0-12.0)
[2019-09-29] MEDS ORDERED: LIDOCAINE 1% INJ 10MG/ML (20 ML MDV) SQ ONE (14:35)
--- NOTE | 2019-09-29 15:33 | IR ---
PICC LINE PLACEMENT: HISTORY: Infection requiring long-term antibiotic therapy PROCEDURE: Ultrasound and fluoroscopic guidance of PICC line placement. COMPLICATIONS: None ANESTHESIA: 1. 1% Lidocaine locally. FINDINGS/TECHNIQUE: The procedure was explained to the patient. The risks, complications, benefits and alternatives were discussed and any questions were answered. Informed consent was obtained. The patient was placed supine on the fluoroscopic table and prepped and draped in the usual sterile fash ion. Utilizing a 21 gauge needle and sonographic and fluoroscopic guidance, access in the left ceph alic vein was achieved and there is placement of a 0.018 guidewire. The vein is patent. A 4-F sheat h was placed over the guidewire. The guidewire and dilator were removed and a 4-F. PICC line was rishabh abhijeet through the sheath with the tip at the level of the SVC. The sheath was removed, the catheter wa s flushed and sutured into position. The patient was stable throughout the procedure and remained st able upon discharge from the Department of Radiology. The vein puncture was patent under ultrasound. A rendon scale image was obtained to document patency of the vein punctured. All elements of the maximal barrier technique were utilized. FLUOROSCOPY TIME: 0.7 minutes, one image submitted IMPRESSION: Successful PICC line placement under ultrasound and fluoroscopic guidance.
[2019-09-29 16:48] LABS: Glucose,Whole Blood 144 mg/dL (75-99)
[2019-09-29 20:20] LABS: Glucose,Whole Blood 182 mg/dL (75-99)
--- NOTE | 2019-09-29 20:53 | PN ---
PROGRESS NOTE DATE OF SERVICE: 09/29/2019 REASON FOR FOLLOWUP: Left foot wound and cellulitis. INTERVAL HISTORY: The patient is afebrile, has been breathing comfortably. Denies having any chest pain or any cough. No nausea, no vomiting. No abdominal pain. Pain to the left foot has decreased in intensity. No diarrhea. PHYSICAL EXAMINATION: Blood pressure 149/72 with a pulse of 67, temperature 98.6. He is 97% on room air. General description is an elderly male lying in bed in no distress. RESPIRATORY SYSTEM: Unlabored breathing. Decreased breath sounds in the bases. No wheeze. HEART: S1, S2. Regular rate and rhythm. ABDOMEN: Soft. No tenderness. Left foot swelling and redness slightly decreased. DIAGNOSTIC IMPRESSION AND PLAN: Patient with left foot wound with secondary cellulitis. Patient at this time to continue with vancomycin and cefepime while waiting for condition to stabilize and monitor clinical course closely. Continue with supportive care. MMODL / IJN: [id number] /
[2019-09-29] MEDS: INSULIN DETEMIR (LEVEMIR) 100 UNIT/ML SYR SQ SCH (21:53)
[2019-09-29 21:54] LABS: Glucose,Whole Blood 175 mg/dL (75-99)
[2019-09-30] MEDS: VANCOMYCIN 2,000 MG in SODIUM CHLORIDE 0.9% 500 ML 500 ML IVPB SCH ×3 (00:06→23:38)
[2019-09-30] MEDS: HYDROmorphone 1 MG/ML 1 ML SYRINGE IVP PRN ×2 (06:12→21:40)
[2019-09-30 06:51] LABS: Glucose,Whole Blood 114 mg/dL (75-99)
[2019-09-30] MEDS: ATORVASTATIN 40 MG TAB PO SCH (08:14)
[2019-09-30] MEDS: GABAPENTIN 300 MG CAP PO SCH ×3 (08:14→21:26)
[2019-09-30] MEDS: PANTOPRAZOLE 40 MG TABLET PO SCH (08:14)
[2019-09-30] MEDS: HYDROcodone/APAP 7.5-325MG 1 EACH TAB PO SCH ×3 (08:15→21:39)
[2019-09-30] MEDS: CEFEPIME 2 GM in SODIUM CHLORIDE 0.9% 100 ML IVPB SCH ×2 (08:16→21:26)
[2019-09-30] MEDS: INSULIN ASPART (NovoLOG) 100 UNIT/ML VIAL SQ SCH ×4 (08:16→21:39)
[2019-09-30] MEDS: LISINOPRIL 10 MG TAB PO SCH (08:16)
[2019-09-30] MEDS: PSYLLIUM HUSK 100% 6 GM PACKET PO SCH (08:16)
[2019-09-30] MEDS: TRIAMTERENE-HCTZ 37.5-25MG 1 EACH CAP PO SCH (08:17)
--- NOTE | 2019-09-30 10:01 | PN ---
PROGRESS NOTE DATE OF SERVICE: 09/29/2019 69-year-old white male who has had cellulitis of the left foot, significant nature trying to get a PICC line for possible IV antibiotics. Awaiting Dr. Rubio's recommendations. His PAD in the CTA shows multiple blockages in the legs with artery flow. Awaiting vascular recommendations on this. Possible discharge home with a PICC line over the next 24 to 48 hours. Lungs are clear. Cardiovascular S1, S2. Vitals are reviewed. Please await recommendations about possible discharge home soon with either PICC line or oral antibiotics. MMODL / IJN: [id number] /
[2019-09-30 11:56] LABS: Glucose,Whole Blood 145 mg/dL (75-99)
[2019-09-30 16:54] LABS: Glucose,Whole Blood 189 mg/dL (75-99)
--- NOTE | 2019-09-30 20:34 | PN ---
PROGRESS NOTE 69-year-old white male who is breathing better. He is trying to wean off his Dilaudid injections to go back to his home pain medicine. He still remains on IV vancomycin for MRSA cellulitis of the leg. He has had a PICC line placed. Waiting for Infectious Disease and insurance to cover his home IV vancomycin he will need for MRSA cellulitis of the left leg. Diabetes has been under control. Pain is improved. Cardiovascular: S1-S2. Psych: Fair mood and affect. Lungs clear. GI soft. Integument: Left foot has decreased redness and warmth to the distal foot. Third toe missing. Less purulent drainage from the wound. Redness mainly in the toes about 1-2 inches from the incision site, been greatly improved with IV vancomycin. He will need PICC line placed, which has been done an insurance to pay for home IV antibiotics. That is what we are waiting on to discharge the patient. MIKHAILL / IJN: [id number] /
[2019-09-30 21:27] LABS: Glucose,Whole Blood 143 mg/dL (75-99)
[2019-09-30] MEDS: INSULIN DETEMIR (LEVEMIR) 100 UNIT/ML SYR SQ SCH (21:39)
[2019-09-30] MEDS: SODIUM CHLORIDE 0.9% 1,000 ML IV SCH (23:47)
[2019-10-01] MEDS: SODIUM CHLORIDE 0.9% 1,000 ML IV SCH ×2 (05:00→21:00)
[2019-10-01 06:48] LABS: Glucose,Whole Blood 110 mg/dL (75-99)
[2019-10-01] MEDS: INSULIN ASPART (NovoLOG) 100 UNIT/ML VIAL SQ SCH ×4 (07:03→21:09)
[2019-10-01 07:04] LABS: Basophils % (A) 0 %; Eosinophils # (A) 0.6 k/uL (0-0.7); Eosinophils % (A) 4 %; HGB 11.7 gm/dL (13.0-17.5); Lymphocytes # (A) 1.7 k/uL (1.0-4.8); Lymphocytes % (A) 13 %; MCHC 32.6 g/dL (31.0-37.0); MCV 85.7 fL (80.0-100.0); Mean Platelet Volume 7.4; Monocytes # (A) 1.5 k/uL (0-1.0); Monocytes % (A) 11 %; Neutrophils # (A) 9.5 k/uL (1.3-7.7); Neutrophils % (A) 70 %; Platelet Count 362 k/uL (150-450); RDW 13.5 % (11.5-15.5); WBC 13.5 k/uL (3.8-10.6)
[2019-10-01 07:20] LABS: Calcium 9.4 mg/dL (8.4-10.2); Potassium 4.6 mmol/L (3.5-5.1)
[2019-10-01 07:40] LABS: C Reactive Protein 142.6 mg/L (<10.0)
[2019-10-01] MEDS: CEFEPIME 2 GM in SODIUM CHLORIDE 0.9% 100 ML IVPB SCH ×2 (08:18→21:08)
[2019-10-01] MEDS: HYDROcodone/APAP 7.5-325MG 1 EACH TAB PO SCH ×3 (08:19→21:09)
[2019-10-01] MEDS: ATORVASTATIN 40 MG TAB PO SCH (08:19)
[2019-10-01] MEDS: TRIAMTERENE-HCTZ 37.5-25MG 1 EACH CAP PO SCH (08:19)
[2019-10-01] MEDS: LISINOPRIL 10 MG TAB PO SCH (08:19)
[2019-10-01] MEDS: GABAPENTIN 300 MG CAP PO SCH ×3 (08:19→21:09)
[2019-10-01] MEDS: PANTOPRAZOLE 40 MG TABLET PO SCH (08:19)
[2019-10-01] MEDS: PSYLLIUM HUSK 100% 6 GM PACKET PO SCH (08:19)
--- NOTE | 2019-10-01 08:54 | PN ---
PROGRESS NOTE DATE OF SERVICE: 09/30/2019. REASON FOR FOLLOWUP: Left foot wound cellulitis. INTERVAL HISTORY: The patient is currently afebrile, has been breathing comfortably. The patient's overall pain to the left foot has decreased intensity. No chest pain. No abdominal pain. No diarrhea. PHYSICAL EXAMINATION: Blood pressure is 151/82 with a pulse of 64. Temperature 98.4. He is 97% on room air. General description is an elderly male lying in bed in no distress. Respiratory system: Unlabored breathing. Clear to auscultation anteriorly. Heart S1, S2. Regular rate and rhythm. ABDOMEN: Soft, no tenderness. Left foot swelling and redness has slightly decreased. DIAGNOSTIC IMPRESSION AND PLAN: Patient with left foot wound with secondary cellulitis. Culture did shows both gram- negative and MRSA. Patient is currently covered with vancomycin and cefepime. Plan is for finish therapy with oral Cipro x2 weeks in addition to IV vancomycin, pharmacy to dose x2 weeks. Once outpatient antibiotic arranged, he should be able to go to go home from ID standpoint. Discussed with the admitting physician. Continue supportive care. MMODL / IJN: [id number] /
[2019-10-01] MEDS: VANCOMYCIN 2,000 MG in SODIUM CHLORIDE 0.9% 500 ML 500 ML IVPB SCH ×2 (11:10→11:11)
[2019-10-01] MEDS: HYDROmorphone 1 MG/ML 1 ML SYRINGE IVP PRN (11:10)
[2019-10-01 11:14] LABS: Glucose,Whole Blood 148 mg/dL (75-99)
[2019-10-01 16:53] LABS: Glucose,Whole Blood 130 mg/dL (75-99)
--- NOTE | 2019-10-01 19:00 | PN ---
PROGRESS NOTE 69-year-old white male with diabetic foot ulcerations, cellulitis of the left leg, is greatly improving with IV vancomycin. He is waiting for insurance to cover home IV antibiotics with vancomycin, which Infectious Disease ordered due to MRSA in the wounds. Follow up as an outpatient. CARDIOVASCULAR: S1, S2. Lungs clear. GI soft. Integument redness, swelling, wound on the base of the second toe. Continue current treatments with antibiotics with IV wound care. Follow up in the next 24 to 48 hours. MMODL / IJN: [id number] /
[2019-10-01 20:28] VITALS: RESP 18
[2019-10-01 21:02] LABS: Glucose,Whole Blood 155 mg/dL (75-99)
[2019-10-01] MEDS: INSULIN DETEMIR (LEVEMIR) 100 UNIT/ML SYR SQ SCH (21:10)
[2019-10-02 00:30] VITALS: BP 166/64; PULSE 63; TEMP 98.2
[2019-10-02] MEDS: HYDROmorphone 1 MG/ML 1 ML SYRINGE IVP PRN (04:09)
[2019-10-02] MEDS: SODIUM CHLORIDE 0.9% 1,000 ML IV SCH (04:13)
--- NOTE | 2019-10-02 06:38 | PN ---
PROGRESS NOTE DATE OF SERVICE: 10/01/2019 REASON FOR FOLLOWUP: Left foot wound with secondary cellulitis. INTERVAL HISTORY: The patient is currently afebrile. He has been breathing comfortably. Denies having any chest pain or shortness of breath or cough. No abdominal pain. He did mention the left foot pain and swelling has improved. PHYSICAL EXAMINATION: Blood pressure 173/80 with a pulse of 58, temperature of 98.1. He is 95% on room air General description is an elderly male lying in bed in no distress. RESPIRATORY SYSTEM: Unlabored breathing. Clear to auscultation anteriorly. HEART: S1, S2. Regular rate and rhythm. ABDOMEN: Soft, no tenderness. Left foot still has some swelling though redness has improved. LABS: Hemoglobin 11.7, white count 13.5, creatinine 1.01. CRP is 142. DIAGNOSTIC IMPRESSION AND PLAN: Patient with left foot wound in this patient who is status post left second toe amputation. Wound culture with Enterobacter, MSSA and MRSA. The patient is currently on cefepime and vancomycin finish therapy with a 2-week course of IV vancomycin and oral Cipro. Close outpatient followup. Continue supportive care. MMODL / IJN: [id number] /
[2019-10-02 06:47] LABS: Glucose,Whole Blood 113 mg/dL (75-99)
[2019-10-02] MEDS ORDERED: oxyCODONE-APAP 7.5-325MG 1 EACH TAB PO STA (08:13)
[2019-10-02] MEDS: INSULIN ASPART (NovoLOG) 100 UNIT/ML VIAL SQ SCH ×2 (08:14→12:13)
[2019-10-02] MEDS: HYDROcodone/APAP 7.5-325MG 1 EACH TAB PO SCH (08:14)
[2019-10-02] MEDS: LISINOPRIL 10 MG TAB PO SCH (08:57)
[2019-10-02] MEDS: TRIAMTERENE-HCTZ 37.5-25MG 1 EACH CAP PO SCH (08:57)
[2019-10-02] MEDS: GABAPENTIN 300 MG CAP PO SCH (08:57)
[2019-10-02] MEDS: PANTOPRAZOLE 40 MG TABLET PO SCH (08:58)
[2019-10-02] MEDS: CEFEPIME 2 GM in SODIUM CHLORIDE 0.9% 100 ML IVPB SCH (08:58)
[2019-10-02] MEDS: ATORVASTATIN 40 MG TAB PO SCH (08:58)
[2019-10-02] MEDS: PSYLLIUM HUSK 100% 6 GM PACKET PO SCH (08:59)
[2019-10-02] MEDS ORDERED: VANCOMYCIN TROUGH DUE 1 EACH MISC MISCELLANE ONE (11:00)
[2019-10-02 11:41] LABS: Glucose,Whole Blood 132 mg/dL (75-99)
[2019-10-02] MEDS: VANCOMYCIN 2,000 MG in SODIUM CHLORIDE 0.9% 500 ML 500 ML IVPB SCH (12:13)
--- NOTE | 2019-10-02 13:19 | PN ---
PROGRESS NOTE DATE OF SERVICE: 10/02/2019. REASON FOR FOLLOWUP: Left foot diabetic foot wound with secondary cellulitis. INTERVAL HISTORY: The patient is currently afebrile. The patient has been breathing comfortably. The patient denies having any chest pain or shortness of breath or cough. No abdominal pain. Overall pain to the left foot area has improved. PHYSICAL EXAMINATION: Blood pressure 166/64 with a pulse of 63, temperature 98.2. He is 97% on room air. General description is an elderly male lying in bed in no distress. RESPIRATORY SYSTEM: Unlabored breathing, clear to auscultation anteriorly. HEART: S1, S2. Regular rate and rhythm. ABDOMEN: Soft, no tenderness. Left foot swelling and redness has improved. LABS: Hemoglobin 11.7, white count 13.5. No blood work was done today. DIAGNOSTIC IMPRESSION AND PLAN: Patient with left foot wound with secondary cellulitis. Culture has been positive with Enterobacter and MRSA. Patient is currently on vancomycin, pharmacy to dose. Dose needs to be adjusted to keep the trough around 15 for 2 weeks along with oral Cipro. Prescription for Cipro has already been sent and close outpatient followup. Questions and concerns were answered. MMODL / IJN: [id number] /
[2019-10-03] MEDS ORDERED: VANCOMYCIN 1,750 MG in SODIUM CHLORIDE 0.9% 500 ML 500 ML IVPB SCH ×2
== END 2019-10-02 16:24 | disposition home health service (06) | DRG 638 ==
LOC: EC 14:13 → 4SSUR 18:06
PROVIDERS: ADMIT Family Medicine; ATTEND Family Medicine
PROC: 02HV33Z Insertion of Infusion Device into Superior Vena Cava, Percutaneous Approach (ICD-10-PCS; principal; 2019-09-29 14:30)
DX: E11.621 Type 2 diabetes mellitus with foot ulcer (principal); L03.116 Cellulitis of left lower limb; K50.90 Crohn's disease, unspecified, without complications; L97.528 Non-pressure chronic ulcer of other part of left foot with other specified severity; E11.51 Type 2 diabetes mellitus with diabetic peripheral angiopathy without gangrene; B95.62 Methicillin resistant Staphylococcus aureus infection as the cause of diseases classified elsewhere; E11.65 Type 2 diabetes mellitus with hyperglycemia; E11.628 Type 2 diabetes mellitus with other skin complications; B96.89 Other specified bacterial agents as the cause of diseases classified elsewhere; L03.032 Cellulitis of left toe; Z79.4 Long term (current) use of insulin; E78.00 Pure hypercholesterolemia, unspecified; E78.5 Hyperlipidemia, unspecified; G89.29 Other chronic pain; I10 Essential (primary) hypertension; Z79.2 Long term (current) use of antibiotics; Z79.899 Other long term (current) drug therapy; Z79.890 Hormone replacement therapy; Z89.422 Acquired absence of other left toe(s)
CPT/HCPCS: 36415; 36573; 75635; 78315; 80048; 80053; 80202; 82565; 83036; 83605; 85025; 85610; 86140; 87040; 87070; 87077; 87186; 87205; 96361; 96365; 96367; 96375; 99285

== ENCOUNTER 2019-10-11 09:56 | Inpatient (IN) | payer MEDICARE ==
[2019-10-11 11:43] LABS: Glucose,Whole Blood 139 mg/dL (75-99)
[2019-10-11 12:45] LABS: Basophils # (A) 0.1 k/uL (0-0.2); Basophils % (A) 1 %; Eosinophils # (A) 0.5 k/uL (0-0.7); Eosinophils % (A) 4 %; HCT 42.7 % (39.0-53.0); HGB 13.6 gm/dL (13.0-17.5); Lymphocytes # (A) 2.1 k/uL (1.0-4.8); Lymphocytes % (A) 16 %; MCH 27.1 pg (25.0-35.0); MCHC 31.9 g/dL (31.0-37.0); MCV 84.8 fL (80.0-100.0); Monocytes # (A) 0.8 k/uL (0-1.0); Monocytes % (A) 6 %; Neutrophils # (A) 9.6 k/uL (1.3-7.7); Neutrophils % (A) 72 %; Platelet Count 602 k/uL (150-450); RBC 5.03 m/uL (4.30-5.90); RDW 12.9 % (11.5-15.5); WBC 13.3 k/uL (3.8-10.6)
[2019-10-11 12:56] LABS: Partial Thromboplastin Time 24.2 sec (22.0-30.0); Prothrombin Time 10.4 sec (9.0-12.0)
[2019-10-11 13:08] LABS: Albumin 3.8 g/dL (3.5-5.0); Calcium 10.4 mg/dL (8.4-10.2); Potassium 5.1 mmol/L (3.5-5.1); Total Bilirubin 0.3 mg/dL (0.2-1.3); Total Protein 7.7 g/dL (6.3-8.2)
[2019-10-11] MEDS: SODIUM CHLORIDE 0.9% 1,000 ML IV SCH (14:09)
[2019-10-11] MEDS: HYDROmorphone 1 MG/ML 1 ML SYRINGE IVP PRN ×3 (14:10→22:29)
--- OUTSIDE RECORDS SUMMARY | 2019-10-11 14:20 | XMS REPORT | Referral Summary ---
:1950 Author Name Maria Antoniamario Starr Address [address]. Unavailable [place] [id number] Care Team Providers Name Role Phone Shekhar Gibbons Unavailable Unavailable Roberta Lai Unavailable Unavailable Kristyn Kimble Unavailable Unavailable Zachary Bruno Unavailable Unavailable Allergies, Adverse Reactions and Alerts Substance Reaction Reaction Severity Status naproxen edema Moderate Active Medications Medication Directions Start Date Status testosterone cypionate 200 mg/mL 1 kit intramuscular weekly Unsp ecified active intramuscular kit gabapentin 300 mg capsule 1 capsule oral daily Unspecified a ctive atorvastatin 40 mg tablet 1 tablet oral daily Unspecified ac tive lisinopril 30 mg tablet 1 tablet oral daily Unspecified acti ve ceftriaxone 2 gram intravenous 1 recon soln intravenous daily Un specified active solution Humulin N NPH U-100 Insulin 20 suspension subcutaneous hs Unspec ified active (isophane susp) 100 unit/mL subcutaneous Novolin R Regular U-100 Insulin 20 solution injection sliding Un specified active 100 unit/mL injection solution scale before meals 3 x daily hydrocodone 7.5 mg-acetaminophen 1 tablet oral 3 x daily Unspeci fied active 325 mg tablet triamterene 37.5 1 tablet oral daily Unspecified active mg-hydrochlorothiazide 25 mg tablet Problems Problem Onset Date Status E08.621 - Diabetes mellitus due to underlying condition with foot 08/02/2019 active ulcer L97.524 - Non-pressure chronic ulcer of other part of left f oot 09/20/2019 active with necrosis of bone M65.072 - Abscess of tendon sheath, left ankle and foot 10/10 active Encounters Date Location 08/02/2019 12:00:00 AM [facility] Encounter Diagnosis: E08.621 - Diabetes mellitus due to underlying condition with foot ulcer Encounter Diagnosis: L97.524 - Non-pressure chronic ulcer of other part of left foot with necrosis of bone Encounter Diagnosis: M65.072 - Abscess of tendon sheath, left ankle and foot Vital signs Vital Value Unit Height 72 [in_i] Weight Measured 280 [lb_av] BP Systolic 187 mm[Hg] BP Diastolic 84 mm[Hg] BMI (Body Mass Index) 38 Unspecified Weight Measured 127.27 kg Body Temperature 97.6 [degF] Body Temperature 36.44 Susu O2 % BldC Oximetry Unspecified Unspecified Heart Rate 80 /min Respiratory Rate 20 /min Inhaled O2 concentration Unspecified Unspecified Immunizations Name Date Status Immunization information has not been included or does not e xist. Procedures Procedure Date Status Procedure information has not been included or does not exis t. Social History Social history information has not been included or does not exist. Goals Description Goal: Patient will not experience any in jury related to falls Goal: Patient will remain injury free re lated to falls Goal: Patient/caregiver will verbalize/d emonstrate measures taken to prevent injury and/or falls Goal: Patient/caregiver will demonstrate understanding of all current medications Goal: Patient/caregiver will demonstrate understanding of new oral/IV medications prescribed at the [facility] (topical prescript ions are covered under the skin breakdown problem) Goal: Necrotic/devitalized tissue will b e minimized in the wound bed Goal: Patient/caregiver will verbalize u nderstanding of reason and process for debridement of necrotic tissue Goal: Patient/caregiver will verbalize u nderstanding of the [facility] Goal: Patient will verbalize adequate pa in control and receive pain control interventions during procedures as neede d Goal: Patient/caregiver will verbalize a dequate pain control between visits Goal: Patient/caregiver will verbalize c omfort level met Goal: Patient/caregiver will verbalize u nderstanding of disease process and disease management Goal: Patient will remain free of wound infection Goal: Patient/caregiver will verbalize u nderstanding of or measures to prevent infection and contamination in the home setting Goal: Patient's soft tissue infection wi ll resolve Goal: Signs and symptoms of infection wi ll be recognized early to allow for prompt treatment Goal: Patient/caregiver will verbalize u nderstanding of skin care regimen Goal: Ulcer/skin breakdown will have a v olume reduction of 30% by week 4 Goal: Ulcer/skin breakdown will have a v olume reduction of 50% by week 8 Goal: Ulcer/skin breakdown will have a v olume reduction of 80% by week 12 Goal: Ulcer/skin breakdown will heal wit hin 14 weeks Health Concerns Description Problem: Abuse / Safety / Falls / Self C are Management Problem: Medication Problem: Necrotic Tissue Problem: Orientation to the Wound Care Alexa freeman Problem: Pain, Acute or Chronic Problem: Peripheral Neuropathy Problem: Soft Tissue Infection Problem: Wound/Skin Impairment Functional Status Description Date Cognitive Status: Alert and Oriented x 4 (Active) 2019 Ambulatory Status - Wheel Chair (Active) 10/11/2019 Assessment and Plan Description Microbiology: Anaerobic Wound Culture. 09/20/2019. Plan of Treatment: Patient referred to [facility] care Plan of Treatment: Apply topical anesthe tic as ordered Plan of Treatment: Excisional debridemen t Plan of Treatment: Administer pain contr ol measures as ordered Plan of Treatment: Patient referred for customized footwear/offloading Plan of Treatment: Consult for HBO Plan of Treatment: Systemic antibiotics Plan of Treatment: Education provided on Infection Plan of Treatment: Patient referred to [facility] care Plan of Treatment: Referred to [facility] for dressing supplies Plan of Treatment: Skin care regimen ini tiated Plan of Treatment: Topical wound managem ent initiated Assessment: Patient is status post amput ation of the left second toe secondary to necrotic infection. He has been a poorl y controlled diabetic. He had a long-standing ulcer on the toe08/09/2019 : No new complaints. Unable to utilize wound VAC due to cost.08/16/2019: No new compl aints08/30/2019: No anidjwjzni62/12/2020: No new cenxkufpud54/19/2020: No new complai nts09/20/2019: No govtarafbq76/11/2020: No complaints today. Status post hospitali zation for cellulitis in the foot. Currently on IV and oral antibiotics. They have n ot been packing the wound. They have simply been laying absorptive silver over top o f it.10/11/2019: No complaints. Results Name Specimen Value Unit Ref. Range Date Result information has not been included or does not exist. Medical Equipment Implanted Area TIANA Assigning Author [email or web address] Medical Equipment information has not been included or does not exist. Reason for Referral transition of care
--- NOTE | 2019-10-11 15:02 | P.GSHP ---
History of Present Illness H&P Date: 10/11/19 Chief Complaint: chronic ulcer of left foot This is a 69 year old man who follows in an outpatient basis with Dr. Mike Castillo and Dr. Shekhar Gibbons. He is post amputation of the left second toe secondary to necrotic infection and is a poorly controlled diabetic with a long- standing ulcer of the toe. He had been following in the wound care center for several weeks and was instructed to follow up with vascular surgery, however he was unable to make his appointment due to cost. He did have debridement completed in the wound care center. Subsequently he presented to [facility] emergency room a couple of weeks ago due to increased drainage and redness to the dorsum of the foot with increased discomfort. He was admitted for evaluation and treatment with consultation placed to Dr. Gibbons. Bone scan was completed which did not suggest osteomyelitis. There was some discoloration to the lateral aspect of the foot and Dr. Weeks was consulted, the patient had a computed tomography scan demonstrating moderate atherosclerotic disease of the SFA bilaterally, infrapopliteal disease. Recommendations were for catheter directed angiogram with possible intervention to be scheduled as an outpatient. The patient received a PICC line for IV antibiotics, and was discharged to home with oral and IV antibiotics to continue per infectious disease. Upon follow-up in the wound care center he was found to have tunneling into the wound approximated 10 cm and was directly admitted to the hospital with plans for surgical incision and debridement by Dr. Gibbons tomorrow, 10/12/2019. - Integumentary Integumentary: Reports as per HPI, Reports wounds Past Medical History Past Medical History: Diabetes Mellitus, Hyperlipidemia, Hypertension, Vascular Disorder Additional Past Medical History / Comment(s): IDDM type II, neuropathy bilateral feet, nonhealing ulcedr L foot-seen in C/home IV antibiotics, borderline high cholesterol, gastritis, chrons, IBS, back pain in winter months, chronic left thigh pain. History of Any Multi-Drug Resistant Organisms: MRSA Date of last positivie culture/infection: 09/26/19 MDRO Source:: LEFT FOOT Past Surgical History: Orthopedic Surgery Additional Past Surgical History / Comment(s): L 2nd toe amputation, PICC L arm, L shoulder/collar bone crush injury with hardware, L knee surgery/hardware d/t injury, L great toe ulcer with debridement, EGD, colonoscopies. Past Anesthesia/Blood Transfusion Reactions: No Reported Reaction Smoking Status: Never smoker - Past Family History Mother Family Medical History: Cancer Father Family Medical History: Cancer Medications and Allergies Home Medications Medication Instructions Recorded Confirmed Type Insulin NPH Human Isophane See Protocol SQ HS 11/23/18 10/11/19 History [NovoLIN N] Insulin Regular, Human [NovoLIN R] See Protocol SQ AC-TID 06/08/19 10/11/19 History Methylcellulose (with Sugar) 2 gm PO DAILY 06/08/19 10/11/19 History [Citrucel Powder] Testosterone Cypionate 200 mg IM Q14D 06/08/19 10/11/19 History [Depo-Testosterone] Atorvastatin [Lipitor] 40 mg PO DAILY #90 tab 06/09/19 10/11/19 Rx Gabapentin [Neurontin] 300 mg PO TID@0900,1300,1800 07/23/19 10/11/19 History Lisinopril 30 mg PO DAILY 07/23/19 10/11/19 History Triamterene-Hctz 37.5-25Mg 1 cap PO DAILY 07/23/19 10/11/19 History [Dyazide 37.5-25 Capsule] Terbinafine [LamISIL] 250 mg PO DAILY 09/26/19 10/11/19 History Ciprofloxacin HCl [Cipro] 500 mg PO Q12H #28 tab 09/30/19 10/11/19 Rx Sucralfate [Carafate] 1 gm PO QID 10/11/19 10/11/19 History cefTAZidime [Fortaz] 1 gm IVPB Q12HR 10/11/19 10/11/19 History oxyCODONE-APAP 10-325MG [Percocet 1 tab PO Q8HR PRN 10/11/19 10/11/19 History 10-325 mg] Allergies Allergy/AdvReac Type Severity Reaction Status Date / Time naproxen Allergy Swelling Verified 10/11/19 11:08 Surgical - Exam Vital Signs Temp Pulse Resp BP Pulse Ox 98.2 F 85 18 183/84 97 10/11/19 10:45 10/11/19 10:45 10/11/19 10:45 10/11/19 10:45 10/11/19 10:45 - General well developed, well nourished, no distress, no pain, obese - Eyes normal ocular movement - ENT no hearing loss - Neck no masses, no bruits, trachea midline - Respiratory Lungs sounds clear bilaterally. Respirations even, nonlabored. Currently on room air with oxygen saturation 97%. No chest wall deformities. No clubbing or cyanosis present. - Cardiovascular S1, S2 present. Regular rate and rhythm. Palpable peripheral pulses bilaterally. No edema present. No calf pain or tenderness noted. - Abdomen Abdomen: soft, non tender, bowel sounds - Genitourinary Deferred - Rectum Deferred - Integumentary Ulceration present to left foot, wrapped with Kerlex. no rash, no growths - Neurologic normal coordination - Musculoskeletal normal posture - Psychiatric oriented to time, oriented to person, oriented to place, speech is normal, memory intact Results - Labs 10/11/19 12:26 10/11/19 12:26 Abnormal Lab Results - Last 24 Hours (Table) 10/11/19 10/11/19 10/11/19 Range/Units 11:42 12:26 12:26 WBC 13.3 H (3.8-10.6) k/uL Plt Count 602 H (150-450) k/uL Neutrophils # 9.6 H (1.3-7.7) k/uL BUN 30 H (9-20) mg/dL Creatinine 1.32 H (0.66-1.25) mg/dL Glucose 174 H (74-99) mg/dL POC Glucose (mg/dL) 139 H (75-99) mg/dL Calcium 10.4 H (8.4-10.2) mg/dL Alkaline Phosphatase 226 H (38-126) U/L Diabetes panel 10/11/19 Range/Units 12:26 Sodium 137 (137-145) mmol/L Potassium 5.1 (3.5-5.1) mmol/L Chloride 101 (98-107) mmol/L Carbon Dioxide 24 (22-30) mmol/L BUN 30 H (9-20) mg/dL Creatinine 1.32 H (0.66-1.25) mg/dL Glucose 174 H (74-99) mg/dL Calcium 10.4 H (8.4-10.2) mg/dL AST 40 (17-59) U/L ALT 48 (4-49) U/L Alkaline Phosphatase 226 H (38-126) U/L Total Protein 7.7 (6.3-8.2) g/dL Albumin 3.8 (3.5-5.0) g/dL Calcium panel 10/11/19 Range/Units 12:26 Calcium 10.4 H (8.4-10.2) mg/dL Albumin 3.8 (3.5-5.0) g/dL Pituitary panel 10/11/19 Range/Units 12:26 Sodium 137 (137-145) mmol/L Potassium 5.1 (3.5-5.1) mmol/L Chloride 101 (98-107) mmol/L Carbon Dioxide 24 (22-30) mmol/L BUN 30 H (9-20) mg/dL Creatinine 1.32 H (0.66-1.25) mg/dL Glucose 174 H (74-99) mg/dL Calcium 10.4 H (8.4-10.2) mg/dL Adrenal panel 10/11/19 Range/Units 12:26 Sodium 137 (137-145) mmol/L Potassium 5.1 (3.5-5.1) mmol/L Chloride 101 (98-107) mmol/L Carbon Dioxide 24 (22-30) mmol/L BUN 30 H (9-20) mg/dL Creatinine 1.32 H (0.66-1.25) mg/dL Glucose 174 H (74-99) mg/dL Calcium 10.4 H (8.4-10.2) mg/dL Total Bilirubin 0.3 (0.2-1.3) mg/dL AST 40 (17-59) U/L ALT 48 (4-49) U/L Alkaline Phosphatase 226 H (38-126) U/L Total Protein 7.7 (6.3-8.2) g/dL Albumin 3.8 (3.5-5.0) g/dL Assessment and Plan Assessment: 1. Chronic nonhealing ulcer of the left foot, status post second toe amputation 2. Recent hospitalization for cellulitis 3. Peripheral arterial disease 4. Insulin-dependent diabetes mellitus 5. Bilateral lower extremity neuropathy Plan: The patient was seen and examined. Chart/diagnostics reviewed. Our plan is for incision and debridement of the left foot abscess tomorrow, 10/12/2019, with Dr. Gibbons. Dr. Blade consulted for antibiotic recommendations. Patient should be nothing by mouth after midnight. Medical management of other comorbidities per primary care service. Thank you for allowing us to participate in the care of this patient Time with Patient: Greater than 30
[2019-10-11] MEDS ORDERED: VANCOMYCIN IV PER PHARMACY 1 EACH MISC MISCELLANE PRN (15:10)
[2019-10-11 16:29] LABS: Glucose,Whole Blood 142 mg/dL (75-99)
[2019-10-11] MEDS: INSULIN ASPART (NovoLOG) 100 UNIT/ML VIAL SQ SCH ×2 (16:37→20:43)
[2019-10-11] MEDS: metroNIDAZOLE-NS PMX 500 MG in SALINE 1 100ML.BAG IVPB SCH ×2 (16:38→22:30)
--- NOTE | 2019-10-11 17:37 | HP ---
HISTORY AND PHYSICAL [id number] white male who was seen in the wound clinic after amputation of the left second toe due to necrotic infection and recent cellulitis, foot infection, for which he was hospitalized. He was sent home with an IV PICC line. He has been seen in the wound clinic. He saw Dr. Gibbons today. Despite IV PICC line medications at home he stuck a Q-tip throughout the entire foot from the end of the toe stump all the way into the foot to the mid foot to the heel associated with abscess throughout the entire foot. Possible amputation will be done, left BKA, if debridement does not work. This is scheduled for tomorrow. He has moderate atherosclerotic disease of the SFA bilaterally. Infrapopliteal disease. Possibly outpatient catheter-directed angiogram will be done. He was sent home with IV antibiotics and he is going to be admitted to have surgical debridement tomorrow and broad-spectrum antibiotics. He had a history of MRSA on his last wound culture prior to discharge on his last admission. PAST MEDICAL HISTORY: Insulin-dependent diabetes mellitus, hypertension, dyslipidemia, vascular disorder, recent cellulitis of the foot, status post toe amputation, for which IV PICC line antibiotics were being given at home, which apparently failed. History of MRSA in the culture. FAMILY HISTORY: Mother with cancer. Father with cancer. HOME MEDICINES: Insulin R and Humulin N, Lipitor 40 daily, Neurontin 300 t.i.d., lisinopril 30 daily, Dyazide 1 daily, Lamisil 250 daily, Cipro 500 b.i.d., Carafate 1 gram q.i.d., Fortaz 1 gram IV piggyback q.12 hours, Percocet 10/325 q.6 hours. ALLERGIES: NAPROSYN. PHYSICAL EXAMINATION: Temperature 98.2, pulse 80s to 90s, respiratory rate 16-20, blood pressure 160s to 180s over 84, oxygen 97. He is well developed, well nourished, obese. No acute distress. PSYCH: He appears calm. No acute distress. CARDIOVASCULAR: S1, S2. LUNGS: Essentially clear. Oxygen saturation 97%. No cyanosis, clubbing, edema. HEART: S1, S2. Abdomen is soft, nontender. : No suprapubic tenderness. MUSCULOSKELETAL: Normal posture. NEUROLOGIC: Alert and orient x3. LABS: White count 13.3, platelets 602, BUN 30, creatinine 1.32. ASSESSMENT: 1. Chronic nonhealing ulcer of the left foot, status post second toe amputation; severe cellulitis and abscess of the foot. 2. PAD. 3. Severe abscess of the left foot, for which incision and drainage will be done tomorrow. IV antibiotics have been started x3. Home medicines will be reordered. Accu-Chek protocol. Pain control. Please see further orders. MMODL / IJN: [id number] /
[2019-10-11] MEDS: VANCOMYCIN 1,750 MG in SODIUM CHLORIDE 0.9% 500 ML 500 ML IVPB SCH (17:38)
[2019-10-11] MEDS: GABAPENTIN 300 MG CAP PO SCH (17:38)
[2019-10-11] MEDS: SUCRALFATE 1 GM TAB PO SCH ×2 (17:38→20:43)
[2019-10-11 20:32] LABS: Glucose,Whole Blood 194 mg/dL (75-99)
--- NOTE | 2019-10-11 21:58 | P.CONS ---
History of Present Illness - Reason for Consult Consult date: 10/11/19 left diabetic foot infection Requesting physician: Shekhar Gibbons - Chief Complaint sent in by wound care center for left foot wound worsening - History of Present Illness Patient is a 69-year-old male who was recently admitted to the hospital as patient did have left second toe gangrene status post amputation subsequently admitted to hospital her with left second toe amputation site wound patient did have debridement of the wound culture subsequently grew MRSA and Enterobacter patient has been treated with IV vancomycin and oral Cipro patient was evaluated in the wound care center this morning he was noticed to have significant worsening of his wound which has been extending down the patient left foot swelling and redness has resolved patient be complaining of pain mostly in the thigh area no pain in the left foot and no fever no chills and denies any worsening drainage from his left foot wound, positive point has been mentioned in HPI rest of the systems are negative patient has been admitted to hospital for exploration of his wound and debridement infectious disease was consulted for management of his antibiotic therapy. Review of Systems Positive point has been mentioned in HPI rest of the systems are negative Past Medical History Past Medical History: Diabetes Mellitus, Hyperlipidemia, Hypertension, Vascular Disorder Additional Past Medical History / Comment(s): IDDM type II, neuropathy bilateral feet, nonhealing ulcedr L foot-seen in WCC/home IV antibiotics, borderline high cholesterol, gastritis, chrons, IBS, back pain in winter months, chronic left thigh pain. History of Any Multi-Drug Resistant Organisms: MRSA Year Discovered:: 09/26/19 MDRO Source:: LEFT FOOT Past Surgical History: Orthopedic Surgery Additional Past Surgical History / Comment(s): L 2nd toe amputation, PICC L arm, L shoulder/collar bone crush injury with hardware, L knee surgery/hardware d/t injury, L great toe ulcer with debridement, EGD, colonoscopies. Past Anesthesia/Blood Transfusion Reactions: No Reported Reaction Smoking Status: Never smoker - Past Family History Mother Family Medical History: Cancer Father Family Medical History: Cancer Medications and Allergies Home Medications Medication Instructions Recorded Confirmed Type Insulin NPH Human Isophane See Protocol SQ HS 11/23/18 10/11/19 History [NovoLIN N] Insulin Regular, Human [NovoLIN R] See Protocol SQ AC-TID 06/08/19 10/11/19 History Methylcellulose (with Sugar) 2 gm PO DAILY 06/08/19 10/11/19 History [Citrucel Powder] Testosterone Cypionate 200 mg IM Q14D 06/08/19 10/11/19 History [Depo-Testosterone] Atorvastatin [Lipitor] 40 mg PO DAILY #90 tab 06/09/19 10/11/19 Rx Gabapentin [Neurontin] 300 mg PO TID@0900,1300,1800 07/23/19 10/11/19 History Lisinopril 30 mg PO DAILY 07/23/19 10/11/19 History Triamterene-Hctz 37.5-25Mg 1 cap PO DAILY 07/23/19 10/11/19 History [Dyazide 37.5-25 Capsule] Terbinafine [LamISIL] 250 mg PO DAILY 09/26/19 10/11/19 History Ciprofloxacin HCl [Cipro] 500 mg PO Q12H #28 tab 09/30/19 10/11/19 Rx Sucralfate [Carafate] 1 gm PO QID 10/11/19 10/11/19 History cefTAZidime [Fortaz] 1 gm IVPB Q12HR 10/11/19 10/11/19 History oxyCODONE-APAP 10-325MG [Percocet 1 tab PO Q8HR PRN 10/11/19 10/11/19 History 10-325 mg] Allergies Allergy/AdvReac Type Severity Reaction Status Date / Time naproxen Allergy Swelling Verified 10/11/19 11:08 Physical Exam Vitals: Vital Signs Temp Pulse Resp BP Pulse Ox 10/11/19 13:48 97.5 F L 83 18 158/78 97 10/11/19 10:45 98.2 F 85 18 183/84 97 Intake and Output 10/11/19 10/11/19 10/11/19 06:59 14:59 22:59 Intake Total 296 Balance 296 Intake: Oral 296 Other: # Voids 1 Weight 117.934 kg GENERAL DESCRIPTION: Elderly male lying in bed, no distress. No tachypnea or accessory muscle of respiration use. HEENT: Shows Pallor , no scleral icterus. Oral mucous membrane is dry. NECK: Trachea central, no thyromegaly. LUNGS: Unlabored breathing. Clear to auscultation anteriorly. No wheeze or crackle. HEART: S1, S2, regular rate and rhythm. ABDOMEN: Soft, no tenderness , guarding or rigidity EXTREMITIES: No edema of feet. Left foot wound is significantly deep compared to last exam though there is no redness of the foot and no foul-smelling drainage SKIN: No rash, no masses palpable. NEUROLOGICAL: The patient is awake, alert, oriented x3, mood and affect normal. Results CBC & Chem 7: 10/11/19 12:26 10/11/19 12:26 Labs: Abnormal Lab Results - Last 24 Hours (Table) 10/11/19 10/11/19 10/11/19 Range/Units 11:42 12:26 12:26 WBC 13.3 H (3.8-10.6) k/uL Plt Count 602 H (150-450) k/uL Neutrophils # 9.6 H (1.3-7.7) k/uL BUN 30 H (9-20) mg/dL Creatinine 1.32 H (0.66-1.25) mg/dL Glucose 174 H (74-99) mg/dL POC Glucose (mg/dL) 139 H (75-99) mg/dL Calcium 10.4 H (8.4-10.2) mg/dL Alkaline Phosphatase 226 H (38-126) U/L Assessment and Plan Assessment: 1-patient with a left diabetic foot infection in this patient who is status post debridement of the wound few weeks ago culture that was positive for Enterobacter and MRSA , and this patient seemed to have not responded very well to IV vancomycin and oral Cipro therapy with concern for slight worsening of his infection (1) Cellulitis of foot Current Visit: No Status: Acute Code(s): L03.119 - CELLULITIS OF UNSPECIFIED PART OF LIMB SNOMED Code(s): 594491518 (2) Diabetic foot ulcer Current Visit: No Status: Acute Code(s): E11.621 - TYPE 2 DIABETES MELLITUS WITH FOOT ULCER; L97.509 - NON-PRESSURE CHRONIC ULCER OTH PRT UNSP FOOT W UNSP SEVERITY SNOMED Code(s): 587043258 Plan: 1- await surgical exploration and deep cultures 2-vancomycin pharmacy to dose her with a target trough of 15 while watching her kidney function and Vanco trough closely. 3-Rocephin 2 g daily and Flagyl 500 mg p.o. every 8 hour We will follow on clinical condition and cultures to further adjust medication if needed Thank you for this consultation we will follow the patient along with you Time with Patient: Greater than 30
[2019-10-12] MEDS: HYDROmorphone 1 MG/ML 1 ML SYRINGE IVP PRN ×4 (03:51→19:30)
[2019-10-12] MEDS: SODIUM CHLORIDE 0.9% 1,000 ML IV SCH ×2 (03:55→17:15)
[2019-10-12 06:54] LABS: Glucose,Whole Blood 125 mg/dL (75-99)
[2019-10-12] MEDS: INSULIN ASPART (NovoLOG) 100 UNIT/ML VIAL SQ SCH ×4 (08:06→20:55)
[2019-10-12] MEDS: SUCRALFATE 1 GM TAB PO SCH ×4 (08:07→20:58)
[2019-10-12] MEDS: ATORVASTATIN 40 MG TAB PO SCH (08:07)
[2019-10-12] MEDS: GABAPENTIN 300 MG CAP PO SCH ×3 (08:07→17:33)
[2019-10-12] MEDS: metroNIDAZOLE-NS PMX 500 MG in SALINE 1 100ML.BAG IVPB SCH ×2 (08:13→16:14)
[2019-10-12] MEDS ORDERED: LISINOPRIL 10 MG TAB PO SCH (09:00)
[2019-10-12] MEDS: VANCOMYCIN 1,750 MG in SODIUM CHLORIDE 0.9% 500 ML 500 ML IVPB SCH (09:18)
--- NOTE | 2019-10-12 09:58 | CDI ---
Documentation Clarification Form Date: 10/12/2019 09:08:00 AM From: Caitlin Collado RN, CCDS Admit Date: 10/11/2019 10:22:00 AM Patient Name: Brijesh Akers Visit Number: [id number] Discharge Date: ATTENTION: The Clinical Documentation Specialists (CDI) and [facility] Coding Staff appreciate your assistance in clarifying documentation. Please respond to the clarification below the line at the bottom and electronically sign. The CDI & [facility] Coding staff will review the response and follow-up if needed. Please note: Queries are made part of the Legal Health Record. If you have any questions, please contact the author of this message via ITS. Dr. Mike Castillo Diabetes is documented in the patient's past medical history with current/ongoing treatment. He present with a chronic nonhealing ulcer of the left foot. Clinical significance must be specified by the attending. 10/10 ID (Dr. Murguia) left diabetic foot ulcer, cellulitis of foot. History/risk factors: Diabetes Mellitus, Clinical Indicators: 69 year old male on 10/10 was admitted to the hospital after evaluation at the wound care center and was noticed to have significant worsening of his wound which as been extending down the patient left foot swelling and redness. Location of ulcer: left foot Treatment: Rocephin 2 gm IV daily Flagyl 500 mg po Q8 hrs Vancomycin (pharmacy to dose target trough of 15) Pending surgical exploration and deep cultures In your professional opinion, can you please clarify the etiology of the skin ulcer, if known? Diabetic foot ulcer with cellulitis of left foot Diabetic Neuropathy Diabetic Peripheral Vascular Disease Unable to determine Other condition, please specify AND Diabetes Type 1 Diabetes Type 2 Other, please specify AND [facility] Insulin Use Current Insulin Use No Insulin Use (Last Revision: April 2017) MTDD
[2019-10-12 10:45] LABS: Glucose,Whole Blood 115 mg/dL (75-99)
[2019-10-12] MEDS ORDERED: IV FLUID CONTINUATION 1,000 ML IV ONE (10:51)
[2019-10-12] MEDS ORDERED: IV FLUID CONTINUATION 300 ML IV ONE (10:52)
[2019-10-12] MEDS ORDERED: fentaNYL (PF) 50 MCG/ML 2 ML AMP ONE (11:31)
[2019-10-12] MEDS ORDERED: ONDANSETRON 4 MG/2 ML VIAL ONE (11:31)
[2019-10-12] MEDS ORDERED: MIDAZOLAM 2 MG/2 ML VIAL ONE (11:31)
[2019-10-12] MEDS ORDERED: PROPOFOL 10 MG/ML 20 ML VIAL IV ONE (11:31)
[2019-10-12] MEDS ORDERED: LIDOCAINE 1% INJ 10MG/ML (20 ML MDV) ONE (11:31)
[2019-10-12] MEDS ORDERED: SUCCINYLCHOLINE CHLORIDE 100 MG/5 ML SYR IV ONE (11:31)
[2019-10-12 12:18] LABS: Glucose,Whole Blood 119 mg/dL (75-99)
[2019-10-12] MEDS: HYDROmorphone 0.5 MG/0.5 ML SYRINGE IVP ONE ×2 (12:35→12:41)
[2019-10-12] MEDS: HYDROmorphone 1 MG/ML 1 ML SYRINGE IVP ONE ×2 (12:55→13:01)
--- NOTE | 2019-10-12 15:49 | P.PN ---
Subjective Progress Note Date: 10/12/19 This is a 69-year-old gentleman admitted with worsening left diabetic foot infection, status post recent debridement a few weeks ago, left second toe amputation, recent wound culture reporting MRSA and Enterobacter. Failed outpatient therapy with IV antibiotics of vancomycin with oral Cipro. Maintained on vancomycin as per pharmacy dosing, Rocephin and Flagyl as per infectious disease.Scheduled for surgical debridement/bx today. Afebrile,VSS. Creatinine maintained at 1.34, baseline 0.7. Denies chest pain, palpitations or shortness of breath. Blood sugars better controlled today. Objective - Vital Signs Vital signs: Vital Signs Temp 97.7 F 10/12/19 12:09 Pulse 66 10/12/19 13:01 Resp 14 10/12/19 13:01 BP 150/65 10/12/19 13:01 Pulse Ox 99 10/12/19 13:01 Intake & Output 10/11/19 10/12/19 10/12/19 18:59 06:59 18:59 Intake Total 592 250 Output Total 925 330 Balance 592 -925 -80 Weight 117.934 kg Intake: IV 250 Oral 592 Output: Urine 925 300 Estimated Blood Loss 30 Other: Voiding Method Toilet # Voids 1 - Exam PHYSICAL EXAM: VITAL SIGNS: As above GENERAL: Sitting up in bed, no acute distress HEENT: Conjunctivae normal. eyes normal. NECK: No JVD. No thyroid enlargement. No LNs CARDIOVASCULAR: S1, S2 regular.. No murmur RESPIRATION: Breath sounds diminished in the bases. No rhonchi or crackles. No wheezing. ABDOMEN: Soft, nontender . No guarding. no masses palpable. Bowel sounds heard. LEGS: No edema, Left foot dressing clean dry and intact. PSYCHIATRY: Alert and oriented X3, mood and affect normal. NERVOUS SYSTEM: Cranial N 2-12 grossly normal. Moves all 4 limbs. No focal deficits. Strength and sensation grossly intact.. Skin: no rash Joints: No active swelling. No inflammation. Lymphatic system. No LN neck axilla or groin. - Labs CBC & Chem 7: 10/11/19 12:26 10/12/19 07:08 Labs: Abnormal Lab Results - Last 24 Hours (Table) 10/11/19 10/11/19 10/11/19 Range/Units 12:26 12:26 16:27 ESR 61 H (0-15) mm/hr Creatinine (0.66-1.25) mg/dL POC Glucose (mg/dL) 142 H (75-99) mg/dL C-Reactive Protein 14.9 H (<10.0) mg/L 10/11/19 10/12/19 10/12/19 Range/Units 20:31 06:50 07:08 ESR (0-15) mm/hr Creatinine 1.34 H (0.66-1.25) mg/dL POC Glucose (mg/dL) 194 H 125 H (75-99) mg/dL C-Reactive Protein (<10.0) mg/L 10/12/19 10/12/19 Range/Units 10:43 12:17 ESR (0-15) mm/hr Creatinine (0.66-1.25) mg/dL POC Glucose (mg/dL) 115 H 119 H (75-99) mg/dL C-Reactive Protein (<10.0) mg/L Assessment and Plan Assessment: Chronic nonhealing left diabetic foot ulcer status post second toe amputation, recent debridement with cellulitis and abscess of foot. Recent cultures r eported Enterobacter and MRSA, failed outpatient treatment with vancomycin and Cipro. PAD Diabetes mellitus II Acute on chronic renal failure, stage III Hypertension Hyperlipidemia Diabetic neuropathy of bilateral feet History of IBS and gastritis Obesity, morbid, BMI 35.3 Plan: Continue on current medication regime ,monitoring and symptomatic treatment. Tight control of blood sugars close monitoring of Accu-Cheks. Surgical debridement pending. Antibiotics/Wound Care as per infectious disease. Close monitoring of renal function with repeat labs ordered for a.m. KARENA inhibitor discontinued. Norvasc added to med regime. Close monitoring of blood pressure. The impression and plan of care has been dictated as directed. : I performed a history and examination of this patient, discussed the same with the dictator. I agree with the dictator's note ,documented as a scribe. Any additional findings or plans will be noted.
[2019-10-12 16:54] LABS: Glucose,Whole Blood 114 mg/dL (75-99)
[2019-10-12 20:41] LABS: Glucose,Whole Blood 125 mg/dL (75-99)
[2019-10-12] MEDS: oxyCODONE-APAP 10-325MG 1 EACH TAB PO PRN (20:59)
[2019-10-13] MEDS: HYDROmorphone 1 MG/ML 1 ML SYRINGE IVP PRN ×5 (00:07→21:35)
[2019-10-13] MEDS: VANCOMYCIN 1,750 MG in SODIUM CHLORIDE 0.9% 500 ML 500 ML IVPB SCH ×2 (00:11→18:17)
[2019-10-13] MEDS: metroNIDAZOLE-NS PMX 500 MG in SALINE 1 100ML.BAG IVPB SCH ×4 (00:11→23:28)
[2019-10-13] MEDS: SODIUM CHLORIDE 0.9% 1,000 ML IV SCH ×2 (05:19→15:21)
[2019-10-13 07:06] LABS: Glucose,Whole Blood 144 mg/dL (75-99)
[2019-10-13 07:17] LABS: Basophils # (A) 0.1 k/uL (0-0.2); Basophils % (A) 0 %; Eosinophils # (A) 0.4 k/uL (0-0.7); Eosinophils % (A) 3 %; HCT 38.2 % (39.0-53.0); Lymphocytes # (A) 1.7 k/uL (1.0-4.8); Lymphocytes % (A) 13 %; MCH 26.9 pg (25.0-35.0); MCHC 31.4 g/dL (31.0-37.0); MCV 85.5 fL (80.0-100.0); Monocytes # (A) 1.2 k/uL (0-1.0); Monocytes % (A) 9 %; Neutrophils # (A) 9.6 k/uL (1.3-7.7); Neutrophils % (A) 73 %; Platelet Count 445 k/uL (150-450); RBC 4.47 m/uL (4.30-5.90); RDW 13.5 % (11.5-15.5); WBC 13.2 k/uL (3.8-10.6)
[2019-10-13 07:34] LABS: Calcium 9.3 mg/dL (8.4-10.2); Potassium 4.6 mmol/L (3.5-5.1)
[2019-10-13] MEDS: INSULIN ASPART (NovoLOG) 100 UNIT/ML VIAL SQ SCH ×4 (08:01→21:35)
[2019-10-13] MEDS: SUCRALFATE 1 GM TAB PO SCH ×4 (08:02→21:34)
[2019-10-13] MEDS: amLODIPine 10 MG TAB PO SCH (08:02)
[2019-10-13] MEDS: ATORVASTATIN 40 MG TAB PO SCH (08:02)
[2019-10-13] MEDS: GABAPENTIN 300 MG CAP PO SCH ×3 (08:02→17:57)
[2019-10-13 11:38] LABS: Glucose,Whole Blood 134 mg/dL (75-99)
[2019-10-13] MEDS ORDERED: LIDOCAINE 1% INJ 10MG/ML (20 ML MDV) SQ ONE (12:58)
[2019-10-13] MEDS ORDERED: fentaNYL (PF) 50 MCG/ML 2 ML AMP IVP ONE (12:58)
[2019-10-13] MEDS ORDERED: MIDAZOLAM 2 MG/2 ML VIAL IVP ONE ×2 (12:58→13:15)
[2019-10-13] MEDS ORDERED: IV FLUID CONTINUATION 700 ML IV ONE (13:05)
[2019-10-13] MEDS: HEPARIN SODIUM 1,000 UN/ML (10ML VL) IV ONE ×2 (13:13→13:50)
[2019-10-13] MEDS ORDERED: HYDROmorphone 1 MG/ML 1 ML SYRINGE IVP ONE ×2 (13:38→14:26)
[2019-10-13] MEDS: hydrALAZINE HCL 20 MG/ML 1 ML VIAL IV ONE ×2 (14:13→14:27)
[2019-10-13] MEDS ORDERED: MIDAZOLAM 2 MG/2 ML VIAL IV ONE (14:27)
[2019-10-13] MEDS ORDERED: IOPAMIDOL-250 100ML BTL INTRAARTER ONE (14:28)
[2019-10-13] MEDS ORDERED: CLOPIDOGREL 75 MG TAB PO ONE (14:32)
--- NOTE | 2019-10-13 15:19 | IR ---
EXAMINATION TYPE: IR management scientist femoral popliteal DATE OF EXAM: 10/13/2019 CLINICAL HISTORY: Left-sided peripheral vascular disease. TECHNIQUE: Fluoroscopy. COMPARISON: None. FINDINGS: Fluoroscopic guidance was provided during left lower extremity angiogram and angioplasty p rocedure performed by Dr. Mcdonald. A total of 18.6 minute of fluoroscopic time was utilized during the procedure and 26 cine runs are acquired. Please refer to procedure note for further details as I was not present or performed procedure. IMPRESSION: As Above.
--- NOTE | 2019-10-13 15:26 | P.PN ---
Subjective Progress Note Date: 10/13/19 This is a 69-year-old gentleman admitted with worsening left diabetic foot infection, status post recent debridement a few weeks ago, left second toe amputation, recent wound culture reporting MRSA and Enterobacter. Failed outpatient therapy with IV antibiotics of vancomycin with oral Cipro. Maintained on vancomycin as per pharmacy dosing, Rocephin and Flagyl as per infectious disease.Scheduled for surgical debridement/bx today. Afebrile,VSS. Creatinine maintained at 1.34, baseline 0.7. Denies chest pain, palpitations or shortness of breath. Blood sugars better controlled today. 10/13/2019 scheduled for angiogram today. Pain better controlled with Dilaudid. Receiving IV antibiotics via PICC. T-max 99.2, WBC 13.2. Preliminary cultures pending. Maintained on Rocephin, Flagyl, vancomycin as per ID. blood sugars controlled .denies chest pain, palpitations. Antihypertensives adjusted ye , blood pressure better controlled. Objective - Vital Signs Vital signs: Vital Signs Temp 97.3 F L 10/13/19 15:04 Pulse 93 10/13/19 15:04 Resp 20 10/13/19 15:04 BP 149/71 10/13/19 15:04 Pulse Ox 100 10/13/19 15:04 Intake & Output 10/12/19 10/13/19 10/13/19 18:59 06:59 18:59 Intake Total 250 300 Output Total 330 600 Balance -80 -600 300 Intake: IV 250 300 Output: Urine 300 600 Estimated Blood Loss 30 Other: Voiding Method Urinal Urinal # Voids 2 - Exam PHYSICAL EXAM: VITAL SIGNS: As above GENERAL: Sitting up in bed, no acute distress HEENT: Conjunctivae normal. eyes normal. NECK: No JVD. No thyroid enlargement. No LNs CARDIOVASCULAR: S1, S2 regular.. No murmur RESPIRATION: Breath sounds diminished in the bases. No rhonchi ,crackles, wheezing. ABDOMEN: Soft, nontender . No guarding. no masses palpable. Bowel sounds heard. LEGS: No edema, Left foot Sudeep wrapped dressing clean dry and intact, toes warm and pink. PSYCHIATRY: Alert and oriented X3, mood and affect normal. NERVOUS SYSTEM: Cranial N 2-12 grossly normal. No focal deficits. Strength and sensation grossly intact.. Skin: no rash Microbiology 10/12/19 12:01 Foot - Left Gram Stain - Preliminary 10/12/19 12:01 Foot - Left Wound Culture - Preliminary 10/12/19 12:01 Foot - Left Anaerobic Culture - Preliminary 10/11/19 15:49 Blood Blood Culture - Preliminary No Growth after 24 hours 10/11/19 15:44 Blood Blood Culture - Preliminary No Growth after 24 hours - Labs CBC & Chem 7: 10/13/19 06:46 10/13/19 06:46 Labs: Abnormal Lab Results - Last 24 Hours (Table) 10/12/19 10/12/19 10/13/19 Range/Units 16:52 20:40 06:46 WBC (3.8-10.6) k/uL Hgb (13.0-17.5) gm/dL Hct (39.0-53.0) % Neutrophils # (1.3-7.7) k/uL Monocytes # (0-1.0) k/uL BUN 25 H (9-20) mg/dL Glucose 154 H (74-99) mg/dL POC Glucose (mg/dL) 114 H 125 H (75-99) mg/dL 10/13/19 10/13/19 10/13/19 Range/Units 06:46 07:02 11:36 WBC 13.2 H (3.8-10.6) k/uL Hgb 12.0 L (13.0-17.5) gm/dL Hct 38.2 L (39.0-53.0) % Neutrophils # 9.6 H (1.3-7.7) k/uL Monocytes # 1.2 H (0-1.0) k/uL BUN (9-20) mg/dL Glucose (74-99) mg/dL POC Glucose (mg/dL) 144 H 134 H (75-99) mg/dL Microbiology - Last 24 Hours (Table) 10/12/19 12:01 Gram Stain - Preliminary Foot - Left Wound Culture - Preliminary 10/12/19 12:01 Anaerobic Culture - Preliminary Foot - Left 10/11/19 15:49 Blood Culture - Preliminary Blood No Growth after 24 hours 10/11/19 15:44 Blood Culture - Preliminary Blood No Growth after 24 hours Assessment and Plan Assessment: Chronic nonhealing left diabetic foot ulcer status post second toe amputation, recent debridement with cellulitis and abscess of foot. Recent cultures rep orted Enterobacter and MRSA, failed outpatient treatment with vancomycin and Cipro. PAD Diabetes mellitus II Acute on chronic renal failure, stage III Hypertension Hyperlipidemia Diabetic neuropathy of bilateral feet History of IBS and gastritis Obesity, morbid, BMI 35.3 Plan: Continue on current medication regime ,monitoring and symptomatic treatment. Angiogram pending .Maintain tight control of blood sugars close monitoring of Accu-Cheks. Antibiotics/Wound Care as per infectious disease. Close monitoring of renal function with repeat labs ordered for a.m. The impression and plan of care has been dictated as directed. : I performed a history and examination of this patient, discussed the same with the dictator. I agree with the dictator's note ,documented as a scribe. Any additional findings or plans will be noted.
--- NOTE | 2019-10-13 15:55 | P.GSCN ---
History of Present Illness Consult date: 10/13/19 History of present illness: The patient is a 69-year-old male who originally saw the outpatient after evaluation for his left second toe amputation for necrotic infection along with this point controlled diabetes. He was sent over from wound care for follow-up of vascular surgery for his abnormal ABIs. He was planned to undergo a angiogram with possible intervention today, but 2 days previous at his wound care appointment he was found to have tracking and tunneling of the wound and therefore directly admitted for planned surgical incision and drainage. This was undergone yesterday with no significant pockets of abscess noted. Given his nonhealing wound and abnormal ABIs limits continue to go forth with the angiogram. Risks and benefits were reviewed with the patient. He seemingly understood and was willing to proceed. He denies any fevers, chills, nausea, vomiting or issues otherwise. Review of Systems 14 point review of systems performed, pertinent positives and negatives per the HPI Past Medical History Past Medical History: Diabetes Mellitus, Hyperlipidemia, Hypertension, Vascular Disorder Additional Past Medical History / Comment(s): IDDM type II, neuropathy bilateral feet, nonhealing ulcedr L foot-seen in [facility]/home IV antibiotics, borderline high cholesterol, gastritis, chrons, IBS, back pain in winter months, chronic left thigh pain. History of Any Multi-Drug Resistant Organisms: MRSA Year Discovered:: 09/26/19 MDRO Source:: LEFT FOOT Past Surgical History: Orthopedic Surgery Additional Past Surgical History / Comment(s): L 2nd toe amputation, PICC L arm, L shoulder/collar bone crush injury with hardware, L knee surgery/hardware d/t injury, L great toe ulcer with debridement, EGD, colonoscopies. Past Anesthesia/Blood Transfusion Reactions: No Reported Reaction Smoking Status: Never smoker - Past Family History Mother Family Medical History: Cancer Father Family Medical History: Cancer Medications and Allergies Home Medications Medication Instructions Recorded Confirmed Type Insulin NPH Human Isophane See Protocol SQ HS 11/23/18 10/11/19 History [NovoLIN N] Insulin Regular, Human [NovoLIN R] See Protocol SQ AC-TID 06/08/19 10/11/19 History Methylcellulose (with Sugar) 2 gm PO DAILY 06/08/19 10/11/19 History [Citrucel Powder] Testosterone Cypionate 200 mg IM Q14D 06/08/19 10/11/19 History [Depo-Testosterone] Atorvastatin [Lipitor] 40 mg PO DAILY #90 tab 06/09/19 10/11/19 Rx Gabapentin [Neurontin] 300 mg PO TID@0900,1300,1800 07/23/19 10/11/19 History Lisinopril 30 mg PO DAILY 07/23/19 10/11/19 History Triamterene-Hctz 37.5-25Mg 1 cap PO DAILY 07/23/19 10/11/19 History [Dyazide 37.5-25 Capsule] Terbinafine [LamISIL] 250 mg PO DAILY 09/26/19 10/11/19 History Ciprofloxacin HCl [Cipro] 500 mg PO Q12H #28 tab 09/30/19 10/11/19 Rx Sucralfate [Carafate] 1 gm PO QID 10/11/19 10/11/19 History cefTAZidime [Fortaz] 1 gm IVPB Q12HR 10/11/19 10/11/19 History oxyCODONE-APAP 10-325MG [Percocet 1 tab PO Q8HR PRN 10/11/19 10/11/19 History 10-325 mg] Allergies Allergy/AdvReac Type Severity Reaction Status Date / Time naproxen Allergy Swelling Verified 10/11/19 11:08 Surgical - Exam Vital Signs Temp Pulse Resp BP Pulse Ox 98.2 F 85 18 183/84 97 10/11/19 10:45 10/11/19 10:45 10/11/19 10:45 10/11/19 10:45 10/11/19 10:45 Gen. is a pleasant cooperative obese male in no acute distress. HEENT is no cephalic, atraumatic, etc. he motion intact. Heart is regular at this time. Lungs are clear although decreased bilaterally. Abdomen soft obese nontender with a large pannus. Extremity show no clubbing, cyanosis or edema. Left lower extremity has a dressing in place and intact. Normal mood and affect. Skin without rashes. Results - Labs 10/13/19 06:46 10/13/19 06:46 Abnormal Lab Results - Last 24 Hours (Table) 10/12/19 10/12/19 10/13/19 Range/Units 16:52 20:40 06:46 WBC (3.8-10.6) k/uL Hgb (13.0-17.5) gm/dL Hct (39.0-53.0) % Neutrophils # (1.3-7.7) k/uL Monocytes # (0-1.0) k/uL BUN 25 H (9-20) mg/dL Glucose 154 H (74-99) mg/dL POC Glucose (mg/dL) 114 H 125 H (75-99) mg/dL 10/13/19 10/13/19 10/13/19 Range/Units 06:46 07:02 11:36 WBC 13.2 H (3.8-10.6) k/uL Hgb 12.0 L (13.0-17.5) gm/dL Hct 38.2 L (39.0-53.0) % Neutrophils # 9.6 H (1.3-7.7) k/uL Monocytes # 1.2 H (0-1.0) k/uL BUN (9-20) mg/dL Glucose (74-99) mg/dL POC Glucose (mg/dL) 144 H 134 H (75-99) mg/dL Microbiology - Last 24 Hours (Table) 10/12/19 12:01 Gram Stain - Preliminary Foot - Left Wound Culture - Preliminary 10/12/19 12:01 Anaerobic Culture - Preliminary Foot - Left 10/11/19 15:49 Blood Culture - Preliminary Blood No Growth after 24 hours 10/11/19 15:44 Blood Culture - Preliminary Blood No Growth after 24 hours Diabetes panel 10/13/19 Range/Units 06:46 Sodium 137 (137-145) mmol/L Potassium 4.6 (3.5-5.1) mmol/L Chloride 106 (98-107) mmol/L Carbon Dioxide 22 (22-30) mmol/L BUN 25 H (9-20) mg/dL Creatinine 1.19 (0.66-1.25) mg/dL Glucose 154 H (74-99) mg/dL Calcium 9.3 (8.4-10.2) mg/dL Calcium panel 10/13/19 Range/Units 06:46 Calcium 9.3 (8.4-10.2) mg/dL Pituitary panel 10/13/19 Range/Units 06:46 Sodium 137 (137-145) mmol/L Potassium 4.6 (3.5-5.1) mmol/L Chloride 106 (98-107) mmol/L Carbon Dioxide 22 (22-30) mmol/L BUN 25 H (9-20) mg/dL Creatinine 1.19 (0.66-1.25) mg/dL Glucose 154 H (74-99) mg/dL Calcium 9.3 (8.4-10.2) mg/dL Adrenal panel 10/13/19 Range/Units 06:46 Sodium 137 (137-145) mmol/L Potassium 4.6 (3.5-5.1) mmol/L Chloride 106 (98-107) mmol/L Carbon Dioxide 22 (22-30) mmol/L BUN 25 H (9-20) mg/dL Creatinine 1.19 (0.66-1.25) mg/dL Glucose 154 H (74-99) mg/dL Calcium 9.3 (8.4-10.2) mg/dL Assessment and Plan Assessment: #1 nonhealing left lower extremity wound #2 superficial femoral artery occlusive disease, infra popliteal occlusive disease #3 hypertension #4 diabetes #5 hyperlipidemia Plan: We will plan to go forth with the aortogram with possible revascularization today. Risks and benefits were discussed. He seemingly understands and is willing to proceed
--- NOTE | 2019-10-13 16:04 | P.PN ---
Subjective Progress Note Date: 10/12/19 Principal diagnosis: left diabetic foot infection and osteomyelitis Patient is a 69-year-old male with a past medical history significant for left second toe with gangrene status post amputation, patient subsequently did have a admission Hospital with left second toe amputation site wound that was debridement culture were positive for Enterobacter MRSA for the patient was getting vancomycin and oral Cipro now being admitted to hospital with worsening of his wound and concern for underlying deep infection On today's evaluation that is 10/12/2019, patient denies having any fever or any chills, the patient is status post surgical aspiration of his left foot the off icial report is pending on what was done, the patient denies having any chest pain shortness of breath or cough no nausea no vomiting no abdominal pain no diarrhea Objective - Vital Signs Vital signs: Vital Signs Temp 98.8 F 10/12/19 21:11 Pulse 67 10/12/19 21:11 Resp 18 10/12/19 21:11 BP 131/68 10/12/19 21:11 Pulse Ox 96 10/12/19 21:11 Intake & Output 10/12/19 10/12/19 10/13/19 06:59 18:59 06:59 Intake Total 250 Output Total 925 330 Balance -925 -80 Intake: IV 250 Output: Urine 925 300 Estimated Blood Loss 30 Other: Voiding Method Toilet # Voids 1 - Exam GENERAL DESCRIPTION:[ Patient is awake and alert in no distress] HEENT: [Oral mucosa is dry and no pharyngeal erythema] EYES : [No pallor or scleral icterus] RESPIRATORY SYSTEM: [Unlabored breathing clear to auscultation] CARDIA VASCULAR SYSTEM: [S1-S2 regular rate and rhythm no murmur] GI: [Abdominal soft there's no tenderness no organomegaly] EXTREMITIES: [Left foot is currently dressed up in OR dressing no drainage of the dressing] - Labs CBC & Chem 7: 10/13/19 06:46 10/13/19 06:46 Labs: Abnormal Lab Results - Last 24 Hours (Table) 10/12/19 10/12/19 10/12/19 Range/Units 06:50 07:08 10:43 Creatinine 1.34 H (0.66-1.25) mg/dL POC Glucose (mg/dL) 125 H 115 H (75-99) mg/dL 10/12/19 10/12/19 10/12/19 Range/Units 12:17 16:52 20:40 Creatinine (0.66-1.25) mg/dL POC Glucose (mg/dL) 119 H 114 H 125 H (75-99) mg/dL Microbiology - Last 24 Hours (Table) 10/12/19 12:01 Anaerobic Culture - Preliminary Foot - Left 10/12/19 12:01 Wound Culture - Preliminary Foot - Left 10/11/19 15:49 Blood Culture - Preliminary Blood No Growth after 24 hours 10/11/19 15:44 Blood Culture - Preliminary Blood No Growth after 24 hours Assessment and Plan Assessment: 1-patient with a left diabetic foot infection in this patient who is status post debridement of the wound few weeks ago culture that was positive for Enterobacter and MRSA , and this patient seemed to have not responded very well to IV vancomycin and oral Cipro therapy with concern for slight worsening of his infection (1) Cellulitis of foot Current Visit: No Status: Acute Code(s): L03.119 - CELLULITIS OF UNSPECIFIED PART OF LIMB SNOMED Code(s): 183464494 (2) Diabetic foot ulcer Current Visit: No Status: Acute Code(s): E11.621 - TYPE 2 DIABETES MELLITUS WITH FOOT ULCER; L97.509 - NON-PRESSURE CHRONIC ULCER OTH PRT UNSP FOOT W UNSP SEVERITY SNOMED Code(s): 316567725 Plan: 1--vancomycin pharmacy to dose with a target trough of 15 while watching her kidney function and Vanco trough closely. 2-Rocephin 2 g daily and Flagyl 500 mg p.o. every 8 hour Follow-up on or cultures and adjust antibiotic further if needed
--- NOTE | 2019-10-13 16:11 | P.OP ---
Date of Procedure: 10/13/19 Description of Procedure: Preoperative diagnosis: Nonhealing left lower extremity wound, abscess, abnormal ABIs Postoperative diagnosis: Same, hypertension Procedure: [Ultrasound-guided right common femoral artery access, right iliofemoral angiogram, third order selective left lower extremity angiogram, p ercutaneous transluminal balloon angioplasty 5 x 80 of left superficial femoral artery, closure device, 91 minutes of moderate conscious sedation] Surgeon: Lexii Mcdonald D.O. EBL: [10 mL] IV fluids: [See records] Urine output: [None] Drains: [None] Complications: [None immediately apparent] Condition: [Stable to recovery] Operative indication and findings: [The patient is a 69-year-old male with a nonhealing left lower extremity wound and second toe amputation site is now status post incision and drainage of a tunneling abscesses of the bottom of his foot. He underwent previous imaging and studies found to be abnormal ABIs on the left with evidence of superficial femoral artery occlusive disease as well as infrapopliteal occlusive disease. He presented to the hospital at wound care on Wednesday and was directly admitted for this. An angiogram was planned as an outpatient therefore today it is carried out. Risks and benefits were discussed He seemingly understood and was willing to proceed] Procedure in detail: [The patient was taken to the special suite and placed in supine position. The bilateral groins are prepped and draped in usual sterile fashion. A preprocedure timeout was performed, all parties are in agreement. The ultrasound was utilized in the right common femoral artery was identified. The skin overlying was necessary. Lidocaine plain. A multipurpose needle was used and the artery was cannulated. Seldinger technique was used and a 5-Icelandic sheath was placed. Right iliofemoral anagrams performed. There is no evidence of significant narrowing of his chronic disease noted. An Up & Over catheter was utilized and a left lower extremity angiogram was performed. There are multiple areas of high-grade stenosis and near occlusion of the superficial femoral artery. The peroneal artery is patent to the level of the ankle. There was occlusion of the left anterior tibial artery shortly beyond its takeoff with some reconstitution distally. There is no evidence of any posterior tibial artery noted. A long 6 Enedelia was placed into the superficial femoral artery. The patient was heparinized and ACT is were followed. A guidewire and crossing catheter were used to cross the areas of high-grade stenosis and near occlusion. A 5 x 80 chocolate balloon was used at the areas of the lesions followed by a 5 x 200 drug-coated balloon. There was a small area of dissection noted, it was not flow limiting and while still visualized, improved greatly after the drug- coated balloon. Flow was brisk through this area. Attempts were made at engaging the anterior tibial artery to cross which were unsuccessful. That point the procedure was concluded. Catheters and wires were removed. A short 6-Icelandic sheath was exchanged over the wire. A vascular closure device was utilized. Pressure was held until hemostasis was adequate. The patient was sent back to his room in stable condition and tolerated the procedure well.]
[2019-10-13 16:36] LABS: Glucose,Whole Blood 129 mg/dL (75-99)
--- NOTE | 2019-10-13 16:56 | P.PN ---
Subjective Progress Note Date: 10/13/19 Principal diagnosis: Chronic nonhealing ulcer of left foot, status post second toe amputation. Past medical history significant for recent hospitalization for cellulitis, peripher al arterial disease, insulin-dependent diabetes mellitus, bilateral lower extremity neuropathy. POD #1 incision and drainage abscess and bone debridement left foot performed by Dr. Shekhar Gibbons. The patient is laying in bed on the cardiac stepdown unit. He is no acute distress. He is status post ultrasound-guided right common femoral artery access, right iliofemoral angiogram, third order selective left lower extremity angiogram, percutaneous transluminal balloon angioplasty 580 of left superficial femoral artery, closure device performed by Dr. Mcdonald. Currently the patient denies any complaints of pain or shortness of breath. His dressing is dry and intact to his left foot wounds, with some dried old drainage. Oxygen saturation is 99% on room air and he is achieving 2500 mL on his incentive spirometry. Objective - Vital Signs Vital signs: Vital Signs Temp 97.4 F L 10/13/19 15:20 Pulse 99 10/13/19 15:20 Resp 22 10/13/19 15:20 BP 159/88 10/13/19 15:20 Pulse Ox 99 10/13/19 15:20 Intake & Output 10/12/19 10/13/19 10/13/19 18:59 06:59 18:59 Intake Total 250 300 Output Total 330 600 Balance -80 -600 300 Intake: IV 250 300 Output: Urine 300 600 Estimated Blood Loss 30 Other: Voiding Method Urinal Urinal # Voids 2 - Constitutional General appearance: Present: cooperative, no acute distress, obese - Respiratory Details: Lung sounds essentially clear throughout. Respirations are symmetrical and nonlabored. Oxygen saturation is 99% on room air. Achieving 2500 mL on his incentive spirometry. - Cardiovascular Details: Regular rhythm and rate. S1 and S2 present, negative for S3, gallop or murmur. No edema present. - Gastrointestinal Gastrointestinal Comment(s): Abdomen is soft, nontender and nondistended. Active bowel sounds present in all 4 abdominal quadrants. No guarding or rigidity. No organomegaly appreciated. - Genitourinary Genitourinary Comment(s): Voiding clear yellow urine. - Integumentary Integumentary Comment(s): Skin is warm and dry. No clubbing or cyanosis is present. Wound to his left foot second toe amputation site, clean with some scant serosanguineous drainage as well as to his plantar aspect of his left foot. - Neurologic Neurologic Comment(s): Hard of hearing Neurologic: Present: CNII-XII intact - Musculoskeletal Musculoskeletal: Present: strength equal bilaterally - Psychiatric Psychiatric: Present: A&O x's 3, appropriate affect, intact judgment & insight - Allied health notes Allied health notes reviewed: nursing - Labs CBC & Chem 7: 10/13/19 06:46 10/13/19 06:46 Labs: Abnormal Lab Results - Last 24 Hours (Table) 10/12/19 10/12/19 10/13/19 Range/Units 16:52 20:40 06:46 WBC (3.8-10.6) k/uL Hgb (13.0-17.5) gm/dL Hct (39.0-53.0) % Neutrophils # (1.3-7.7) k/uL Monocytes # (0-1.0) k/uL BUN 25 H (9-20) mg/dL Glucose 154 H (74-99) mg/dL POC Glucose (mg/dL) 114 H 125 H (75-99) mg/dL 10/13/19 10/13/19 10/13/19 Range/Units 06:46 07:02 11:36 WBC 13.2 H (3.8-10.6) k/uL Hgb 12.0 L (13.0-17.5) gm/dL Hct 38.2 L (39.0-53.0) % Neutrophils # 9.6 H (1.3-7.7) k/uL Monocytes # 1.2 H (0-1.0) k/uL BUN (9-20) mg/dL Glucose (74-99) mg/dL POC Glucose (mg/dL) 144 H 134 H (75-99) mg/dL 10/13/19 Range/Units 16:28 WBC (3.8-10.6) k/uL Hgb (13.0-17.5) gm/dL Hct (39.0-53.0) % Neutrophils # (1.3-7.7) k/uL Monocytes # (0-1.0) k/uL BUN (9-20) mg/dL Glucose (74-99) mg/dL POC Glucose (mg/dL) 129 H (75-99) mg/dL Microbiology - Last 24 Hours (Table) 10/12/19 12:01 Gram Stain - Preliminary Foot - Left Wound Culture - Preliminary 10/12/19 12:01 Anaerobic Culture - Preliminary Foot - Left 10/11/19 15:49 Blood Culture - Preliminary Blood No Growth after 24 hours 10/11/19 15:44 Blood Culture - Preliminary Blood No Growth after 24 hours Assessment and Plan Assessment: 1. Chronic nonhealing ulcer of the left foot, status post incision and drainage abscess and bone debridement left foot 2. Recent hospitalization for cellulitis 3. Peripheral arterial disease 4. Insulin-dependent diabetes mellitus 5. Bilateral lower extremity neuropathy Plan: 1. Change dressing to his left foot wounds every other day using Aquacel silver rope. Cover with 4 x 4 gauze and secured with Kerlix wrap. 2. Continue to encourage use of his incentive spirometry every hour while awake. 3. Antibiotic management per infectious disease recommendations. 4. Medical management and other comorbidities per primary care service. 5. More recommendations to follow based on patient's clinical course. Time with Patient: Greater than 30
[2019-10-13 20:35] LABS: Glucose,Whole Blood 143 mg/dL (75-99)
[2019-10-14 06:11] LABS: Basophils % (A) 0 %; Eosinophils # (A) 0.3 k/uL (0-0.7); Eosinophils % (A) 2 %; HCT 38.5 % (39.0-53.0); HGB 12.4 gm/dL (13.0-17.5); Lymphocytes # (A) 1.7 k/uL (1.0-4.8); Lymphocytes % (A) 13 %; MCH 26.9 pg (25.0-35.0); MCHC 32.2 g/dL (31.0-37.0); MCV 83.7 fL (80.0-100.0); Mean Platelet Volume 7.1; Monocytes # (A) 1.1 k/uL (0-1.0); Monocytes % (A) 9 %; Neutrophils # (A) 9.6 k/uL (1.3-7.7); Neutrophils % (A) 74 %; Platelet Count 450 k/uL (150-450); RDW 13.2 % (11.5-15.5); WBC 13.1 k/uL (3.8-10.6)
[2019-10-14 06:20] LABS: Glucose,Whole Blood 138 mg/dL (75-99)
[2019-10-14 06:35] LABS: African American GFR (CKD) >90 (>60 ml/min/1.73 sqM); Anion Gap 8 mmol/L; Blood Urea Nitrogen 17 mg/dL (9-20); Calcium 9.3 mg/dL (8.4-10.2); Carbon Dioxide 21 mmol/L (22-30); Chloride 106 mmol/L (98-107); Glucose 139 mg/dL (74-99); Non-African American GFR(CKD) 79 (>60 ml/min/1.73 sqM); Potassium 4.2 mmol/L (3.5-5.1); Sodium 135 mmol/L (137-145)
[2019-10-14] MEDS: INSULIN ASPART (NovoLOG) 100 UNIT/ML VIAL SQ SCH ×4 (06:47→22:07)
[2019-10-14] MEDS ORDERED: VANCOMYCIN TROUGH DUE 1 EACH MISC MISCELLANE ONE (07:00)
[2019-10-14] MEDS: oxyCODONE-APAP 10-325MG 1 EACH TAB PO PRN ×2 (08:36→21:57)
[2019-10-14] MEDS: GABAPENTIN 300 MG CAP PO SCH ×3 (08:36→17:17)
[2019-10-14] MEDS: metroNIDAZOLE-NS PMX 500 MG in SALINE 1 100ML.BAG IVPB SCH (08:37)
[2019-10-14] MEDS: ATORVASTATIN 40 MG TAB PO SCH (08:37)
[2019-10-14] MEDS: VANCOMYCIN 1,750 MG in SODIUM CHLORIDE 0.9% 500 ML 500 ML IVPB SCH (08:37)
[2019-10-14] MEDS: amLODIPine 10 MG TAB PO SCH (08:37)
[2019-10-14] MEDS: CLOPIDOGREL 75 MG TAB PO SCH (08:37)
[2019-10-14] MEDS: SUCRALFATE 1 GM TAB PO SCH ×4 (08:37→21:57)
[2019-10-14] MEDS: SODIUM CHLORIDE 0.9% 1,000 ML IV SCH ×2 (08:38→15:46)
[2019-10-14 11:29] LABS: Glucose,Whole Blood 124 mg/dL (75-99)
[2019-10-14] MEDS: DOCUSATE 100 MG CAP PO SCH ×2 (14:06→22:06)
[2019-10-14 17:01] LABS: Glucose,Whole Blood 137 mg/dL (75-99)
[2019-10-14] MEDS: metroNIDAZOLE 500 MG TAB PO SCH (17:17)
--- NOTE | 2019-10-14 17:47 | P.PN ---
Subjective Progress Note Date: 10/13/19 Principal diagnosis: left diabetic foot infection and osteomyelitis Patient is a 69-year-old male with a past medical history significant for left second toe with gangrene status post amputation, patient subsequently did have a admission Hospital with left second toe amputation site wound that was debridement culture were positive for Enterobacter MRSA for the patient was getting vancomycin and oral Cipro now being admitted to hospital with worsening of his wound and concern for underlying deep infection On today's evaluation that is 10/13/2019, patient remains to be afebrile, the patient is status post left lower extremity angiogram and balloon angioplasty with the patient tolerated, the patient denies having any chest pain shortness of breath or cough no nausea no vomiting no abdominal pain no diarrhea Objective - Vital Signs Vital signs: Vital Signs Temp 97.4 F L 10/13/19 15:20 Pulse 99 10/13/19 15:20 Resp 22 10/13/19 15:20 BP 159/88 10/13/19 15:20 Pulse Ox 99 10/13/19 15:20 Intake & Output 10/12/19 10/13/19 10/13/19 18:59 06:59 18:59 Intake Total 250 300 Output Total 330 600 Balance -80 -600 300 Intake: IV 250 300 Output: Urine 300 600 Estimated Blood Loss 30 Other: Voiding Method Urinal Urinal # Voids 2 - Exam GENERAL DESCRIPTION:[ Patient is awake and alert in no distress] HEENT: [Oral mucosa is dry and no pharyngeal erythema] EYES : [No pallor or scleral icterus] RESPIRATORY SYSTEM: [Unlabored breathing clear to auscultation] CARDIA VASCULAR SYSTEM: [S1-S2 regular rate and rhythm no murmur] GI: [Abdominal soft there's no tenderness no organomegaly] EXTREMITIES: [Left foot is currently dressed up in OR dressing no drainage of the dressing] - Labs CBC & Chem 7: 10/14/19 05:41 10/14/19 05:41 Labs: Abnormal Lab Results - Last 24 Hours (Table) 10/12/19 10/12/19 10/13/19 Range/Units 16:52 20:40 06:46 WBC (3.8-10.6) k/uL Hgb (13.0-17.5) gm/dL Hct (39.0-53.0) % Neutrophils # (1.3-7.7) k/uL Monocytes # (0-1.0) k/uL BUN 25 H (9-20) mg/dL Glucose 154 H (74-99) mg/dL POC Glucose (mg/dL) 114 H 125 H (75-99) mg/dL 10/13/19 10/13/19 10/13/19 Range/Units 06:46 07:02 11:36 WBC 13.2 H (3.8-10.6) k/uL Hgb 12.0 L (13.0-17.5) gm/dL Hct 38.2 L (39.0-53.0) % Neutrophils # 9.6 H (1.3-7.7) k/uL Monocytes # 1.2 H (0-1.0) k/uL BUN (9-20) mg/dL Glucose (74-99) mg/dL POC Glucose (mg/dL) 144 H 134 H (75-99) mg/dL Microbiology - Last 24 Hours (Table) 10/12/19 12:01 Gram Stain - Preliminary Foot - Left Wound Culture - Preliminary 10/12/19 12:01 Anaerobic Culture - Preliminary Foot - Left 10/11/19 15:49 Blood Culture - Preliminary Blood No Growth after 24 hours 10/11/19 15:44 Blood Culture - Preliminary Blood No Growth after 24 hours Assessment and Plan Assessment: 1-patient with a left diabetic foot infection in this patient who is status post debridement of the wound few weeks ago culture that was positive for Enterobacter and MRSA , and this patient seemed to have not responded very well to IV vancomycin and oral Cipro therapy with concern for slight worsening of his infection (1) Cellulitis of foot Current Visit: No Status: Acute Code(s): L03.119 - CELLULITIS OF UNSPECIFIED PART OF LIMB SNOMED Code(s): 602910368 (2) Diabetic foot ulcer Current Visit: No Status: Acute Code(s): E11.621 - TYPE 2 DIABETES MELLITUS WITH FOOT ULCER; L97.509 - NON-PRESSURE CHRONIC ULCER OTH PRT UNSP FOOT W UNSP SEVERITY SNOMED Code(s): 931999074 Plan: 1--vancomycin pharmacy to dose with a target trough of 15 while watching her kidney function and Vanco trough closely. 2-Rocephin 2 g daily and Flagyl 500 mg p.o. every 8 hour Local wound care to continue per vascular surgery culture is being monitored closely Time with Patient: Less than 30
--- NOTE | 2019-10-14 17:50 | P.PN ---
Subjective Progress Note Date: 10/14/19 Principal diagnosis: left diabetic foot infection and osteomyelitis Patient is a 69-year-old male with a past medical history significant for left second toe with gangrene status post amputation, patient subsequently did have a admission Hospital with left second toe amputation site wound that was debridement culture were positive for Enterobacter MRSA for the patient was getting vancomycin and oral Cipro now being admitted to hospital with worsening of his wound and concern for underlying deep infection, the patient is status post surgical debridement followed by angiogram and angioplasty that was completed on 10/13/2019 On today's evaluation that is 10/14/2019, patient denies any fever or any chills denies any chest pain shortness of breath or cough no diarrhea and no pain to the left foot wound area Objective - Vital Signs Vital signs: Vital Signs Temp 98.5 F 10/14/19 15:33 Pulse 87 10/14/19 15:33 Resp 18 10/14/19 15:33 BP 163/74 10/14/19 15:33 Pulse Ox 98 10/14/19 15:33 Intake & Output 10/13/19 10/14/19 10/14/19 18:59 06:59 18:59 Intake Total 440 1450 Output Total 475 1225 1550 Balance -35 -1225 -100 Weight 118.8 kg Intake: IV 300 Intake, IV Titration 730 Amount Sodium Chloride 0.9% 1, 80 000 ml @ 20 mls/hr IV . Q24H [facility] Rx#:[id number] Vancomycin 1,750 mg In 500 Sodium Chloride 0.9% 500 ml 500 ml @ 167 mls/hr IVPB Q16H [facility] Rx#: [id number] cefTRIAXone 2 gm In 50 Sodium Chloride 0.9% 50 ml @ 100 mls/hr IVPB Q24HR [facility] Rx#:[id number] metroNIDAZOLE-NS PMX 500 100 mg In Saline 1 100ml.bag @ 100 mls/hr IVPB Q8HR [facility] Rx#:[id number] Oral 140 720 Output: Urine 475 1225 1550 Other: Voiding Method Urinal Toilet Urinal # Voids 1 1 1 # Bowel Movements 1 - Exam GENERAL DESCRIPTION:[ Patient is awake and alert in no distress] HEENT: [Oral mucosa is dry and no pharyngeal erythema] EYES : [No pallor or scleral icterus] RESPIRATORY SYSTEM: [Unlabored breathing clear to auscultation] CARDIA VASCULAR SYSTEM: [S1-S2 regular rate and rhythm no murmur] GI: [Abdominal soft there's no tenderness no organomegaly] EXTREMITIES: [Left foot is currently dressed up there is no drainage on the dressing - Labs CBC & Chem 7: 10/14/19 05:41 10/14/19 05:41 Labs: Abnormal Lab Results - Last 24 Hours (Table) 10/13/19 10/14/19 10/14/19 Range/Units 20:34 05:41 05:41 WBC 13.1 H (3.8-10.6) k/uL Hgb 12.4 L (13.0-17.5) gm/dL Hct 38.5 L (39.0-53.0) % Neutrophils # 9.6 H (1.3-7.7) k/uL Monocytes # 1.1 H (0-1.0) k/uL Sodium 135 L (137-145) mmol/L Carbon Dioxide 21 L (22-30) mmol/L Glucose 139 H (74-99) mg/dL POC Glucose (mg/dL) 143 H (75-99) mg/dL 10/14/19 10/14/19 10/14/19 Range/Units 06:18 11:27 16:58 WBC (3.8-10.6) k/uL Hgb (13.0-17.5) gm/dL Hct (39.0-53.0) % Neutrophils # (1.3-7.7) k/uL Monocytes # (0-1.0) k/uL Sodium (137-145) mmol/L Carbon Dioxide (22-30) mmol/L Glucose (74-99) mg/dL POC Glucose (mg/dL) 138 H 124 H 137 H (75-99) mg/dL Microbiology - Last 24 Hours (Table) 10/12/19 12:01 Gram Stain - Preliminary Foot - Left Wound Culture - Preliminary Presumptive MRSA 10/11/19 15:49 Blood Culture - Preliminary Blood No Growth after 48 hours 10/11/19 15:44 Blood Culture - Preliminary Blood No Growth after 48 hours Assessment and Plan Assessment: 1-patient with a left diabetic foot infection in this patient who is status post debridement of the wound few weeks ago culture that was positive for Enterobacter and MRSA , and this patient seemed to have not responded very well to IV vancomycin and oral Cipro therapy with concern for slight worsening of his infection, admitted for surgical debridement and angiogram which has been completed (1) Cellulitis of foot Current Visit: No Status: Acute Code(s): L03.119 - CELLULITIS OF UNSPECIFIED PART OF LIMB SNOMED Code(s): 667873381 (2) Diabetic foot ulcer Current Visit: No Status: Acute Code(s): E11.621 - TYPE 2 DIABETES MELLITUS WITH FOOT ULCER; L97.509 - NON-PRESSURE CHRONIC ULCER OTH PRT UNSP FOOT W UNSP SEVERITY SNOMED Code(s): 807790792 Plan: 1--we will continue the patient on vancomycin pharmacy to dose with a target trough of 15 while watching her kidney function and Vanco trough closely along with Rocephin 2 g daily and Flagyl 500 mg p.o. every 8 hour while waiting for the culture finalized Time with Patient: Less than 30
[2019-10-14 20:23] LABS: Glucose,Whole Blood 128 mg/dL (75-99)
--- NOTE | 2019-10-14 22:41 | PN ---
PROGRESS NOTE SUBJECTIVE: 69-year-old with abscess, left foot, status post debridement. Awaiting for final cultures and broad-spectrum antibiotics. CARDIOVASCULAR: S1, S2. Lungs clear. GI soft. Extremities: Bandage on left leg. ASSESSMENT: 1. Status post abscess left foot. 2. Diabetic wound infection. 3. Insulin-dependent diabetes mellitus. 4. Hypertension. 5. Neuropathy. 6. Degenerative disc disease. Continue broad-spectrum antibiotics. Await for wound cultures. PICC line. Possible discharge home on Wednesday. MMODL / IJN: [id number] /
[2019-10-15] MEDS: metroNIDAZOLE 500 MG TAB PO SCH ×4 (00:20→23:41)
[2019-10-15] MEDS: VANCOMYCIN 1,750 MG in SODIUM CHLORIDE 0.9% 500 ML 500 ML IVPB SCH ×2 (00:20→17:54)
[2019-10-15] MEDS: HYDROmorphone 1 MG/ML 1 ML SYRINGE IVP PRN ×3 (04:09→23:41)
[2019-10-15 06:04] LABS: Basophils % (A) 0 %; Eosinophils # (A) 0.6 k/uL (0-0.7); Eosinophils % (A) 5 %; HCT 37.9 % (39.0-53.0); HGB 12.4 gm/dL (13.0-17.5); Lymphocytes # (A) 2.4 k/uL (1.0-4.8); Lymphocytes % (A) 20 %; MCH 27.5 pg (25.0-35.0); MCHC 32.6 g/dL (31.0-37.0); MCV 84.4 fL (80.0-100.0); Monocytes # (A) 1.1 k/uL (0-1.0); Monocytes % (A) 9 %; Neutrophils # (A) 7.3 k/uL (1.3-7.7); Neutrophils % (A) 63 %; Platelet Count 422 k/uL (150-450); RBC 4.49 m/uL (4.30-5.90); RDW 13.4 % (11.5-15.5); WBC 11.6 k/uL (3.8-10.6)
[2019-10-15 06:16] LABS: ALT 25 U/L (4-49); AST 25 U/L (17-59); African American GFR (CKD) >90 (>60 ml/min/1.73 sqM); Albumin 3.1 g/dL (3.5-5.0); Alkaline Phosphatase 161 U/L (38-126); Anion Gap 8 mmol/L; Blood Urea Nitrogen 14 mg/dL (9-20); Calcium 9.4 mg/dL (8.4-10.2); Carbon Dioxide 22 mmol/L (22-30); Chloride 107 mmol/L (98-107); Glucose 128 mg/dL (74-99); Non-African American GFR(CKD) 81 (>60 ml/min/1.73 sqM); Potassium 3.9 mmol/L (3.5-5.1); Sodium 137 mmol/L (137-145); Total Bilirubin 0.4 mg/dL (0.2-1.3); Total Protein 6.5 g/dL (6.3-8.2)
[2019-10-15 06:25] LABS: Glucose,Whole Blood 128 mg/dL (75-99)
[2019-10-15] MEDS: INSULIN ASPART (NovoLOG) 100 UNIT/ML VIAL SQ SCH ×4 (06:39→21:50)
[2019-10-15] MEDS: oxyCODONE-APAP 10-325MG 1 EACH TAB PO PRN ×2 (07:33→21:52)
[2019-10-15] MEDS: SUCRALFATE 1 GM TAB PO SCH ×4 (07:33→21:52)
[2019-10-15] MEDS: DOCUSATE 100 MG CAP PO SCH ×2 (07:34→21:52)
[2019-10-15] MEDS: CLOPIDOGREL 75 MG TAB PO SCH (07:34)
[2019-10-15] MEDS: amLODIPine 10 MG TAB PO SCH (07:34)
[2019-10-15] MEDS: ATORVASTATIN 40 MG TAB PO SCH (07:34)
[2019-10-15] MEDS: GABAPENTIN 300 MG CAP PO SCH ×3 (07:34→17:55)
--- NOTE | 2019-10-15 11:35 | DS ---
DISCHARGE SUMMARY ADDENDUM: Please add to discharge summary: DISCHARGE DIAGNOSES: 1. Skin ulcer secondary to diabetic foot ulcer with cellulitis of the left foot. 2. Diabetic neuropathy. 3. Peripheral artery vascular disease. 4. All of the above. MMODL / IJN: [id number] /
[2019-10-15 11:43] LABS: Glucose,Whole Blood 138 mg/dL (75-99)
--- NOTE | 2019-10-15 12:31 | P.PN ---
Subjective Progress Note Date: 10/15/19 Principal diagnosis: Chronic nonhealing ulcer of left foot, status post second toe amputation. Past medical history significant for recent hospitalization for cellulitis, peripher al arterial disease, insulin-dependent diabetes mellitus, bilateral lower extremity neuropathy. POD #3 incision and drainage abscess and bone debridement left foot performed by Dr. Shekhar Gibbons. The patient is laying in bed on the cardiac stepdown unit. He is no acute distress. Currently denies any complaints of pain or shortness of breath. Reports he is anxious to be discharged home. Dressing to his left foot remains clean dry and intact. Left before meals PICC line remains in place with antibiotics managed per infectious disease recommendations. He remains afebrile the last 24 hours. Objective - Vital Signs Vital signs: Vital Signs Temp 98.3 F 10/15/19 07:29 Pulse 74 10/15/19 07:29 Resp 18 10/15/19 07:29 BP 147/73 10/15/19 07:29 Pulse Ox 98 10/15/19 07:29 Intake & Output 10/14/19 10/15/19 10/15/19 18:59 06:59 18:59 Intake Total 1690 Output Total 1550 1600 Balance 140 -1600 Weight 117.6 kg Intake: Intake, IV Titration 730 Amount Sodium Chloride 0.9% 1, 80 000 ml @ 20 mls/hr IV . Q24H [facility] Rx#:[id number] Vancomycin 1,750 mg In 500 Sodium Chloride 0.9% 500 ml 500 ml @ 167 mls/hr IVPB Q16H [facility] Rx#: [id number] cefTRIAXone 2 gm In 50 Sodium Chloride 0.9% 50 ml @ 100 mls/hr IVPB Q24HR [facility] Rx#:[id number] metroNIDAZOLE-NS PMX 500 100 mg In Saline 1 100ml.bag @ 100 mls/hr IVPB Q8HR [facility] Rx#:[id number] Oral 960 Output: Urine 1550 1600 Other: Voiding Method Toilet Toilet Urinal Urinal # Voids 1 - Constitutional General appearance: Present: cooperative, no acute distress, obese - Respiratory Details: Lung sounds essentially clear throughout. Respirations are symmetrical and nonlabored. Oxygen saturation is 99% on room air. Achieving 2500 mL on his incentive spirometry. - Cardiovascular Details: Regular rhythm and rate. S1 and S2 present, negative for S3, gallop or murmur. No edema present. - Gastrointestinal Gastrointestinal Comment(s): Abdomen is soft, nontender and nondistended. Active bowel sounds present in all 4 abdominal quadrants. No guarding or rigidity. No organomegaly appreciated. Obese. - Genitourinary Genitourinary Comment(s): Voiding clear yellow urine. - Integumentary Integumentary Comment(s): Skin is warm and dry. No clubbing or cyanosis is present. Wound to his left foot second toe amputation site, clean with some scant serosanguineous drainage as well as to his plantar aspect of his left foot. - Neurologic Neurologic: Present: CNII-XII intact - Musculoskeletal Musculoskeletal: Present: generalized weakness, strength equal bilaterally - Psychiatric Psychiatric: Present: A&O x's 3, appropriate affect, intact judgment & insight - Allied health notes Allied health notes reviewed: nursing - Labs CBC & Chem 7: 10/15/19 05:38 10/15/19 05:38 Labs: Abnormal Lab Results - Last 24 Hours (Table) 10/14/19 10/14/19 10/15/19 Range/Units 16:58 20:21 05:38 WBC 11.6 H (3.8-10.6) k/uL Hgb 12.4 L (13.0-17.5) gm/dL Hct 37.9 L (39.0-53.0) % Monocytes # 1.1 H (0-1.0) k/uL Glucose (74-99) mg/dL POC Glucose (mg/dL) 137 H 128 H (75-99) mg/dL Alkaline Phosphatase (38-126) U/L Albumin (3.5-5.0) g/dL 10/15/19 10/15/19 10/15/19 Range/Units 05:38 06:23 11:42 WBC (3.8-10.6) k/uL Hgb (13.0-17.5) gm/dL Hct (39.0-53.0) % Monocytes # (0-1.0) k/uL Glucose 128 H (74-99) mg/dL POC Glucose (mg/dL) 128 H 138 H (75-99) mg/dL Alkaline Phosphatase 161 H (38-126) U/L Albumin 3.1 L (3.5-5.0) g/dL Microbiology - Last 24 Hours (Table) 10/12/19 12:01 Gram Stain - Preliminary Foot - Left Wound Culture - Preliminary Methicillin resist S. aureus Gram Neg Bacilli 10/12/19 12:01 Anaerobic Culture - Preliminary Foot - Left 10/11/19 15:49 Blood Culture - Preliminary Blood No Growth after 72 hours 10/11/19 15:44 Blood Culture - Preliminary Blood No Growth after 72 hours Assessment and Plan Assessment: 1. Chronic nonhealing ulcer of the left foot, status post incision and drainage abscess and bone debridement left foot 2. Recent hospitalization for cellulitis 3. Peripheral arterial disease 4. Insulin-dependent diabetes mellitus 5. Bilateral lower extremity neuropathy Plan: 1. Change dressing to his left foot wounds every other day using Aquacel silver rope. Cover with 4 x 4 gauze and secured with Kerlix wrap. Dressing changed this a.m. 2. Continue to encourage use of his incentive spirometry every hour while awake. 3. Antibiotic management per infectious disease recommendations. 4. Medical management and other comorbidities per primary care service. 5. Continue no weightbearing status to his left foot. 6. More recommendations to follow based on patient's clinical course. Time with Patient: Greater than 30
[2019-10-15 16:51] LABS: Glucose,Whole Blood 167 mg/dL (75-99)
--- NOTE | 2019-10-15 19:35 | P.PN ---
Subjective Progress Note Date: 10/15/19 Principal diagnosis: left diabetic foot infection and osteomyelitis Patient is a 69-year-old male with a past medical history significant for left second toe with gangrene status post amputation, patient subsequently did have a admission Hospital with left second toe amputation site wound that was debridement culture were positive for Enterobacter MRSA for the patient was getting vancomycin and oral Cipro now being admitted to hospital with worsening of his wound and concern for underlying deep infection, the patient is status post surgical debridement followed by angiogram and angioplasty that was completed on 10/13/2019 On today's evaluation that is 10/15/2019, patient remains to be afebrile, the patient denies having any chest pain or shortness of breath or cough no nausea no vomiting no abdominal pain and denies pain to the left foot area dressing was changed earlier by nurse practitioner for vascular team and our mention overall improvement in his left foot Objective - Vital Signs Vital signs: Vital Signs Temp 98.5 F 10/15/19 15:40 Pulse 73 10/15/19 15:40 Resp 18 10/15/19 15:40 BP 160/76 10/15/19 15:40 Pulse Ox 100 10/15/19 15:40 Intake & Output 10/15/19 10/15/19 10/16/19 06:59 18:59 06:59 Intake Total 360 Output Total 1600 600 Balance -1600 -240 Weight 117.6 kg Intake: Oral 360 Output: Urine 1600 600 Other: Voiding Method Toilet Urinal Urinal - Exam GENERAL DESCRIPTION:[ Patient is awake and alert in no distress] HEENT: [Oral mucosa is dry and no pharyngeal erythema] EYES : [No pallor or scleral icterus] RESPIRATORY SYSTEM: [Unlabored breathing clear to auscultation] CARDIA VASCULAR SYSTEM: [S1-S2 regular rate and rhythm no murmur] GI: [Abdominal soft there's no tenderness no organomegaly] EXTREMITIES: [Left foot is currently dressed up there is no drainage on the dressing - Labs CBC & Chem 7: 10/15/19 05:38 10/15/19 05:38 Labs: Abnormal Lab Results - Last 24 Hours (Table) 10/14/19 10/15/19 10/15/19 Range/Units 20:21 05:38 05:38 WBC 11.6 H (3.8-10.6) k/uL Hgb 12.4 L (13.0-17.5) gm/dL Hct 37.9 L (39.0-53.0) % Monocytes # 1.1 H (0-1.0) k/uL Glucose 128 H (74-99) mg/dL POC Glucose (mg/dL) 128 H (75-99) mg/dL Alkaline Phosphatase 161 H (38-126) U/L Albumin 3.1 L (3.5-5.0) g/dL 10/15/19 10/15/19 10/15/19 Range/Units 06:23 11:42 16:49 WBC (3.8-10.6) k/uL Hgb (13.0-17.5) gm/dL Hct (39.0-53.0) % Monocytes # (0-1.0) k/uL Glucose (74-99) mg/dL POC Glucose (mg/dL) 128 H 138 H 167 H (75-99) mg/dL Alkaline Phosphatase (38-126) U/L Albumin (3.5-5.0) g/dL Microbiology - Last 24 Hours (Table) 10/11/19 15:44 Blood Culture - Preliminary Blood No Growth after 96 hours 10/11/19 15:49 Blood Culture - Preliminary Blood No Growth after 96 hours 10/12/19 12:01 Gram Stain - Final Foot - Left Wound Culture - Final Methicillin resist S. aureus Enterobacter cloacae 10/12/19 12:01 Anaerobic Culture - Preliminary Foot - Left Assessment and Plan Assessment: 1-patient with a left diabetic foot infection in this patient who is status post debridement of the wound few weeks ago culture that was positive for Enterobacter and MRSA , and this patient seemed to have not responded very well to IV vancomycin and oral Cipro therapy with concern for slight worsening of his infection, admitted for surgical debridement and angiogram which has been compl eted, wound culture showing Enterobacter and MRSA (1) Cellulitis of foot Current Visit: No Status: Acute Code(s): L03.119 - CELLULITIS OF UNSPECIFIED PART OF LIMB SNOMED Code(s): 681596551 (2) Diabetic foot ulcer Current Visit: No Status: Acute Code(s): E11.621 - TYPE 2 DIABETES MELLITUS WITH FOOT ULCER; L97.509 - NON-PRESSURE CHRONIC ULCER OTH PRT UNSP FOOT W UNSP SEVERITY SNOMED Code(s): 054567887 Plan: 1--we will continue the patient on vancomycin pharmacy to dose with a target trough of 15 while watching her kidney function and Vanco trough closely along with Rocephin 2 g daily and Flagyl 500 mg p.o. every 8 hour , with plan to continue with vancomycin and Rocephin in the IV along with oral Flagyl for 4-6 weeks depending upon clinical response, along with weekly morning, CBC BMP and a sed rate Time with Patient: Less than 30
[2019-10-15 20:34] LABS: Glucose,Whole Blood 163 mg/dL (75-99)
--- NOTE | 2019-10-15 20:55 | PN ---
PROGRESS NOTE 69-year-old white male with abscess, left foot, status post wound debridement. Awaiting for cultures to come back, which so far is MRSA. Remains on 3 IV antibiotics. Possible PICC line versus oral antibiotics to be sent home tomorrow. Wound care continues. PTCA of the arteries of the legs have been done. Cardiovascular S1-S2. Lungs clear. GI soft. Hematology negative Homans. Continue current treatments. Possible discharge home on a PICC line tomorrow. MMODL / IJN: [id number] /
[2019-10-15] MEDS: SODIUM CHLORIDE 0.9% 1,000 ML IV SCH (22:27)
[2019-10-16] MEDS: oxyCODONE-APAP 10-325MG 1 EACH TAB PO PRN ×2 (06:01→15:07)
[2019-10-16 06:02] LABS: Glucose,Whole Blood 112 mg/dL (75-99)
[2019-10-16] MEDS: INSULIN ASPART (NovoLOG) 100 UNIT/ML VIAL SQ SCH ×2 (06:31→11:56)
[2019-10-16] MEDS: GABAPENTIN 300 MG CAP PO SCH ×2 (08:28→15:03)
[2019-10-16] MEDS: SUCRALFATE 1 GM TAB PO SCH ×2 (08:28→15:03)
[2019-10-16] MEDS: ATORVASTATIN 40 MG TAB PO SCH (08:28)
[2019-10-16] MEDS: DOCUSATE 100 MG CAP PO SCH (08:28)
[2019-10-16] MEDS: CLOPIDOGREL 75 MG TAB PO SCH (08:28)
[2019-10-16] MEDS: amLODIPine 10 MG TAB PO SCH (08:28)
[2019-10-16] MEDS: VANCOMYCIN 1,750 MG in SODIUM CHLORIDE 0.9% 500 ML 500 ML IVPB SCH (09:40)
[2019-10-16] MEDS: metroNIDAZOLE 500 MG TAB PO SCH ×2 (09:40→16:07)
[2019-10-16 10:21] VITALS: TEMP 98
[2019-10-16 11:34] LABS: Glucose,Whole Blood 142 mg/dL (75-99)
[2019-10-16 12:48] VITALS: BP 140/72; PULSE 86; RESP 16
--- NOTE | 2019-10-16 14:19 | P.DS ---
Providers Date of admission: 10/11/19 10:22 Expected date of discharge: 10/16/19 Attending physician: Mike Castillo Consults: 10/11/19 11:19 Consult Physician Routine Consulting Provider: Brent Murguia Consult Reason/Comments: antibiotics Do you want consulting provider notified?: Yes Placement Type Exists?: Yes 10/11/19 13:59 Consult Physician Routine Consulting Provider: Shekhar Gibbons Consult Reason/Comments: Left Foot Incision and Drainage Do you want consulting provider notified?: Already Contacted Primary care physician: [facility] Course: Final Diagnoses: Chronic nonhealing left diabetic foot ulcer status post second toe amputation, recent debridement with cellulitis and abscess of foot. Recent cultures reported Enterobacter and MRSA, failed outpatient treatment with vancomycin and Cipro. Status post I&D PAD Diabetes mellitus II Acute on chronic renal failure, stage III Hypertension Hyperlipidemia Diabetic neuropathy of bilateral feet History of IBS and gastritis Obesity, morbid, BMI 35.3 Hospital course:This is a 69-year-old gentleman admitted with worsening left diabetic foot infection, status post recent debridement a few weeks ago, left second toe amputation, recent wound culture reporting MRSA and Enterobacter. Failed outpatient therapy with IV antibiotics of vancomycin with oral Cipro. Maintained on vancomycin as per pharmacy dosing, Rocephin and Flagyl as per infectious disease.Scheduled for surgical debridement/bx today. Afebrile,VSS. Creatinine maintained at 1.34, baseline 0.7. Denies chest pain, palpitations or shortness of breath. Blood sugars better controlled today. Status post I&D, tolerated procedure well. Maintained on IV antibiotic therapy as per infectious disease with wound care as per vascular surgery. Remains afebrile .Significant clinical improvement. Patient is being discharged home in stable condition with guarded prognosis, pending vascular and ID clearance and final DC recommendations. Microbiology 10/11/19 15:44 Blood Blood Culture - Preliminary No Growth after 96 hours 10/11/19 15:49 Blood Blood Culture - Preliminary No Growth after 96 hours 10/12/19 12:01 Foot - Left Gram Stain - Final 10/12/19 12:01 Foot - Left Wound Culture - Final Methicillin resist S. aureus Enterobacter cloacae 10/12/19 12:01 Foot - Left Anaerobic Culture - Preliminary The impression and plan of care has been dictated as directed. : I performed a history and examination of this patient, discussed the same with the dictator. I agree with the dictator's note ,documented as a scribe. Any additional findings or plans will be noted. Patient Condition at Discharge: Stable Plan - Discharge Summary Discharge Rx Participant: No New Discharge Prescriptions: New Docusate [Colace] 100 mg PO BID #20 cap amLODIPine [Norvasc] 10 mg PO DAILY #30 tab Clopidogrel [Plavix] 75 mg PO DAILY #30 tab metroNIDAZOLE [Flagyl] 500 mg PO Q8HR #90 tab cefTRIAXone [Rocephin] 2 gm IM Q24H #40 vial Vancomycin 1,500 mg IVPB Q12HR #80 bag Continue Insulin NPH Human Isophane [NovoLIN N] See Protocol SQ HS Testosterone Cypionate [Depo-Testosterone] 200 mg IM Q14D Methylcellulose (with Sugar) [Citrucel Powder] 2 gm PO DAILY Insulin Regular, Human [NovoLIN R] See Protocol SQ AC-TID Atorvastatin [Lipitor] 40 mg PO DAILY #90 tab Gabapentin [Neurontin] 300 mg PO TID@0900,1300,1800 oxyCODONE-APAP 10-325MG [Percocet 10-325 mg] 1 tab PO Q8HR PRN PRN Reason: Pain Sucralfate [Carafate] 1 gm PO QID Discontinued Lisinopril 30 mg PO DAILY Triamterene-Hctz 37.5-25Mg [Dyazide 37.5-25 Capsule] 1 cap PO DAILY Terbinafine [LamISIL] 250 mg PO DAILY Ciprofloxacin HCl [Cipro] 500 mg PO Q12H #28 tab cefTAZidime [Fortaz] 1 gm IVPB Q12HR Discharge Medication List Insulin NPH Human Isophane [NovoLIN N] See Protocol SQ HS 11/23/18 [History] Insulin Regular, Human [NovoLIN R] See Protocol SQ AC-TID 06/08/19 [History] Methylcellulose (with Sugar) [Citrucel Powder] 2 gm PO DAILY 06/08/19 [History] Testosterone Cypionate [Depo-Testosterone] 200 mg IM Q14D 06/08/19 [History] Atorvastatin [Lipitor] 40 mg PO DAILY #90 tab 06/09/19 [Rx] Gabapentin [Neurontin] 300 mg PO TID@0900,1300,1800 07/23/19 [History] Sucralfate [Carafate] 1 gm PO QID 10/11/19 [History] oxyCODONE-APAP 10-325MG [Percocet 10-325 mg] 1 tab PO Q8HR PRN 10/11/19 [History] Clopidogrel [Plavix] 75 mg PO DAILY #30 tab 10/16/19 [Rx] Docusate [Colace] 100 mg PO BID #20 cap 10/16/19 [Rx] Vancomycin 1,500 mg IVPB Q12HR #80 bag 10/16/19 [Rx] amLODIPine [Norvasc] 10 mg PO DAILY #30 tab 10/16/19 [Rx] cefTRIAXone [Rocephin] 2 gm IM Q24H #40 vial 10/16/19 [Rx] metroNIDAZOLE [Flagyl] 500 mg PO Q8HR #90 tab 10/16/19 [Rx] Follow up Appointment(s)/Referral(s): [facility], [NON-STAFF] - Mike Castillo MD [Primary Care Provider] - 10/18/19 10:45 am (Wednesday ) [facility], [REFERRING] - W[facility] Healing,[place] [NON-STAFF] - 10/25/19 8:30 am (Wednesday) Brent Murguia MD [STAFF PHYSICIAN] - 1 Week Ambulatory/Diagnostic Orders: Complete Blood Count w/diff [LAB.AMB] Time Frame: 3 Days, Location: None Selected Patient Instructions/Handouts: Debridement (DC) Activity/Diet/Wound Care/Special Instructions: No weight bearing to left foot until further notice.
--- NOTE | 2019-10-16 17:02 | PN ---
PROGRESS NOTE DATE OF SERVICE: 10/16/2019 REASON FOR FOLLOWUP: Left foot osteomyelitis. INTERVAL HISTORY: The patient is currently afebrile. The patient has been breathing comfortably. The patient denies having any chest pain or shortness of breath or cough. No nausea, no vomiting or pain to the left foot area. PHYSICAL EXAMINATION: Blood pressure 140/72 with a pulse of 86, temperature 98. He is 100% on room air. General description is an elderly male lying in bed in no distress. RESPIRATORY SYSTEM: Unlabored breathing. Clear to auscultation anteriorly. HEART: S1, S2. Regular rate and rhythm. ABDOMEN: Soft. No tenderness. Left foot is currently dressed up. No obvious drainage on the dressing. LABS: Wound culture with MRSA Enterobacter, and other cultures currently pending. DIAGNOSTIC IMPRESSION AND PLAN: Patient with left foot osteomyelitis in this patient who did have debridement of his wound. The patient's culture is now showing MRSA enterobacter; the same bacteria he grew last time. Antibiotic in the form of vancomycin, Pharmacy to dose, Rocephin 2 grams daily, and oral Flagyl for another 40 days, weekly monitoring of CBC, BMP and sed rate and close outpatient followup. Local wound care per Surgery. MMODL / IJN: [id number] /
--- NOTE | 2019-10-18 10:06 | P.OP ---
Date of Procedure: 10/12/19 Preoperative Diagnosis: Diabetic infection left foot including second metatarsal with osteomyelitis Postoperative Diagnosis: Same Procedure(s) Performed: Surgical debridement of left foot including second metatarsal on the left Anesthesia: AYAHA Surgeon: Shekhar Gibbons Estimated Blood Loss (ml): 30 Pathology: other (Bone cultures) Condition: stable Disposition: PACU Indications for Procedure: The patient developed further infection into the plantar aspect of the left foot. Because of cellulitic changes the patient is on IV antibiotics. Operative Findings: We found soft bone and some purulence into the deep compartment of the foot around the second metatarsal Description of Procedure: With the patient spine position, under benefit of general anesthesia, we prepped and draped in standard fashion. We started with a rongeur and removed the remaining portion of the proximal phalanx and began with this second metatarsal. Because of the pocket into the deep compartment of the foot we made an incision on the plantar aspect. We exposed the area around the metatarsal through this to gain adequate drainage. We removed any nonviable soft tissue and the second metatarsal up to good bone. We packed the wound with Kerlix after irrigation. Sterile dressings were applied. The patient tolerated the procedure well and was taken to recovery area in stable condition.
--- NOTE | 2019-10-19 13:03 | CDI ---
Documentation Clarification Form Date: 10/19/19 From: Patricia Fernando Phone: If you have a question about this query, please contact Patience Morales [facility] Remover at [phone] between 8am and 5pm. Admit Date: 10/11/19 Discharge Date:10/16/19 Patient Name: Brijesh Akers Visit Number: [id number] ATTENTION: The Clinical Documentation Specialists (CDI) and [facility] Coding Staff appreciate your assistance in clarifying documentation. Please respond to the clarification below the line at the bottom and electronically sign. The CDI & [facility] staff will review the response and follow-up if needed. Please note: Queries are made part of the Legal Health Record. If you have any questions, please contact the author of this message via ITS. Dear Dr. Castillo Please render your opinion on the clinical significance of the patients BUN/Creatinine/GFR levels. History/Risk Factors: Acute renal failure, Diabetes, hypertension Patients Historical BUN/CR/GFR: 07/11/16: BUN > 60 BUN/CR/GFR on admit: 24/08. Clinical Indicators: Elevated creatinine, decreased GFR Current BUN/CR/GFR: 14/0.95/81 Treatment: IV NS @75 mls/hr In order to capture the severity of condition, please clarify if the labs/clinical indicators signify: CKD Ruled Out CKD Stage 1 (GFR > 90) CKD Stage 2 (GFR 60-89) CKD Stage 3 (GFR 30-59) CKD Stage 4 (GFR 15-29) CKD Stage 5 (GFR <15) ESRD Other, please specify Unable to determine MTDD
== END 2019-10-16 16:47 | disposition home health service (06) | DRG 616 ==
LOC: 4SSUR 10:22 → 3SCARD 10-13 14:37
PROVIDERS: ADMIT Family Medicine; ATTEND Family Medicine
PROC: 0Y6N0ZB Detachment at Left Foot, Partial 2nd Ray, Open Approach (ICD-10-PCS; principal; 2019-10-12 11:30)
PROC: B41F1ZZ Fluoroscopy of Right Lower Extremity Arteries using Low Osmolar Contrast (ICD-10-PCS; 2019-10-13 07:30)
PROC: B41G1ZZ Fluoroscopy of Left Lower Extremity Arteries using Low Osmolar Contrast (ICD-10-PCS; 2019-10-13 07:30)
PROC: 047L3Z1 Dilation of Left Femoral Artery using Drug-Coated Balloon, Percutaneous Approach (ICD-10-PCS; 2019-10-13 07:30)
DX: E11.621 Type 2 diabetes mellitus with foot ulcer (principal); I77.77 Dissection of artery of lower extremity; L03.116 Cellulitis of left lower limb; L97.429 Non-pressure chronic ulcer of left heel and midfoot with unspecified severity; M86.9 Osteomyelitis, unspecified; K50.90 Crohn's disease, unspecified, without complications; L02.612 Cutaneous abscess of left foot; E11.69 Type 2 diabetes mellitus with other specified complication; E11.628 Type 2 diabetes mellitus with other skin complications; E11.42 Type 2 diabetes mellitus with diabetic polyneuropathy; N17.9 Acute kidney failure, unspecified; E11.22 Type 2 diabetes mellitus with diabetic chronic kidney disease; E11.51 Type 2 diabetes mellitus with diabetic peripheral angiopathy without gangrene; I70.203 Unspecified atherosclerosis of native arteries of extremities, bilateral legs; B95.62 Methicillin resistant Staphylococcus aureus infection as the cause of diseases classified elsewhere; B96.89 Other specified bacterial agents as the cause of diseases classified elsewhere; I10 Essential (primary) hypertension; E11.65 Type 2 diabetes mellitus with hyperglycemia; E66.01 Morbid (severe) obesity due to excess calories; E78.00 Pure hypercholesterolemia, unspecified; E78.5 Hyperlipidemia, unspecified; M79.652 Pain in left thigh; G89.29 Other chronic pain; Z68.35 Body mass index [BMI] 35.0-35.9, adult; Z79.4 Long term (current) use of insulin; Z79.899 Other long term (current) drug therapy; Z86.14 Personal history of Methicillin resistant Staphylococcus aureus infection; Z89.422 Acquired absence of other left toe(s); Z88.6 Allergy status to analgesic agent; Z80.9 Family history of malignant neoplasm, unspecified
CPT/HCPCS: 37225; 75716; 80048; 80053; 80202; 82565; 85025; 85610; 85652; 85730; 86140; 86850; 86900; 86901; 87040; 87070; 87075; 87077; 87186; 87205

== ENCOUNTER 2019-12-29 12:12 | Inpatient (IN) | payer MEDICARE ==
[2019-12-29] MEDS ORDERED: cefTRIAXone 2 GM VIAL IM SCH (15:15)
--- NOTE | 2019-12-29 16:12 | CT ---
EXAMINATION TYPE: CT brain wo con DATE OF EXAM: 12/29/2019 COMPARISON: None HISTORY: AMS/confusion CT DLP: 1064.3 mGycm Automated exposure control for dose reduction was used. TECHNIQUE: CT scan of the head is performed without contrast. FINDINGS: There is no acute intracranial hemorrhage or midline shift identified. There is diffuse v entricular and sulcal prominence consistent with diffuse age-related cerebral atrophy. There is low- attenuation in the periventricular white matter consistent with chronic small vessel ischemic change. Intake calcifications are incidentally noted of the superior oblique muscles distally bilaterally a t the myotendinous junction. Atherosclerosis noted of the intracranial vasculature. Low-lying cerebel lar tonsils are incidentally seen. Very scant mucosal thickening in the right maxillary sinus. Remain ing visualized paranasal sinuses and mastoid air cells are well aerated. IMPRESSION: No acute intracranial hemorrhage or midline shift. There is diffuse age-related cerebra l atrophy and chronic small vessel ischemic change noted.
[2019-12-29 16:51] LABS: Glucose,Whole Blood 145 mg/dL (75-99)
--- NOTE | 2019-12-29 16:54 | XR ---
EXAMINATION TYPE: XR chest 2V DATE OF EXAM: 12/29/2019 COMPARISON: 06/08/2019 HISTORY: Dyspnea TECHNIQUE: Frontal and lateral views of the chest are obtained. FINDINGS: There is no focal air space opacity, pleural effusion, or pneumothorax seen. Tortuosity of the thoracic aorta is similar to the prior exam. Chronic platelike atelectasis or scarring within th e left lower lung peripherally. The cardiac silhouette size is within normal limits. The osseous st ructures are intact. Mild multilevel degenerative change of the spine. IMPRESSION: No acute cardiopulmonary process.
[2019-12-29 17:04] LABS: Basophils % (A) 0 %; Eosinophils # (A) 0.5 k/uL (0-0.7); Eosinophils % (A) 4 %; HCT 44.7 % (39.0-53.0); HGB 14.6 gm/dL (13.0-17.5); Lymphocytes # (A) 2.2 k/uL (1.0-4.8); Lymphocytes % (A) 17 %; MCH 28.1 pg (25.0-35.0); MCHC 32.7 g/dL (31.0-37.0); MCV 85.9 fL (80.0-100.0); Mean Platelet Volume 7.3; Monocytes % (A) 8 %; Neutrophils % (A) 69 %; Platelet Count 334 k/uL (150-450); RDW 14.9 % (11.5-15.5)
[2019-12-29 17:12] LABS: ALT 23 U/L (4-49); AST 26 U/L (17-59); African American GFR (CKD) >90 (>60 ml/min/1.73 sqM); Albumin 4.2 g/dL (3.5-5.0); Alkaline Phosphatase 101 U/L (38-126); Anion Gap 13 mmol/L; Blood Urea Nitrogen 17 mg/dL (9-20); Calcium 10.4 mg/dL (8.4-10.2); Carbon Dioxide 21 mmol/L (22-30); Chloride 100 mmol/L (98-107); Glucose 157 mg/dL (74-99); Non-African American GFR(CKD) >90 (>60 ml/min/1.73 sqM); Sodium 134 mmol/L (137-145); Total Bilirubin 1.1 mg/dL (0.2-1.3); Total Protein 7.6 g/dL (6.3-8.2)
[2019-12-29] MEDS: SUCRALFATE 1 GM TAB PO SCH ×2 (17:27→21:03)
[2019-12-29] MEDS: SODIUM CHLORIDE 0.9% 1,000 ML IV SCH (17:28)
[2019-12-29] MEDS: metroNIDAZOLE 500 MG TAB PO SCH (17:28)
[2019-12-29] MEDS: INSULIN ASPART (NovoLOG) 100 UNIT/ML VIAL SQ SCH ×2 (17:28→20:34)
[2019-12-29 18:14] LABS: Appearance,Urine Clear (Clear); Bilirubin,Urine Negative (Negative); Blood,Urine Negative (Negative); Color,Urine Light Yellow; Glucose,Urine (UA) Negative (Negative); Ketones,Urine Trace (Negative); Leukocyte Esterase,Urine Negative (Negative); Nitrite,Urine Negative (Negative); Protein,Urine 1+ (Negative); Specific Gravity,Urine 1.009 (1.001-1.035); Squamous Epithelial Cell,Urine <1 /hpf (0-4); Urobilinogen,Urine <2.0 mg/dL (<2.0); WBC,Urine <1 /hpf (0-5)
[2019-12-29 18:15] LABS: T4, Free (Free Thyroxine) 1.89 ng/dL (0.78-2.19)
[2019-12-29] MEDS: oxyCODONE-APAP 10-325MG 1 EACH TAB PO PRN (20:25)
[2019-12-29] MEDS: DOCUSATE 100 MG CAP PO SCH (20:25)
[2019-12-29 20:32] LABS: Glucose,Whole Blood 138 mg/dL (75-99)
[2019-12-29] MEDS ORDERED: RX INFO: IV CONTRAST WAS GIVEN 1 EACH MISC MISCELLANE PRN (21:24)
--- NOTE | 2019-12-29 22:29 | P.CNNES ---
History of Present Illness Consult date: 12/29/19 Requesting physician: Mike Castillo Reason for Consult: Confusion History of Present Illness: Patient is a 69-year-old male admitted to the hospital for mental confusion and difficulty with ambulation. Patient not able to tell anything about confusion. According to nursing report, patient's son has mentioned that he has been confused for the past 1 week. Patient's son also has mentioned that he is also having problems with his baseline ambulation. He is a wound in the left foot, but was able to bear weight in the left foot. However in the last 1 week, he has difficulty getting up, and getting transfer from the bed to the wheelchair. His son has to lift him up. Patient tells me that he has history of low back pain for the last couple years. Lately it has been extending to the left buttock to the left hip and down to the left knee. It has been getting worse and worse. Patient states when he stands up, his left leg gives out. It also starts hurting a lot. He feels his left knee is going to buckle up. If he is laying comfortable, he has no pain. However if he tries to pick it up and tries to use it, then it hurts. Patient had computed tomography scan of the head, which revealed no acute int racranial hemorrhage or midline shift. There is diffuse age-related cerebral atrophy and chronic small vessel ischemic change. Chest x-ray showed no acute process. Patient's blood test shows WBC 13.0, hemoglobin 14.6, platelets 334. Sodium 134, potassium 4.0, liver panel normal. Calcium mildly elevated 10.4. UA is negative. TSH is decreased 0.025 and free T4 is normal 1.89. Ammonia normal. Patient's last hemoglobin A1c 6.8 on 09/27/2019. Patient's 2-D echo from 06/08/2019 showed sinus rhythm, normal left-ventricular size. Moderate concentric LVH. EF is 60-65%. Normal left atrial size. Interatrial and interventricular septum intact. Mild aortic valve sclerosis. Patient has history of diabetes for the last 10 years. He denies any tobacco or alcohol. He does have some peripheral vascular disease. Review of Systems As mentioned above in history of present less. Patient denies any chest pain shortness of breath wheezing or cough. Denies any diplopia nausea vomiting diarrhea. Complains of significant back and leg pains. Past Medical History Past Medical History: Diabetes Mellitus, Hyperlipidemia, Hypertension, Vascular Disorder Additional Past Medical History / Comment(s): IDDM type II, neuropathy bilateral feet, nonhealing ulcer L foot-seen in [facility], gastritis, chrons, IBS, back pain, chronic left thigh/sciatica pain History of Any Multi-Drug Resistant Organisms: MRSA Date of last positivie culture/infection: 10/12/19 MDRO Source:: left foot wound Past Surgical History: Orthopedic Surgery Additional Past Surgical History / Comment(s): L 2nd toe amputation 06/2019 & debridement in 09/2019, PICC L arm removed 12/20/2019, L shoulder/collar bone crush injury with hardware, L knee surgery/hardware d/t injury, Left great debridement for wound, EGD, colonoscopies. Past Anesthesia/Blood Transfusion Reactions: No Reported Reaction Past Psychological History: No Psychological Hx Reported Additional Psychological History / Comment(s): Pt has an adult son living with him who is his caregiver. He has just completed home care for IV ABX/wound care thru [facility]. He fell on 12/22/2019 at home- hasnt walked since- son helps him get around with wheelchair, He is using a walker, able to put weight on left heel per son, lawrence. Smoking Status: Never smoker Past Alcohol Use History: Rare Past Drug Use History: None Reported - Past Family History Mother Family Medical History: Cancer Father Family Medical History: Cancer Medications and Allergies Home Medications Medication Instructions Recorded Confirmed Type Insulin Regular, Human [NovoLIN R] See Protocol SQ AC-TID 06/08/19 12/29/19 History Testosterone Cypionate 200 mg IM Q14D 06/08/19 12/29/19 History [Depo-Testosterone] Atorvastatin [Lipitor] 40 mg PO DAILY #90 tab 06/09/19 12/29/19 Rx oxyCODONE-APAP 10-325MG [Percocet 1 tab PO 5XD PRN 10/11/19 12/29/19 History 10-325 mg] Clopidogrel [Plavix] 75 mg PO DAILY #30 tab 10/16/19 12/29/19 Rx Docusate [Colace] 100 mg PO BID #20 cap 10/16/19 12/29/19 Rx amLODIPine [Norvasc] 10 mg PO DAILY #30 tab 10/16/19 12/29/19 Rx Cyclobenzaprine HCl 5 mg PO HS 12/29/19 12/29/19 History Gabapentin [Neurontin] 600 mg PO TID 12/29/19 12/29/19 History Omeprazole 20 mg PO DAILY 12/29/19 12/29/19 History Allergies Allergy/AdvReac Type Severity Reaction Status Date / Time naproxen Allergy Swelling Verified 12/29/19 15:50 Physical Examination - Vital Signs Vital Signs: Vital Signs Temp Pulse Resp BP Pulse Ox 12/29/19 14:44 98.2 F 65 16 143/78 98 Intake and Output 12/29/19 12/29/19 12/29/19 06:59 14:59 22:59 Output Total 375 Balance -375 Output: Urine 375 Other: Voiding Method Urinal Diaper Incontinent Weight 109 kg On examination patient is an elderly male, in no acute distress. Patient is alert and awake. Patient states that it is middle of November and the year is 2019. He knows he is in [facility] in [place] and name of the current president. Speech and language functions are normal. Attention and concentration and fund of knowledge is somewhat limited. Patient has slightly decreased attention, speaks tangential at times. Sometimes difficult to understand the concept he is trying to tell. On cranial examination pupils are round and reactive to light, visual ahumada are full, extra muscles are intact. Face symmetric, tongue protrudes the midline. Palatal elevation sensation normal. Hearing is slightly decreased shoulder shrug normal. On muscle strength testing the strength is completely normal in both upper limbs. In the lower limbs (right/left) hip flexion 4+/2, hip adduction 5/4, hip abduction 5/5, knee extension 5/2, ankle dorsiflexion 5/2. Reflexes are biceps 2+/1+, brachioradialis 1/trace, knee 0/0, ankles 0/0. Sensory is decreased in the left leg mainly in the femoral nerve distribution. Bulk is decreased in the left quadriceps and distally in the leg. Patient has wound in the left foot. No ataxia for [id number] testing. Tone is normal in the arms. Gait not able to be performed. Patient's chest is clear. Abdomen is soft and nontender. No edema. S1 and S2 is audible. Results - Laboratory Findings CBC and BMP: 12/29/19 16:44 12/29/19 16:44 Abnormal Lab Findings: Abnormal Labs 12/29/19 12/29/19 12/29/19 16:44 16:44 16:44 WBC 13.0 H Neutrophils # 9.0 H D-Dimer 0.94 H Sodium 134 L Carbon Dioxide 21 L Glucose 157 H POC Glucose (mg/dL) Calcium 10.4 H TSH 0.025 L Urine Protein Urine Ketones 12/29/19 12/29/19 16:50 17:20 WBC Neutrophils # D-Dimer Sodium Carbon Dioxide Glucose POC Glucose (mg/dL) 145 H Calcium TSH Urine Protein 1+ H Urine Ketones Trace H Assessment and Plan Assessment: * Altered mental status, possibly mild delirium. * Left leg weakness, probable lumbosacral plexopathy. Rule out spinal stenosis. * Diabetes * Peripheral arterial disease Plan: * MRI of the lumbar spine to rule out spinal stenosis. * EMG and nerve conductions of left lower extremity to evaluate for lumbosacral plexopathy. * May need lumbar puncture to evaluate for proteins, to rule out inflammatory plexo-polyneuropathy. * Agree with checking hemoglobin A1c, CRP, ESR. I will check B12, folate, DARLING, serum protein electrophoresis and immunofixation electrophoresis. * For delirium, we will see above blood tests results. We will check carotid Doppler to rule out stenosis. * Neurology coverage not available over the weekend. Dr. Kevin will be recovering neurology service from Wednesday.
--- NOTE | 2019-12-29 23:23 | CT ---
EXAMINATION TYPE: CT angio chest DATE OF EXAM: 12/29/2019 COMPARISON: 06/08/2019 HISTORY: elevated d-dimer CT DLP: 504.6 mGycm Automated exposure control for dose reduction was used. CONTRAST: Performed with IV Contrast, patient injected with 100 mL of Isovue 370. There are 3-D post processed images. The lungs are clear of consolidation. There is no evidence of a pulmonary mass. There is no pleural e ffusion. There is mild linear density at the right and left posterior lung bases. There is no pericar dial effusion. There are no hilar masses. There is no mediastinal adenopathy. Thoracic aorta is intact. The ascending aorta measures 4.2 cm. There is no dissection. There is normal contrast opacification of the pulmonary arteries. I see no filling defect. Thoracic spine is intact. Bony thorax is intact. Upper abdominal soft tissues are intact. Impression no evidence of pulmonary embolism. Mild aneurysm ascending aorta unchanged. Mild subsegmental atelec tasis at the posterior lung bases.
[2019-12-30] MEDS: metroNIDAZOLE 500 MG TAB PO SCH ×4 (00:49→23:45)
[2019-12-30] MEDS: SODIUM CHLORIDE 0.9% 1,000 ML IV SCH ×2 (03:52→17:11)
[2019-12-30] MEDS: oxyCODONE-APAP 10-325MG 1 EACH TAB PO PRN ×3 (03:57→20:42)
[2019-12-30 07:24] LABS: Glucose,Whole Blood 142 mg/dL (75-99)
[2019-12-30 07:55] LABS: Basophils # (A) 0.1 k/uL (0-0.2); Basophils % (A) 1 %; Eosinophils # (A) 0.3 k/uL (0-0.7); Eosinophils % (A) 2 %; HCT 46.2 % (39.0-53.0); HGB 14.8 gm/dL (13.0-17.5); Lymphocytes # (A) 1.9 k/uL (1.0-4.8); Lymphocytes % (A) 14 %; MCH 27.3 pg (25.0-35.0); MCHC 32.1 g/dL (31.0-37.0); MCV 85.1 fL (80.0-100.0); Monocytes # (A) 1.2 k/uL (0-1.0); Monocytes % (A) 9 %; Neutrophils # (A) 9.8 k/uL (1.3-7.7); Neutrophils % (A) 72 %; Platelet Count 338 k/uL (150-450); RBC 5.43 m/uL (4.30-5.90); WBC 13.6 k/uL (3.8-10.6)
[2019-12-30 08:12] LABS: ALT 23 U/L (4-49); AST 28 U/L (17-59); African American GFR (CKD) >90 (>60 ml/min/1.73 sqM); Albumin 4.2 g/dL (3.5-5.0); Alkaline Phosphatase 104 U/L (38-126); Anion Gap 11 mmol/L; Blood Urea Nitrogen 11 mg/dL (9-20); Calcium 10.1 mg/dL (8.4-10.2); Carbon Dioxide 24 mmol/L (22-30); Chloride 101 mmol/L (98-107); Glucose 145 mg/dL (74-99); Non-African American GFR(CKD) >90 (>60 ml/min/1.73 sqM); Potassium 4.1 mmol/L (3.5-5.1); Sodium 136 mmol/L (137-145); Total Bilirubin 1.1 mg/dL (0.2-1.3); Total Protein 7.5 g/dL (6.3-8.2)
[2019-12-30] MEDS: INSULIN ASPART (NovoLOG) 100 UNIT/ML VIAL SQ SCH ×4 (08:27→20:42)
[2019-12-30] MEDS: SUCRALFATE 1 GM TAB PO SCH ×4 (08:27→21:08)
[2019-12-30] MEDS: DOCUSATE 100 MG CAP PO SCH ×2 (08:27→20:42)
[2019-12-30] MEDS: CLOPIDOGREL 75 MG TAB PO SCH (08:27)
[2019-12-30] MEDS: ATORVASTATIN 40 MG TAB PO SCH (08:27)
[2019-12-30] MEDS: amLODIPine 10 MG TAB PO SCH (08:27)
--- NOTE | 2019-12-30 10:04 | P.CONS ---
History of Present Illness - Reason for Consult Consult date: 12/29/19 SEPSIS Requesting physician: Mike Castillo - Chief Complaint weakness and confusion x 1 week - History of Present Illness Patient is a 69-year-old male with a past medical history significant for diabetic foot infection of the left foot status post amputation of the left second toe patient has recently completed his antibiotic therapy and his PICC line was subsequently discontinued patient has not been brought back to the hospital as a direct admit from his PCP with patient once soon for difficulty ambulation and increasing confusion there is no clear history of any fall patient denies any high-grade fever or chills no headache no URI symptoms no chest pain shortness of breath or cough no nausea no vomiting no abdominal pain however the patient is having diarrhea for the last few days with a few loose stools no blood or mucus in the stool no urinary symptoms and no symptoms referable to his left foot, patient has been admitted to the hospital work-up has been ordered which is not back yet infectious disease has been consulted for possible sepsis and antibiotics. Review of Systems Positive point has been mentioned in HPI rest of the systems are negative Past Medical History Past Medical History: Diabetes Mellitus, Hyperlipidemia, Hypertension, Vascular Disorder Additional Past Medical History / Comment(s): IDDM type II, neuropathy bilateral feet, nonhealing ulcer L foot-seen in [facility], gastritis, chrons, IBS, back pain, chronic left thigh/sciatica pain History of Any Multi-Drug Resistant Organisms: MRSA Year Discovered:: 10/12/19 MDRO Source:: left foot wound Past Surgical History: Orthopedic Surgery Additional Past Surgical History / Comment(s): L 2nd toe amputation 06/2019 & debridement in 09/2019, PICC L arm removed 12/20/2019, L shoulder/collar bone crush injury with hardware, L knee surgery/hardware d/t injury, Left great debridement for wound, EGD, colonoscopies. Past Anesthesia/Blood Transfusion Reactions: No Reported Reaction Past Psychological History: No Psychological Hx Reported Additional Psychological History / Comment(s): Pt has an adult son living with him who is his caregiver. He has just completed home care for IV ABX/wound care thru [facility]. He fell on 12/22/2019 at home- hasnt walked since- son helps him get around with wheelchair, He is using a walker, able to put weight on left heel per son, lawrence. Smoking Status: Never smoker Past Alcohol Use History: Rare Past Drug Use History: None Reported - Past Family History Mother Family Medical History: Cancer Father Family Medical History: Cancer Medications and Allergies Home Medications Medication Instructions Recorded Confirmed Type Insulin Regular, Human [NovoLIN R] See Protocol SQ AC-TID 06/08/19 12/29/19 History Testosterone Cypionate 200 mg IM Q14D 06/08/19 12/29/19 History [Depo-Testosterone] Atorvastatin [Lipitor] 40 mg PO DAILY #90 tab 06/09/19 12/29/19 Rx oxyCODONE-APAP 10-325MG [Percocet 1 tab PO 5XD PRN 10/11/19 12/29/19 History 10-325 mg] Clopidogrel [Plavix] 75 mg PO DAILY #30 tab 10/16/19 12/29/19 Rx Docusate [Colace] 100 mg PO BID #20 cap 10/16/19 12/29/19 Rx amLODIPine [Norvasc] 10 mg PO DAILY #30 tab 10/16/19 12/29/19 Rx Cyclobenzaprine HCl 5 mg PO HS 12/29/19 12/29/19 History Gabapentin [Neurontin] 600 mg PO TID 12/29/19 12/29/19 History Omeprazole 20 mg PO DAILY 12/29/19 12/29/19 History Allergies Allergy/AdvReac Type Severity Reaction Status Date / Time naproxen Allergy Swelling Verified 12/29/19 15:50 Physical Exam Vitals: Vital Signs Temp Pulse Resp BP Pulse Ox 12/29/19 21:00 98.6 F 83 18 153/80 94 L 12/29/19 14:44 98.2 F 65 16 143/78 98 Intake and Output 12/29/19 12/29/19 12/30/19 14:59 22:59 06:59 Output Total 375 Balance -375 Output: Urine 375 Other: Voiding Method Urinal Diaper Incontinent Weight 109 kg GENERAL DESCRIPTION: Elderly male lying in bed, no distress. No tachypnea or accessory muscle of respiration use. HEENT: Shows Pallor , no scleral icterus. Oral mucous membrane is dry. NECK: Trachea central, no thyromegaly. LUNGS: Unlabored breathing. Clear to auscultation anteriorly. No wheeze or crackle. HEART: S1, S2, regular rate and rhythm. ABDOMEN: Soft, no tenderness , guarding or rigidity EXTREMITIES: Left foot wound is almost healed up there is no swelling no redness or any purulent drainage. SKIN: No rash, no masses palpable. NEUROLOGICAL: The patient is awake, alert, oriented x2, mood and affect normal. Results CBC & Chem 7: 12/30/19 07:20 12/30/19 07:20 Labs: Abnormal Lab Results - Last 24 Hours (Table) 12/29/19 12/29/19 12/29/19 Range/Units 16:44 16:44 16:44 WBC 13.0 H (3.8-10.6) k/uL Neutrophils # 9.0 H (1.3-7.7) k/uL D-Dimer 0.94 H (<0.60) mg/L FEU Sodium 134 L (137-145) mmol/L Carbon Dioxide 21 L (22-30) mmol/L Glucose 157 H (74-99) mg/dL POC Glucose (mg/dL) (75-99) mg/dL Calcium 10.4 H (8.4-10.2) mg/dL TSH 0.025 L (0.465-4.680) mIU/L Urine Protein (Negative) Urine Ketones (Negative) 12/29/19 12/29/19 12/29/19 Range/Units 16:50 17:20 20:29 WBC (3.8-10.6) k/uL Neutrophils # (1.3-7.7) k/uL D-Dimer (<0.60) mg/L FEU Sodium (137-145) mmol/L Carbon Dioxide (22-30) mmol/L Glucose (74-99) mg/dL POC Glucose (mg/dL) 145 H 138 H (75-99) mg/dL Calcium (8.4-10.2) mg/dL TSH (0.465-4.680) mIU/L Urine Protein 1+ H (Negative) Urine Ketones Trace H (Negative) Assessment and Plan Assessment: -patient presenting to the hospital with generalized weakness confusion and this patient recently completed an extended course of antibiotics for his left foot osteomyelitis, the patient left foot wound is healing well with no evidence of any cellulitis the only positive symptom has been diarrhea and in view of the recent exposure to antibiotics will need to rule out C. difficile to the likely etiology. (1) Diarrhea Current Visit: Yes Status: Acute Code(s): R19.7 - DIARRHEA, UNSPECIFIED SNOMED Code(s): 83485747 (2) Diabetic foot ulcer Current Visit: No Status: Acute Code(s): E11.621 - TYPE 2 DIABETES MELLITUS WITH FOOT ULCER; L97.509 - NON-PRESSURE CHRONIC ULCER OTH PRT UNSP FOOT W UNSP SEVERITY SNOMED Code(s): 324913381 Plan: 1-await CBC BMP blood cultures also obtain urine culture as well as chest x-ray 2-check a stool for C. difficile 3-empirically add Flagyl 500 p.o. every 8 hour 4-local wound care to the left foot wound with dry Aquacel packing every 48 hour 5-gentle IV fluid We will follow on clinical condition and cultures to further adjust medication if needed Thank you for this consultation we will follow the patient along with you Time with Patient: Greater than 30
--- NOTE | 2019-12-30 10:55 | US ---
EXAMINATION TYPE: US carotid duplex BILAT DATE OF EXAM: 12/30/2019 COMPARISON: NONE CLINICAL HISTORY: Altered mental status, weakness. AMS EXAM MEASUREMENTS: RIGHT: Peak Systolic Velocity (PSV) cm/sec ----- Right CCA: 96.8 ----- Right ICA: 149.9 ----- Right ECA: 236.1 ICA/CCA ratio: 1.5 RIGHT: End Diastole cm/sec ----- Right CCA: 11.0 ----- Right ICA: 13.0 ----- Right ECA: 10.7 LEFT: Peak Systolic Velocity (PSV) cm/sec ----- Left CCA: 122.2 ----- Left ICA: 94.3 ----- Left ECA: 198.9 ICA/CCA ratio: 0.8 LEFT: End Diastole cm/sec ----- Left CCA: 15.3 ----- Left ICA: 13.0 ----- Left ECA: 20.0 VERTEBRALS (direction of flow): Right Vertebral: Antegrade Left Vertebral: Antegrade Rhythm: Arrhythmia No significant stenosis seen IMPRESSION: 1. 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 2. Elevated flow, both ECAs. Criteria for Assigning % of Stenosis / Diameter reduction (Estimation based on the indirect measurements of the internal carotid artery velocities (ICA PSV). 1. Normal (no stenosis)=ICA PSV < 125 cm/s: ratio < 2.0: ICA EDV<40 cm/s. 2. Less than 50% stenosis=ICA PSV < 125 cm/s: ratio < 2.0: ICA EDV<40 cm/s. 3. 50 to 69% stenosis=ICA PSV of 125 to 230 cm/s: ration 2.0 ? 4.0: ICA EDV 40-100 cm/s. 4. Greater than 70% stenosis to near occlusion= ICA PSV > 230 cm/s: ratio > 4.0: ICA EDV > 100 cm/s. 5. Near occlusion= ICA PSV velocities may be low or undetectable: variable ratio and ICA EDV. 6. Total occlusion=unable to detect flow.
[2019-12-30 12:34] LABS: Glucose,Whole Blood 150 mg/dL (75-99)
--- NOTE | 2019-12-30 13:11 | HP ---
HISTORY AND PHYSICAL 75-year-old white male has been on IV antibiotics for diabetic wound infection for multiple weeks, status post amputation of his left second toe. In the last week, especially worse in the last 2 days been worsening confusion, altered mental status, talking out of his head, making no sense as well as inability to move his left leg. He denies any chest pain or shortness of breath. I am going to admit him due to altered mental status and possible CVA. PAST MEDICAL HISTORY: Diabetes mellitus, dyslipidemia, hypertension, vascular disorder, nonhealing ulcer of his foot, headache, chronic left sciatic pain, degenerative disc disease, insulin- dependent diabetes mellitus, chronic lumbar disc disease. No history of psychotic issues or confusion like this in the past. His adult son was with him. IV antibiotics. Never smoked. FAMILY HISTORY: Mother with cancer. Father cancer. MEDICATIONS: Home medicines: See list. ALLERGIES: NAPROSYN. PHYSICAL EXAMINATION: VITAL SIGNS: Temp: 98.6, respiratory 16 to 18, pulse is 60s to : 80s, blood pressure 140s to 150s over 50s to 70s. PSYCH: He appears to be confused, talking on different subject that do not make sense at this point and intermittently. LUNGS are clear. GI soft. HEMATOLOGY negative Homans. PSYCH: Fair mood and affect. NEUROLOGIC: Cranial nerves appear to be intact. MUSCULOSKELETAL: Left leg does not move maybe 10 to 20 degrees due to his pain. INTEGUMENT: Left wound on the left distal stump. ASSESSMENT: 1. Generalized weakness, confusion, possible delirium. 2. Chronic wound, left foot cellulitis of the foot. 3. Chronic diarrhea, unclear etiology. 4. Diabetic foot ulcer, delirium versus stroke. MRI has been ordered. Stool for C diff. Urine cultures. Continue Flagyl. Wound care. Neurology and Infectious Disease consult. MMODL / IJN: [id number] /
[2019-12-30] MEDS: hydrALAZINE HCL 20 MG/ML 1 ML VIAL IVP PRN (13:38)
[2019-12-30 14:51] VITALS: BMI 32.5
[2019-12-30 16:56] LABS: Protein, Total 6.8 g/dL (6.2-8.2)
[2019-12-30 17:04] LABS: Folate, Serum 7.6 ng/mL
--- NOTE | 2019-12-30 17:10 | P.CN ---
Psychiatric Consult - . Consult date: 12/30/19 Consult:: IDENTIFYING DATA: The patient is a 69-year-old male admitted to medicine service for evaluation of a one-week history of weakness and confusion. HISTORY OF PRESENT ILLNESS: I reviewed the medical record and interviewed the patient. He began the interview with perseverating about what he calls "phantom pain". He explained in detail the location and frequency of his pain until I redirected him to the reason for his hospitalization. He appears unaware of the reason for hospitalization. He feels that his son forced him to come to the hospital. During the interview he had difficulty with word finding and had difficulty explaining his concerns. He denied feeling depressed or having thoughts of or suicide. He denied feeling persistently anxious. He denied alcohol or drug use problems. He denied psychotic symptoms such as hallucinations, paranoia or thought disturbances. PAST PSYCHIATRIC HISTORY: I did not understand her responses to questions about past psychiatric treatment. He talked about "having known" several psychiatrists but has not spoken to 1 in several years. He denied past psychiatric hospitalizations. PAST MEDICAL HISTORY: See admission medical and psychiatric history.. ALLERGIES: Approximately. SUBSTANCE USE HISTORY: He denied a history of substance use problems. FAMILY PSYCHIATRIC/SUBSTANCE USE HISTORY: He talked about a nephew who has what appears to be schizophrenia. 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 SOCIAL HISTORY: He graduated from [employer] with a degree in engineering. He is and has 2 children.. He is retired and lives alone. His son as his primary source of support. MENTAL STATUS EXAM: He presented as a casually groomed elderly male who was pleasant on approach. He made eye contact and attended the interview. He had no distinguishing features or prominent physical abnormalities. He had a blunted facial expression. He is alert and oriented to person, place and year (he initially thought the month was March, corrected himself and said it was mainly). He showed no abnormality of psychomotor activity. Her speech was spontaneous, halting, vague and overly detailed. He perseverated on pain and family issues. His affect was stable and appropriate. He denied suicidal ideation and wishes. He denied homicidal ideation. He denied feeling hopeless, helpless or worthless. He did not express ideas reference, paranoid ideation or delusions. His thinking is slow and concrete but his associations appeared coherent and logical. He denied hallucinations didn't appear to be responding to internal stimuli. We completed the [facility] Orientation Memory and Concentration Test. His total weighted error score was 20; total weighted a score greater than 10 is consistent with a dementia. He knew the year but thought the month was November (he corrected himself after he said the month was March). He was able to register memory phrase "Mike Farooq, [address] [place] [address]" he did not estimate the actual time correctly (within 1 hour actual time). He was able to count backwards from 20-1 (he had difficulty with this task). He was unable to name the months of the year in reverse order. He could not recall the memory phrase after distraction exercise as. IMPRESSIONS: He is a 69-year-old male who presented to the medicine unit with weakness and increasing confusion. During our interview he perseverated about pain and the concerns of his son. He denied mood, anxiety or psychotic symptoms. He had difficulty with word finding and abstraction. On formal mental status status testing he had difficulty with orientation, concentration attention and short-term memory. I suspect that he has a dementia. DIAGNOSIS: Unspecified neurocognitive disorder, rule out major neurocognitive disorder due to Alzheimer's disease, low body disease, neurovascular disease etc. PLAN: There is no indication for transfer the psychiatric unit or referral for outpatient mental health services at this time. If his dementia were to progress where he developed behavioral problems that he would benefit from psychiatric assessment and psychiatric treatment. He should be evaluated further for causes of dementia and if one suspects Alzheimer's dementia consider treatment with the memory enhancing agent. Thank you for this consult. I got suicidal. Case.. 12/30/19 16:55
[2019-12-30 17:15] LABS: Glucose,Whole Blood 149 mg/dL (75-99)
[2019-12-30 17:23] LABS: Glucose,Whole Blood 144 mg/dL (75-99)
[2019-12-30 20:26] LABS: Glucose,Whole Blood 161 mg/dL (75-99)
--- NOTE | 2019-12-31 00:30 | PN ---
PROGRESS NOTE DATE OF SERVICE: 12/30/2019 REASON FOR FOLLOW UP: 1. Diarrhea and a question of possible sepsis. 2. Left foot wound. INTERVAL HISTORY: The patient is currently afebrile. He is slightly more awake and alert today. Feeling slightly better. No chest pain or cough. Complaining of some pain to the left leg area. No abdominal pain. Still having some diarrhea but no bowel movement today. PHYSICAL EXAMINATION: Blood pressure is 136/83, pulse of 102, temperature of 97.5. He is 96% on room air. General description is an elderly male lying in bed in no distress. Respiratory system: Unlabored breathing, clear to auscultation anteriorly. HEART: S1, S2. Regular rate and rhythm. ABDOMEN: Soft, no tenderness. Left foot is currently dressed up. LABS: Hemoglobin is 14.8, white count 13.6, BUN of 11, creatinine 0.69. Liver enzymes are normal. Stool for C difficile requested, not complete. DIAGNOSTIC IMPRESSION AND PLAN: 1. Patient admitted to the hospital with mental status changes and weakness and also concern for diarrhea. Stool for C difficile has been requested and not done. The patient to continue empiric Flagyl. 2. Left foot wound. Continue local care with Aquacel Silver dressing and monitor clinical course closely. MMODL / IJN: [id number] /
[2019-12-31] MEDS: oxyCODONE-APAP 10-325MG 1 EACH TAB PO PRN ×3 (03:54→20:51)
[2019-12-31 06:58] LABS: Glucose,Whole Blood 137 mg/dL (75-99)
[2019-12-31] MEDS: CLOPIDOGREL 75 MG TAB PO SCH (07:40)
[2019-12-31] MEDS: ATORVASTATIN 40 MG TAB PO SCH (07:40)
[2019-12-31] MEDS: SODIUM CHLORIDE 0.9% 1,000 ML IV SCH ×2 (07:40→20:51)
[2019-12-31] MEDS: amLODIPine 10 MG TAB PO SCH (07:40)
[2019-12-31] MEDS: SUCRALFATE 1 GM TAB PO SCH ×4 (07:40→20:51)
[2019-12-31] MEDS: DOCUSATE 100 MG CAP PO SCH ×2 (07:40→20:51)
[2019-12-31] MEDS: metroNIDAZOLE 500 MG TAB PO SCH ×3 (07:40→22:55)
[2019-12-31] MEDS: INSULIN ASPART (NovoLOG) 100 UNIT/ML VIAL SQ SCH ×4 (07:43→20:52)
[2019-12-31] MEDS: FUROSEMIDE 20 MG TAB PO SCH (10:45)
[2019-12-31] MEDS: ATENOLOL 25 MG TAB PO SCH ×2 (10:45→20:51)
[2019-12-31 12:34] LABS: Glucose,Whole Blood 119 mg/dL (75-99)
[2019-12-31] MEDS: MEMANTINE 5 MG TAB PO SCH (12:39)
[2019-12-31] MEDS: hydrALAZINE HCL 20 MG/ML 1 ML VIAL IVP PRN (16:42)
[2019-12-31 16:57] LABS: Glucose,Whole Blood 142 mg/dL (75-99)
[2019-12-31 19:19] VITALS: RESP 18
[2019-12-31 20:47] LABS: Glucose,Whole Blood 118 mg/dL (75-99)
[2020-01-01] MEDS: oxyCODONE-APAP 10-325MG 1 EACH TAB PO PRN (04:22)
--- NOTE | 2020-01-01 04:44 | PN ---
PROGRESS NOTE SUBJECTIVE: A 69-year-old white male, confusion, altered mental status. Psych saw him recommended him to be dementia, Alzheimer's, started on Namenda 5 mg daily. Hypertension acceleration was started on atenolol 25 b.i.d., Lasix 20 daily. CARDIOVASCULAR: S1, S2. LUNGS: Clear. GI: Soft. HEMATOLOGY: Negative Homans. PSYCH: Fair mood and affect. ASSESSMENT: 1. Confusion, altered mental status. 2. Hypertension. 3. Dementia. 4. Delirium. Started Atenolol 25 b.i.d., Namenda 5 mg daily. Follow up next 24 to 48 hours. Possible discharge if blood pressure corrects. MMODL / IJN: [id number] /
--- NOTE | 2020-01-01 05:20 | PN ---
PROGRESS NOTE DATE OF SERVICE: 12/31/2019 REASON FOR FOLLOWUP: 1. Diarrhea. 2. Left foot wound. INTERVAL HISTORY: The patient did have one episode of loose stool last night. Unfortunately stools were not collected. No bowel movement today per the nurse. The patient complaining of pain to the left leg area. Denies any chest pain or shortness of breath or cough. No nausea or vomiting. PHYSICAL EXAMINATION: Blood patient 144/75 with the pulse of 81, temperature 97.9. He is 97% on room air. General description is an elderly male lying in bed in no distress. RESPIRATORY SYSTEM: Unlabored breathing, clear to auscultation anteriorly. HEART: S1, S2. Regular rate and rhythm. ABDOMEN: Soft, no tenderness. Left foot is currently dressed up. LABS: Blood culture has been negative. DIAGNOSTIC IMPRESSION AND PLAN: 1. Patient with diarrhea in this patient has been exposed to antibiotic for the left foot osteomyelitis. We are waiting for stool for Clostridium difficile culture. Continue empiric Flagyl. 2. Left foot wound. Local wound care to continue with dry Aquacel Silver dressing and continue with supportive care. MMODL / IJN: [id number] /
[2020-01-01 07:25] LABS: Glucose,Whole Blood 118 mg/dL (75-99)
[2020-01-01] MEDS: INSULIN ASPART (NovoLOG) 100 UNIT/ML VIAL SQ SCH ×2 (08:46→15:39)
[2020-01-01] MEDS: SUCRALFATE 1 GM TAB PO SCH ×3 (10:06→18:23)
[2020-01-01] MEDS: ATORVASTATIN 40 MG TAB PO SCH (10:06)
[2020-01-01] MEDS: MEMANTINE 5 MG TAB PO SCH (10:06)
[2020-01-01] MEDS: ATENOLOL 25 MG TAB PO SCH ×2 (10:06→18:24)
[2020-01-01] MEDS: CLOPIDOGREL 75 MG TAB PO SCH (10:06)
[2020-01-01] MEDS: amLODIPine 10 MG TAB PO SCH (10:07)
[2020-01-01] MEDS: FUROSEMIDE 20 MG TAB PO SCH (10:07)
[2020-01-01] MEDS: metroNIDAZOLE 500 MG TAB PO SCH ×3 (10:07→18:24)
[2020-01-01] MEDS: DOCUSATE 100 MG CAP PO SCH (10:10)
[2020-01-01] MEDS: SODIUM CHLORIDE 0.9% 1,000 ML IV SCH (10:10)
--- NOTE | 2020-01-01 10:44 | MR ---
EXAMINATION TYPE: MR lumbar spine wo con DATE OF EXAM: 01/01/2020 COMPARISON: CT lumbar spine 06/08/2019 HISTORY: Left leg weakness, spinal stenosis TECHNIQUE: Multiplanar, multisequence images of the lumbar spine were acquired. L1-L2: Normal disc appearance without desiccation. No herniation, protrusion or disc bulging. No ca nal stenosis is present. Foramina are patent bilaterally. L2-L3: Increased signal posterior aspect of the disc and the left paracentral location may represent annular tear. Posterior broad-based disc bulge causes mild anterior mass effect on the thecal sac. Th ere is some facet arthropathy with hypertrophy ligamentum flavum causing some posterior lateral mass effect on the thecal sac. No significant central stenosis or foraminal encroachment. L3-L4: Posterior broad-based disc bulge causes mild anterior mass effect on the thecal sac. There is facet arthropathy with hypertrophy ligamentum flavum causing posterior lateral mass effect on the the sharri sac. Circumferential extension endplate disc complex encroaches somewhat on the neural foramen on the left and right L4-L5: Small posterior disc bulge causes slight anterior mass effect on the thecal sac. No canal esthela nosis is present. Foramina are remarkable for circumferential extension of endplate disc complex enc roaches somewhat on the foramen greater on the right. There is arthropathy with hypertrophy ligamentu m flavum causes some posterior lateral mass effect on the thecal sac. L5-S1: Normal disc appearance without desiccation. No herniation, protrusion or disc bulging. No ca nal stenosis is present. Foramina are patent bilaterally. There is some facet arthropathy change. Lumbar segments are intact. No paraspinal masses are identified. Conus medullaris has a normal appe arance, lipoma the filum terminale is suspected. There is multilevel spondylosis. Loss of disc height and signal is greatest at L2-3, L1 to, endplate discogenic marrow signal changes are present. There is a spinal curvature. Calcification present along the anterior aspect of the disc at T12-L1 as noted on CT. IMPRESSION: Degenerative disc disease and facet arthropathy as described.
[2020-01-01 11:21] LABS: Glucose,Whole Blood 135 mg/dL (75-99)
[2020-01-01 13:00] VITALS: PULSE 85; TEMP 98.2
[2020-01-01 14:19] LABS: Albumin 3.48 g/dL (3.80-4.90); Gamma Globulin 1.03 g/dL (0.70-1.50)
[2020-01-01 17:06] LABS: Glucose,Whole Blood 117 mg/dL (75-99)
[2020-01-01 19:17] VITALS: BP 177/87
--- NOTE | 2020-01-09 23:12 | DS ---
DISCHARGE SUMMARY DATE OF ADMISSION: 12/29/2019 DATE OF DISCHARGE: 01/01/2020 CONDITION: Stable. PROGNOSIS: Guarded. Ambulate as tolerated. MEDICATIONS: Medications include: 1. Testosterone 200 mg IM q.14. 2. Accu-Chek protocol before meals t.i.d. 3. Lipitor 40 mg daily. 4. Percocet 10/325 five times a day. 5. Colace 100 mg b.i.d. 6. Norvasc 10 mg daily. 7. Plavix 75 mg daily. 8. Neurontin 600 t.i.d. 9. Flexeril 5 mg at bedtime. 10.Omeprazole 20 mg daily. 11.Flagyl 500 t.i.d. 12.Tenormin 25 b.i.d. 13.Lasix 20 mg daily. 14.Namenda 5 mg daily. The patient was admitted with chronic diarrhea, left foot wound infection, for which Dr. Murguia saw him. He had a lumbar MRI which showed severe degenerative disk disease. He had psychiatry consult for confusion. He had a chest CTA which was negative. Carotid Doppler was negative. Neurology consult for delirium versus psychotic behavior. He had a UTI, for which IV antibiotics were given. His mental status slowly improved over time. He has severe lumbar disk herniations in his lumbar MRI. IV antibiotics will be continued for the foot infection. Psychiatry cleared him for discharge. He will follow up as an outpatient. MMTESSAL / ASHLEYN: [id number] /
== END 2020-01-01 18:51 | disposition home health service (06) | DRG 57 ==
LOC: 5NMEDONC 14:00
PROVIDERS: ADMIT Family Medicine; ATTEND Family Medicine
DX: G30.9 Alzheimer's disease, unspecified (principal); F05 Delirium due to known physiological condition; L03.116 Cellulitis of left lower limb; M86.9 Osteomyelitis, unspecified; F02.80 Dementia in other diseases classified elsewhere, unspecified severity, without behavioral disturbance, psychotic disturbance, mood disturbance, and anxiety; E11.51 Type 2 diabetes mellitus with diabetic peripheral angiopathy without gangrene; E11.621 Type 2 diabetes mellitus with foot ulcer; E78.5 Hyperlipidemia, unspecified; G54.1 Lumbosacral plexus disorders; I10 Essential (primary) hypertension; I35.8 Other nonrheumatic aortic valve disorders; K58.0 Irritable bowel syndrome with diarrhea; L97.529 Non-pressure chronic ulcer of other part of left foot with unspecified severity; Z79.4 Long term (current) use of insulin; Z79.02 Long term (current) use of antithrombotics/antiplatelets; Z79.899 Other long term (current) drug therapy; Z80.9 Family history of malignant neoplasm, unspecified; Z89.422 Acquired absence of other left toe(s); Z88.6 Allergy status to analgesic agent; G89.29 Other chronic pain; M54.30 Sciatica, unspecified side; Z86.14 Personal history of Methicillin resistant Staphylococcus aureus infection; Z11.59 Encounter for screening for other viral diseases
CPT/HCPCS: 70450; 71046; 71275; 72148; 80053; 81001; 82140; 82607; 82746; 83036; 84165; 84439; 84443; 84484; 85025; 85379; 85652; 86038; 86141; 86334; 87040; 93005; 93880

== ENCOUNTER → 2020-05-17 | Outpatient (CLI) | payer MEDICARE ==
[2020-05-17 09:58] LABS: Basophils # (A) 0.1 k/uL (0-0.2); Basophils % (A) 1 %; Eosinophils # (A) 0.4 k/uL (0-0.7); Eosinophils % (A) 3 %; HCT 44.2 % (39.0-53.0); HGB 14.4 gm/dL (13.0-17.5); Lymphocytes # (A) 2.6 k/uL (1.0-4.8); Lymphocytes % (A) 21 %; MCHC 32.6 g/dL (31.0-37.0); MCV 88.9 fL (80.0-100.0); Mean Platelet Volume 7.1; Monocytes # (A) 0.9 k/uL (0-1.0); Monocytes % (A) 7 %; Neutrophils # (A) 8.4 k/uL (1.3-7.7); Neutrophils % (A) 67 %; Platelet Count 306 k/uL (150-450); RBC 4.97 m/uL (4.30-5.90); RDW 13.4 % (11.5-15.5); WBC 12.5 k/uL (3.8-10.6)
[2020-05-17 15:54] LABS: African American GFR (CKD) 77.9 (60.0-200.0); Albumin 3.8 g/dL (3.80-4.90); Albumin/Globulin Ratio 1.58 (1.60-3.17); Calcium 10.7 mg/dL (8.7-10.3); Globulin 2.4 g/dL (1.6-3.3); LDL Cholesterol,Calculated 65.6 mg/dL (0.0-131.0); Non-African American GFR(CKD) 67.2 (60.0-200.0); Total Bilirubin 0.7 mg/dL (0.2-1.2); Total Protein 6.2 g/dL (6.2-8.2); VLDL Calculation 16.4 mg/dL (5.00-40.00)
[2020-05-17 17:08] LABS: Erythrocyte Sedimentation Rate 5 mm/Hr (0-20)
[2020-05-17 18:30] LABS: Hemoglobin A1C 6.2 % (4.0-6.0)
== END | disposition home or self-care (01) ==
LOC: LABWHC1 08:55
PROVIDERS: ATTEND Family Medicine
DX: I10 Essential (primary) hypertension (principal); E11.9 Type 2 diabetes mellitus without complications; Z79.899 Other long term (current) drug therapy
CPT/HCPCS: 36415; 80053; 80061; 83036; 84443; 85025; 85652

== ENCOUNTER 2020-05-25 03:21 | Emergency (ER) | payer MEDICARE ==
[2020-05-25 03:30] VITALS: TEMP 98.7
[2020-05-25] MEDS ORDERED: SODIUM CHLORIDE 0.9% 1,000 ML IV STA (03:43)
[2020-05-25] MEDS ORDERED: SENNOSIDES-DOCUSATE SODIUM 1 EACH TAB PO STA (03:44)
--- NOTE | 2020-05-25 03:46 | ED ---
Abdominal Pain HPI - General Chief Complaint: Urogenital Stated Complaint: Unable to go to the bathroom Time Seen by Provider: 05/25/20 03:23 Source: patient, RN notes reviewed, old records reviewed Mode of arrival: wheelchair Limitations: physical limitation - History of Present Illness Initial Comments: this is a 70-year-old male he presents today for evaluation. Patient is presenting for evaluation of2 complaints, first inability urinateand biliary started yesterday has worsened today. Also difficulty with bowel movements as well. Patient has a known history of difficulty with bowel movements usually can take magnesium citrate have improvement. Patient has no pain but he feels no pain MD Complaint: abdominal pain, other (unable to urinate) -: days(s) Location: suprapubic Radiation: suprapubic Migration to: no migration Severity: moderate Severity scale (1-10): 7 Quality: fullness Consistency: constant Improves With: nothing Worsens With: nothing Associated Symptoms: nausea, constipation - Related Data Home Medications Medication Instructions Recorded Confirmed Insulin Regular, Human [NovoLIN R] See Protocol SQ AC-TID 06/08/19 12/29/19 Testosterone Cypionate 200 mg IM Q14D 06/08/19 12/29/19 [Depo-Testosterone] oxyCODONE-APAP 10-325MG [Percocet 1 tab PO 5XD PRN 10/11/19 12/29/19 10-325 mg] Cyclobenzaprine HCl 5 mg PO HS 12/29/19 12/29/19 Gabapentin [Neurontin] 600 mg PO TID 12/29/19 12/29/19 Omeprazole 20 mg PO DAILY 12/29/19 12/29/19 Previous Rx's Medication Instructions Recorded Atorvastatin [Lipitor] 40 mg PO DAILY #90 tab 06/09/19 Clopidogrel [Plavix] 75 mg PO DAILY #30 tab 10/16/19 Docusate [Colace] 100 mg PO BID #20 cap 10/16/19 amLODIPine [Norvasc] 10 mg PO DAILY #30 tab 10/16/19 Furosemide [Lasix] 20 mg PO DAILY 90 Days #90 tab 01/01/20 Memantine [Namenda] 5 mg PO DAILY 90 Days #90 tab 01/01/20 atenoloL [Tenormin] 25 mg PO BID 90 Days #180 tab 01/01/20 metroNIDAZOLE [Flagyl] 500 mg PO Q8HR tab 01/01/20 Allergies Allergy/AdvReac Type Severity Reaction Status Date / Time naproxen Allergy Swelling Verified 05/25/20 03:31 Review of Systems ROS Statement: Those systems with pertinent positive or pertinent negative responses have been documented in the HPI. ROS Other: All systems not noted in ROS Statement are negative. Past Medical History Past Medical History: Diabetes Mellitus, Hyperlipidemia, Hypertension, Vascular Disorder Additional Past Medical History / Comment(s): IDDM type II, neuropathy bilateral feet, nonhealing ulcer L foot-seen in C, gastritis, chrons, IBS, back pain, chronic left thigh/sciatica painpain. 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 Past Anesthesia/Blood Transfusion Reactions: No Reported Reaction Past Psychological History: No Psychological Hx Reported Smoking Status: Never smoker Past Alcohol Use History: Rare Past Drug Use History: None Reported - Past Family History Mother Family Medical History: Cancer Father Family Medical History: Cancer General Exam Limitations: physical limitation General appearance: alert, in no apparent distress Head exam: Present: atraumatic, normocephalic, normal inspection Eye exam: Present: normal appearance, PERRL, EOMI. Absent: scleral icterus, conjunctival injection, periorbital swelling ENT exam: Present: normal exam, mucous membranes moist Neck exam: Present: normal inspection. Absent: tenderness, meningismus, lymphadenopathy Respiratory exam: Present: normal lung sounds bilaterally. Absent: respiratory distress, wheezes, rales, rhonchi, stridor Cardiovascular Exam: Present: regular rate, normal rhythm, normal heart sounds. Absent: systolic murmur, diastolic murmur, rubs, gallop, clicks GI/Abdominal exam: Present: soft, normal bowel sounds. Absent: distended, tenderness, guarding, rebound, rigid Extremities exam: Present: normal inspection, full ROM, normal capillary refill. Absent: tenderness, pedal edema, joint swelling, calf tenderness Back exam: Present: normal inspection Neurological exam: Present: alert, oriented X3, CN II-XII intact Psychiatric exam: Present: normal affect, normal mood Skin exam: Present: warm, dry, intact, normal color. Absent: rash Course Vital Signs 05/25/20 05/25/20 03:26 04:00 Temperature 98.7 F Pulse Rate 62 84 Respiratory 16 18 Rate Blood Pressure 147/67 174/69 O2 Sat by Pulse 98 Oximetry - Reevaluation(s) Reevaluation #1: 05/25/20 03:46 medical records reviewed Reevaluation #2: 05/25/20 03:46 bladder scan shows greater than thousand Reevaluation #3: 05/25/20 05:35 a she is having multiple recurrent bowel movements here in the ER, bladder scan 1500 is resolved Reevaluation #4: 05/25/20 05:35 patient informed results and findings, questions answered okay for discharge Medical Decision Making - Medical Decision Making 1 male DF for evaluation patient presents today for evaluation regards to difficulty bowel movement urination, significant urinary retention, patient is fully placed will be discharged with labored follow-up with urology and placed on bowel regimen at home - Lab Data Result diagrams: 05/25/20 03:50 05/25/20 03:50 Lab Results 05/25/20 05/25/20 05/25/20 Range/Units 03:50 03:50 03:50 WBC 17.5 H (3.8-10.6) k/uL RBC 5.32 (4.30-5.90) m/uL Hgb 15.7 (13.0-17.5) gm/dL Hct 46.7 (39.0-53.0) % MCV 87.9 (80.0-100.0) fL MCH 29.4 (25.0-35.0) pg MCHC 33.5 (31.0-37.0) g/dL RDW 12.9 (11.5-15.5) % Plt Count 301 (150-450) k/uL Neutrophils % 79 % Lymphocytes % 10 % Monocytes % 6 % Eosinophils % 3 % Basophils % 1 % Neutrophils # 13.8 H (1.3-7.7) k/uL Lymphocytes # 1.7 (1.0-4.8) k/uL Monocytes # 1.1 H (0-1.0) k/uL Eosinophils # 0.5 (0-0.7) k/uL Basophils # 0.1 (0-0.2) k/uL Sodium 132 L (137-145) mmol/L Potassium 4.5 (3.5-5.1) mmol/L Chloride 99 (98-107) mmol/L Carbon Dioxide 24 (22-30) mmol/L Anion Gap 9 mmol/L BUN 13 (9-20) mg/dL Creatinine 0.57 L (0.66-1.25) mg/dL Est GFR (CKD-EPI)AfAm >90 (>60 ml/min/1.73 sqM) Est GFR (CKD-EPI)NonAf >90 (>60 ml/min/1.73 sqM) Glucose 194 H (74-99) mg/dL Calcium 9.8 (8.4-10.2) mg/dL Phosphorus 2.9 (2.5-4.5) mg/dL Magnesium 2.6 H (1.6-2.3) mg/dL Total Bilirubin 0.9 (0.2-1.3) mg/dL AST 38 (17-59) U/L ALT 24 (4-49) U/L Alkaline Phosphatase 139 H (38-126) U/L Creatine Kinase 68 (55-170) U/L NT-Pro-B Natriuret Pep pg/mL Total Protein 7.3 (6.3-8.2) g/dL Albumin 4.0 (3.5-5.0) g/dL Urine Color Light Yellow Urine Appearance Clear (Clear) Urine pH 7.0 (5.0-8.0) Ur Specific [place] 1.008 (1.001-1.035) Urine Protein Trace H (Negative) Urine Glucose (UA) 4+ H (Negative) Urine Ketones Negative (Negative) Urine Blood Negative (Negative) Urine Nitrite Negative (Negative) Urine Bilirubin Negative (Negative) Urine Urobilinogen <2.0 (<2.0) mg/dL Ur Leukocyte Esterase Negative (Negative) 05/25/20 Range/Units 03:50 WBC (3.8-10.6) k/uL RBC (4.30-5.90) m/uL Hgb (13.0-17.5) gm/dL Hct (39.0-53.0) % MCV (80.0-100.0) fL MCH (25.0-35.0) pg MCHC (31.0-37.0) g/dL RDW (11.5-15.5) % Plt Count (150-450) k/uL Neutrophils % % Lymphocytes % % Monocytes % % Eosinophils % % Basophils % % Neutrophils # (1.3-7.7) k/uL Lymphocytes # (1.0-4.8) k/uL Monocytes # (0-1.0) k/uL Eosinophils # (0-0.7) k/uL Basophils # (0-0.2) k/uL Sodium (137-145) mmol/L Potassium (3.5-5.1) mmol/L Chloride (98-107) mmol/L Carbon Dioxide (22-30) mmol/L Anion Gap mmol/L BUN (9-20) mg/dL Creatinine (0.66-1.25) mg/dL Est GFR (CKD-EPI)AfAm (>60 ml/min/1.73 sqM) Est GFR (CKD-EPI)NonAf (>60 ml/min/1.73 sqM) Glucose (74-99) mg/dL Calcium (8.4-10.2) mg/dL Phosphorus (2.5-4.5) mg/dL Magnesium (1.6-2.3) mg/dL Total Bilirubin (0.2-1.3) mg/dL AST (17-59) U/L ALT (4-49) U/L Alkaline Phosphatase (38-126) U/L Creatine Kinase (55-170) U/L NT-Pro-B Natriuret Pep 678 pg/mL Total Protein (6.3-8.2) g/dL Albumin (3.5-5.0) g/dL Urine Color Urine Appearance (Clear) Urine pH (5.0-8.0) Ur Specific [place] (1.001-1.035) Urine Protein (Negative) Urine Glucose (UA) (Negative) Urine Ketones (Negative) Urine Blood (Negative) Urine Nitrite (Negative) Urine Bilirubin (Negative) Urine Urobilinogen (<2.0) mg/dL Ur Leukocyte Esterase (Negative) - EKG Data -: EKG Interpreted by Me (EKG is sinus rhythm 60PR 212 QRS 108 QTc 442) - Radiology Data Radiology results: report reviewed (x-ray abdominal series with chest is negative for acute disease), image reviewed Disposition Clinical Impression: Urinary retention, Abdominal pain, Constipation, Diarrhea, Chronic low back pain Disposition: HOME SELF-CARE Condition: Fair Instructions (If sedation given, give patient instructions): Abdominal Pain (ED) Is patient prescribed a controlled substance at d/c from ED?: No Referrals: Mike Castillo MD [Primary Care Provider] - 1-2 days
[2020-05-25 04:39] LABS: Appearance,Urine Clear (Clear); Basophils # (A) 0.1 k/uL (0-0.2); Basophils % (A) 1 %; Bilirubin,Urine Negative (Negative); Blood,Urine Negative (Negative); Color,Urine Light Yellow; Eosinophils # (A) 0.5 k/uL (0-0.7); Eosinophils % (A) 3 %; Glucose,Urine (UA) 4+ (Negative); HCT 46.7 % (39.0-53.0); HGB 15.7 gm/dL (13.0-17.5); Ketones,Urine Negative (Negative); Leukocyte Esterase,Urine Negative (Negative); Lymphocytes # (A) 1.7 k/uL (1.0-4.8); Lymphocytes % (A) 10 %; MCH 29.4 pg (25.0-35.0); MCHC 33.5 g/dL (31.0-37.0); MCV 87.9 fL (80.0-100.0); Mean Platelet Volume 7.3; Monocytes # (A) 1.1 k/uL (0-1.0); Monocytes % (A) 6 %; Neutrophils # (A) 13.8 k/uL (1.3-7.7); Neutrophils % (A) 79 %; Nitrite,Urine Negative (Negative); Platelet Count 301 k/uL (150-450); Protein,Urine Trace (Negative); RBC 5.32 m/uL (4.30-5.90); RDW 12.9 % (11.5-15.5); Specific Gravity,Urine 1.008 (1.001-1.035); Urobilinogen,Urine <2.0 mg/dL (<2.0); WBC 17.5 k/uL (3.8-10.6)
[2020-05-25 04:49] VITALS: RESP 18
[2020-05-25 04:54] LABS: ALT 24 U/L (4-49); AST 38 U/L (17-59); African American GFR (CKD) >90 (>60 ml/min/1.73 sqM); Alkaline Phosphatase 139 U/L (38-126); Anion Gap 9 mmol/L; Blood Urea Nitrogen 13 mg/dL (9-20); Calcium 9.8 mg/dL (8.4-10.2); Carbon Dioxide 24 mmol/L (22-30); Chloride 99 mmol/L (98-107); Creatine Kinase 68 U/L (55-170); Glucose 194 mg/dL (74-99); Magnesium 2.6 mg/dL (1.6-2.3); Non-African American GFR(CKD) >90 (>60 ml/min/1.73 sqM); Phosphorus 2.9 mg/dL (2.5-4.5); Potassium 4.5 mmol/L (3.5-5.1); Sodium 132 mmol/L (137-145); Total Bilirubin 0.9 mg/dL (0.2-1.3); Total Protein 7.3 g/dL (6.3-8.2)
[2020-05-25] MEDS ORDERED: polyethylene glycoL 3350 17 GM POWD.PACK PO STA (05:34)
--- NOTE | 2020-05-25 05:38 | XR ---
EXAM: XR Abdomen, 2 Views and XR Chest, 1 View CLINICAL HISTORY: Pain. TECHNIQUE: Frontal view of the chest, frontal view of the abdomen/pelvis and upright or decubitus view of the abdomen. COMPARISON: No relevant prior studies available. FINDINGS: Lungs: Unremarkable. No consolidation. Pleural space: Unremarkable. No pneumothorax. Heart: Unremarkable. No cardiomegaly. Mediastinum: Unremarkable. Intraperitoneal space: No free air. Gastrointestinal tract: Unremarkable. No dilation. Bones/joints: Unremarkable. IMPRESSION: No acute findings.
--- NOTE | 2020-05-25 05:39 | ED ---
Medical Decision Making - Medical Decision Making addendum regarding follow-up for urology - Lab Data Result diagrams: 05/25/20 03:50 05/25/20 03:50 Lab Results 05/25/20 05/25/20 05/25/20 Range/Units 03:50 03:50 03:50 WBC 17.5 H (3.8-10.6) k/uL RBC 5.32 (4.30-5.90) m/uL Hgb 15.7 (13.0-17.5) gm/dL Hct 46.7 (39.0-53.0) % MCV 87.9 (80.0-100.0) fL MCH 29.4 (25.0-35.0) pg MCHC 33.5 (31.0-37.0) g/dL RDW 12.9 (11.5-15.5) % Plt Count 301 (150-450) k/uL Neutrophils % 79 % Lymphocytes % 10 % Monocytes % 6 % Eosinophils % 3 % Basophils % 1 % Neutrophils # 13.8 H (1.3-7.7) k/uL Lymphocytes # 1.7 (1.0-4.8) k/uL Monocytes # 1.1 H (0-1.0) k/uL Eosinophils # 0.5 (0-0.7) k/uL Basophils # 0.1 (0-0.2) k/uL Sodium 132 L (137-145) mmol/L Potassium 4.5 (3.5-5.1) mmol/L Chloride 99 (98-107) mmol/L Carbon Dioxide 24 (22-30) mmol/L Anion Gap 9 mmol/L BUN 13 (9-20) mg/dL Creatinine 0.57 L (0.66-1.25) mg/dL Est GFR (CKD-EPI)AfAm >90 (>60 ml/min/1.73 sqM) Est GFR (CKD-EPI)NonAf >90 (>60 ml/min/1.73 sqM) Glucose 194 H (74-99) mg/dL Calcium 9.8 (8.4-10.2) mg/dL Phosphorus 2.9 (2.5-4.5) mg/dL Magnesium 2.6 H (1.6-2.3) mg/dL Total Bilirubin 0.9 (0.2-1.3) mg/dL AST 38 (17-59) U/L ALT 24 (4-49) U/L Alkaline Phosphatase 139 H (38-126) U/L Creatine Kinase 68 (55-170) U/L NT-Pro-B Natriuret Pep pg/mL Total Protein 7.3 (6.3-8.2) g/dL Albumin 4.0 (3.5-5.0) g/dL Urine Color Light Yellow Urine Appearance Clear (Clear) Urine pH 7.0 (5.0-8.0) Ur Specific [place] 1.008 (1.001-1.035) Urine Protein Trace H (Negative) Urine Glucose (UA) 4+ H (Negative) Urine Ketones Negative (Negative) Urine Blood Negative (Negative) Urine Nitrite Negative (Negative) Urine Bilirubin Negative (Negative) Urine Urobilinogen <2.0 (<2.0) mg/dL Ur Leukocyte Esterase Negative (Negative) 05/25/20 Range/Units 03:50 WBC (3.8-10.6) k/uL RBC (4.30-5.90) m/uL Hgb (13.0-17.5) gm/dL Hct (39.0-53.0) % MCV (80.0-100.0) fL MCH (25.0-35.0) pg MCHC (31.0-37.0) g/dL RDW (11.5-15.5) % Plt Count (150-450) k/uL Neutrophils % % Lymphocytes % % Monocytes % % Eosinophils % % Basophils % % Neutrophils # (1.3-7.7) k/uL Lymphocytes # (1.0-4.8) k/uL Monocytes # (0-1.0) k/uL Eosinophils # (0-0.7) k/uL Basophils # (0-0.2) k/uL Sodium (137-145) mmol/L Potassium (3.5-5.1) mmol/L Chloride (98-107) mmol/L Carbon Dioxide (22-30) mmol/L Anion Gap mmol/L BUN (9-20) mg/dL Creatinine (0.66-1.25) mg/dL Est GFR (CKD-EPI)AfAm (>60 ml/min/1.73 sqM) Est GFR (CKD-EPI)NonAf (>60 ml/min/1.73 sqM) Glucose (74-99) mg/dL Calcium (8.4-10.2) mg/dL Phosphorus (2.5-4.5) mg/dL Magnesium (1.6-2.3) mg/dL Total Bilirubin (0.2-1.3) mg/dL AST (17-59) U/L ALT (4-49) U/L Alkaline Phosphatase (38-126) U/L Creatine Kinase (55-170) U/L NT-Pro-B Natriuret Pep 678 pg/mL Total Protein (6.3-8.2) g/dL Albumin (3.5-5.0) g/dL Urine Color Urine Appearance (Clear) Urine pH (5.0-8.0) Ur Specific [place] (1.001-1.035) Urine Protein (Negative) Urine Glucose (UA) (Negative) Urine Ketones (Negative) Urine Blood (Negative) Urine Nitrite (Negative) Urine Bilirubin (Negative) Urine Urobilinogen (<2.0) mg/dL Ur Leukocyte Esterase (Negative) Disposition Clinical Impression: Urinary retention, Abdominal pain, Constipation, Diarrhea, Chronic low back pain Disposition: HOME SELF-CARE Condition: Fair Instructions (If sedation given, give patient instructions): Abdominal Pain (ED) Prescriptions: Polyethylene Glycol 3350 [Miralax] 17 gm PO DAILY #527 gm Is patient prescribed a controlled substance at d/c from ED?: No Referrals: Mike Castillo MD [Primary Care Provider] - 1-2 days Alexander Mas MD [STAFF PHYSICIAN] - 1-2 days
[2020-05-25 05:50] VITALS: BP 138/52; PULSE 68
== END 2020-05-25 05:51 | disposition home or self-care (01) ==
LOC: EC 03:21
DX: R33.9 Retention of urine, unspecified (principal); K59.00 Constipation, unspecified; G89.29 Other chronic pain; M54.5 Low back pain; R10.9 Unspecified abdominal pain; E11.40 Type 2 diabetes mellitus with diabetic neuropathy, unspecified; Z79.4 Long term (current) use of insulin; Z79.890 Hormone replacement therapy; Z79.899 Other long term (current) drug therapy; Z88.6 Allergy status to analgesic agent
CPT/HCPCS: 36415; 74022; 80053; 81003; 82550; 83735; 83880; 84100; 85025; 93005; 96360; 99284

== ENCOUNTER 2020-05-25 17:02 | Observation (INO) | payer MEDICARE ==
[2020-05-25] MEDS ORDERED: SODIUM CHLORIDE 0.9% 1,000 ML IV STA (17:33)
--- NOTE | 2020-05-25 17:38 | ED ---
General Adult HPI - General Chief complaint: Urogenital Stated complaint: sanchez cath unable to urinate Time Seen by Provider: 05/25/20 17:09 Source: patient, RN notes reviewed, old records reviewed Mode of arrival: ambulatory Limitations: no limitations - History of Present Illness Initial comments: 70 yo male presenting for evaluation of decreased urine output. Patient was in the emergency department earlier today, Sanchez catheter was placed for urinary retention patient had normal kidney function at that time. According to his son who is at bedside he has not had any urine in his Sanchez catheter bag since the time of discharge. He's been somewhat more confused however he does have history of dementia. He's been tired. No fever. No vomiting. Patient has had some oral intake although this has not been normal over the past 24 hours. - Related Data Home Medications Medication Instructions Recorded Confirmed Testosterone Cypionate 200 mg IM Q14D 06/08/19 05/25/20 [Depo-Testosterone] Cyclobenzaprine HCl 5 mg PO HS 12/29/19 05/25/20 Omeprazole 20 mg PO DAILY 12/29/19 05/25/20 Gabapentin [Neurontin] 300 mg PO Q8H 05/25/20 05/25/20 Insulin Regular, Human [NovoLIN R] 5 - 10 unit SQ TID-W/MEALS 05/25/20 05/25/20 Pregabalin [Lyrica] 150 mg PO BID 05/25/20 05/25/20 oxyCODONE HCL [oxyCODONE HCL (IR)] 20 mg PO TID 05/25/20 05/25/20 Previous Rx's Medication Instructions Recorded Atorvastatin [Lipitor] 40 mg PO DAILY #90 tab 06/09/19 Clopidogrel [Plavix] 75 mg PO DAILY #30 tab 10/16/19 Docusate [Colace] 100 mg PO BID #20 cap 10/16/19 amLODIPine [Norvasc] 10 mg PO DAILY #30 tab 10/16/19 Furosemide [Lasix] 20 mg PO DAILY 90 Days #90 tab 01/01/20 Memantine [Namenda] 5 mg PO DAILY 90 Days #90 tab 01/01/20 atenoloL [Tenormin] 25 mg PO BID 90 Days #180 tab 01/01/20 Allergies Allergy/AdvReac Type Severity Reaction Status Date / Time naproxen Allergy Swelling Verified 05/25/20 20:20 Review of Systems ROS Statement: Those systems with pertinent positive or pertinent negative responses have been documented in the HPI. ROS Other: All systems not noted in ROS Statement are negative. Past Medical History Past Medical History: Diabetes Mellitus, Hyperlipidemia, Hypertension, Vascular Disorder Additional Past Medical History / Comment(s): IDDM type II, neuropathy bilateral feet, nonhealing ulcer L foot-seen in [facility], gastritis, chrons, IBS, back pain, chronic left thigh/sciatica painpain. 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 Past Anesthesia/Blood Transfusion Reactions: No Reported Reaction Past Psychological History: No Psychological Hx Reported Smoking Status: Never smoker Past Alcohol Use History: Rare Past Drug Use History: None Reported - Past Family History Mother Family Medical History: Cancer Father Family Medical History: Cancer General Exam Limitations: no limitations General appearance: in no apparent distress, lethargic Head exam: Present: atraumatic, normocephalic Eye exam: Present: normal appearance, PERRL ENT exam: Present: normal exam Neck exam: Present: normal inspection. Absent: tenderness, meningismus Respiratory exam: Present: normal lung sounds bilaterally. Absent: respiratory distress Cardiovascular Exam: Present: regular rate, normal rhythm GI/Abdominal exam: Present: soft. Absent: distended, tenderness Extremities exam: Present: pedal edema Neurological exam: Present: alert Skin exam: Present: warm, dry, intact. Absent: cyanosis, diaphoretic Course Vital Signs 05/25/20 05/25/20 17:03 22:42 Temperature 97.5 F L 98.6 F Pulse Rate 64 50 L Respiratory 18 16 Rate Blood Pressure 98/61 114/43 O2 Sat by Pulse 95 97 Oximetry EKG Findings - EKG Comments: EKG Findings:: EKG: Sinus rhythm, rate of 61, QRS duration 102, QTC 414. inte rpreted as junctional rhythm although I do see regular periods. Medical Decision Making - Medical Decision Making 70-YEAR-OLD MALE PRESENTING WITH DECREASED URINE OUTPUT. IDID ULTRASOUND HIS BLADDER, THERE IS NO LARGE RETENTION. hIS Sanchez CATHETER IS REPLACED. lABORATORY TESTING IS OBTAINED Pt has an increasing white blood cell count from uncertain etiology. He has less than 50 mL of fluid in his Sanchez catheter bag. He had an x-ray of the chest yesterday which was negative for focal pneumonia. His kidney function has remained stable from yesterday. He has a high lactic acid at 6.2. He receives 2 L of normal saline and does have some increase in urine production. Further history from the patient's son states that he had attempted to encourage oral hydration at home but the patient was not drinking well over the past 24 hours. Ultrasound of the kidneys and bladder will be obtained. Patient is given continuous IV hydration. Repeat laboratory studies will be ordered and repeat lactic acid. I discussed case with Dr. Diaz who will admit. - Lab Data Result diagrams: 05/26/20 06:30 05/26/20 06:30 Lab Results 05/25/20 05/25/20 05/25/20 Range/Units 17:40 17:40 17:40 WBC 23.8 H (3.8-10.6) k/uL RBC 5.50 (4.30-5.90) m/uL Hgb 15.6 (13.0-17.5) gm/dL Hct 48.4 (39.0-53.0) % MCV 88.0 (80.0-100.0) fL MCH 28.3 (25.0-35.0) pg MCHC 32.2 (31.0-37.0) g/dL RDW 13.0 (11.5-15.5) % Plt Count 330 (150-450) k/uL Neutrophils % 82 % Lymphocytes % 8 % Monocytes % 7 % Eosinophils % 0 % Basophils % 1 % Neutrophils # 19.6 H (1.3-7.7) k/uL Lymphocytes # 2.0 (1.0-4.8) k/uL Monocytes # 1.7 H (0-1.0) k/uL Eosinophils # 0.1 (0-0.7) k/uL Basophils # 0.2 (0-0.2) k/uL PT 9.9 (9.0-12.0) sec INR 1.0 (<1.2) APTT 22.2 (22.0-30.0) sec Sodium 131 L (137-145) mmol/L Potassium 4.6 (3.5-5.1) mmol/L Chloride 98 (98-107) mmol/L Carbon Dioxide 22 (22-30) mmol/L Anion Gap 11 mmol/L BUN 18 (9-20) mg/dL Creatinine 0.89 (0.66-1.25) mg/dL Est GFR (CKD-EPI)AfAm >90 (>60 ml/min/1.73 sqM) Est GFR (CKD-EPI)NonAf 86 (>60 ml/min/1.73 sqM) Glucose 161 H (74-99) mg/dL Lactic Ac Sepsis Rflx Plasma Lactic Acid Vincent (0.7-2.0) mmol/L Calcium 9.7 (8.4-10.2) mg/dL Magnesium 3.5 H (1.6-2.3) mg/dL Total Bilirubin 1.0 (0.2-1.3) mg/dL AST 27 (17-59) U/L ALT 19 (4-49) U/L Alkaline Phosphatase 187 H (38-126) U/L Total Protein 6.4 (6.3-8.2) g/dL Albumin 3.4 L (3.5-5.0) g/dL 05/25/20 05/25/20 Range/Units 17:40 18:39 WBC (3.8-10.6) k/uL RBC (4.30-5.90) m/uL Hgb (13.0-17.5) gm/dL Hct (39.0-53.0) % MCV (80.0-100.0) fL MCH (25.0-35.0) pg MCHC (31.0-37.0) g/dL RDW (11.5-15.5) % Plt Count (150-450) k/uL Neutrophils % % Lymphocytes % % Monocytes % % Eosinophils % % Basophils % % Neutrophils # (1.3-7.7) k/uL Lymphocytes # (1.0-4.8) k/uL Monocytes # (0-1.0) k/uL Eosinophils # (0-0.7) k/uL Basophils # (0-0.2) k/uL PT (9.0-12.0) sec INR (<1.2) APTT (22.0-30.0) sec Sodium (137-145) mmol/L Potassium (3.5-5.1) mmol/L Chloride (98-107) mmol/L Carbon Dioxide (22-30) mmol/L Anion Gap mmol/L BUN (9-20) mg/dL Creatinine (0.66-1.25) mg/dL Est GFR (CKD-EPI)AfAm (>60 ml/min/1.73 sqM) Est GFR (CKD-EPI)NonAf (>60 ml/min/1.73 sqM) Glucose (74-99) mg/dL Lactic Ac Sepsis Rflx Y Plasma Lactic Acid Vincent 6.2 H* (0.7-2.0) mmol/L Calcium (8.4-10.2) mg/dL Magnesium (1.6-2.3) mg/dL Total Bilirubin (0.2-1.3) mg/dL AST (17-59) U/L ALT (4-49) U/L Alkaline Phosphatase (38-126) U/L Total Protein (6.3-8.2) g/dL Albumin (3.5-5.0) g/dL Disposition Clinical Impression: Anuria and oliguria, Lactic acidosis, Dehydration Disposition: ADMITTED IP TO THIS [facility] Condition: Stable Is patient prescribed a controlled substance at d/c from ED?: No Decision to Admit Reason: Admit from EC Decision Date: 05/25/20 Decision Time: 18:52
[2020-05-25 18:03] LABS: Basophils # (A) 0.2 k/uL (0-0.2); Basophils % (A) 1 %; Eosinophils # (A) 0.1 k/uL (0-0.7); Eosinophils % (A) 0 %; HCT 48.4 % (39.0-53.0); HGB 15.6 gm/dL (13.0-17.5); Lymphocytes % (A) 8 %; MCH 28.3 pg (25.0-35.0); MCHC 32.2 g/dL (31.0-37.0); Mean Platelet Volume 7.7; Monocytes # (A) 1.7 k/uL (0-1.0); Monocytes % (A) 7 %; Neutrophils # (A) 19.6 k/uL (1.3-7.7); Neutrophils % (A) 82 %; Platelet Count 330 k/uL (150-450); WBC 23.8 k/uL (3.8-10.6)
[2020-05-25 18:19] LABS: Partial Thromboplastin Time 22.2 sec (22.0-30.0); Prothrombin Time 9.9 sec (9.0-12.0)
[2020-05-25 18:32] LABS: ALT 19 U/L (4-49); AST 27 U/L (17-59); African American GFR (CKD) >90 (>60 ml/min/1.73 sqM); Albumin 3.4 g/dL (3.5-5.0); Alkaline Phosphatase 187 U/L (38-126); Anion Gap 11 mmol/L; Blood Urea Nitrogen 18 mg/dL (9-20); Calcium 9.7 mg/dL (8.4-10.2); Carbon Dioxide 22 mmol/L (22-30); Chloride 98 mmol/L (98-107); Glucose 161 mg/dL (74-99); Magnesium 3.5 mg/dL (1.6-2.3); Non-African American GFR(CKD) 86 (>60 ml/min/1.73 sqM); Potassium 4.6 mmol/L (3.5-5.1); Sodium 131 mmol/L (137-145); Total Protein 6.4 g/dL (6.3-8.2)
[2020-05-25] MEDS ORDERED: cefTRIAXone IN SWFI 1,000 MG/10 ML SYRINGE IVP STA (18:41)
[2020-05-25] MEDS ORDERED: SODIUM CHLORIDE 0.9% 1,000 ML IV ONE (18:41)
[2020-05-25] MEDS ORDERED: NALOXONE 0.4 MG/ML 1 ML VIAL IV PRN (18:45)
[2020-05-25] MEDS ORDERED: ACETAMINOPHEN TAB 325 MG TAB PO PRN (18:45)
[2020-05-25] MEDS: SODIUM CHLORIDE 0.9% 1,000 ML IV SCH (19:13)
[2020-05-25 19:32] LABS: Appearance,Urine Cloudy (Clear); Bacteria,Urine Rare /hpf; Bilirubin,Urine 1+ (Negative); Blood,Urine Small (Negative); Color,Urine Dark Brown; Glucose,Urine (UA) Negative (Negative); Hyaline Casts,Urine 18 /lpf (0-2); Ketones,Urine Negative (Negative); Leukocyte Esterase,Urine Small (Negative); Mucus,Urine Few /hpf; Nitrite,Urine Negative (Negative); PH, Urine 5.5 (5.0-8.0); Protein,Urine 1+ (Negative); RBC,Urine 7 /hpf (0-5); Specific Gravity,Urine 1.021 (1.001-1.035); Squamous Epithelial Cell,Urine 2 /hpf (0-4); WBC,Urine 5 /hpf (0-5)
--- NOTE | 2020-05-25 19:52 | US ---
EXAMINATION TYPE: US kidneys/renal and bladder DATE OF EXAM: 05/25/2020 COMPARISON: NONE CLINICAL HISTORY: anuria. No urine output EXAM MEASUREMENTS: Right Kidney: 11.6 x 5.0 x 5.9 cm Left Kidney: 10.6 x 4.9 x 4.1 cm Right Kidney: No hydronephrosis or masses seen Left Kidney: No hydronephrosis or masses seen Bladder: Not full, has cathter in. Bilateral Jets seen: No IMPRESSION: 1. Renal ultrasound appears unremarkable. 2. Nonvisualization of the urinary bladder as there is a Mcdonald catheter present.
[2020-05-25 23:20] VITALS: RESP 18
[2020-05-26] MEDS: SODIUM CHLORIDE 0.9% 1,000 ML IV SCH ×4 (04:05→19:53)
[2020-05-26 06:08] LABS: Glucose,Whole Blood 99 mg/dL (75-99)
[2020-05-26 07:58] LABS: ALT 17 U/L (4-49); AST 23 U/L (17-59); African American GFR (CKD) >90 (>60 ml/min/1.73 sqM); Albumin 2.6 g/dL (3.5-5.0); Alkaline Phosphatase 124 U/L (38-126); Anion Gap 3 mmol/L; Blood Urea Nitrogen 16 mg/dL (9-20); Calcium 8.8 mg/dL (8.4-10.2); Carbon Dioxide 26 mmol/L (22-30); Chloride 105 mmol/L (98-107); Glucose 95 mg/dL (74-99); Non-African American GFR(CKD) >90 (>60 ml/min/1.73 sqM); Sodium 134 mmol/L (137-145); Total Bilirubin 0.8 mg/dL (0.2-1.3); Total Protein 5.2 g/dL (6.3-8.2)
[2020-05-26 08:05] LABS: Basophils % (A) 0 %; Eosinophils # (A) 0.4 k/uL (0-0.7); Eosinophils % (A) 3 %; HCT 40.9 % (39.0-53.0); Lymphocytes % (A) 15 %; MCH 28.7 pg (25.0-35.0); MCHC 31.8 g/dL (31.0-37.0); MCV 90.3 fL (80.0-100.0); Mean Platelet Volume 7.3; Monocytes # (A) 1.2 k/uL (0-1.0); Monocytes % (A) 9 %; Neutrophils % (A) 72 %; Platelet Count 240 k/uL (150-450); RBC 4.52 m/uL (4.30-5.90); RDW 13.3 % (11.5-15.5); WBC 13.8 k/uL (3.8-10.6)
--- NOTE | 2020-05-26 11:09 | P.NPCON ---
History of Present Illness - Reason for Consult acute renal failure - History of Present Illness Reason for consultation: Anuria History of present illness: Patient is a 70-year-old male seen in consultation for low urine output. Patient states his appetite has been just fair the last few days. He came to the hospital yesterday morning and had a Mcdonald catheter placed. However he noticed no urine output and returned to the hospital. He currently has a Mcdonald catheter and urine output overnight was 750 mL. No hematuria. No vomiting or diarrhea. No chest pain or shortness of breath. No edema. Denies regular use of nonsteroidals. Denies family history of renal disease. He does have long-standing history of diabetes mellitus. GFR is at baseline. Creatinine 0.69 today. Blood pressure was also noted to be as low as 98/61 but is in the systolic 120s now. No dizziness or syncopal episodes. Patient has history of hypertension or but's antihypertensives are all currently held. He did receive 2 L of normal saline bolus on admission and is currently maintained on normal saline at 1 30 mL an hour. He is also on antibiotics for presumed UTI. Vital signs are stable. General: The patient appeared well nourished and normally developed. HEENT: Head exam is unremarkable. Neck is without jugular venous distension. LUNGS: Breath sounds decreased. HEART: Rate and Rhythm are regular. ABDOMEN: Abdominal exam reveals normal bowel sounds. Non-tender and non- distended. EXTREMITITES: No edema. Past Medical History Past Medical History: Diabetes Mellitus, Hyperlipidemia, Hypertension, Vascular Disorder Additional Past Medical History / Comment(s): IDDM type II, neuropathy bilateral feet, nonhealing ulcer L foot-seen in [facility], gastritis, chrons, IBS, back pain, chronic left thigh/sciatica painpain. 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 Past Anesthesia/Blood Transfusion Reactions: No Reported Reaction Past Psychological History: No Psychological Hx Reported Additional Psychological History / Comment(s): Pt has an adult son living with him who is his caregiver. He has just completed home care for IV ABX/wound care thru [facility]. He fell on 12/22/2019 at home- hasnt walked since- son helps him get around with wheelchair, He is using a walker, able to put weight on left heel per son, lawrence. Smoking Status: Never smoker Past Alcohol Use History: Rare Past Drug Use History: None Reported - Past Family History Mother Family Medical History: Cancer Father Family Medical History: Cancer Medications and Allergies Home Medications Medication Instructions Recorded Confirmed Type Testosterone Cypionate 200 mg IM Q14D 06/08/19 05/25/20 History [Depo-Testosterone] Atorvastatin [Lipitor] 40 mg PO DAILY #90 tab 06/09/19 05/25/20 Rx Clopidogrel [Plavix] 75 mg PO DAILY #30 tab 10/16/19 05/25/20 Rx Docusate [Colace] 100 mg PO BID #20 cap 10/16/19 05/25/20 Rx amLODIPine [Norvasc] 10 mg PO DAILY #30 tab 10/16/19 05/25/20 Rx Cyclobenzaprine HCl 5 mg PO HS 12/29/19 05/25/20 History Omeprazole 20 mg PO DAILY 12/29/19 05/25/20 History Furosemide [Lasix] 20 mg PO DAILY 90 Days #90 tab 01/01/20 05/25/20 Rx Memantine [Namenda] 5 mg PO DAILY 90 Days #90 tab 01/01/20 05/25/20 Rx atenoloL [Tenormin] 25 mg PO BID 90 Days #180 tab 01/01/20 05/25/20 Rx Gabapentin [Neurontin] 300 mg PO Q8H 05/25/20 05/25/20 History Insulin Regular, Human [NovoLIN R] 5 - 10 unit SQ TID-W/MEALS 05/25/20 05/25/20 History Pregabalin [Lyrica] 150 mg PO BID 05/25/20 05/25/20 History oxyCODONE HCL [oxyCODONE HCL (IR)] 20 mg PO TID 05/25/20 05/25/20 History Allergies Allergy/AdvReac Type Severity Reaction Status Date / Time naproxen Allergy Swelling Verified 05/25/20 20:20 Physical Exam Vitals: Vital Signs Temp Pulse Pulse Resp BP BP Pulse Ox 05/26/20 08:20 98.1 F 67 18 127/62 95 05/26/20 04:17 98.2 F 59 L 18 124/61 99 05/26/20 00:58 97.5 F L 57 L 18 138/63 99 05/25/20 23:08 97.5 F L 59 L 18 138/63 98 05/25/20 22:42 98.6 F 50 L 16 114/43 97 05/25/20 17:03 97.5 F L 64 18 98/61 95 Intake and Output 05/25/20 05/26/20 05/26/20 23:59 06:59 14:59 Intake Total 50 Output Total 750 Balance -700 Intake: Oral 50 Output: Urine 750 Uretheral (Mcdonald) Other: Voiding Method Indwelling Catheter Weight Results - Lab Results Most recent lab results Calcium 8.8 mg/dL (8.4-10.2) 05/26/20 06:30 Magnesium 3.0 mg/dL (1.6-2.3) H 05/26/20 06:30 05/26/20 06:30 05/26/20 06:30 Assessment and Plan Plan: Assessment: 1. Oliguria secondary to hypovolemia and hypotension improved with IV hydration. GFR at baseline. Now nonoliguric. 2. Diabetes mellitus. 3. Benign hypertension. Controlled. Plan: Decreased normal saline to 80 mL an hour. Encouraged oral intake. Hold diuretics and antihypertensives. Avoid nephrotoxins. Check urine culture. No evidence of hydronephrosis noted on kidney ultrasound. Can do trial of void later today. Thank you for the consultation. I will continue to follow the patient with you during his hospital stay
[2020-05-26 12:13] LABS: Glucose,Whole Blood 128 mg/dL (75-99)
[2020-05-26 12:41] LABS: T4, Free (Free Thyroxine) 1.31 ng/dL (0.78-2.19)
[2020-05-26] MEDS: PANTOPRAZOLE 40 MG TABLET PO SCH (13:09)
[2020-05-26] MEDS: CLOPIDOGREL 75 MG TAB PO SCH (13:13)
[2020-05-26] MEDS: GABAPENTIN 300 MG CAP PO SCH ×2 (13:13→15:45)
[2020-05-26 17:14] LABS: Glucose,Whole Blood 157 mg/dL (75-99)
[2020-05-26] MEDS: amLODIPine 10 MG TAB PO SCH (17:32)
[2020-05-26 20:53] LABS: Glucose,Whole Blood 163 mg/dL (75-99)
--- NOTE | 2020-05-26 21:22 | P.HPIM ---
History of Present Illness H&P Date: 05/26/20 Chief Complaint: no Urine output Patient is a 70-year-old male with a known history of hypertension, hyperlipidemia, diabetes type 2, diabetic peripheral neuropathy, nonhealing ulcer on the left foot and is on follow-up with wound care clinic, Crohn's disease, IBS and left thigh sciatic pain who has been bedridden for the past 3 to 6 months was brought to ER by his son due to low urine output. According to the patient he has not had urine output since yesterday morning and when he came to ER Mcdonald catheter was placed. However no urine output was noticed. Patient was started on IV hydration and was admitted to the hospital for evaluation. Laboratory data showed WBC 23.8, hemoglobin 15.6, platelets 330 Sodium 131, potassium 4.6, chloride 98, BUN 18 and creatinine 0.89 Lactic acid was 6.2 Magnesium 3.5 Alk phos 187 and urinalysis showed small leukocyte esterase with 1+ protein and 5 RBCs and 2 WBCs. EKG showed normal sinus rhythm Ultrasound of the abdomen/renal appears unremarkable. Patient was hypotensive on admission with blood pressure 98/61 and heart rate of 64 Review of Systems Constitutional: Patient denies any fever or chills . No generalized weakness. +weight loss and loss of appetite. Abdomen: Patient denied nausea vomiting and diarrhea and abdominal pain. Cardiovascular: Patient denies any chest pain or short of breath no palpitations. Respiratory: patient denied any cough or sputum production. No shortness of breath Neurologic: Patient denied any numbness or tingling headache. Musculoskeletal: Patient denies any complaints of joint swelling or deformity. Skin: Negative Psychiatric: Negative Endocrine: No heat or cold intolerance. No recent weight gain. Genitourinary: No dysuria or hematuria. All other 14 point ROS negative except the above Past Medical History Past Medical History: Diabetes Mellitus, Hyperlipidemia, Hypertension, Vascular Disorder Additional Past Medical History / Comment(s): IDDM type II, neuropathy bilateral feet, nonhealing ulcer L foot-seen in [facility], gastritis, chrons, IBS, back pain, chronic left thigh/sciatica painpain. 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 Past Anesthesia/Blood Transfusion Reactions: No Reported Reaction Past Psychological History: No Psychological Hx Reported Additional Psychological History / Comment(s): Pt has an adult son living with him who is his caregiver. He has just completed home care for IV ABX/wound care thru [place]. He fell on 12/22/2019 at home- hasnt walked since- son helps him get around with wheelchair, He is using a walker, able to put weight on left heel per son, lawrence. Smoking Status: Never smoker Past Alcohol Use History: Rare Past Drug Use History: None Reported - Past Family History Mother Family Medical History: Cancer Father Family Medical History: Cancer Medications and Allergies Home Medications Medication Instructions Recorded Confirmed Type Testosterone Cypionate 200 mg IM Q14D 06/08/19 05/25/20 History [Depo-Testosterone] Atorvastatin [Lipitor] 40 mg PO DAILY #90 tab 06/09/19 05/25/20 Rx Clopidogrel [Plavix] 75 mg PO DAILY #30 tab 10/16/19 05/25/20 Rx Docusate [Colace] 100 mg PO BID #20 cap 10/16/19 05/25/20 Rx amLODIPine [Norvasc] 10 mg PO DAILY #30 tab 10/16/19 05/25/20 Rx Omeprazole 20 mg PO DAILY 12/29/19 05/25/20 History Furosemide [Lasix] 20 mg PO DAILY 90 Days #90 tab 01/01/20 05/25/20 Rx Memantine [Namenda] 5 mg PO DAILY 90 Days #90 tab 01/01/20 05/25/20 Rx atenoloL [Tenormin] 25 mg PO BID 90 Days #180 tab 01/01/20 05/25/20 Rx Gabapentin [Neurontin] 300 mg PO Q8H 05/25/20 05/25/20 History Insulin Regular, Human [NovoLIN R] 5 - 10 unit SQ TID-W/MEALS 05/25/20 05/25/20 History Pregabalin [Lyrica] 150 mg PO BID 05/25/20 05/25/20 History oxyCODONE HCL [oxyCODONE HCL (IR)] 20 mg PO TID 05/25/20 05/25/20 History Allergies Allergy/AdvReac Type Severity Reaction Status Date / Time naproxen Allergy Swelling Verified 05/25/20 20:20 Physical Exam Vitals: Vital Signs Temp Pulse Pulse Resp BP BP Pulse Ox 05/26/20 08:20 98.1 F 67 18 127/62 95 05/26/20 04:17 98.2 F 59 L 18 124/61 99 05/26/20 00:58 97.5 F L 57 L 18 138/63 99 05/25/20 23:08 97.5 F L 59 L 18 138/63 98 05/25/20 22:42 98.6 F 50 L 16 114/43 97 05/25/20 17:03 97.5 F L 64 18 98/61 95 Intake and Output 05/25/20 05/26/20 05/26/20 23:59 06:59 14:59 Intake Total 50 Output Total 750 Balance -700 Intake: Oral 50 Output: Urine 750 Uretheral (Mcdonald) Other: Voiding Method Indwelling Catheter Weight PHYSICAL EXAMINATION: Patient is lying in the bed comfortably, no acute distress, awake alert and oriented. hard of heraing. HEENT: Normocephalic. Neck is supple. Pupils reactive. Nostrils clear. Oral cavity is moist. Ears reveal no drainage. Neck reveals no JVD, carotid bruits, or thyromegaly. CHEST EXAMINATION: Trachea is central. Symmetrical expansion. Lung ahumada clear to auscultation and percussion. CARDIAC: Normal S1, S2 with no gallops. No murmurs ABDOMEN: Soft. Bowel sounds normal. No organomegaly. No abdominal bruits. Extremities: reveal no edema. No clubbing or cyanosis Neurologically awake, alert, oriented x2-3 .Bilateral lower extremity weakness. Able to move his legs while in the bed. Skin: No rash or skin lesions. Psychiatric: Coperative. Musculoskeletal: No joint swelling or deformity. Results CBC & Chem 7: 05/26/20 06:30 05/26/20 06:30 Labs: Abnormal Lab Results - Last 24 Hours (Table) 05/25/20 05/25/20 05/25/20 Range/Units 17:40 17:40 17:40 WBC 23.8 H (3.8-10.6) k/uL Neutrophils # 19.6 H (1.3-7.7) k/uL Monocytes # 1.7 H (0-1.0) k/uL Sodium 131 L (137-145) mmol/L Glucose 161 H (74-99) mg/dL Plasma Lactic Acid Vincent 6.2 H* (0.7-2.0) mmol/L Magnesium 3.5 H (1.6-2.3) mg/dL Alkaline Phosphatase 187 H (38-126) U/L Total Protein (6.3-8.2) g/dL Albumin 3.4 L (3.5-5.0) g/dL Urine Protein (Negative) Urine Blood (Negative) Urine Bilirubin (Negative) Ur Leukocyte Esterase (Negative) Urine RBC (0-5) /hpf Urine Bacteria (None) /hpf Hyaline Casts (0-2) /lpf Urine Mucus (None) /hpf 05/25/20 05/25/20 05/25/20 Range/Units 19:10 19:27 20:57 WBC (3.8-10.6) k/uL Neutrophils # (1.3-7.7) k/uL Monocytes # (0-1.0) k/uL Sodium (137-145) mmol/L Glucose (74-99) mg/dL Plasma Lactic Acid Vincent 4.7 H* 3.8 H* (0.7-2.0) mmol/L Magnesium (1.6-2.3) mg/dL Alkaline Phosphatase (38-126) U/L Total Protein (6.3-8.2) g/dL Albumin (3.5-5.0) g/dL Urine Protein 1+ H (Negative) Urine Blood Small H (Negative) Urine Bilirubin 1+ H (Negative) Ur Leukocyte Esterase Small H (Negative) Urine RBC 7 H (0-5) /hpf Urine Bacteria Rare H (None) /hpf Hyaline Casts 18 H (0-2) /lpf Urine Mucus Few H (None) /hpf 05/26/20 05/26/20 Range/Units 06:30 06:30 WBC 13.8 H (3.8-10.6) k/uL Neutrophils # 10.0 H (1.3-7.7) k/uL Monocytes # 1.2 H (0-1.0) k/uL Sodium 134 L (137-145) mmol/L Glucose (74-99) mg/dL Plasma Lactic Acid Vincent (0.7-2.0) mmol/L Magnesium 3.0 H (1.6-2.3) mg/dL Alkaline Phosphatase (38-126) U/L Total Protein 5.2 L (6.3-8.2) g/dL Albumin 2.6 L (3.5-5.0) g/dL Urine Protein (Negative) Urine Blood (Negative) Urine Bilirubin (Negative) Ur Leukocyte Esterase (Negative) Urine RBC (0-5) /hpf Urine Bacteria (None) /hpf Hyaline Casts (0-2) /lpf Urine Mucus (None) /hpf Thrombosis Risk Factor Assmnt - DVT/VTE Prophylaxis DVT/VTE Prophylaxis: Pharmacologic Prophylaxis ordered - Choose All That Apply Any of the Below Risk Factors Present?: No Other Risk Factors: Yes Each Risk Factor Represents 2 Points: Age 61-74 years Thrombosis Risk Factor Assessment Total Risk Factor Score: 2 Thrombosis Risk Factor Assessment Level: Low Risk Assessment and Plan Assessment: Oliguria secondary to hypovolemia and decrease of oral intake. Improved with IV hydration. Leukocytosis likely reactive. On empiric antibiotics in the form of ceftriaxone. Hypertension. Patient was hypotensive on admission. Chronic back pain and sciatic pain History of Crohn's disease History of pituitary adenoma. Was seen by endocrinology previously and recommended no further work-up. Last seen 3 years ago. Diabetes type 2 Diabetic peripheral neuropathy Hyperlipidemia Chronic nonhealing left foot ulcer currently on wound care clinic follow-up Medical debility with wheelchair bound. DVT prophylaxis with heparin subcu Plan: Patient will be continued on IV hydration and Mcdonald catheter was placed. Will do trial void this afternoon. Continue with empiric antibiotics and follow-up with urine culture report. Blood pressure medications including diuretics were on hold currently. We will also hold Flexeril and narcotic pain medications and follow-up closely. Encourage oral intake and stool softeners for constipation. Further recommendations based on the clinical course. Nephrology is on board. Time with Patient: Greater than 30
[2020-05-27] MEDS: HEPARIN SODIUM,PORCINE 5,000 UNIT/ML 1 ML VIAL SQ SCH ×2 (01:15→08:38)
[2020-05-27] MEDS: GABAPENTIN 300 MG CAP PO SCH ×2 (01:15→08:38)
[2020-05-27] MEDS: DOCUSATE 100 MG CAP PO SCH ×2 (01:18→08:39)
[2020-05-27 06:19] LABS: Glucose,Whole Blood 137 mg/dL (75-99)
[2020-05-27] MEDS: PANTOPRAZOLE 40 MG TABLET PO SCH (06:36)
[2020-05-27] MEDS: amLODIPine 10 MG TAB PO SCH (08:38)
[2020-05-27] MEDS: CLOPIDOGREL 75 MG TAB PO SCH (08:38)
[2020-05-27 08:52] LABS: Basophils % (A) 0 %; Eosinophils # (A) 0.4 k/uL (0-0.7); Eosinophils % (A) 4 %; HCT 37.6 % (39.0-53.0); HGB 12.5 gm/dL (13.0-17.5); Lymphocytes # (A) 1.7 k/uL (1.0-4.8); Lymphocytes % (A) 19 %; MCH 29.6 pg (25.0-35.0); MCHC 33.3 g/dL (31.0-37.0); Mean Platelet Volume 6.9; Monocytes # (A) 0.7 k/uL (0-1.0); Monocytes % (A) 7 %; Neutrophils # (A) 6.2 k/uL (1.3-7.7); Neutrophils % (A) 68 %; Platelet Count 224 k/uL (150-450); RBC 4.23 m/uL (4.30-5.90); RDW 12.9 % (11.5-15.5); WBC 9.1 k/uL (3.8-10.6)
[2020-05-27 09:18] LABS: African American GFR (CKD) >90 (>60 ml/min/1.73 sqM); Anion Gap 3 mmol/L; Blood Urea Nitrogen 7 mg/dL (9-20); Calcium 8.9 mg/dL (8.4-10.2); Carbon Dioxide 25 mmol/L (22-30); Chloride 108 mmol/L (98-107); Glucose 143 mg/dL (74-99); Non-African American GFR(CKD) >90 (>60 ml/min/1.73 sqM); Potassium 3.4 mmol/L (3.5-5.1); Sodium 136 mmol/L (137-145)
[2020-05-27] MEDS ORDERED: POTASSIUM CHLORIDE ER 20 MEQ TAB.ER PO STA (10:07)
--- NOTE | 2020-05-27 10:10 | P.PN ---
Subjective Patient is seen in follow-up for low urine output. Urine output improved with IV hydration. Mcdonald catheter removed. He's been voiding on his own. Oral intake fair. He wants to go home. Vital signs are stable. General: The patient appeared well nourished and normally developed. HEENT: Head exam is unremarkable. Neck is without jugular venous distension. LUNGS: Lungs are clear to auscultation and percussion. Breath sounds decreased. HEART: Rate and Rhythm are regular. ABDOMEN: Soft, nontender. EXTREMITITES: No clubbing, cyanosis, or edema. Objective - Vital Signs Vital signs: Vital Signs Temp 98.0 F 05/27/20 08:37 Pulse 77 05/27/20 08:37 Resp 18 05/27/20 08:37 BP 169/74 05/27/20 08:37 Pulse Ox 95 05/27/20 08:37 Intake & Output 05/26/20 05/27/20 05/27/20 18:59 06:59 18:59 Intake Total 410 450 Output Total 2700 3100 950 Balance -2290 -2650 -950 Weight 97 kg Intake: Oral 410 450 Output: Urine 2700 3100 950 Other: Voiding Method Indwelling Catheter Urinal Urinal # Bowel Movements 1 1 - Labs CBC & Chem 7: 05/27/20 08:31 05/27/20 08:31 Labs: Abnormal Lab Results - Last 24 Hours (Table) 05/26/20 05/26/20 05/26/20 Range/Units 06:30 12:07 17:12 RBC (4.30-5.90) m/uL Hgb (13.0-17.5) gm/dL Hct (39.0-53.0) % Sodium (137-145) mmol/L Potassium (3.5-5.1) mmol/L Chloride (98-107) mmol/L BUN (9-20) mg/dL Creatinine (0.66-1.25) mg/dL Glucose (74-99) mg/dL POC Glucose (mg/dL) 128 H 157 H (75-99) mg/dL TSH 0.030 L (0.465-4.680) mIU/L 05/26/20 05/27/20 05/27/20 Range/Units 20:52 06:18 08:31 RBC (4.30-5.90) m/uL Hgb (13.0-17.5) gm/dL Hct (39.0-53.0) % Sodium 136 L (137-145) mmol/L Potassium 3.4 L (3.5-5.1) mmol/L Chloride 108 H (98-107) mmol/L BUN 7 L (9-20) mg/dL Creatinine 0.53 L (0.66-1.25) mg/dL Glucose 143 H (74-99) mg/dL POC Glucose (mg/dL) 163 H 137 H (75-99) mg/dL TSH (0.465-4.680) mIU/L 05/27/20 Range/Units 08:31 RBC 4.23 L (4.30-5.90) m/uL Hgb 12.5 L (13.0-17.5) gm/dL Hct 37.6 L (39.0-53.0) % Sodium (137-145) mmol/L Potassium (3.5-5.1) mmol/L Chloride (98-107) mmol/L BUN (9-20) mg/dL Creatinine (0.66-1.25) mg/dL Glucose (74-99) mg/dL POC Glucose (mg/dL) (75-99) mg/dL TSH (0.465-4.680) mIU/L Microbiology - Last 24 Hours (Table) 05/25/20 19:27 Blood Culture - Preliminary Blood No Growth after 24 hours 05/26/20 10:35 Urine Culture - Preliminary Urine,Catheterized Assessment and Plan Plan: Assessment: 1. Oliguria secondary to hypovolemia and hypotension improved with IV hydration. GFR at baseline. Now nonoliguric. No evidence of hydronephrosis noted on kidney ultrasound. 2. Diabetes mellitus. 3. Benign hypertension. Amlodipine resumed. 4. Hypokalemia from poor intake and feeling diuresis. Magnesium normal. Plan: Decrease normal saline to 50 mL an hour. Encouraged oral intake. Hold diuretics. Avoid nephrotoxins. Replace potassium. 40 mEq today.
[2020-05-27 12:04] LABS: Glucose,Whole Blood 167 mg/dL (75-99)
[2020-05-27 12:12] VITALS: BP 160/67; PULSE 71; TEMP 98.2
== END 2020-05-27 15:44 | disposition home or self-care (01) ==
LOC: EC 17:02 → 3SCARD 18:45
PROVIDERS: ADMIT Family Medicine; ATTEND Family Medicine
DX: E86.1 Hypovolemia (principal); E86.0 Dehydration; E87.6 Hypokalemia; E87.2 Acidosis; D72.829 Elevated white blood cell count, unspecified; I10 Essential (primary) hypertension; I95.9 Hypotension, unspecified; G89.29 Other chronic pain; M54.9 Dorsalgia, unspecified; M79.652 Pain in left thigh; M54.32 Sciatica, left side; K50.90 Crohn's disease, unspecified, without complications; D35.2 Benign neoplasm of pituitary gland; E11.42 Type 2 diabetes mellitus with diabetic polyneuropathy; E11.621 Type 2 diabetes mellitus with foot ulcer; L97.529 Non-pressure chronic ulcer of other part of left foot with unspecified severity; E78.5 Hyperlipidemia, unspecified; R53.81 Other malaise; Z99.3 Dependence on wheelchair; F03.90 Unspecified dementia, unspecified severity, without behavioral disturbance, psychotic disturbance, mood disturbance, and anxiety; Z86.79 Personal history of other diseases of the circulatory system; Z79.890 Hormone replacement therapy; Z79.899 Other long term (current) drug therapy; Z79.4 Long term (current) use of insulin; Z79.891 Long term (current) use of opiate analgesic; Z79.02 Long term (current) use of antithrombotics/antiplatelets; Z88.6 Allergy status to analgesic agent; Z87.19 Personal history of other diseases of the digestive system; Z86.14 Personal history of Methicillin resistant Staphylococcus aureus infection; Z98.890 Other specified postprocedural states; Z89.422 Acquired absence of other left toe(s); Z87.828 Personal history of other (healed) physical injury and trauma; Z80.9 Family history of malignant neoplasm, unspecified
CPT/HCPCS: 96365; 96366 ×2; 96372; 96376; 96361; 99285; 51702; 36415; 93005; 84439; 80053 ×2; 80048; 84443; 83605; 83735 ×3; 85025 ×3; 85610; 85730; 81001; 87040; 87086; 76770; G0378 ×3; J1644; J0696 ×3

== ENCOUNTER → 2020-05-29 | Outpatient (CLI) | payer MEDICARE ==
[2020-05-29 21:13] LABS: Albumin 4.1 g/dL (3.80-4.90); Albumin/Globulin Ratio 1.71 (1.60-3.17); Anion Gap 9.6 mmol/L (4.00-12.00); BUN/Creat Ratio 15.71 Ratio (12.00-20.00); Calcium 10.1 mg/dL (8.7-10.3); Carbon Dioxide 27.4 mmol/L (21.6-31.8); Globulin 2.4 g/dL (1.6-3.3); Magnesium 2.1 mg/dL (1.5-2.4); Non-African American GFR(CKD) 94.9 (60.0-200.0); Potassium 4.1 mmol/L (3.5-5.5); Total Bilirubin 0.7 mg/dL (0.3-1.2); Total Protein 6.5 g/dL (6.2-8.2)
== END | disposition home or self-care (01) ==
LOC: LABWHC1 12:04
PROVIDERS: ATTEND Family Medicine
DX: I10 Essential (primary) hypertension (principal)
CPT/HCPCS: 36415; 80053; 83735

== ENCOUNTER 2020-11-07 09:45 | Emergency (ER) | payer MEDICARE ==
[2020-11-07 09:49] VITALS: RESP 18; TEMP 98.3
[2020-11-07] MEDS ORDERED: SODIUM CHLORIDE 0.9% 1,000 ML IV STA (10:16)
[2020-11-07] MEDS ORDERED: MORPHINE SULFATE 4 MG/ML SYRINGE IVP STA ×2 (10:21→14:13)
[2020-11-07] MEDS ORDERED: FAMOTIDINE 20 MG/2 ML VIAL IV STA (10:21)
[2020-11-07] MEDS ORDERED: ONDANSETRON 4 MG/2 ML VIAL IVP STA ×2 (10:21→14:13)
--- NOTE | 2020-11-07 10:31 | ED ---
Nausea/Vomiting/Diarrhea HPI - General Chief complaint: Nausea/Vomiting/Diarrhea Stated complaint: Vomiting Time Seen by Provider: 11/07/20 09:56 Source: patient Mode of arrival: wheelchair Limitations: physical limitation - History of Present Illness Initial comments: 70-year-old male patient presents to the emergency department today for evaluation of upper abdominal pain and vomiting. Symptoms are going on for the last 2 days. He has been unable to keep down any food and only small sips of warm water. Unable to take his home medications. Denies any fever or chills. Denies history of abdominal surgery or bowel obstruction. States he has had 2 bowel movements over the last couple of days and is passing gas. Denies any hematemesis, hematochezia, or melena. Denies history of similar symptoms. Denies any new medications, recent travel, or sick contacts. Patient denies any recent rash, cough, shortness of breath, chest pain, back pain, numbness, tingling, dizziness, weakness, hematuria, dysuria, urinary urgency, urinary frequency, headache, visual changes, or any other complaints. - Related Data Home Medications Medication Instructions Recorded Confirmed Testosterone Cypionate 200 mg IM Q14D 06/08/19 11/07/20 [Depo-Testosterone] Insulin Regular, Human [NovoLIN R] 5 - 10 unit SQ AC-TID 05/25/20 11/07/20 oxyCODONE HCL [oxyCODONE HCL (IR)] 20 mg PO TID 05/25/20 11/07/20 Atenolol [Tenormin] 50 mg PO BID 11/07/20 11/07/20 Furosemide [Lasix] 40 mg PO DAILY 11/07/20 11/07/20 Memantine [Namenda] 5 mg PO BID 11/07/20 11/07/20 Previous Rx's Medication Instructions Recorded Ondansetron [Zofran ODT] 4 mg PO Q8HR PRN #10 tab 11/07/20 Allergies Allergy/AdvReac Type Severity Reaction Status Date / Time naproxen Allergy Swelling Verified 11/07/20 12:08 gabapentin AdvReac Confusion Verified 11/07/20 12:08 Review of Systems ROS Statement: Those systems with pertinent positive or pertinent negative responses have been documented in the HPI. ROS Other: All systems not noted in ROS Statement are negative. Past Medical History Past Medical History: Diabetes Mellitus, Hyperlipidemia, Hypertension, Vascular Disorder Additional Past Medical History / Comment(s): IDDM type II, neuropathy bilateral feet, nonhealing ulcer L foot-seen in [facility], gastritis, chrons, IBS, back pain, chronic left thigh/sciatica painpain. 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 Past Anesthesia/Blood Transfusion Reactions: No Reported Reaction Past Psychological History: No Psychological Hx Reported Smoking Status: Never smoker Past Alcohol Use History: Rare Past Drug Use History: None Reported - Past Family History Mother Family Medical History: Cancer Father Family Medical History: Cancer General Exam Limitations: physical limitation General appearance: alert, in no apparent distress, other (This is a well- developed, well-nourished adult male patient in no acute distress. Vital signs upon presentation are temperature 98.3F, pulse 80, respirations 18, blood pressure 160/77, pulse ox 99% on room air.) Eye exam: Present: normal appearance, PERRL, EOMI. Absent: scleral icterus, conjunctival injection, periorbital swelling ENT exam: Present: normal exam, normal oropharynx, mucous membranes moist Respiratory exam: Present: normal lung sounds bilaterally. Absent: respiratory distress, wheezes, rales, rhonchi, stridor Cardiovascular Exam: Present: regular rate, normal rhythm, normal heart sounds. Absent: systolic murmur, diastolic murmur, rubs, gallop, clicks GI/Abdominal exam: Present: soft, tenderness (Upper abdominal tenderness), normal bowel sounds. Absent: distended, guarding, rebound, rigid Neurological exam: Present: alert, oriented X3, CN II-XII intact Psychiatric exam: Present: normal affect, normal mood Skin exam: Present: warm, dry, intact, normal color. Absent: rash Course Vital Signs 11/07/20 09:46 Temperature 98.3 F Pulse Rate 80 Respiratory 18 Rate Blood Pressure 160/77 O2 Sat by Pulse 99 Oximetry Medical Decision Making - Medical Decision Making 70-year-old male patient presents to the emergency department today for evaluat ion of upper abdominal pain and nausea and vomiting for the last 2 days. Physical examination did reveal midepigastric tenderness. Labs reviewed and did reveal elevated white blood cell count of 15.4. Remainder of labs are unremarkable. CT of the pelvis was negative. He is given IV fluids and m edications with IV. Upon reevaluation is resting comfortably in bed states he is feeling better. Does for couple being discharged home at this time. He will be given a prescription for Zofran. He is instructed to follow-up with his primary care physician for recheck in 1-2 days. Return parameters were discussed in detail. He verbalizes understanding and agrees with this plan. Case discussed with my attending Dr. Beasley. - Lab Data Result diagrams: 11/07/20 10:06 11/07/20 10:06 Lab Results 11/07/20 11/07/20 11/07/20 Range/Units 10:00 10:06 10:06 WBC 15.4 H (3.8-10.6) k/uL RBC 4.87 (4.30-5.90) m/uL Hgb 14.1 (13.0-17.5) gm/dL Hct 40.8 (39.0-53.0) % MCV 83.7 (80.0-100.0) fL MCH 29.0 (25.0-35.0) pg MCHC 34.6 (31.0-37.0) g/dL RDW 12.8 (11.5-15.5) % Plt Count 374 (150-450) k/uL MPV 7.4 Neutrophils % 80 % Lymphocytes % 12 % Monocytes % 6 % Eosinophils % 2 % Basophils % 0 % Neutrophils # 12.2 H (1.3-7.7) k/uL Lymphocytes # 1.9 (1.0-4.8) k/uL Monocytes # 0.9 (0-1.0) k/uL Eosinophils # 0.2 (0-0.7) k/uL Basophils # 0.0 (0-0.2) k/uL Sodium 135 L (137-145) mmol/L Potassium 4.2 (3.5-5.1) mmol/L Chloride 99 (98-107) mmol/L Carbon Dioxide 24 (22-30) mmol/L Anion Gap 12 mmol/L BUN 15 (9-20) mg/dL Creatinine 0.70 (0.66-1.25) mg/dL Est GFR (CKD-EPI)AfAm >90 (>60 ml/min/1.73 sqM) Est GFR (CKD-EPI)NonAf >90 (>60 ml/min/1.73 sqM) Glucose 172 H (74-99) mg/dL Calcium 10.4 H (8.4-10.2) mg/dL Total Bilirubin 0.8 (0.2-1.3) mg/dL AST 22 (17-59) U/L ALT 15 (4-49) U/L Alkaline Phosphatase 134 H (38-126) U/L Total Protein 6.7 (6.3-8.2) g/dL Albumin 3.9 (3.5-5.0) g/dL Amylase 43 (30-110) U/L Lipase 68 (23-300) U/L Urine Color Urine Appearance (Clear) Urine pH (5.0-8.0) Ur Specific [place] (1.001-1.035) Urine Protein (Negative) Urine Glucose (UA) (Negative) Urine Ketones (Negative) Urine Blood (Negative) Urine Nitrite (Negative) Urine Bilirubin (Negative) Urine Urobilinogen (<2.0) mg/dL Ur Leukocyte Esterase (Negative) Coronavirus (PCR) (Not Detectd) 11/07/20 11/07/20 Range/Units 10:38 14:24 WBC (3.8-10.6) k/uL RBC (4.30-5.90) m/uL Hgb (13.0-17.5) gm/dL Hct (39.0-53.0) % MCV (80.0-100.0) fL MCH (25.0-35.0) pg MCHC (31.0-37.0) g/dL RDW (11.5-15.5) % Plt Count (150-450) k/uL MPV Neutrophils % % Lymphocytes % % Monocytes % % Eosinophils % % Basophils % % Neutrophils # (1.3-7.7) k/uL Lymphocytes # (1.0-4.8) k/uL Monocytes # (0-1.0) k/uL Eosinophils # (0-0.7) k/uL Basophils # (0-0.2) k/uL Sodium (137-145) mmol/L Potassium (3.5-5.1) mmol/L Chloride (98-107) mmol/L Carbon Dioxide (22-30) mmol/L Anion Gap mmol/L BUN (9-20) mg/dL Creatinine (0.66-1.25) mg/dL Est GFR (CKD-EPI)AfAm (>60 ml/min/1.73 sqM) Est GFR (CKD-EPI)NonAf (>60 ml/min/1.73 sqM) Glucose (74-99) mg/dL Calcium (8.4-10.2) mg/dL Total Bilirubin (0.2-1.3) mg/dL AST (17-59) U/L ALT (4-49) U/L Alkaline Phosphatase (38-126) U/L Total Protein (6.3-8.2) g/dL Albumin (3.5-5.0) g/dL Amylase (30-110) U/L Lipase (23-300) U/L Urine Color Light Yellow Urine Appearance Clear (Clear) Urine pH 7.0 (5.0-8.0) Ur Specific [place] 1.015 (1.001-1.035) Urine Protein Negative (Negative) Urine Glucose (UA) Negative (Negative) Urine Ketones Trace H (Negative) Urine Blood Negative (Negative) Urine Nitrite Negative (Negative) Urine Bilirubin Negative (Negative) Urine Urobilinogen <2.0 (<2.0) mg/dL Ur Leukocyte Esterase Negative (Negative) Coronavirus (PCR) Not Detected (Not Detectd) - Radiology Data Radiology results: report reviewed, image reviewed CT abdomen and pelvis is obtained. Report was reviewed in its entirety. Impression by Dr. Swift shows no bowel obstruction. No significant new or acute finding is seen to account for patient's clinical symptoms on this noncontrast CT. Disposition Clinical Impression: Vomiting Disposition: HOME SELF-CARE Condition: Good Instructions (If sedation given, give patient instructions): Acute Nausea and Vomiting (ED) Additional Instructions: Start with clear liquid diet and advance as tolerated. He is nausea medication as needed for symptom relief. Follow-up through primary care physician for recheck in 1-2 days. Return for any new, worsening, or concerning symptoms. Prescriptions: Ondansetron [Zofran ODT] 4 mg PO Q8HR PRN #10 tab PRN Reason: Nausea Is patient prescribed a controlled substance at d/c from ED?: No Referrals: Mike Castillo MD [Primary Care Provider] - 1-2 days Time of Disposition: 14:38
[2020-11-07 11:04] LABS: Amylase 43 U/L (30-110); Lipase 68 U/L (23-300)
[2020-11-07 12:01] LABS: Basophils % (A) 0 %; Eosinophils # (A) 0.2 k/uL (0-0.7); Eosinophils % (A) 2 %; HCT 40.8 % (39.0-53.0); HGB 14.1 gm/dL (13.0-17.5); Lymphocytes # (A) 1.9 k/uL (1.0-4.8); Lymphocytes % (A) 12 %; MCHC 34.6 g/dL (31.0-37.0); MCV 83.7 fL (80.0-100.0); Mean Platelet Volume 7.4; Monocytes # (A) 0.9 k/uL (0-1.0); Monocytes % (A) 6 %; Neutrophils # (A) 12.2 k/uL (1.3-7.7); Neutrophils % (A) 80 %; Platelet Count 374 k/uL (150-450); RBC 4.87 m/uL (4.30-5.90); RDW 12.8 % (11.5-15.5); WBC 15.4 k/uL (3.8-10.6)
[2020-11-07 13:07] LABS: ALT 15 U/L (4-49); AST 22 U/L (17-59); African American GFR (CKD) >90 (>60 ml/min/1.73 sqM); Albumin 3.9 g/dL (3.5-5.0); Alkaline Phosphatase 134 U/L (38-126); Anion Gap 12 mmol/L; Blood Urea Nitrogen 15 mg/dL (9-20); Calcium 10.4 mg/dL (8.4-10.2); Carbon Dioxide 24 mmol/L (22-30); Chloride 99 mmol/L (98-107); Glucose 172 mg/dL (74-99); Non-African American GFR(CKD) >90 (>60 ml/min/1.73 sqM); Potassium 4.2 mmol/L (3.5-5.1); Sodium 135 mmol/L (137-145); Total Bilirubin 0.8 mg/dL (0.2-1.3); Total Protein 6.7 g/dL (6.3-8.2)
--- NOTE | 2020-11-07 14:13 | CT ---
EXAMINATION TYPE: CT abdomen pelvis w con DATE OF EXAM: 11/07/2020 COMPARISON: CTA aorta September 28, 2019 HISTORY: Abd pain and vomiting CT DLP: 1740 mGycm, Automated Exposure Control for Dose Reduction was Utilized. CONTRAST: CT scan of the abdomen and pelvis is performed without oral but with IV Contrast, patient injected wi th 100 mL of Isovue 300. FINDINGS: LUNG BASES: Mild bibasilar linear scarring and/or atelectasis. Coronary artery calcification in the r ight coronary artery distribution. LIVER/GB: No significant abnormality is appreciated. PANCREAS: No significant abnormality is seen. SPLEEN: No significant abnormality is seen. ADRENALS: No significant abnormality is seen. KIDNEYS: Symmetric cortical medullary uptake and excretion without renal mass or hydronephrosis. Mild ly distended bladder. Scattered bilateral pelvic phleboliths. BOWEL: Suboptimal evaluation of bowel without enteric contrast. No suspicious small or large bowel di latation. Redundant sigmoid colon. PROSTATE/SEMINAL VESICLES: No gross abnormality seen. LYMPH NODES: No greater than 1cm abdominal or pelvic lymph nodes are appreciated. OSSEOUS STRUCTURES: Mild to moderate multilevel spurring of the thoracolumbar spine. OTHER: Moderate to severe calcified plaque distal abdominal aorta extends into the iliac branch vesse ls. IMPRESSION: No bowel obstruction. No significant new or acute finding is seen to account for patient 's clinical symptoms on this noncontrast CT.
[2020-11-07 14:44] LABS: Appearance,Urine Clear (Clear); Bilirubin,Urine Negative (Negative); Blood,Urine Negative (Negative); Color,Urine Light Yellow; Glucose,Urine (UA) Negative (Negative); Ketones,Urine Trace (Negative); Leukocyte Esterase,Urine Negative (Negative); Nitrite,Urine Negative (Negative); Protein,Urine Negative (Negative); Specific Gravity,Urine 1.015 (1.001-1.035); Urobilinogen,Urine <2.0 mg/dL (<2.0)
[2020-11-07 15:22] VITALS: BP 134/69; PULSE 77
== END 2020-11-07 15:21 | disposition home or self-care (01) ==
LOC: EC 09:45
DX: R11.10 Vomiting, unspecified (principal); E11.9 Type 2 diabetes mellitus without complications; E78.5 Hyperlipidemia, unspecified; I10 Essential (primary) hypertension; Z79.4 Long term (current) use of insulin; Z79.899 Other long term (current) drug therapy
CPT/HCPCS: 36415; 80053; 82150; 83690; 85025; 81003; 87635; 74177; 99284; 96374; 96375; 96376; J2270; J2405; Q9967

== ENCOUNTER 2020-11-21 16:37 | Emergency (ER) | payer MEDICARE ==
[2020-11-21 16:47] VITALS: BP 142/82; PULSE 71; RESP 16; TEMP 97.9
[2020-11-21 17:35] LABS: Basophils # (A) 0.1 k/uL (0-0.2); Basophils % (A) 1 %; Eosinophils # (A) 0.7 k/uL (0-0.7); Eosinophils % (A) 4 %; HGB 15.1 gm/dL (13.0-17.5); Lymphocytes % (A) 13 %; MCH 28.4 pg (25.0-35.0); MCHC 33.5 g/dL (31.0-37.0); MCV 84.7 fL (80.0-100.0); Monocytes # (A) 0.9 k/uL (0-1.0); Monocytes % (A) 5 %; Neutrophils # (A) 12.2 k/uL (1.3-7.7); Neutrophils % (A) 77 %; Platelet Count 328 k/uL (150-450); RBC 5.31 m/uL (4.30-5.90); WBC 15.9 k/uL (3.8-10.6)
[2020-11-21 17:37] LABS: Appearance,Urine Clear (Clear); Bilirubin,Urine Negative (Negative); Blood,Urine Negative (Negative); Color,Urine Light Yellow; Glucose,Urine (UA) Negative (Negative); Ketones,Urine Negative (Negative); Leukocyte Esterase,Urine Negative (Negative); Nitrite,Urine Negative (Negative); Protein,Urine Negative (Negative); Specific Gravity,Urine 1.006 (1.001-1.035); Urobilinogen,Urine <2.0 mg/dL (<2.0)
[2020-11-21 17:44] LABS: ALT 22 U/L (4-49); AST 26 U/L (17-59); African American GFR (CKD) >90 (>60 ml/min/1.73 sqM); Alkaline Phosphatase 122 U/L (38-126); Anion Gap 7 mmol/L; Blood Urea Nitrogen 15 mg/dL (9-20); Calcium 10.4 mg/dL (8.4-10.2); Carbon Dioxide 26 mmol/L (22-30); Chloride 103 mmol/L (98-107); Glucose 176 mg/dL (74-99); Lipase 92 U/L (23-300); Non-African American GFR(CKD) 79 (>60 ml/min/1.73 sqM); Potassium 4.4 mmol/L (3.5-5.1); Sodium 136 mmol/L (137-145); Total Bilirubin 0.4 mg/dL (0.2-1.3); Total Protein 6.8 g/dL (6.3-8.2)
--- NOTE | 2020-11-21 17:45 | ED ---
Abdominal Pain HPI - General Source: patient Mode of arrival: ambulatory Limitations: no limitations <Darius Wiseman - Last Filed: 11/21/20 19:09> <Valentina Salazar - Last Filed: 11/23/20 09:51> - General Chief Complaint: Abdominal Pain Stated Complaint: Hard time urinating/constipation Time Seen by Provider: 11/21/20 16:48 - History of Present Illness Initial Comments: 70-year-old male with history of IBS, Crohn's and constipation presents to emergency department with chief complaint of constipation and not able to urinate. Patient reports no bowel movements in the past 4 days. However, he states his base concern is inability to urinate. Status as previously occurred before but has not been further investigated by urologist. Patient reports she has not been able to urinate all day. He reports bladder pressure. He denies any hematuria, hematochezia or melena. Denies any abdominal back or flank pain. Denies any fevers or chills. Patient takes oxycodone 20 mg for chronic pain. (Darius Wiseman) - Related Data Home Medications Medication Instructions Recorded Confirmed Testosterone Cypionate 200 mg IM Q14D 06/08/19 11/07/20 [Depo-Testosterone] Insulin Regular, Human [NovoLIN R] 5 - 10 unit SQ AC-TID 05/25/20 11/07/20 oxyCODONE HCL [oxyCODONE HCL (IR)] 20 mg PO TID 05/25/20 11/07/20 Atenolol [Tenormin] 50 mg PO BID 11/07/20 11/07/20 Furosemide [Lasix] 40 mg PO DAILY 11/07/20 11/07/20 Memantine [Namenda] 5 mg PO BID 11/07/20 11/07/20 Previous Rx's Medication Instructions Recorded Ondansetron [Zofran ODT] 4 mg PO Q8HR PRN #10 tab 11/07/20 Allergies Allergy/AdvReac Type Severity Reaction Status Date / Time naproxen Allergy Swelling Verified 11/21/20 16:43 gabapentin AdvReac Confusion Verified 11/21/20 16:43 Review of Systems ROS Other: All systems not noted in ROS Statement are negative. <Darius Wiseman - Last Filed: 11/21/20 19:09> ROS Other: All systems not noted in ROS Statement are negative. <Valentina Salazar Kayla - Last Filed: 11/23/20 09:51> ROS Statement: Those systems with pertinent positive or pertinent negative responses have been documented in the HPI. Past Medical History Past Medical History: Diabetes Mellitus, Hyperlipidemia, Hypertension, Vascular Disorder Additional Past Medical History / Comment(s): IDDM type II, neuropathy bilateral feet, nonhealing ulcer L foot-seen in [facility], gastritis, chrons, IBS, back pain, chronic left thigh/sciatica painpain. 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 Past Anesthesia/Blood Transfusion Reactions: No Reported Reaction Past Psychological History: No Psychological Hx Reported Smoking Status: Never smoker Past Alcohol Use History: Rare Past Drug Use History: None Reported - Past Family History Mother Family Medical History: Cancer Father Family Medical History: Cancer <Darius Wiseman - Last Filed: 11/21/20 19:09> General Exam Limitations: no limitations General appearance: alert, in no apparent distress, obese Head exam: Present: atraumatic, normocephalic, normal inspection Eye exam: Present: normal appearance, PERRL, EOMI Pupils: Present: normal accommodation ENT exam: Present: normal exam, normal oropharynx, mucous membranes moist Neck exam: Present: normal inspection, full ROM. Absent: tenderness Respiratory exam: Present: normal lung sounds bilaterally. Absent: respiratory distress, wheezes, rales, rhonchi, stridor, chest wall tenderness Cardiovascular Exam: Present: regular rate, normal rhythm, normal heart sounds. Absent: systolic murmur GI/Abdominal exam: Present: soft, tenderness (Suprapubic tenderness). Absent: distended, guarding, rebound, rigid Extremities exam: Present: normal inspection, full ROM, normal capillary refill. Absent: tenderness, pedal edema, joint swelling Back exam: Present: normal inspection, full ROM. Absent: tenderness, CVA tenderness (R), CVA tenderness (L) Neurological exam: Present: alert, oriented X3 Psychiatric exam: Present: normal affect, normal mood Skin exam: Present: warm, dry, intact, normal color <Darius Wiseman - Last Filed: 11/21/20 19:09> Course Vital Signs 11/21/20 16:44 Temperature 97.9 F Pulse Rate 71 Respiratory 16 Rate Blood Pressure 142/82 O2 Sat by Pulse 95 Oximetry Medical Decision Making - Lab Data Result diagrams: 11/21/20 17:27 11/21/20 17:27 <Darius Wiseman - Last Filed: 11/21/20 19:09> - Lab Data Result diagrams: 11/21/20 17:27 11/21/20 17:27 <Valentina Salazar - Last Filed: 11/23/20 09:51> - Medical Decision Making 70-year-old male presents to emergency department with a chief complaint of constipation and not able to urinate. On physical examination, he does have lower abdominal tenderness. Bladder scan revealed 580 mL of urine and we were able to remove just as much with a Mcdonald catheter. He did report relief but the constipation is still persistent. UA is unremarkable. CBC revealed leukocytosis of 15 K likely secondary to the pain that he was experiencing. CMP also revealed mild hypercalcemia of 10.4. I was able to manually disimpact patient and remove quite a bit of stool. milk of molasses. KUB did reveal significant stool burden in the transverse, descending and rectosigmoid. He also was noted to have a hemorrhoid. At this time, patient care signed off to (Darius Wiseman) I was available for consultation in the emergency department. The history and physical exam were done by the midlevel provider. I was consulted for this patients care. I reviewed the case with the midlevel provider and based on their presentation of the patient, I agree with the assessment, medical decision making and plan of care as documented. Patient given enema and has successful bowel movement in ER. Patient feels comfortable with discharge home. Chart was dictated using [employer] dictation software. Attempts were made to correct any dictation errors however some typographical errors may persist. Patient was seen during a national state of emergency due to the Covid-19 pandemic. (Valentina Salazar) - Lab Data Lab Results 11/21/20 11/21/20 11/21/20 Range/Units 17:27 17:27 17:27 WBC 15.9 H (3.8-10.6) k/uL RBC 5.31 (4.30-5.90) m/uL Hgb 15.1 (13.0-17.5) gm/dL Hct 45.0 (39.0-53.0) % MCV 84.7 (80.0-100.0) fL MCH 28.4 (25.0-35.0) pg MCHC 33.5 (31.0-37.0) g/dL RDW 13.0 (11.5-15.5) % Plt Count 328 (150-450) k/uL MPV 7.0 Neutrophils % 77 % Lymphocytes % 13 % Monocytes % 5 % Eosinophils % 4 % Basophils % 1 % Neutrophils # 12.2 H (1.3-7.7) k/uL Lymphocytes # 2.0 (1.0-4.8) k/uL Monocytes # 0.9 (0-1.0) k/uL Eosinophils # 0.7 (0-0.7) k/uL Basophils # 0.1 (0-0.2) k/uL Sodium 136 L (137-145) mmol/L Potassium 4.4 (3.5-5.1) mmol/L Chloride 103 (98-107) mmol/L Carbon Dioxide 26 (22-30) mmol/L Anion Gap 7 mmol/L BUN 15 (9-20) mg/dL Creatinine 0.97 (0.66-1.25) mg/dL Est GFR (CKD-EPI)AfAm >90 (>60 ml/min/1.73 sqM) Est GFR (CKD-EPI)NonAf 79 (>60 ml/min/1.73 sqM) Glucose 176 H (74-99) mg/dL Calcium 10.4 H (8.4-10.2) mg/dL Total Bilirubin 0.4 (0.2-1.3) mg/dL AST 26 (17-59) U/L ALT 22 (4-49) U/L Alkaline Phosphatase 122 (38-126) U/L Total Protein 6.8 (6.3-8.2) g/dL Albumin 4.0 (3.5-5.0) g/dL Lipase 92 (23-300) U/L Urine Color Light Yellow Urine Appearance Clear (Clear) Urine pH 5.0 (5.0-8.0) Ur Specific Fraser 1.006 (1.001-1.035) Urine Protein Negative (Negative) Urine Glucose (UA) Negative (Negative) Urine Ketones Negative (Negative) Urine Blood Negative (Negative) Urine Nitrite Negative (Negative) Urine Bilirubin Negative (Negative) Urine Urobilinogen <2.0 (<2.0) mg/dL Ur Leukocyte Esterase Negative (Negative) Disposition Is patient prescribed a controlled substance at d/c from ED?: No Time of Disposition: 19:13 <Darius Wiseman - Last Filed: 11/21/20 19:09> <Valentina Salazar - Last Filed: 11/23/20 09:51> Clinical Impression: Constipation, Urinary retention Disposition: HOME SELF-CARE Condition: Stable Instructions (If sedation given, give patient instructions): Mcdonald Catheter Placement and Care (ED), Mcdonald Catheter Removal (DC) Additional Instructions: Follow-up with the urologist. Continue taking [id number]-lkp-wotncld laxatives and total softeners. Follow up with a primary care physician. Return to emergency department if symptoms worsen. Referrals: Mike Castillo MD [Primary Care Provider] - 1-2 days Vidal Figueroa MD [STAFF PHYSICIAN] - 1-2 days
--- NOTE | 2020-11-21 18:20 | XR ---
EXAMINATION TYPE: XR KUB - 3 supine radiographic views DATE OF EXAM: 11/21/2020 CLINICAL HISTORY: Constipation TECHNIQUE: 3 supine views were obtained, over the KUB. COMPARISON: None. FINDINGS: Scattered gas is seen in non-distended small bowel loops. Gas and fecal material is seen in non-distended colon. There is a prominent volume of transverse colon, descending colon and rectos igmoid stool, compatible with clinical reason for this examination. There is no evidence of visceromegaly. The visualized osseous structures are intact. IMPRESSION: Prominent colonic stool volume.
== END 2020-11-21 21:05 | disposition home or self-care (01) ==
LOC: EC 16:37
DX: K59.00 Constipation, unspecified (principal); R33.9 Retention of urine, unspecified; E11.9 Type 2 diabetes mellitus without complications; E78.5 Hyperlipidemia, unspecified; I10 Essential (primary) hypertension; E11.40 Type 2 diabetes mellitus with diabetic neuropathy, unspecified
CPT/HCPCS: 36415; 51798; 74018; 80053; 81003; 83690; 85025; 99283

== ENCOUNTER → 2021-04-25 | Outpatient (CLI) | payer MEDICARE ==
[2021-04-25 15:29] LABS: Basophils # (A) 0.07 X 10*3/uL (0.00-0.10); Basophils % (A) 0.7 %; Eosinophils # (A) 0.64 X 10*3/uL (0.04-0.35); Eosinophils % (A) 6.5 %; HCT 45.7 % (39.6-50.0); HGB 14.6 g/dL (13.0-17.0); Lymphocytes # (A) 3.55 X 10*3/uL (0.90-5.00); MCH 27.2 pg (27.0-32.0); MCHC 31.9 g/dL (32.0-37.0); MCV 85.3 fL (80.0-97.0); Mean Platelet Volume 10.6 fL (9.5-12.2); Monocytes # (A) 0.92 X 10*3/uL (0.20-1.00); Monocytes % (A) 9.3 %; Neutrophils # (A) 4.62 X 10*3/uL (1.80-7.70); Neutrophils % (A) 46.8 %; Platelet Count 325 X 10*3/uL (140-440); RBC 5.36 X 10*6/uL (4.40-5.60); RDW 14.5 % (11.5-14.5); WBC 9.87 X 10*3/uL (4.50-10.00)
[2021-04-25 20:07] LABS: African American GFR (CKD) 113.3 (60.0-200.0); Albumin 4.1 g/dL (3.8-4.9); Albumin/Globulin Ratio 1.54 (1.60-3.17); Anion Gap 12.8 mmol/L (4.00-12.00); BUN/Creat Ratio 30.42 Ratio (12.00-20.00); Blood Urea Nitrogen 19.5 mg/dL (9.0-27.0); Carbon Dioxide 21.8 mmol/L (21.6-31.8); Globulin 2.6 g/dL (1.6-3.3); Non-African American GFR(CKD) 97.8 (60.0-200.0); Potassium 4.6 mmol/L (3.5-5.5); Prostate Specific Antigen 0.2 ng/mL (0.00-6.50); Total Bilirubin 0.3 mg/dL (0.30-1.20); Total Protein 6.7 g/dL (6.2-8.2)
[2021-04-26 03:44] LABS: Urine Creatinine 12.9 mg/dL (39.0-259.0)
== END | disposition home or self-care (01) ==
LOC: LABWHC1 09:52
PROVIDERS: ATTEND Family Medicine
DX: E11.9 Type 2 diabetes mellitus without complications (principal); B89 Unspecified parasitic disease; R97.20 Elevated prostate specific antigen [PSA]
CPT/HCPCS: 36415; 80053; 82043; 82570; 83036; 84153; 85025

== ENCOUNTER → 2021-05-27 | Outpatient (CLI) | payer MEDICARE | END | disposition home or self-care (01) | LOC: LABWHC1 10:53 | PROVIDERS: ATTEND Family Medicine | DX: E29.1 Testicular hypofunction (principal) | CPT/HCPCS: 36415; 84402; 84403 ==

== ENCOUNTER → 2021-12-08 | Outpatient (CLI) | payer MEDICARE ==
[2021-12-08 18:27] LABS: Basophils # (A) 0.06 X 10*3/uL (0.00-0.10); Basophils % (A) 0.5 %; Eosinophils # (A) 0.47 X 10*3/uL (0.04-0.35); Eosinophils % (A) 4.1 %; HCT 49.8 % (39.6-50.0); HGB 15.1 g/dL (13.0-17.0); Immature Grans, Automated 0.6 %; Lymphocytes # (A) 2.91 X 10*3/uL (0.90-5.00); Lymphocytes % (A) 25.6 %; MCH 25.2 pg (27.0-32.0); MCHC 30.3 g/dL (32.0-37.0); MCV 83.1 fL (80.0-97.0); Mean Platelet Volume 10.5 fL (9.5-12.2); Monocytes # (A) 0.96 X 10*3/uL (0.20-1.00); Monocytes % (A) 8.4 %; NRBC Per 100 WBC 0 /100 WBCS (0.0-0.0); Neutrophils % (A) 60.8 %; Platelet Count 348 X 10*3/uL (140-440); RBC 5.99 X 10*6/uL (4.40-5.60); RDW 14.2 % (11.5-14.5); WBC 11.37 X 10*3/uL (4.50-10.00)
[2021-12-08 18:39] LABS: African American GFR (CKD) 98.5 (60.0-200.0); Albumin/Globulin Ratio 1.38 (1.60-3.17); Anion Gap 11.3 mmol/L (10.00-18.00); Calcium 9.9 mg/dL (8.7-10.3); Carbon Dioxide 23.7 mmol/L (20.0-27.5); Globulin 2.9 g/dL (1.6-3.3); Potassium 4.5 mmol/L (3.5-5.5); Total Bilirubin 0.4 mg/dL (0.30-1.20); Total Protein 6.9 g/dL (6.2-8.2)
[2021-12-08 21:24] LABS: Appearance,Urine Clear (Clear); Bilirubin,Urine Negative (Negative); Blood,Urine Trace (Negative); Color,Urine Yellow (Yellow); Ketones,Urine Negative (Negative); Nitrite,Urine Negative (Negative); Specific Gravity,Urine 1.021 (1.001-1.030)
[2021-12-08 21:31] LABS: Bacteria,Urine None Seen /HPF (None Seen)
== END | disposition home or self-care (01) ==
LOC: LABWHC1 11:15
PROVIDERS: ATTEND Family Medicine
DX: E11.9 Type 2 diabetes mellitus without complications (principal); N39.0 Urinary tract infection, site not specified; I10 Essential (primary) hypertension; Z79.899 Other long term (current) drug therapy
CPT/HCPCS: 36415; 80053; 81001; 82043; 82570; 83036; 84443; 85025; 87086

== ENCOUNTER 2022-10-21 22:29 | Emergency (ER) | payer MEDICARE ==
[2022-10-21 23:04] VITALS: TEMP 98.2
[2022-10-22] MEDS ORDERED: SULFAMETHOX-TMP 800-160MG 1 EACH TAB PO STA (00:20)
[2022-10-22] MEDS ORDERED: CEPHALEXIN 500 MG CAP PO STA (00:20)
[2022-10-22] MEDS ORDERED: KETOROLAC 15 MG/ML 1 ML VIAL IM STA (00:21)
[2022-10-22] MEDS ORDERED: HYDROmorphone 0.5 MG/0.5 ML SYRINGE IM STA (00:22)
[2022-10-22 00:24] LABS: Glucose,Whole Blood 137 mg/dL (70-110)
[2022-10-22] MEDS ORDERED: ACET/COD 300 MG/30 MG STARTER PACK 6 TAB BTL PO STA (01:06)
--- NOTE | 2022-10-22 01:08 | ED ---
Skin/Abscess/FB HPI - General Chief complaint: Skin/Abscess/Foreign Body Stated complaint: Infection in left foot Time Seen by Provider: 10/22/22 00:13 Source: patient, family Mode of arrival: wheelchair Limitations: no limitations - History of Present Illness Initial comments: Patient is a 72 year old male who presents with redness and swelling of left foot. It started yesterday. Patient denies injury. He does have increased pain in this foot. No calf pain. Patient has history of left second toe amputation in 2019 and debridement in 2019. He does admit to history of MRSA. No fever, chills, nausea, vomiting. No chest pain or SOB. - Related Data Home Medications Medication Instructions Recorded Confirmed Testosterone Cypionate 200 mg IM Q14D 06/08/19 11/07/20 [Depo-Testosterone] Insulin Regular, Human [NovoLIN R] 5 - 10 unit SQ AC-TID 05/25/20 11/07/20 oxyCODONE HCL [oxyCODONE HCL (IR)] 20 mg PO TID 05/25/20 11/07/20 Furosemide [Lasix] 40 mg PO DAILY 11/07/20 11/07/20 Memantine [Namenda] 5 mg PO BID 11/07/20 11/07/20 atenoloL [Tenormin] 50 mg PO BID 11/07/20 11/07/20 Previous Rx's Medication Instructions Recorded Ondansetron [Zofran ODT] 4 mg PO Q8HR PRN #10 tab 11/07/20 Cephalexin [Keflex] 500 mg PO Q6HR #28 cap 10/22/22 Sulfamethox-Tmp 800-160Mg [Bactrim 1 each PO Q12HR #14 tab 10/22/22 Ds] Allergies Allergy/AdvReac Type Severity Reaction Status Date / Time naproxen Allergy Swelling Verified 10/21/22 23:04 gabapentin AdvReac Confusion Verified 10/21/22 23:04 Review of Systems ROS Statement: Those systems with pertinent positive or pertinent negative responses have been documented in the HPI. ROS Other: All systems not noted in ROS Statement are negative. Past Medical History Past Medical History: Dementia, Diabetes Mellitus, Hyperlipidemia, Hypertension, Vascular Disorder Additional Past Medical History / Comment(s): IDDM type II, neuropathy bilateral feet, nonhealing ulcer L foot-seen in [facility], gastritis, chrons, IBS, back pain, chronic left thigh/sciatica painpain. 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 Past Anesthesia/Blood Transfusion Reactions: No Reported Reaction Past Psychological History: No Psychological Hx Reported Smoking Status: Never smoker Past Alcohol Use History: Rare Past Drug Use History: None Reported - Past Family History Mother Family Medical History: Cancer Father Family Medical History: Cancer General Exam Limitations: no limitations General appearance: alert, in no apparent distress Head exam: Present: atraumatic, normocephalic, normal inspection Respiratory exam: Present: normal lung sounds bilaterally. Absent: respiratory distress, wheezes, rales, rhonchi, stridor Cardiovascular Exam: Present: regular rate, normal rhythm, normal heart sounds. Absent: systolic murmur, diastolic murmur, rubs, gallop, clicks Extremities exam: Present: other (erythema and warmth of left foot traveling up to ankle with mild swelling. DP 2+. Sensation intact. Full ROM ) Neurological exam: Present: alert, oriented X3, CN II-XII intact Psychiatric exam: Present: normal affect, normal mood Skin exam: Present: warm, dry, intact, normal color. Absent: rash Course Vital Signs 10/21/22 10/22/22 23:01 01:23 Temperature 98.2 F Pulse Rate 71 61 Respiratory 20 18 Rate Blood Pressure 174/84 167/81 O2 Sat by Pulse 99 98 Oximetry Medical Decision Making - Medical Decision Making Was pt. sent in by a medical professional or institution (, [facility], LABORATORY MANAGER, urgent care, hospital, or skilled nursing...) When possible be specific @ -No Did you speak to anyone other than the patient for history (EMS, parent, family, police, friend...)? What history was obtained from this source @ -No Did you review nursing and triage notes (agree or disagree)? Why? @ -I reviewed and agree with nursing and triage notes Were old charts reviewed (outside hosp., previous admission, EMS record, old EKG, old radiological studies, urgent care reports/EKG's, skilled nursing records)? Report findings @ -No old charts were reviewed Differential Diagnosis (chest pain, altered mental status, abdominal pain women, abdominal pain men, vaginal bleeding, weakness, fever, dyspnea, syncope, headache, dizziness, GI bleed, back pain, seizure, CVA, palpatations, mental health)? @ -Cellulitis, abscess, soft tissue injury, gangrene, fracture EKG interpreted by me (3pts min.). @ -As above X-rays interpreted by me (1pt min.). @ -None done CT interpreted by me (1pt min.). @ -None done U/S interpreted by me (1pt. min.). @ -None done What testing was considered but not performed or refused? (CT, X-rays, U/S, labs)? Why? @ -Considered laboratory studies however patient has mild cellulitis of left foot with no evidence of abscess and no systemic symptoms or signs. What meds were considered but not given or refused? Why? @ -None Did you discuss the management of the patient with other professionals (professionals i.e. , PA, LABORATORY MANAGER, lab, RT, psych nurse, clinical social work aide, ecommerce marketing manager, teacher, court security officer, immigration case worker)? Give summary @ -No Was smoking cessation discussed for >3mins.? @ -No Was critical care preformed (if so, how long)? @ -No Were there social determinants of health that impacted care today? How? (Homelessness, low income, unemployed, alcoholism, drug addiction, transportation, low edu. Level, literacy, decrease access to med. care, senior living, rehab)? @ -No Was there de-escalation of care discussed even if they declined (Discuss DNR or withdrawal of care, Hospice)? DNR status @ -No What co-morbidities impacted this encounter? (DM, HTN, Smoking, COPD, CAD, Cancer, CVA, ARF, Chemo, Hep., AIDS, mental health diagnosis, sleep apnea, morbid obesity)? @ -None Was patient admitted / discharged? Hospital course, mention meds given and route, prescriptions, significant lab abnormalities, going to OR and other pertinent info. @ -Patient presented with mild cellulitis of left foot. No abscess. No systemic symptoms. Afebrile. Patient has MRSA history he will be treated with Keflex and Bactrim with strict return parameters. Patient and son verbalize understanding. Undiagnosed new problem with uncertain prognosis? @ -No Drug Therapy requiring intensive monitoring for toxicity (Heparin, Nitro, Insulin, Cardizem)? @ -No Were any procedures done? @ -No] Diagnosis/symptom? @ cellulitis left foot Acute, or Chronic, or Acute on Chronic? @ -acute Uncomplicated (without systemic symptoms) or Complicated (systemic symptoms)? @ -uncomplicated Side effects of treatment? @ -[No] Exacerbation, Progression, or Severe Exacerbation? @ -[No] Poses a threat to life or bodily function? How? (Chest pain, [place], [place], pneumonia, PE, COPD, DKA, ARF, appy, cholecystitis, CVA, Diverticulitis, Homicidal, Suicidal, threat to staff... and all critical care pts) @ -[No] Dr. Nathan is my attending - Lab Data Lab Results 10/22/22 Range/Units 00:23 POC Glucose (mg/dL) 137 H (70-110) mg/dL POC Glu Tie Buyer ID Angella Charles Disposition Clinical Impression: Cellulitis of left foot Disposition: HOME SELF-CARE Condition: Good Instructions (If sedation given, give patient instructions): Cellulitis (ED) Additional Instructions: Take medication as directed. Follow-up with primary care provider in one to 2 days. Return to the emergency department if you experience new, concerning, or worsening symptoms. Prescriptions: Sulfamethox-Tmp 800-160Mg [Bactrim Ds] 1 each PO Q12HR #14 tab Cephalexin [Keflex] 500 mg PO Q6HR #28 cap Is patient prescribed a controlled substance at d/c from ED?: No Referrals: Mike Castillo MD [Primary Care Provider] - 1-2 days
[2022-10-22 01:24] VITALS: BP 167/81; PULSE 61; RESP 18
== END 2022-10-22 01:24 | disposition home or self-care (01) ==
LOC: EC 22:29
DX: L03.116 Cellulitis of left lower limb (principal); I10 Essential (primary) hypertension; E11.40 Type 2 diabetes mellitus with diabetic neuropathy, unspecified; Z88.8 Allergy status to other drugs, medicaments and biological substances; Z79.4 Long term (current) use of insulin
CPT/HCPCS: 99283 ×2; 96372 ×2; J1170; 36415

== ENCOUNTER → 2022-11-02 | Outpatient (CLI) | payer MEDICARE ==
[2022-11-02 16:36] LABS: ALT 19 U/L (10-49); AST 11 U/L (14-35); African American GFR (CKD) 69.1 (60.0-200.0); Albumin 4.2 g/dL (3.8-4.9); Albumin/Globulin Ratio 1.45 (1.60-3.17); Alkaline Phosphatase 122 U/L (41-126); Calcium 10.4 mg/dL (8.7-10.3); Carbon Dioxide 22.6 mmol/L (20.0-27.5); Chloride 101 mmol/L (96-109); Globulin 2.9 g/dL (1.6-3.3); Glucose 261 mg/dL (70-110); Non-African American GFR(CKD) 59.6 (60.0-200.0); Potassium 5.3 mmol/L (3.5-5.5); Sodium 137 mmol/L (135-145); Total Protein 7.1 g/dL (6.2-8.2)
[2022-11-02 16:37] LABS: Chol/HDL Ratio 6.27 Ratio; LDL Cholesterol,Calculated 180.1 mg/dL (0.0-131.0)
[2022-11-02 16:48] LABS: HCT 48.8 % (39.6-50.0); HGB 15.6 g/dL (13.0-17.0); MCH 26.9 pg (27.0-32.0); MCV 84.3 fL (80.0-97.0); Mean Platelet Volume 9.8 fL (9.5-12.2); NRBC Per 100 WBC 0 /100 WBCS (0.0-0.0); Platelet Count 393 X 10*3/uL (140-440); RBC 5.79 X 10*6/uL (4.40-5.60); WBC 12.61 X 10*3/uL (4.50-10.00)
[2022-11-02 18:25] LABS: Urine Creatinine 53.1 mg/dL (39.0-259.0)
== END | disposition home or self-care (01) ==
LOC: LABWHC1 09:43
PROVIDERS: ATTEND Family Medicine
DX: I10 Essential (primary) hypertension (principal); E11.9 Type 2 diabetes mellitus without complications; N39.0 Urinary tract infection, site not specified; R97.20 Elevated prostate specific antigen [PSA]
CPT/HCPCS: 36415; 80053; 80061; 82043; 82570; 83036; 84153; 84403; 84443; 85027

== ENCOUNTER 2022-11-10 09:43 | Emergency (ER) | payer MEDICARE ==
[2022-11-10] MEDS ORDERED: MORPHINE SULFATE 4 MG/ML SYRINGE IVP STA (10:24)
[2022-11-10 10:49] LABS: Basophils # (A) 0.1 k/uL (0-0.2); Basophils % (A) 1 %; Eosinophils # (A) 0.9 k/uL (0-0.7); Eosinophils % (A) 8 %; HCT 50.3 % (39.0-53.0); HGB 16.7 gm/dL (13.0-17.5); Lymphocytes # (A) 2.7 k/uL (1.0-4.8); Lymphocytes % (A) 23 %; MCH 27.9 pg (25.0-35.0); MCHC 33.1 g/dL (31.0-37.0); MCV 84.1 fL (80.0-100.0); Monocytes # (A) 0.6 k/uL (0-1.0); Monocytes % (A) 5 %; Neutrophils # (A) 7.4 k/uL (1.3-7.7); Neutrophils % (A) 62 %; Platelet Count 324 k/uL (150-450); RBC 5.98 m/uL (4.30-5.90); RDW 13.7 % (11.5-15.5); WBC 11.8 k/uL (3.8-10.6)
--- NOTE | 2022-11-10 10:52 | ED ---
General Adult HPI - General Chief complaint: Extremity Injury, Lower Stated complaint: Left Foot Pain Time Seen by Provider: 11/10/22 10:12 Source: patient, RN notes reviewed Mode of arrival: wheelchair Limitations: no limitations, physical limitation - History of Present Illness Initial comments: 72-year-old male with significant past medical history of diabetes mellitus presents to the emergency department with right foot problem. He was seen recently at this facility on 10/22/2022 for pain. He was given antibiotics which he reports helped his symptoms. He denies any numbness, tingling, fever. He denies any recent trauma or injury to the area. - Related Data Home Medications Medication Instructions Recorded Confirmed Testosterone Cypionate 200 mg IM Q14D 06/08/19 11/07/20 [Depo-Testosterone] Insulin Regular, Human [NovoLIN R] 5 - 10 unit SQ AC-TID 05/25/20 11/07/20 oxyCODONE HCL [oxyCODONE HCL (IR)] 20 mg PO TID 05/25/20 11/07/20 Furosemide [Lasix] 40 mg PO DAILY 11/07/20 11/07/20 Memantine [Namenda] 5 mg PO BID 11/07/20 11/07/20 atenoloL [Tenormin] 50 mg PO BID 11/07/20 11/07/20 Previous Rx's Medication Instructions Recorded Ondansetron [Zofran ODT] 4 mg PO Q8HR PRN #10 tab 11/07/20 Cephalexin [Keflex] 500 mg PO Q6HR #28 cap 10/22/22 Sulfamethox-Tmp 800-160Mg [Bactrim 1 each PO Q12HR #14 tab 10/22/22 Ds] Allergies Allergy/AdvReac Type Severity Reaction Status Date / Time naproxen Allergy Swelling Verified 11/10/22 09:51 gabapentin AdvReac Confusion Verified 11/10/22 09:51 Review of Systems ROS Statement: Those systems with pertinent positive or pertinent negative responses have been documented in the HPI. ROS Other: All systems not noted in ROS Statement are negative. Past Medical History Past Medical History: Dementia, Diabetes Mellitus, Hyperlipidemia, Hypertension, Vascular Disorder Additional Past Medical History / Comment(s): IDDM type II, neuropathy bilateral feet, nonhealing ulcer L foot-seen in [place], gastritis, chrons, IBS, back pain, chronic left thigh/sciatica painpain. 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 Past Anesthesia/Blood Transfusion Reactions: No Reported Reaction Past Psychological History: No Psychological Hx Reported Smoking Status: Never smoker Past Alcohol Use History: Rare Past Drug Use History: None Reported - Past Family History Mother Family Medical History: Cancer Father Family Medical History: Cancer General Exam - General Exam Comments Initial Comments: General: Alert, in no acute distress Head: atraumatic normocephalic. Eyes PERRL, EOMI intact, mucous membranes moist Respiratory: Lungs clear to auscultation bilaterally Cardiovascular: Abdominal: Soft without guarding or rebound Extremities: Normal inspection with full range of motion and normal capillary refill, right foot with second digit amputation 2+ DT/PT pulses Neuroogic: alert and oriented 3, CN II-XII intact, able to ambulate with steady gait Skin: warm dry and intact with normal color Limitations: no limitations, physical limitation Course Vital Signs 11/10/22 11/10/22 09:47 11:53 Temperature 97.9 F 98.1 F Pulse Rate 67 63 Respiratory 18 16 Rate Blood Pressure 189/82 136/74 O2 Sat by Pulse 97 99 Oximetry Medical Decision Making - Medical Decision Making Was pt. sent in by a medical professional or institution (, PA, FILLING STATION LABORER, urgent care, hospital, or fpc...) When possible be specific @ -[No] Did you speak to anyone other than the patient for history (EMS, parent, family, police, friend...)? What history was obtained from this source @ -[No] Did you review nursing and triage notes (agree or disagree)? Why? @ -[I reviewed and agree with nursing and triage notes] Were old charts reviewed (outside hosp., previous admission, EMS record, old EKG, old radiological studies, urgent care reports/EKG's, fpc records)? Report findings @ -[No old charts were reviewed] Differential Diagnosis (chest pain, altered mental status, abdominal pain women, abdominal pain men, vaginal bleeding, weakness, fever, dyspnea, syncope, headache, dizziness, GI bleed, back pain, seizure, CVA, palpatations, mental health, musculoskeletal)? @ -[not applicable] EKG interpreted by me (3pts min.). @ -[As above] X-rays interpreted by me (1pt min.). @ - CT i x-rays negative for any evidence of acute fracture or osteomyelitis nterpreted by me (1pt min.). @ -[None done] U/S interpreted by me (1pt. min.). @ -[None done] What testing was considered but not performed or refused? (CT, X-rays, U/S, labs)? Why? @ -[None] What meds were considered but not given or refused? Why? @ -[None] Did you discuss the management of the patient with other professionals (professionals i.e. , PA, FILLING STATION LABORER, lab, RT, psych nurse, healthcare social worker, ems educator, teacher, staff readiness officer, pillowcase folder)? Give summary @ -[No] Was smoking cessation discussed for >3mins.? @ -[No] Was critical care preformed (if so, how long)? @ -[No] Were there social determinants of health that impacted care today? How? (Homelessness, low income, unemployed, alcoholism, drug addiction, transportation, low edu. Level, literacy, decrease access to med. care, prison, rehab)? @ -[No] Was there de-escalation of care discussed even if they declined (Discuss DNR or withdrawal of care, Hospice)? DNR status @ -[No] What co-morbidities impacted this encounter? (DM, HTN, Smoking, COPD, CAD, Cancer, CVA, ARF, Chemo, Hep., AIDS, mental health diagnosis, sleep apnea, morbid obesity)? @ -[None] Was patient admitted / discharged? Hospital course, mention meds given and route, prescriptions, significant lab abnormalities, going to OR and other pertinent info. @ --Discharged. This is a 72-year-old male who presents the emergency department with wound recheck. Patient had a thorough history and physical exam performed physical exam is essentially unremarkable. Heart rate regular rate and rhythm, lungs clear to auscultation bilaterally, abdomen soft and nontender. There are no focal (deficits noted. Patient had lab work and imaging performed which was negative. Patient was given morphine with sym ptomatic relief. I discussed the results in detail with the patient and patient's family who verbalized understanding and all questions were addressed. Patient was discharged in stable condition. She was encouraged to follow up with her PCP in 1-2 days. Return precautions were discussed at length. Case discussed with EDILMA Abarca who agrees with plan of care Undiagnosed new problem with uncertain prognosis? @ -[No] Drug Therapy requiring intensive monitoring for toxicity (Heparin, Nitro, Insulin, Cardizem)? @ -[No] Were any procedures done? @ -[No] Diagnosis/symptom? @ -Foot problem - wound recheck Acute, or Chronic, or Acute on Chronic? @ - acute Uncomplicated (without systemic symptoms) or Complicated (systemic symptoms)? @ -uncomplicated Side effects of treatment? @ -[No] Exacerbation, Progression, or Severe Exacerbation? @ -[No] Poses a threat to life or bodily function? How? (Chest pain, [place], [place], pneumonia, PE, COPD, DKA, ARF, appy, cholecystitis, CVA, Diverticulitis, Homicidal, Suicidal, threat to staff... and all critical care pts) @ -low likelihood - Lab Data Result diagrams: 11/10/22 10:31 11/10/22 10:31 Lab Results 11/10/22 11/10/22 Range/Units 10:31 10:31 WBC 11.8 H (3.8-10.6) k/uL RBC 5.98 H (4.30-5.90) m/uL Hgb 16.7 (13.0-17.5) gm/dL Hct 50.3 (39.0-53.0) % MCV 84.1 (80.0-100.0) fL MCH 27.9 (25.0-35.0) pg MCHC 33.1 (31.0-37.0) g/dL RDW 13.7 (11.5-15.5) % Plt Count 324 (150-450) k/uL MPV 7.0 Neutrophils % 62 % Lymphocytes % 23 % Monocytes % 5 % Eosinophils % 8 % Basophils % 1 % Neutrophils # 7.4 (1.3-7.7) k/uL Lymphocytes # 2.7 (1.0-4.8) k/uL Monocytes # 0.6 (0-1.0) k/uL Eosinophils # 0.9 H (0-0.7) k/uL Basophils # 0.1 (0-0.2) k/uL Sodium 135 L (137-145) mmol/L Potassium 5.2 H (3.5-5.1) mmol/L Chloride 104 (98-107) mmol/L Carbon Dioxide 19 L (22-30) mmol/L Anion Gap 12 mmol/L BUN 34 H (9-20) mg/dL Creatinine 1.31 H (0.66-1.25) mg/dL Est GFR (CKD-EPI)AfAm 62 (>60 ml/min/1.73 sqM) Est GFR (CKD-EPI)NonAf 54 (>60 ml/min/1.73 sqM) Glucose 238 H (74-99) mg/dL Calcium 10.1 (8.4-10.2) mg/dL Disposition Clinical Impression: Encounter for wound re-check, Diabetes mellitus Disposition: HOME SELF-CARE Condition: Stable Instructions (If sedation given, give patient instructions): Foot Care for People with Diabetes (ED) Additional Instructions: Is return to the nearest emergency department symptoms worsen or persist Is patient prescribed a controlled substance at d/c from ED?: No Referrals: None,Stated [Primary Care Provider] - 1-2 days Dorothy Razo MD [REFERRING] - 1-2 days Yadi Wilkinson DO [REFERRING] - 1-2 days Diallo Dixon MD [STAFF PHYSICIAN] - 1-2 days Time of Disposition: 11:52
[2022-11-10 11:09] LABS: Calcium 10.1 mg/dL (8.4-10.2)
--- NOTE | 2022-11-10 11:18 | XR ---
EXAMINATION TYPE: XR foot complete LT DATE OF EXAM: 11/10/2022 COMPARISON: None HISTORY: Left foot pain history of osteomyelitis TECHNIQUE: 3 view left foot FINDINGS: Some mild soft tissue swelling mainly over the dorsum of the foot. Structures are osteopeni c. Plantar calcaneal heel spur is present. There is amputation of the mid left second metatarsal and digit. There is degenerative joint changes of the proximal interphalangeal joint space of the first digit. Mild diffuse joint space degenerative changes are within the remaining digits. No suspicious cortical erosions suggest acute osteomyelitis is evident. Follow up exams can be performed as clinically indicated. IMPRESSION: 1. Postsurgical amputation second metatarsal. 2. No suspicious changes to suggest acute osteomyelitis on the current exam. 3. Mild soft tissue swelling distal dorsal foot
[2022-11-10 11:23] LABS: Potassium 5.2 mmol/L (3.5-5.1)
[2022-11-10 11:53] VITALS: BP 136/74; PULSE 63; RESP 16; TEMP 98.1
== END 2022-11-10 12:23 | disposition home or self-care (01) ==
LOC: EC 09:43
DX: Z48.00 Encounter for change or removal of nonsurgical wound dressing (principal); E11.40 Type 2 diabetes mellitus with diabetic neuropathy, unspecified; I10 Essential (primary) hypertension; F03.90 Unspecified dementia, unspecified severity, without behavioral disturbance, psychotic disturbance, mood disturbance, and anxiety; Z79.4 Long term (current) use of insulin; Z79.899 Other long term (current) drug therapy; Z88.8 Allergy status to other drugs, medicaments and biological substances
CPT/HCPCS: 36415; 80048; 85025; 73630; 99284; 96374; J2270

== ENCOUNTER 2023-01-21 09:32 | Day surgery (SDC) | payer MEDICARE ==
[~2023-01-21 09:32] MED LIST changes: -LACTATED RINGERS 1,000 ML IV SCH; +SODIUM CHLORIDE 0.9% 1,000 ML in EMPTY BAG 1 BAG IV ONE
[2023-01-21] MEDS ORDERED: SODIUM CHLORIDE 0.9% 1,000 ML IV ONE (09:55)
[2023-01-21 10:09] LABS: Glucose,Whole Blood 209 mg/dL (70-110)
[2023-01-21 10:12] LABS: Basophils % (A) 0 %; Eosinophils # (A) 0.7 k/uL (0-0.7); Eosinophils % (A) 5 %; HCT 42.8 % (39.0-53.0); HGB 13.9 gm/dL (13.0-17.5); Lymphocytes # (A) 2.6 k/uL (1.0-4.8); Lymphocytes % (A) 19 %; MCH 27.1 pg (25.0-35.0); MCHC 32.5 g/dL (31.0-37.0); MCV 83.5 fL (80.0-100.0); Mean Platelet Volume 7.3; Monocytes # (A) 0.9 k/uL (0-1.0); Monocytes % (A) 6 %; Neutrophils # (A) 9.7 k/uL (1.3-7.7); Neutrophils % (A) 68 %; Platelet Count 408 k/uL (150-450); RBC 5.12 m/uL (4.30-5.90); RDW 13.8 % (11.5-15.5); WBC 14.2 k/uL (3.8-10.6)
[2023-01-21 10:15] VITALS: TEMP 98.9
[2023-01-21 10:22] LABS: African American GFR (CKD) 71 (>60 ml/min/1.73 sqM); Anion Gap 13 mmol/L; Blood Urea Nitrogen 23 mg/dL (9-20); Calcium 9.7 mg/dL (8.4-10.2); Carbon Dioxide 23 mmol/L (22-30); Chloride 97 mmol/L (98-107); Glucose 233 mg/dL (74-99); Non-African American GFR(CKD) 61 (>60 ml/min/1.73 sqM); Potassium 4.2 mmol/L (3.5-5.1); Sodium 133 mmol/L (137-145)
[2023-01-21] MEDS ORDERED: INSULIN ASPART (NovoLOG) 100 UNIT/ML VIAL SQ ONE (10:43)
[2023-01-21] MEDS ORDERED: LIDOCAINE 1% INJ 10MG/ML (20 ML MDV) ONE (11:45)
[2023-01-21] MEDS ORDERED: fentaNYL (PF) 50 MCG/ML 2 ML AMP ONE (12:04)
[2023-01-21] MEDS ORDERED: LIDOCAINE 1% INJ 10MG/ML (20 ML MDV) SQ ONE (12:07)
[2023-01-21] MEDS ORDERED: fentaNYL (PF) 50 MCG/ML 2 ML AMP IV ONE (12:07)
[2023-01-21] MEDS ORDERED: MIDAZOLAM 2 MG/2 ML VIAL IV ONE (12:08)
[2023-01-21] MEDS ORDERED: VERAPAMIL 2.5 MG/ML 2 ML AMP ONE (12:12)
[2023-01-21] MEDS ORDERED: VERAPAMIL SYRINGE (5 MG/10 ML) INTRAARTER ONE (12:14)
[2023-01-21] MEDS ORDERED: IOPAMIDOL-250 100ML BTL INTRAARTER ONE (12:46)
--- NOTE | 2023-01-21 13:15 | P.OP ---
Date of Procedure: 01/21/23 Description of Procedure: Preoperative diagnosis: Macie 5 left lower extremity peripheral arterial disease, previous superficial femoral artery occlusive disease Postoperative diagnosis: Same Procedure: Ultrasound-guided left radial artery access with permanent image storage Aortogram Selective left lower extremity angiogram via the common femoral artery Moderate conscious sedation 42 minutes, personal monitoring of certified RN administration with hemodynamic monitoring. Surgeon: Lexii Mcdonald D.O. EBL: Less than 5 mL IV fluids: See records Urine output: Unmeasured Drains: None Complications: None immediately apparent Condition: Stable Operative indication and findings: Patient is a 72-year-old male in today for further evaluation of his left lower extremity peripheral vascular disease and wounds. Given previous imaging is decided to go forward with access from the left radial artery and decide whether if there is available access through the femoral versus attempts of repair from the radial artery. Risks and benefits were discussed. He seemingly understood and was willing to proceed. Procedure in detail: Patient was taken to the special suite and placed in supine position. The left radial artery and bilateral groins are prepped and draped in usual sterile fashion. A preprocedure timeout was performed, all parties are in agreement. Using ultrasound, the radial artery was identified. The skin overlying was anesthetized 1% lidocaine plain. Using ultrasound the artery was accessed with return of pulsatile blood. Seldinger technique was used to place a 5-[place] sheath. Catheters and wires and placed access the aorta. An aortogram was performed. Wires and catheters were then advanced into the level of the common femoral artery on the left and left lower extremity angiogram was performed. There appeared to be diffuse moderate stenosis of the proximal left superficial femoral artery. Vessels proximally appeared patent without significant disease. The vessel distally at the level of the abductor canal and distal were patent from previous interventions. The superficial femoral artery, popliteal were patent. There was no anterior tibial visualized. There is no posterior tibial vessel could visualize. The peroneal vessel is patent to the level of the mid calf without further visualized vessel. Given the patient's large pannus, inability to lay flat and previous difficult groin access, do believe he would better benefit from attempted radial intervention versus possible brachial. At this time we currently do not have the properly catheter. Discussion was had with the son who is in agreement. We'll plan to conclude the procedure at this point and come back for further intervention when able. Catheters and wires were then removed. Radial TR band was placed. Patient was transferred to recovery in stable condition having tolerated the procedure well. Plan - Discharge Summary Discharge Rx Participant: No New Discharge Prescriptions: No Action Testosterone Cypionate [Depo-Testosterone] 200 mg IM Q14D Insulin Regular, Human [NovoLIN R] 5 - 10 unit SQ AC-TID oxyCODONE HCL [oxyCODONE HCL (IR)] 20 mg PO TID Memantine [Namenda] 5 mg PO BID Rebelsus 3 mg PO DAILY Cyclobenzaprine [Flexeril] 10 mg PO DAILY atenoloL [Tenormin] 50 mg PO BID Furosemide [Lasix] 40 mg PO DAILY Cephalexin [Keflex] 500 mg PO Q6HR #28 cap Omeprazole 20 mg PO BID Lisinopril-Hctz 20-12.5 mg [Zestoretic 20-12.5] 1 tab PO DAILY PRN PRN Reason: elevated bp Ciprofloxacin HCl 500 mg PO DIRECTED Discharge Medication List Testosterone Cypionate [Depo-Testosterone] 200 mg IM Q14D 06/08/19 [History] Insulin Regular, Human [NovoLIN R] 5 - 10 unit SQ AC-TID 05/25/20 [History] oxyCODONE HCL [oxyCODONE HCL (IR)] 20 mg PO TID 05/25/20 [History] Furosemide [Lasix] 40 mg PO DAILY 11/07/20 [History] Memantine [Namenda] 5 mg PO BID 11/07/20 [History] atenoloL [Tenormin] 50 mg PO BID 11/07/20 [History] Cephalexin [Keflex] 500 mg PO Q6HR #28 cap 10/22/22 [Rx] Ciprofloxacin HCl 500 mg PO DIRECTED 01/19/23 [History] Cyclobenzaprine [Flexeril] 10 mg PO DAILY 01/19/23 [History] Lisinopril-Hctz 20-12.5 mg [Zestoretic 20-12.5] 1 tab PO DAILY PRN 01/19/23 [History] Omeprazole 20 mg PO BID 01/19/23 [History] Rebelsus 3 mg PO DAILY 01/19/23 [History] Follow up Appointment(s)/Referral(s): Lexii Mcdonald DO [STAFF PHYSICIAN] - 02/03/23 12:00 pm Patient Instructions/Handouts: Moderate Sedation (DC), Angiography (DC)
[2023-01-21 14:31] VITALS: RESP 16
[2023-01-21 16:10] VITALS: BP 155/70; PULSE 67
--- NOTE | 2023-01-25 08:31 | IR ---
EXAMINATION TYPE: IR angio abdominal w runoff DATE OF EXAM: 01/21/2023 COMPARISON: NONE HISTORY: Fluoroscopy time. Fluoroscopy was provided to the referring clinician.
== END 2023-01-21 16:07 | disposition home or self-care (01) ==
LOC: CATHCVL 09:32
PROVIDERS: ATTEND Surgery
DX: I70.213 Atherosclerosis of native arteries of extremities with intermittent claudication, bilateral legs (principal); I10 Essential (primary) hypertension; E78.5 Hyperlipidemia, unspecified; E11.9 Type 2 diabetes mellitus without complications; Z79.899 Other long term (current) drug therapy
CPT/HCPCS: 36247; 75625; 75710; 76937; 80048; 85025; C1769 ×6; C1894 ×2; C1887; J2250; J2001; J3010; Q9966

== ENCOUNTER 2023-02-15 12:12 | Inpatient (IN) | payer MEDICARE ==
--- NOTE | 2023-02-15 13:19 | XR ---
EXAMINATION TYPE: XR foot complete LT DATE OF EXAM: 02/15/2023 1:14 PM INDICATION: Patient age:Male; 72 years old; Reason for study: infection; [facility]. COMPARISON: 11/10/2022 TECHNIQUE: The left foot was examined in the AP, oblique, and lateral projections. FINDINGS/IMPRESSION: Soft tissue swelling throughout the foot. Calcaneal plantar spurring with calcification's. No evidenc e for osseous erosion suggest osteomyelitis. The second digit mid metatarsal amputation noted. No shirley dence of fracture. Calcifications in the posterior heel and expected locations of the Achilles tendon . These are unchanged from prior.
[2023-02-15 13:29] LABS: Basophils % (A) 0 %; Eosinophils # (A) 0.6 k/uL (0-0.7); Eosinophils % (A) 4 %; HCT 37.7 % (39.0-53.0); HGB 12.5 gm/dL (13.0-17.5); Lymphocytes # (A) 2.9 k/uL (1.0-4.8); Lymphocytes % (A) 20 %; MCH 27.9 pg (25.0-35.0); MCHC 33.2 g/dL (31.0-37.0); Mean Platelet Volume 7.7; Monocytes # (A) 1.2 k/uL (0-1.0); Monocytes % (A) 8 %; Neutrophils # (A) 9.7 k/uL (1.3-7.7); Neutrophils % (A) 66 %; Platelet Count 423 k/uL (150-450); RBC 4.49 m/uL (4.30-5.90); RDW 13.2 % (11.5-15.5); WBC 14.7 k/uL (3.8-10.6)
[2023-02-15 13:32] LABS: ALT 20 U/L (4-49); African American GFR (CKD) >90 (>60 ml/min/1.73 sqM); Anion Gap 10 mmol/L; Blood Urea Nitrogen 16 mg/dL (9-20); C Reactive Protein 6.5 mg/dL (<1.0); Calcium 9.6 mg/dL (8.4-10.2); Carbon Dioxide 22 mmol/L (22-30); Chloride 99 mmol/L (98-107); Glucose 199 mg/dL (74-99); Non-African American GFR(CKD) 86 (>60 ml/min/1.73 sqM); Sodium 131 mmol/L (137-145); Total Bilirubin 0.9 mg/dL (0.2-1.3)
[2023-02-15 13:38] LABS: AST 30 U/L (17-59); Albumin 3.5 g/dL (3.5-5.0); Alkaline Phosphatase 129 U/L (38-126); Potassium 5.1 mmol/L (3.5-5.1); Total Protein 7.4 g/dL (6.3-8.2)
--- NOTE | 2023-02-15 13:54 | ED ---
Skin/Abscess/FB HPI - General Chief complaint: Skin/Abscess/Foreign Body Stated complaint: Left foot infection Time Seen by Provider: 02/15/23 12:33 Source: patient, family, RN notes reviewed Mode of arrival: wheelchair Limitations: physical limitation - History of Present Illness Initial comments: 72-year-old male presents emergency department with family for evaluation of left foot infection. Patient has been dealing with her foot infection in which she was on antibiotics. He states antibiotics stopped in symptoms have worsened. He has worsening pain, erythema and gangrene. [facility] he is scheduled for stent of his left leg on Wednesday by Dr. Mcdonald. Noticed increasing weakness, noted have a fever. - Related Data Home Medications Medication Instructions Recorded Confirmed Testosterone Cypionate 200 mg IM Q14D 06/08/19 02/12/23 [Depo-Testosterone] Insulin Regular, Human [NovoLIN R] 5 - 10 unit SQ AC-TID 05/25/20 02/12/23 oxyCODONE HCL [oxyCODONE HCL (IR)] 20 mg PO TID 05/25/20 02/12/23 Furosemide [Lasix] 40 mg PO DAILY 11/07/20 02/12/23 Memantine [Namenda] 5 mg PO BID 11/07/20 02/12/23 atenoloL [Tenormin] 50 mg PO BID 11/07/20 02/12/23 Cyclobenzaprine [Flexeril] 10 mg PO DAILY 01/19/23 02/12/23 Lisinopril-Hctz 20-12.5 mg 1 tab PO DAILY PRN 01/19/23 02/12/23 [Zestoretic 20-12.5] Omeprazole 20 mg PO BID 01/19/23 02/12/23 Allergies Allergy/AdvReac Type Severity Reaction Status Date / Time naproxen Allergy Swelling Verified 02/15/23 12:28 gabapentin AdvReac Confusion Verified 02/15/23 12:28 Review of Systems ROS Statement: Those systems with pertinent positive or pertinent negative responses have been documented in the HPI. ROS Other: All systems not noted in ROS Statement are negative. Past Medical History Past Medical History: Dementia, Diabetes Mellitus, Hyperlipidemia, Hypertension, Vascular Disorder Additional Past Medical History / Comment(s): IDDM type II, neuropathy bilateral feet, nonhealing ulcer L foot-seen in [facility], gastritis, Crohns, IBS, back pain, chronic left thigh/sciatica pain. History of Any Multi-Drug Resistant Organisms: MRSA Date of last positivie culture/infection: 02/13/20 MDRO Source:: left foot wound Past Surgical History: Orthopedic Surgery Additional Past Surgical History / Comment(s): L 2nd toe amputation 06/2019 & debridement in 09/2019, L shoulder/collar bone crush injury with hardware, L knee surgery/hardware d/t injury, Left great toe debridement for wound, EGD, colonoscopies. Past Anesthesia/Blood Transfusion Reactions: No Reported Reaction Past Psychological History: No Psychological Hx Reported Smoking Status: Never smoker Past Alcohol Use History: Rare Past Drug Use History: None Reported - Past Family History Mother Family Medical History: Cancer Father Family Medical History: Cancer General Exam Limitations: no limitations General appearance: alert, in no apparent distress Head exam: Present: atraumatic, normocephalic, normal inspection Respiratory exam: Present: normal lung sounds bilaterally. Absent: respiratory distress, wheezes, rales, rhonchi, stridor Cardiovascular Exam: Present: regular rate, normal rhythm, normal heart sounds. Absent: systolic murmur, diastolic murmur, rubs, gallop, clicks Extremities exam: Present: other (Left foot there is ulceration, gangrenous changes of the distal portion digits with worsening proximal foot swelling and erythema) Course Vital Signs 02/15/23 12:22 Temperature 99.8 F H Pulse Rate 80 Respiratory 18 Rate Blood Pressure 133/78 O2 Sat by Pulse 96 Oximetry Medical Decision Making - Medical Decision Making Was pt. sent in by a medical professional or institution (, PA, SHEET METAL FABRICATOR, urgent care, hospital, or longterm...) When possible be specific @ -No Did you speak to anyone other than the patient for history (EMS, parent, family, police, friend...)? What history was obtained from this source @ -No Did you review nursing and triage notes (agree or disagree)? Why? @ -I reviewed and agree with nursing and triage notes Were old charts reviewed (outside hosp., previous admission, EMS record, old EKG , old radiological studies, urgent care reports/EKG's, longterm records)? Report findings @ -No old charts were reviewed Differential Diagnosis (chest pain, altered mental status, abdominal pain women, abdominal pain men, vaginal bleeding, weakness, fever, dyspnea, syncope, headache, dizziness, GI bleed, back pain, seizure, CVA, palpatations, mental health, musculoskeletal)? @ -Gangrene, diabetic infection, osteomyelitis EKG interpreted by me (3pts min.). @ -None X-rays interpreted by me (1pt min.). @ -X-ray shows no evidence of bony erosion of the foot CT interpreted by me (1pt min.). @ -None done U/S interpreted by me (1pt. min.). @ -None done What testing was considered but not performed or refused? (CT, X-rays, U/S, labs)? Why? @ -None What meds were considered but not given or refused? Why? @ -None Did you discuss the management of the patient with other professionals (pro fessionals i.e. , PA, SHEET METAL FABRICATOR, lab, RT, psych nurse, web content & social media manager, clinical research monitor, teacher, military police officer, porter sample case)? Give summary @ -[Dr. Pardo for admission given failure of outpatient treatment, worsen gangrene, diabetic infection with need for stent placement Was smoking cessation discussed for >3mins.? @ -No Was critical care preformed (if so, how long)? @ -No Were there social determinants of health that impacted care today? How? (Homelessness, low income, unemployed, alcoholism, drug addiction, transportation, low edu. Level, literacy, decrease access to med. care, shelter, rehab)? @ -No Was there de-escalation of care discussed even if they declined (Discuss DNR or withdrawal of care, Hospice)? DNR status @ -No What co-morbidities impacted this encounter? (DM, HTN, Smoking, COPD, CAD, Cancer, CVA, ARF, Chemo, Hep., AIDS, mental health diagnosis, sleep apnea, morbid obesity)? @ -Diabetes Was patient admitted / discharged? Hospital course, mention meds given and route, prescriptions, significant lab abnormalities, going to OR and other pertinent info. @ -Admitted patient has failure of outpatient treatment, worsening diabetic infection, gangrene with consult infectious disease and vascular surgery. Patient started on IV antibiotics. Undiagnosed new problem with uncertain prognosis? @ -No Drug Therapy requiring intensive monitoring for toxicity (Heparin, Nitro, Insulin, Cardizem)? @ -No Were any procedures done? @ -No Diagnosis/symptom? @ -Diabetic infection, gangrene Acute, or Chronic, or Acute on Chronic? @ -Acute Uncomplicated (without systemic symptoms) or Complicated (systemic symptoms)? @ -Complicated Side effects of treatment? @ -No Exacerbation, Progression, or Severe Exacerbation? @ -No Poses a threat to life or bodily function? How? (Chest pain, [place], [place], pneumonia, PE, COPD, DKA, ARF, appy, cholecystitis, CVA, Diverticulitis, Homicidal, Suicidal, threat to staff... and all critical care pts) @ -Yes patient at risk for sepsis - Lab Data Result diagrams: 02/15/23 12:50 02/15/23 12:50 Lab Results 02/15/23 02/15/23 02/15/23 Range/Units 12:50 12:50 12:50 WBC 14.7 H (3.8-10.6) k/uL RBC 4.49 (4.30-5.90) m/uL Hgb 12.5 L (13.0-17.5) gm/dL Hct 37.7 L (39.0-53.0) % MCV 84.0 (80.0-100.0) fL MCH 27.9 (25.0-35.0) pg MCHC 33.2 (31.0-37.0) g/dL RDW 13.2 (11.5-15.5) % Plt Count 423 (150-450) k/uL MPV 7.7 Neutrophils % 66 % Lymphocytes % 20 % Monocytes % 8 % Eosinophils % 4 % Basophils % 0 % Neutrophils # 9.7 H (1.3-7.7) k/uL Lymphocytes # 2.9 (1.0-4.8) k/uL Monocytes # 1.2 H (0-1.0) k/uL Eosinophils # 0.6 (0-0.7) k/uL Basophils # 0.0 (0-0.2) k/uL ESR 85 H (0-15) mm/hr Sodium 131 L (137-145) mmol/L Potassium 5.1 (3.5-5.1) mmol/L Chloride 99 (98-107) mmol/L Carbon Dioxide 22 (22-30) mmol/L Anion Gap 10 mmol/L BUN 16 (9-20) mg/dL Creatinine 0.86 (0.66-1.25) mg/dL Est GFR (CKD-EPI)AfAm >90 (>60 ml/min/1.73 sqM) Est GFR (CKD-EPI)NonAf 86 (>60 ml/min/1.73 sqM) Glucose 199 H (74-99) mg/dL Plasma Lactic Acid Vincent 1.6 (0.7-2.0) mmol/L Calcium 9.6 (8.4-10.2) mg/dL Total Bilirubin 0.9 (0.2-1.3) mg/dL AST 30 (17-59) U/L ALT 20 (4-49) U/L Alkaline Phosphatase 129 H (38-126) U/L C-Reactive Protein 6.5 H (<1.0) mg/dL Total Protein 7.4 (6.3-8.2) g/dL Albumin 3.5 (3.5-5.0) g/dL Disposition Clinical Impression: Diabetic foot infection, Gangrene Disposition: ADMITTED IP TO THIS HOSP Condition: Poor Referrals: Sal Ma [Primary Care Provider] - 1-2 days Time of Disposition: 14:09
[2023-02-15 14:27] LABS: Erythrocyte Sedimentation Rate 85 mm/hr (0-15)
[2023-02-15] MEDS ORDERED: VANCOMYCIN IV PER PHARMACY 1 EACH MISC MISCELLANE PRN (14:31)
[2023-02-15] MEDS ORDERED: NALOXONE 0.4 MG/ML 1 ML VIAL IV PRN (14:34)
[2023-02-15] MEDS ORDERED: ONDANSETRON 4 MG/2 ML VIAL IVP PRN (14:34)
[2023-02-15] MEDS ORDERED: ACETAMINOPHEN TAB 325 MG TAB PO PRN (14:34)
[2023-02-15] MEDS ORDERED: PIPERACILLIN-TAZOBACTAM 3.375 GM in SODIUM CHLORIDE 0.9% 100 ML IVPB STA (14:35)
[2023-02-15] MEDS ORDERED: LISINOPRIL-HCTZ 20-12.5 MG 1 EACH TAB PO PRN (14:35)
[2023-02-15] MEDS ORDERED: VANCOMYCIN 1,750 MG in SODIUM CHLORIDE 0.9% 500 ML 500 ML IVPB ONE (14:45)
--- NOTE | 2023-02-15 15:01 | P.HPIM ---
History of Present Illness 72-year-old male with a known diabetic foot infection and gangrene came in with complaints of increased pain and redness of the left lower extremity most of the toes are gangrenous, with wet gangrene. Patient discontinue his antibiotics 3 days ago after which she is symptoms started to get worse. Patient is scheduled to get amputation procedure in about a week vascular surgery. Patient is bit hyponatremic does take hydrochlorothiazide and lisinopril for blood pressure. Patient does have peripheral edema. REVIEW OF SYSTEMS: CONSTITUTIONAL: No fever, no malaise, no fatigue. HEENT: No recent visual problems or hearing problems. Denied any sore throat. CARDIOVASCULAR: No chest pain, orthopnea, PND, no palpitations, no syncope. PULMONARY: No shortness of breath, no cough, no hemoptysis. GASTROINTESTINAL: No diarrhea, no nausea, no vomiting, no abdominal pain. NEUROLOGICAL: No headaches, no weakness, no numbness. HEMATOLOGICAL: Denies any bleeding or petechiae. GENITOURINARY: Denies any burning micturition, frequency, or urgency. MUSCULOSKELETAL/RHEUMATOLOGICAL: As mentioned in HPI ENDOCRINE: Denies any polyuria or polydipsia. The rest of the 14-point review of systems is negative. PHYSICAL EXAMINATION: GENERAL: The patient is alert and oriented x3, not in any acute distress. Well developed, well nourished. HEENT: Pupils are round and equally reacting to light. EOMI. No scleral icterus. No conjunctival pallor. Normocephalic, atraumatic. No pharyngeal erythema. No thyromegaly. CARDIOVASCULAR: S1 and S2 present. No murmurs, rubs, or gallops. PULMONARY: Chest is clear to auscultation, no wheezing or crackles. ABDOMEN: Soft, nontender, nondistended, normoactive bowel sounds. No palpable organomegaly. MUSCULOSKELETAL: No joint swelling or deformity. EXTREMITIES: No cyanosis, clubbing, patient does have bilateral lower extremity edema might NEUROLOGICAL: Gross neurological examination did not reveal any focal deficits. SKIN: Gangrene of the left foot most of the toes, wet gangrene Assessment and plan -Wet gangrene, and diabetic foot infection: Patient will need amputation for now continue vancomycin and Zosyn were asked to surgery and infectious disease was consulted -Bilateral lower extremity edema secondary to venous stasis: IV Lasix -Hypervolemic hyponatremia expected to improve with IV Lasix and monitor basic metabolic profile -Hypertension -Gastroesophageal reflux disease -Type 2 diabetes mellitus patient will be resumed on home regimen along with sliding scale insulin DVT prophylaxis: Lovenox Past Medical History Past Medical History: Dementia, Diabetes Mellitus, Hyperlipidemia, Hypertension, Vascular Disorder Additional Past Medical History / Comment(s): IDDM type II, neuropathy bilateral feet, nonhealing ulcer L foot-seen in [facility], gastritis, Crohns, IBS, back pain, chronic left thigh/sciatica pain. History of Any Multi-Drug Resistant Organisms: MRSA Date of last positivie culture/infection: 02/13/20 MDRO Source:: left foot wound Past Surgical History: Orthopedic Surgery Additional Past Surgical History / Comment(s): L 2nd toe amputation 06/2019 & debridement in 09/2019, L shoulder/collar bone crush injury with hardware, L knee surgery/hardware d/t injury, Left great toe debridement for wound, EGD, colonoscopies. Past Anesthesia/Blood Transfusion Reactions: No Reported Reaction Past Psychological History: No Psychological Hx Reported Smoking Status: Never smoker Past Alcohol Use History: Rare Past Drug Use History: None Reported - Past Family History Mother Family Medical History: Cancer Father Family Medical History: Cancer Medications and Allergies Home Medications Medication Instructions Recorded Confirmed Type Testosterone Cypionate 200 mg IM Q14D 06/08/19 02/12/23 History [Depo-Testosterone] Insulin Regular, Human [NovoLIN R] 5 - 10 unit SQ AC-TID 05/25/20 02/12/23 Histo ry oxyCODONE HCL [oxyCODONE HCL (IR)] 20 mg PO TID 05/25/20 02/12/23 History Furosemide [Lasix] 40 mg PO DAILY 11/07/20 02/12/23 History Memantine [Namenda] 5 mg PO BID 11/07/20 02/12/23 History atenoloL [Tenormin] 50 mg PO BID 11/07/20 02/12/23 History Cyclobenzaprine [Flexeril] 10 mg PO DAILY 01/19/23 02/12/23 History Lisinopril-Hctz 20-12.5 mg 1 tab PO DAILY PRN 01/19/23 02/12/23 History [Zestoretic 20-12.5] Omeprazole 20 mg PO BID 01/19/23 02/12/23 History Allergies Allergy/AdvReac Type Severity Reaction Status Date / Time naproxen Allergy Swelling Verified 02/15/23 12:28 gabapentin AdvReac Confusion Verified 02/15/23 12:28 Physical Exam Vitals: Vital Signs Temp Pulse Resp BP Pulse Ox 02/15/23 12:22 99.8 F H 80 18 133/78 96 Intake and Output 02/15/23 02/15/23 02/15/23 06:59 14:59 22:59 Other: Weight 120.202 kg Results CBC & Chem 7: 02/15/23 12:50 02/15/23 12:50 Labs: Abnormal Lab Results - Last 24 Hours (Table) 02/15/23 02/15/23 Range/Units 12:50 12:50 WBC 14.7 H (3.8-10.6) k/uL Hgb 12.5 L (13.0-17.5) gm/dL Hct 37.7 L (39.0-53.0) % Neutrophils # 9.7 H (1.3-7.7) k/uL Monocytes # 1.2 H (0-1.0) k/uL ESR 85 H (0-15) mm/hr Sodium 131 L (137-145) mmol/L Glucose 199 H (74-99) mg/dL Alkaline Phosphatase 129 H (38-126) U/L C-Reactive Protein 6.5 H (<1.0) mg/dL
[2023-02-15] MEDS: FUROSEMIDE 10 MG/ML 2 ML VIAL IV SCH ×2 (15:26→21:08)
[2023-02-15] MEDS ORDERED: AMPICILLIN-SULBACTAM 3 GM in SODIUM CHLORIDE 0.9% 100 ML IVPB SCH (18:00)
[2023-02-15] MEDS: INSULIN ASPART (NovoLOG) 100 UNIT/ML VIAL SQ SCH ×2 (18:35→21:21)
[2023-02-15 20:32] LABS: Glucose,Whole Blood 236 mg/dL (70-110)
[2023-02-15] MEDS: atenoloL 50 MG TAB PO SCH (21:21)
--- NOTE | 2023-02-15 22:28 | P.CONS ---
History of Present Illness - Reason for Consult Consult date: 02/15/23 - History of Present Illness Patient is a 72-year-old male with a past medical history significant for diabetes mellitus hypertension hyperlipidemia history of peripheral arterial disease in this patient with recent intervention to the left lower extremity by Dr. Mcdonald patient has been brought into the hospital with increasing discoloration to the left foot lateral to area and increasing swelling and some foul-smelling drainage to the left big and second toe patient apparently has been on oral antibiotics in the outpatient setting however noticed to having increasing swelling and pain at to the left foot patient is currently the pain to be throbbing almost under 10 severity with no radiation symptom has been getting worse for the last few days been increasing discoloration erythema and some foul-smelling patient complaining of some chills and did have low-grade fever of 99.8 on presentation to the hospital patient was not tachycardic hypotensive or hypothermic he did have a total 14.7 with a left shift kidney function has been normal no enzymes are normal patient did have x-ray of the foot soft tissue swelling throughout the foot second digit mid metatarsal amputation noted no evidence of any fracture patient was started on vancomycin and Zosyn infectious disease was consulted for further management of antibiotic therapy Past Medical History Past Medical History: Dementia, Diabetes Mellitus, Hyperlipidemia, Hypertension, Vascular Disorder Additional Past Medical History / Comment(s): IDDM type II, neuropathy bilateral feet, nonhealing ulcer L foot-seen in [facility], gastritis, Crohns, IBS, back pain, chronic left thigh/sciatica pain. History of Any Multi-Drug Resistant Organisms: MRSA Year Discovered:: 02/13/20 MDRO Source:: left foot wound Past Surgical History: Orthopedic Surgery Additional Past Surgical History / Comment(s): L 2nd toe amputation 06/2019 & debridement in 09/2019, L shoulder/collar bone crush injury with hardware, L knee surgery/hardware d/t injury, Left great toe debridement for wound, EGD, colonoscopies. Past Anesthesia/Blood Transfusion Reactions: No Reported Reaction Past Psychological History: No Psychological Hx Reported Smoking Status: Never smoker Past Alcohol Use History: Rare Past Drug Use History: None Reported - Past Family History Mother Family Medical History: Cancer Father Family Medical History: Cancer Medications and Allergies Home Medications Medication Instructions Recorded Confirmed Type Insulin Regular, Human [NovoLIN R] See Protocol SQ TID-W/MEALS 05/25/20 02/15/23 History oxyCODONE HCL [oxyCODONE HCL (IR)] 20 mg PO TID 05/25/20 02/15/23 History Furosemide [Lasix] 20 mg PO DAILY 11/07/20 02/15/23 History Memantine [Namenda] 5 mg PO BID 11/07/20 02/15/23 History Lisinopril-Hctz 20-12.5 mg 1 tab PO DAILY PRN 01/19/23 02/15/23 History [Zestoretic 20-12.5] Omeprazole 20 mg PO BID 01/19/23 02/15/23 History Cyclobenzaprine [Flexeril] 5 mg PO HS 02/15/23 02/15/23 History Inulin/Chromium Picolinate [Fiber 1 tab PO DAILY 02/15/23 02/15/23 History Gummies Chew] Tamsulosin [Flomax] 0.4 mg PO DAILY 02/15/23 02/15/23 History amLODIPine [Norvasc] 10 mg PO DAILY 02/15/23 02/15/23 History metFORMIN HCL [metFORMIN HCL ER 1,000 mg PO DAILY 02/15/23 02/15/23 History Osmotic] Allergies Allergy/AdvReac Type Severity Reaction Status Date / Time naproxen Allergy Swelling Verified 02/15/23 15:31 gabapentin AdvReac Confusion Verified 02/15/23 15:31 Physical Exam Vitals: Vital Signs Temp Pulse Resp BP Pulse Ox 02/15/23 12:22 99.8 F H 80 18 133/78 96 Intake and Output 02/15/23 02/15/23 02/15/23 06:59 14:59 22:59 Other: Weight 120.202 kg Results CBC & Chem 7: 02/15/23 12:50 02/16/23 07:01 Labs: Abnormal Lab Results - Last 24 Hours (Table) 02/15/23 02/15/23 Range/Units 12:50 12:50 WBC 14.7 H (3.8-10.6) k/uL Hgb 12.5 L (13.0-17.5) gm/dL Hct 37.7 L (39.0-53.0) % Neutrophils # 9.7 H (1.3-7.7) k/uL Monocytes # 1.2 H (0-1.0) k/uL ESR 85 H (0-15) mm/hr Sodium 131 L (137-145) mmol/L Glucose 199 H (74-99) mg/dL Alkaline Phosphatase 129 H (38-126) U/L C-Reactive Protein 6.5 H (<1.0) mg/dL Assessment and Plan Plan: 1patient presented to hospital with extensive left diabetic foot infection in this patient with evidence of gangrene involving the fourth and fifth toe with significant swelling and erythema to the left big toe with some foul-smelling drainage failing outpatient oral antibiotic therapy we will need to cover for the polymicrobial kar usually associated with diabetic foot infection and the patient did have underlying peripheral arterial disease 2-patient to continue vancomycin however discontinue Zosyn to decrease ago nephrotoxicity 3-we will add Unasyn 3 g every 6 hours to cover for gram-negative and anaerobes 4-await vascular surgery evaluation for possible amputation versus debridement and deep culture We will follow on clinical condition and cultures to further adjust medication if needed Thank you for this consultation we will follow the patient along with you Dictation was produced using [employer] dictation software. please excuse any grammatical, word or spelling errors. Time with Patient: Greater than 30
[2023-02-16] MEDS ORDERED: PIPERACILLIN-TAZOBACTAM 3.375 GM in SODIUM CHLORIDE 0.9% 100 ML IVPB SCH ×2
[2023-02-16] MEDS: AMPICILLIN-SULBACTAM 3 GM in SODIUM CHLORIDE 0.9% 100 ML IVPB SCH ×4 (03:49→18:08)
[2023-02-16] MEDS ORDERED: VANCOMYCIN 1,750 MG in SODIUM CHLORIDE 0.9% 500 ML 500 ML IVPB SCH (05:00)
[2023-02-16 07:16] LABS: Glucose,Whole Blood 189 mg/dL (70-110)
[2023-02-16] MEDS: amLODIPine 10 MG TAB PO SCH (08:50)
[2023-02-16] MEDS: atenoloL 50 MG TAB PO SCH ×2 (08:50→20:33)
[2023-02-16] MEDS: lisinopriL 20 MG TAB PO SCH (08:50)
[2023-02-16] MEDS: INSULIN ASPART (NovoLOG) 100 UNIT/ML VIAL SQ SCH ×4 (08:50→20:38)
[2023-02-16] MEDS: FUROSEMIDE 10 MG/ML 2 ML VIAL IV SCH ×2 (08:51→20:33)
[2023-02-16] MEDS: TAMSULOSIN 0.4 MG CAP.ER.24H PO SCH (08:52)
[2023-02-16] MEDS: MEMANTINE 5 MG TAB PO SCH ×2 (08:52→20:33)
[2023-02-16] MEDS: ENOXAPARIN 40 MG/0.4 ML SYRINGE SQ SCH ×2 (08:52→14:03)
[2023-02-16] MEDS: PANTOPRAZOLE 40 MG TABLET PO SCH (08:52)
--- NOTE | 2023-02-16 09:30 | P.GSCN ---
History of Present Illness Consult date: 02/16/23 Reason for Consult: Diabetic infection, gangrene Requesting physician: Jatin Dolan History of present illness: This is a 72-year-old male with past medical history including diabetes mellitus, peripheral vascular disease with chronic wounds to the left foot, hyperlipidemia, and hypertension who presented to the emergency department with concerns of worsening pain in his left foot, redness and drainage. He denied any fevers or chills at home. He denies any shortness of breath, chest pain, abdominal pain, nausea or vomiting. On admission he was noted to have elevated white count, sed rate and CRP. He was started on vancomycin and Unasyn, with infectious disease following. He did have a low-grade fever of 99.8 on admission. Vascular surgery was consulted for diabetic infection and gangrene.The patient has had previous left second toe amputation in 2018, he recently underwent left lower extremity angiogram with Dr. Mcdonald on 01/21/2023 with SFA occlusive disease. He was scheduled for outpatient abdominal aortogram tomorrow with Dr. Mcdonald. X-ray of foot shows no evidence of osteomyelitis. Review of Systems A 14 point review systems was completed all pertinent positives and negatives as stated in the HPI. Past Medical History Past Medical History: Dementia, Diabetes Mellitus, Hyperlipidemia, Hypertension, Vascular Disorder Additional Past Medical History / Comment(s): IDDM type II, neuropathy bilateral feet, nonhealing ulcer L foot-seen in [facility], gastritis, Crohns, IBS, back pain, chronic left thigh/sciatica pain. History of Any Multi-Drug Resistant Organisms: MRSA Year Discovered:: 02/13/20 MDRO Source:: left foot wound Past Surgical History: Orthopedic Surgery Additional Past Surgical History / Comment(s): L 2nd toe amputation 06/2019 & debridement in 09/2019, L shoulder/collar bone crush injury with hardware, L knee surgery/hardware d/t injury, Left great toe debridement for wound, EGD, colonoscopies. Past Anesthesia/Blood Transfusion Reactions: No Reported Reaction Past Psychological History: No Psychological Hx Reported Smoking Status: Never smoker Past Alcohol Use History: Rare Past Drug Use History: None Reported - Past Family History Mother Family Medical History: Cancer Father Family Medical History: Cancer Medications and Allergies Home Medications Medication Instructions Recorded Confirmed Type Insulin Regular, Human [NovoLIN R] See Protocol SQ TID-W/MEALS 05/25/20 02/15/23 History oxyCODONE HCL [oxyCODONE HCL (IR)] 20 mg PO TID 05/25/20 02/15/23 History Furosemide [Lasix] 20 mg PO DAILY 11/07/20 02/15/23 History Memantine [Namenda] 5 mg PO BID 11/07/20 02/15/23 History Lisinopril-Hctz 20-12.5 mg 1 tab PO DAILY PRN 01/19/23 02/15/23 History [Zestoretic 20-12.5] Omeprazole 20 mg PO BID 01/19/23 02/15/23 History Cyclobenzaprine [Flexeril] 5 mg PO HS 02/15/23 02/15/23 History Inulin/Chromium Picolinate [Fiber 1 tab PO DAILY 02/15/23 02/15/23 History Gummies Chew] Tamsulosin [Flomax] 0.4 mg PO DAILY 02/15/23 02/15/23 History amLODIPine [Norvasc] 10 mg PO DAILY 02/15/23 02/15/23 History metFORMIN HCL [metFORMIN HCL ER 1,000 mg PO DAILY 02/15/23 02/15/23 History Osmotic] Allergies Allergy/AdvReac Type Severity Reaction Status Date / Time naproxen Allergy Swelling Verified 02/15/23 15:31 gabapentin AdvReac Confusion Verified 02/15/23 15:31 Surgical - Exam Vital Signs Temp Pulse Resp BP Pulse Ox 99.8 F H 80 18 133/78 96 02/15/23 12:22 02/15/23 12:22 02/15/23 12:22 02/15/23 12:22 02/15/23 12:22 General appearance: The patient is alert, oriented, appears in no acute distress. Obese. HET: Head is normocephalic and atraumatic. Pupils are equal and reactive. Neck: Supple. Heart: Regular. Lungs: Equal expansion, normal respiratory effort. Abdomen: Soft, nontender, nondistended. Extremities: Left foot withgood capillary refill. Left foot dorsal aspect with erythema, second toe previous amputation site with wound and drainage. Ischemic toes. Neurological: No focal deficits. Strength and sensation are grossly intact. Results - Labs 02/15/23 12:50 02/16/23 07:01 Abnormal Lab Results - Last 24 Hours (Table) 02/15/23 02/15/23 02/15/23 Range/Units 12:50 12:50 20:30 WBC 14.7 H (3.8-10.6) k/uL Hgb 12.5 L (13.0-17.5) gm/dL Hct 37.7 L (39.0-53.0) % Neutrophils # 9.7 H (1.3-7.7) k/uL Monocytes # 1.2 H (0-1.0) k/uL ESR 85 H (0-15) mm/hr Sodium 131 L (137-145) mmol/L Glucose 199 H (74-99) mg/dL POC Glucose (mg/dL) 236 H (70-110) mg/dL Alkaline Phosphatase 129 H (38-126) U/L C-Reactive Protein 6.5 H (<1.0) mg/dL 02/16/23 Range/Units 07:14 WBC (3.8-10.6) k/uL Hgb (13.0-17.5) gm/dL Hct (39.0-53.0) % Neutrophils # (1.3-7.7) k/uL Monocytes # (0-1.0) k/uL ESR (0-15) mm/hr Sodium (137-145) mmol/L Glucose (74-99) mg/dL POC Glucose (mg/dL) 189 H (70-110) mg/dL Alkaline Phosphatase (38-126) U/L C-Reactive Protein (<1.0) mg/dL Diabetes panel 02/15/23 Range/Units 12:50 Sodium 131 L (137-145) mmol/L Potassium 5.1 (3.5-5.1) mmol/L Chloride 99 (98-107) mmol/L Carbon Dioxide 22 (22-30) mmol/L BUN 16 (9-20) mg/dL Creatinine 0.86 (0.66-1.25) mg/dL Glucose 199 H (74-99) mg/dL Calcium 9.6 (8.4-10.2) mg/dL AST 30 (17-59) U/L ALT 20 (4-49) U/L Alkaline Phosphatase 129 H (38-126) U/L Total Protein 7.4 (6.3-8.2) g/dL Albumin 3.5 (3.5-5.0) g/dL Calcium panel 02/15/23 Range/Units 12:50 Calcium 9.6 (8.4-10.2) mg/dL Albumin 3.5 (3.5-5.0) g/dL Pituitary panel 02/15/23 Range/Units 12:50 Sodium 131 L (137-145) mmol/L Potassium 5.1 (3.5-5.1) mmol/L Chloride 99 (98-107) mmol/L Carbon Dioxide 22 (22-30) mmol/L BUN 16 (9-20) mg/dL Creatinine 0.86 (0.66-1.25) mg/dL Glucose 199 H (74-99) mg/dL Calcium 9.6 (8.4-10.2) mg/dL Adrenal panel 02/15/23 Range/Units 12:50 Sodium 131 L (137-145) mmol/L Potassium 5.1 (3.5-5.1) mmol/L Chloride 99 (98-107) mmol/L Carbon Dioxide 22 (22-30) mmol/L BUN 16 (9-20) mg/dL Creatinine 0.86 (0.66-1.25) mg/dL Glucose 199 H (74-99) mg/dL Calcium 9.6 (8.4-10.2) mg/dL Total Bilirubin 0.9 (0.2-1.3) mg/dL AST 30 (17-59) U/L ALT 20 (4-49) U/L Alkaline Phosphatase 129 H (38-126) U/L Total Protein 7.4 (6.3-8.2) g/dL Albumin 3.5 (3.5-5.0) g/dL Assessment and Plan Assessment: 1. Left foot chronic Diabetic wound with gangrene 2. Left foot with ischemic toes 3. Emmet 5 left lower extremity peripheral arterial disease 4. History of SFA occlusive disease 5. Insulin-dependent diabetes mellitus 6. Hyperlipidemia 7. Hypertension Plan: 1. Continue IV antibiotics as ordered by infectious disease 2. Patient is tentatively scheduled for abdominal aortogram tomorrow 3. Patient will need left TMA 4. Further recommendations forthcoming Thank you for this consultation, we will continue to follow. The impression and plan of care has been dictated as directed. I performed a history and examination of this patient, discussed the same with the dictator. I agree with the dictator's note ,documented as a scribe. Any additional findings or plans will be noted.
[2023-02-16 11:27] LABS: Blood Urea Nitrogen 13.8 mg/dL (9.0-27.0); Calcium 9.7 mg/dL (8.7-10.3); Chloride 98 mmol/L (96-109); Glucose 212 mg/dL (70-110); Magnesium 2.1 mg/dL (1.5-2.4); Potassium 4.9 mmol/L (3.5-5.5); Sodium 132 mmol/L (135-145)
[2023-02-16 13:01] LABS: Glucose,Whole Blood 175 mg/dL (70-110)
[2023-02-16 13:57] VITALS: BMI 35.9
[2023-02-16] MEDS ORDERED: HYDROmorphone 0.5 MG/0.5 ML SYRINGE IVP PRN (14:43)
--- NOTE | 2023-02-16 14:58 | P.PN ---
Subjective Progress Note Date: 02/16/23 Principal diagnosis: Left foot infection Patient is a 72-year-old male with a past medical history significant for diabetes mellitus hypertension hyperlipidemia history of peripheral arterial disease in this patient with recent intervention to the left lower extremity by Dr. Mcdonald patient has been brought into the hospital with increasing discoloration to the left foot lateral to area and increasing swelling and some foul-smelling drainage to the left big and second toe, On today's evaluation that is 02/16/2023, the patient is afebrile, the patient is still complaining of significant pain to the left foot and toes area patient denies having any chest pain shortness of breath or cough no abdominal pain or diarrhea Objective - Vital Signs Vital signs: Vital Signs Temp 98.6 F 02/16/23 11:29 Pulse 71 02/16/23 11:29 Resp 18 02/16/23 11:29 BP 145/76 02/16/23 11:29 Pulse Ox 96 02/16/23 11:29 FiO2 Intake & Output 02/15/23 02/16/23 02/16/23 18:59 06:59 18:59 Intake Total 520 Output Total 600 Balance -80 Weight 120.202 kg Intake: Oral 520 Output: Urine 600 Other: Voiding Method Urinal Urinal # Voids 1 - Exam GENERAL DESCRIPTION: An elderly male lying in bed in no distress RESPIRATORY SYSTEM: Unlabored breathing , decreased breath sounds at bases HEART: S1 S2 regular rate and rhythm , ABDOMEN: Soft , no tenderness EXTREMITIES: Necrotic changes to the left fourth and fifth toe with significant swelling or redness of the left foot - Labs CBC & Chem 7: 02/15/23 12:50 02/16/23 07:01 Labs: Abnormal Lab Results - Last 24 Hours (Table) 02/15/23 02/15/23 02/15/23 Range/Units 12:50 12:50 20:30 WBC 14.7 H (3.8-10.6) k/uL Hgb 12.5 L (13.0-17.5) gm/dL Hct 37.7 L (39.0-53.0) % Neutrophils # 9.7 H (1.3-7.7) k/uL Monocytes # 1.2 H (0-1.0) k/uL ESR 85 H (0-15) mm/hr Sodium 131 L (137-145) mmol/L Glucose 199 H (74-99) mg/dL POC Glucose (mg/dL) 236 H (70-110) mg/dL Alkaline Phosphatase 129 H (38-126) U/L C-Reactive Protein 6.5 H (<1.0) mg/dL 02/16/23 02/16/23 Range/Units 07:01 07:14 WBC (3.8-10.6) k/uL Hgb (13.0-17.5) gm/dL Hct (39.0-53.0) % Neutrophils # (1.3-7.7) k/uL Monocytes # (0-1.0) k/uL ESR (0-15) mm/hr Sodium 132 L (137-145) mmol/L Glucose 212 H (74-99) mg/dL POC Glucose (mg/dL) 189 H (70-110) mg/dL Alkaline Phosphatase (38-126) U/L C-Reactive Protein (<1.0) mg/dL Assessment and Plan (1) Diabetic foot infection Current Visit: Yes Status: Acute Code(s): E11.628 - TYPE 2 DIABETES MELLITUS WITH OTHER SKIN COMPLICATIONS; L08.9 - LOCAL INFECTION OF THE SKIN AND SUBCUTANEOUS TISSUE, UNSP SNOMED Code(s): 701956390 (2) Gangrene Current Visit: Yes Status: Acute Code(s): I96 - GANGRENE, NOT ELSEWHERE CLASSIFIED SNOMED Code(s): 968731041 Plan: 1patient presented to hospital with extensive left diabetic foot infection in this patient with evidence of gangrene involving the fourth and fifth toe with significant swelling and erythema to the left big toe with some foul-smelling drainage failing outpatient oral antibiotic therapy we will need to cover for the polymicrobial kar usually associated with diabetic foot infection and the patient did have underlying peripheral arterial disease 2-patient to continue vancomycin and Unasyn 3 g every 6 hours to cover for gram- negative and anaerobes 3-await vascular surgery evaluation for possible amputation versus debridement and deep culture son at the bedside questions concernwere answered Dictation was produced using [employer] dictation software. please excuse any grammatical, word or spelling errors. Time with Patient: Less than 30
[2023-02-16 17:41] LABS: Glucose,Whole Blood 189 mg/dL (70-110)
[2023-02-16 20:12] LABS: Glucose,Whole Blood 188 mg/dL (70-110)
[2023-02-16] MEDS: VANCOMYCIN 1,750 MG in SODIUM CHLORIDE 0.9% 500 ML 500 ML IVPB SCH (20:32)
[2023-02-16] MEDS ORDERED: CYCLOBENZAPRINE 5 MG TAB PO SCH (21:00)
[2023-02-17] MEDS: AMPICILLIN-SULBACTAM 3 GM in SODIUM CHLORIDE 0.9% 100 ML IVPB SCH ×4 (00:13→16:21)
--- NOTE | 2023-02-17 06:06 | P.PN ---
Subjective Progress Note Date: 02/16/23 72-year-old male with a known diabetic foot infection and gangrene came in with complaints of increased pain and redness of the left lower extremity most of the toes are gangrenous, with wet gangrene. Patient discontinue his antibiotics 3 days ago after which she is symptoms started to get worse. Patient is scheduled to get amputation procedure in about a week vascular surgery. Patient is bit hyponatremic does take hydrochlorothiazide and lisinopril for blood pressure. Patient does have peripheral edema. 02/16/2023 Patient is seen and evaluated in follow-up being followed by infectious disease along with vascular surgery. Patient maintained on antibiotics in the form of Unasyn and vancomycin and infectious disease recommending possible deep tissue and concerns of possibly requiring TMA. Patient was scheduled outpatient with vascular surgery for aortogram imaging and plan is for to proceed with this and also transmetatarsal amputation on the left foot. Patient is maintained on IV a ntibiotics and awaiting deep tissue cultures. Patient continues to report significant pain of the left foot will adjust pain medications. Patient is afebrile with no reported chest pain or shortness of breath. Patient is tolerating diet and will be nothing by mouth at midnight Review of systems: Constitutional: No reports of fatigue, fever, or chills Cardiovascular: No reports of chest pain or palpitations Respiratory: No reports of shortness of breath or cough GI: No reports of nausea, vomiting, or diarrhea : No reports of dysuria or retention Neurovascular: reports of generalized weakness and continued severe pain of the left foot All medications have been reviewed PHYSICAL EXAMINATION: GENERAL: The patient is alert and oriented x3. Well developed, well nourished. Obese HEENT: Pupils are round and equally reacting to light. EOMI. No scleral icterus. No conjunctival pallor. Normocephalic, atraumatic. No pharyngeal erythema. No thyromegaly. CARDIOVASCULAR: S1 and S2 present. No murmurs, rubs, or gallops. PULMONARY: Chest is clear to auscultation, no wheezing or crackles. ABDOMEN: Soft, nontender, nondistended, normoactive bowel sounds. No palpable organomegaly. MUSCULOSKELETAL: No joint swelling or deformity. EXTREMITIES: No cyanosis, clubbing, patient does have bilateral lower extremity edema, minimal NEUROLOGICAL: Gross neurological examination did not reveal any focal deficits. SKIN: Gangrene of the left foot most of the toes, wet gangrene with discolora tion Assessment: -Wet gangrene, and diabetic foot infection: Patient will need transmetatarsal amputation and plan is possibly for surgery next 1-2 days -Bilateral lower extremity edema secondary to venous stasis: Improving on IV Lasix -Hypervolemic hyponatremia expected to improve with IV Lasix -Hypertension -Gastroesophageal reflux disease -Type 2 diabetes mellitus -DVT prophylaxis: Lovenox -GI prophylaxis -Full code Plan: Recommend continue with antibiotics with ID following and awaiting for finalized cultures of possible deep tissue or amputation Vascular surgery following further testing that was scheduled outpatient be completed in a.m. with discussion of transmetatarsal amputation in the next day or so on the left foot Home medications reviewed and resumed as appropriate Recommend monitoring Accu-Cheks before meals and at bedtime and continuing with current regimen Patient with bilateral lower extremity edema we'll continue IV Lasix and awaiting follow-up labs to monitor kidney functions and electrolytes Recommend to replace electrolytes per protocol The impression and plan of care has been dictated by Angelica Peres, Nurse Practitioner as directed. Dr. Edvin MD I have performed a history and examination and MDM of this patient, discussed the same with the dictator, and agree with the dictator's assessment and plan as written ,documented as a scribe. Based on total visit time, I have performed more than 50% of the visit. Objective - Vital Signs Vital signs: Vital Signs Temp 99 F 02/16/23 07:53 Pulse 71 02/16/23 07:53 Resp 20 02/16/23 07:53 BP 169/77 02/16/23 07:53 Pulse Ox 97 02/16/23 07:53 FiO2 Intake & Output 02/15/23 02/16/23 02/16/23 18:59 06:59 18:59 Intake Total 520 Output Total 600 Balance -80 Weight 120.202 kg Intake: Oral 520 Output: Urine 600 Other: Voiding Method Urinal # Voids 1 - Labs CBC & Chem 7: 02/15/23 12:50 02/16/23 07:01 Labs: Abnormal Lab Results - Last 24 Hours (Table) 02/15/23 02/15/23 02/15/23 Range/Units 12:50 12:50 20:30 WBC 14.7 H (3.8-10.6) k/uL Hgb 12.5 L (13.0-17.5) gm/dL Hct 37.7 L (39.0-53.0) % Neutrophils # 9.7 H (1.3-7.7) k/uL Monocytes # 1.2 H (0-1.0) k/uL ESR 85 H (0-15) mm/hr Sodium 131 L (137-145) mmol/L Glucose 199 H (74-99) mg/dL POC Glucose (mg/dL) 236 H (70-110) mg/dL Alkaline Phosphatase 129 H (38-126) U/L C-Reactive Protein 6.5 H (<1.0) mg/dL 02/16/23 Range/Units 07:14 WBC (3.8-10.6) k/uL Hgb (13.0-17.5) gm/dL Hct (39.0-53.0) % Neutrophils # (1.3-7.7) k/uL Monocytes # (0-1.0) k/uL ESR (0-15) mm/hr Sodium (137-145) mmol/L Glucose (74-99) mg/dL POC Glucose (mg/dL) 189 H (70-110) mg/dL Alkaline Phosphatase (38-126) U/L C-Reactive Protein (<1.0) mg/dL
[2023-02-17 06:23] LABS: African American GFR (CKD) 82 (>60 ml/min/1.73 sqM); Anion Gap 9 mmol/L; Blood Urea Nitrogen 17 mg/dL (9-20); Calcium 9.1 mg/dL (8.4-10.2); Carbon Dioxide 24 mmol/L (22-30); Chloride 98 mmol/L (98-107); Glucose 178 mg/dL (74-99); Non-African American GFR(CKD) 71 (>60 ml/min/1.73 sqM); Potassium 4.2 mmol/L (3.5-5.1); Sodium 131 mmol/L (137-145)
[2023-02-17 07:17] LABS: Glucose,Whole Blood 185 mg/dL (70-110)
[2023-02-17] MEDS: amLODIPine 10 MG TAB PO SCH (08:57)
[2023-02-17] MEDS: lisinopriL 20 MG TAB PO SCH (08:57)
[2023-02-17] MEDS: PANTOPRAZOLE 40 MG TABLET PO SCH (08:57)
[2023-02-17] MEDS: MEMANTINE 5 MG TAB PO SCH ×2 (08:57→20:05)
[2023-02-17] MEDS: atenoloL 50 MG TAB PO SCH ×2 (08:57→20:05)
[2023-02-17] MEDS: TAMSULOSIN 0.4 MG CAP.ER.24H PO SCH (08:57)
[2023-02-17] MEDS: FUROSEMIDE 10 MG/ML 2 ML VIAL IV SCH (08:58)
[2023-02-17] MEDS: VANCOMYCIN 1,750 MG in SODIUM CHLORIDE 0.9% 500 ML 500 ML IVPB SCH (08:58)
[2023-02-17] MEDS: INSULIN ASPART (NovoLOG) 100 UNIT/ML VIAL SQ SCH ×4 (08:58→20:05)
[2023-02-17 09:21] LABS: Basophils # (A) 0.06 X 10*3/uL (0.00-0.10); Basophils % (A) 0.4 %; Eosinophils # (A) 0.65 X 10*3/uL (0.04-0.35); Eosinophils % (A) 4.8 %; HCT 35.9 % (39.6-50.0); HGB 11.3 d/dL (13.0-17.0); Lymphocytes # (A) 2.07 X 10*3/uL (0.90-5.00); Lymphocytes % (A) 15.2 %; MCH 26.7 pg (27.0-32.0); MCHC 31.5 d/dL (32.0-37.0); MCV 84.7 FL (80.0-97.0); Mean Platelet Volume 9.4 FL (9.5-12.2); Monocytes # (A) 1.36 X 10*3/uL (0.20-1.00); NRBC Per 100 WBC 0 X 10*3/uL (0.00-0.01); Neutrophils # (A) 9.36 X 10*3/uL (1.80-7.70); Neutrophils % (A) 68.5 %; Platelet Count 387 X 10*3/uL (140-440); RBC 4.24 X 10*6/uL (4.40-5.60); RDW 13.3 % (11.5-14.5); WBC 13.65 X 10*3/uL (4.50-10.00)
--- NOTE | 2023-02-17 11:02 | P.PN ---
Progress Note - Text Progress Note Date: 02/17/23 Patient is scheduled to undergo abdominal aortogram today with possible intervention. This was discussed with patient this would be done this afternoon. Also discussed with patient tentative plan is for transmetatarsal amputation of left foot tomorrow with Dr. Mcdonald. He is agreeable with plan. He is without any complaints at this time. He has been afebrile. He has been nothing by mouth. The impression and plan of care has been dictated as directed. Dr. Mcdonald I performed a history and examination of this patient, discussed the same with the dictator. I agree with the dictator's note ,documented as a scribe. Any additional findings or plans will be noted.
[2023-02-17] MEDS ORDERED: ACETAMINOPHEN IV (For NPO) 1,000 MG in EMPTY BAG 1 BAG IVPB SCH (12:00)
[2023-02-17 12:39] LABS: Glucose,Whole Blood 185 mg/dL (70-110)
[2023-02-17] MEDS ORDERED: VERAPAMIL 2.5 MG/ML 2 ML AMP ONE (13:05)
[2023-02-17] MEDS ORDERED: LIDOCAINE 1% INJ 10MG/ML (20 ML MDV) ONE (13:05)
[2023-02-17] MEDS ORDERED: fentaNYL (PF) 50 MCG/ML 2 ML AMP ONE (13:33)
[2023-02-17] MEDS ORDERED: MIDAZOLAM 2 MG/2 ML VIAL IVP ONE (13:39)
[2023-02-17] MEDS: fentaNYL (PF) 50 MCG/1 ML VIAL IVP ONE ×3 (13:39→14:39)
[2023-02-17] MEDS ORDERED: LIDOCAINE 1% INJ 10MG/ML (20 ML MDV) SQ ONE (13:40)
[2023-02-17] MEDS ORDERED: IV FLUID CONTINUATION 1,000 ML IV ONE (13:41)
[2023-02-17] MEDS ORDERED: HEPARIN SODIUM 1,000 UN/ML (10ML VL) IV ONE (14:19)
--- NOTE | 2023-02-17 15:28 | P.OP ---
Date of Procedure: 02/17/23 Description of Procedure: Preoperative diagnosis: [place] 5 peripheral arterial disease, superficial femoral artery occlusive disease, one-vessel runoff Postoperative diagnosis: Same Procedure: #1 ultrasound guided left radial artery access Number 2selective third order left lower extremity angiogram with catheter placement at the superficial femoral artery #3 percutaneous transluminal balloon angioplasty 5 x 100 of left superficial femoral artery #4 drug-coated balloon angioplasty of the superficial femoral artery 5 x 1 50, 5 x 1 20 balloons #5 moderate conscious sedation of 74 minutes with personal monitoring of certified RN administration with hemodynamic monitoring Surgeon: Lexii Mcdonald D.O. EBL: Less than 10 mL IV fluids: See records Urine output: Not measured Drains: None Complications: None immediately apparent Condition: Stable Operative indication and findings: Patient is a 72-year-old male with known previous angiogram with significant and diffuse high-grade stenosis of his left superficial femoral artery. He has one-vessel runoff via the peroneal artery. He has evidence of changes to his left lower extremity that will require amputation. He is here today for intervention. Risks and benefits were discussed. He seemingly understands and is willing to proceed. Procedure in detail: Patient was taken to the special suite and placed in supine position. The left upper extremity prepped and draped in usual sterile fashion. Appropriate procedure timeout performed, all parties were in agreement. Using, THE LEFT RADIAL ARTERY WAS IDENTIFIED. THE SKIN OVERLYING WAS ANESTHETIZED 1% LIDOCAINE PLAIN. MICRO-ACCESS NEEDLE WAS USED and under ultrasound guidance, the radial artery was accessed. Permanent images were stored. Seldinger technique was used to place a 6-[place] hydrophilic sheath. A verapamil infusion was instilled. Catheters and wires were then used to access the abdominal aorta and select into the left iliac system. Wire was then guided down to the left common femoral artery and exchanged for a stiff wire. The 6-[place] sheath was removed and a long 149 cm 6-[place] sheath was placed. After appropriate selection, the superficial femoral artery was accessed and the sheath was advanced A left lower extremity angiogram was performed again revealing the severe disease. The wire and long exchange catheter was then used to access and cross the lesion. A confirmatory angiogram via the distal superficial femoral artery was performed showing luminal gain. An 018 Glidewire was placed and balloon angioplasty was performed with a 5 x 100 balloon throughout the portions of the superficial femoral artery. The abdomen showed significant improvement with minor dissection at the distal superficial femoral artery without flow limitation. At that point attention was turned towards the drug-coated balloon. A 5 x 1 50 and 5 x 1 20 balloons were placed and insufflated for a long insufflation. At the conclusion of repeat imaging was performed showing significant improvement with no areas of obvious stenosis. Contrast flow was brisk through the vessel and down into the peroneal artery. At that point the catheters and wires were removed, the sheath was removed over the previously placed dilator. A TR band was placed on the rest for hemostasis. Patient tolerated the procedure well.
[2023-02-17] MEDS ORDERED: NALOXONE 0.4 MG/ML 1 ML VIAL IVP PRN (15:29)
[2023-02-17] MEDS: ACETAMINOPHEN IV (For NPO) 1,000 MG in EMPTY BAG 1 BAG IVPB SCH ×2 (16:04→21:53)
[2023-02-17 16:18] LABS: Glucose,Whole Blood 203 mg/dL (70-110)
[2023-02-17 19:50] LABS: Glucose,Whole Blood 188 mg/dL (70-110)
[2023-02-17] MEDS ORDERED: QUEtiapine 25 MG TAB PO SCH (21:00)
[2023-02-18] MEDS: AMPICILLIN-SULBACTAM 3 GM in SODIUM CHLORIDE 0.9% 100 ML IVPB SCH ×5 (00:13→22:58)
[2023-02-18] MEDS: VANCOMYCIN 1,750 MG in SODIUM CHLORIDE 0.9% 500 ML 500 ML IVPB SCH (01:25)
--- NOTE | 2023-02-18 05:29 | P.PN ---
Subjective Progress Note Date: 02/17/23 72-year-old male with a known diabetic foot infection and gangrene came in with complaints of increased pain and redness of the left lower extremity most of the toes are gangrenous, with wet gangrene. Patient discontinue his antibiotics 3 days ago after which she is symptoms started to get worse. Patient is scheduled to get amputation procedure in about a week vascular surgery. Patient is bit hyponatremic does take hydrochlorothiazide and lisinopril for blood pressure. Patient does have peripheral edema. 02/16/2023 Patient is seen and evaluated in follow-up being followed by infectious disease along with vascular surgery. Patient maintained on antibiotics in the form of Unasyn and vancomycin and infectious disease recommending possible deep tissue and concerns of possibly requiring TMA. Patient was scheduled outpatient with vascular surgery for aortogram imaging and plan is for to proceed with this and also transmetatarsal amputation on the left foot. Patient is maintained on IV a ntibiotics and awaiting deep tissue cultures. Patient continues to report significant pain of the left foot will adjust pain medications. Patient is afebrile with no reported chest pain or shortness of breath. Patient is tolerating diet and will be nothing by mouth at midnight Review of systems: Constitutional: No reports of fatigue, fever, or chills Cardiovascular: No reports of chest pain or palpitations Respiratory: No reports of shortness of breath or cough GI: No reports of nausea, vomiting, or diarrhea : No reports of dysuria or retention Neurovascular: reports of generalized weakness and continued severe pain of the left foot All medications have been reviewed PHYSICAL EXAMINATION: GENERAL: The patient is alert and oriented x3. Well developed, well nourished. Obese HEENT: Pupils are round and equally reacting to light. EOMI. No scleral icterus. No conjunctival pallor. Normocephalic, atraumatic. No pharyngeal erythema. No thyromegaly. CARDIOVASCULAR: S1 and S2 present. No murmurs, rubs, or gallops. PULMONARY: Chest is clear to auscultation, no wheezing or crackles. ABDOMEN: Soft, nontender, nondistended, normoactive bowel sounds. No palpable organomegaly. MUSCULOSKELETAL: No joint swelling or deformity. EXTREMITIES: No cyanosis, clubbing, patient does have bilateral lower extremity edema, minimal NEUROLOGICAL: Gross neurological examination did not reveal any focal deficits. SKIN: Gangrene of the left foot most of the toes, wet gangrene with discolora tion Assessment: -Wet gangrene, and diabetic foot infection: Patient will need transmetatarsal amputation and plan is possibly for surgery next 1-2 days -Bilateral lower extremity edema secondary to venous stasis: Improved on IV Lasix -Increased confusion, likely secondary to medication effect -Hypervolemic hyponatremia improving -Hypertension -Gastroesophageal reflux disease -Type 2 diabetes mellitus -DVT prophylaxis: Lovenox -GI prophylaxis -Full code Plan: Patient will continue with antibiotics with ID following and awaiting for finalized cultures of possible deep tissue or amputation Vascular surgery following further testing that was scheduled outpatient be completed this afternoon and possible with discussion of transmetatarsal amputation in the next day or so on the left foot Home medications reviewed and resumed as appropriate will hold oxy IR for analysis patient is having increased confusion, multifactorial with possible component of hospital-acquired delirium Continue monitoring Accu-Cheks before meals and at bedtime and continuing with current regimen Patient with bilateral lower extremity edema that is improving we'll transition to oral Lasix Repeat lab ordered for a.m. Will consult PT/OT therapy for evaluation, patient may likely need ECF The impression and plan of care has been dictated by Angelica Peres, Nurse Practitioner as directed. Dr. Edvin MD I have performed a history and examination and MDM of this patient, discussed the same with the dictator, and agree with the dictator's assessment and plan as written ,documented as a scribe. Based on total visit time, I have performed more than 50% of the visit. Objective - Vital Signs Vital signs: Vital Signs Temp 98.5 F 02/17/23 07:33 Pulse 72 02/17/23 07:33 Resp 20 02/17/23 07:33 BP 152/75 02/17/23 07:33 Pulse Ox 97 02/17/23 07:33 FiO2 Intake & Output 02/16/23 02/17/23 02/17/23 18:59 06:59 18:59 Intake Total 340 Output Total 350 Balance -10 Weight 120.202 kg Intake: Oral 340 Output: Urine 350 Other: Voiding Method Urinal Urinal # Voids 1 1 - Labs CBC & Chem 7: 02/17/23 05:58 02/17/23 05:58 Labs: Abnormal Lab Results - Last 24 Hours (Table) 02/16/23 02/16/23 02/16/23 Range/Units 07:01 13:00 17:39 Sodium 132 L (135-145) mmol/L Glucose 212 H (70-110) mg/dL POC Glucose (mg/dL) 175 H 189 H (70-110) mg/dL 02/16/23 02/17/23 02/17/23 Range/Units 20:11 05:58 07:15 Sodium 131 L (135-145) mmol/L Glucose 178 H (70-110) mg/dL POC Glucose (mg/dL) 188 H 185 H (70-110) mg/dL Microbiology - Last 24 Hours (Table) 02/15/23 12:45 Blood Culture - Preliminary Blood 02/15/23 13:00 Blood Culture - Preliminary Blood
[2023-02-18 05:56] LABS: Glucose,Whole Blood 156 mg/dL (70-110)
[2023-02-18] MEDS: ACETAMINOPHEN IV (For NPO) 1,000 MG in EMPTY BAG 1 BAG IVPB SCH ×2 (05:56→10:59)
[2023-02-18] MEDS: PANTOPRAZOLE 40 MG TABLET PO SCH (06:20)
[2023-02-18] MEDS: INSULIN ASPART (NovoLOG) 100 UNIT/ML VIAL SQ SCH ×4 (06:58→21:50)
[2023-02-18] MEDS ORDERED: VANCOMYCIN TROUGH DUE 1 EACH MISC MISCELLANE ONE (08:00)
[2023-02-18] MEDS: ENOXAPARIN 40 MG/0.4 ML SYRINGE SQ SCH (08:23)
[2023-02-18] MEDS: FUROSEMIDE 20 MG TAB PO SCH (08:38)
[2023-02-18] MEDS: MEMANTINE 5 MG TAB PO SCH ×2 (08:38→21:50)
[2023-02-18] MEDS: amLODIPine 10 MG TAB PO SCH (08:38)
[2023-02-18] MEDS: atenoloL 50 MG TAB PO SCH ×2 (08:38→21:50)
[2023-02-18] MEDS: TAMSULOSIN 0.4 MG CAP.ER.24H PO SCH (08:38)
[2023-02-18] MEDS: lisinopriL 20 MG TAB PO SCH (08:38)
[2023-02-18 09:15] LABS: Basophils % (A) 0 %; Eosinophils # (A) 0.8 k/uL (0-0.7); Eosinophils % (A) 6 %; HCT 33.5 % (39.0-53.0); HGB 10.9 gm/dL (13.0-17.5); Lymphocytes # (A) 2.3 k/uL (1.0-4.8); Lymphocytes % (A) 16 %; MCH 27.2 pg (25.0-35.0); MCHC 32.6 g/dL (31.0-37.0); MCV 83.4 fL (80.0-100.0); Mean Platelet Volume 7.2; Monocytes # (A) 0.9 k/uL (0-1.0); Monocytes % (A) 6 %; Neutrophils # (A) 9.8 k/uL (1.3-7.7); Neutrophils % (A) 70 %; Platelet Count 328 k/uL (150-450); RBC 4.01 m/uL (4.30-5.90); RDW 13.2 % (11.5-15.5); WBC 14.1 k/uL (3.8-10.6)
[2023-02-18 10:04] LABS: African American GFR (CKD) >90 (>60 ml/min/1.73 sqM); Anion Gap 9 mmol/L; Blood Urea Nitrogen 13 mg/dL (9-20); Calcium 9.2 mg/dL (8.4-10.2); Carbon Dioxide 22 mmol/L (22-30); Chloride 104 mmol/L (98-107); Glucose 154 mg/dL (74-99); Non-African American GFR(CKD) >90 (>60 ml/min/1.73 sqM); Potassium 4.2 mmol/L (3.5-5.1); Sodium 135 mmol/L (137-145)
[2023-02-18 11:35] LABS: Glucose,Whole Blood 151 mg/dL (70-110)
[2023-02-18] MEDS: VANCOMYCIN 1,500 MG in SODIUM CHLORIDE 0.9% 500 ML 500 ML IVPB SCH (13:32)
[2023-02-18] MEDS ORDERED: QUEtiapine 25 MG TAB PO PRN (13:40)
[2023-02-18] MEDS ORDERED: VANCOMYCIN 1,750 MG in SODIUM CHLORIDE 0.9% 500 ML 500 ML IVPB SCH (14:00)
[2023-02-18 14:30] LABS: Glucose,Whole Blood 143 mg/dL (70-110)
[2023-02-18] MEDS ORDERED: LACTATED RINGERS 1,000 ML IV ONE (14:30)
[2023-02-18] MEDS ORDERED: ONDANSETRON 4 MG/2 ML VIAL IVP ONE (14:34)
--- NOTE | 2023-02-18 15:46 | P.ANPRN ---
Procedure Note - Anesthesia - Nerve Block Performed Left Other (see comment) Single Time Out Performed: Yes (ankle block) Date of Procedure: 02/18/23 Location of Patient: PreOp Indication: Analgesia, Dx/Pain Location (Left ankle for intraoperative use), Requested by Surgeon Specifically requested for management of pain by DrHesham: Lexii Mcdonald Preparation: Sterile Prep Position: Supine Needle Types: Other (see comment) (23G needle) Ultrasound used to visualize needle placement: No Ultrasound used to observe medication spread: No Injectate: 0.5% Ropivacaine (see comment for volume) (15 mL +15 mL of normal saline) Blood Aspirated: No Pain Paresthesia on Injection Noted: No Resistance on Injection: Normal Events: Uneventful and Well Tolerated
[2023-02-18] MEDS ORDERED: fentaNYL (PF) 50 MCG/ML 2 ML AMP ONE (16:00)
[2023-02-18] MEDS ORDERED: SODIUM CHLORIDE 0.9% (PF) 10 ML VIAL ONE (16:00)
[2023-02-18] MEDS ORDERED: GLYCOPYRROLATE 0.2 MG/ML 2 ML VIAL ONE (16:00)
[2023-02-18] MEDS ORDERED: ROPIVACAINE 5 MG/ML 30 ML VIAL ONE (16:00)
[2023-02-18] MEDS ORDERED: MIDAZOLAM 2 MG/2 ML VIAL ONE (16:00)
[2023-02-18] MEDS ORDERED: KETAMINE 10 MG/ML 20 ML VIAL ONE (16:00)
[2023-02-18] MEDS ORDERED: PROPOFOL 10 MG/ML 20 ML VIAL IV ONE (16:00)
[2023-02-18] MEDS ORDERED: HYDROmorphone (PF) 1 MG/ML ONE (16:00)
[2023-02-18] MEDS ORDERED: IV FLUID CONTINUATION 1,000 ML IV ONE (16:03)
[2023-02-18 17:27] VITALS: RESP 18
[2023-02-18] MEDS ORDERED: HYDROmorphone 0.5 MG/0.5 ML SYRINGE IVP ONE (17:34)
[2023-02-18] MEDS ORDERED: MORPHINE SULFATE 2 MG/ML SYRINGE IVP PRN (17:55)
--- NOTE | 2023-02-18 17:55 | P.OP ---
Date of Procedure: 02/18/23 Description of Procedure: DATE OF SERVICE: 02/18/2023 SURGEON: Lexii Mcdonald DO PREOPERATIVE DIAGNOSIS: Gangrene left forefoot, peripheral arterial disease, recent revascularization POSTOPERATIVE DIAGNOSIS: Same OPERATION: Left transmetatarsal amputation Initiation of negative pressure wound VAC therapy ANESTHESIA: Regional block with sedation ESTIMATED BLOOD LOSS: 75 mL SPECIMENS REMOVED: forefoot COMPLICATIONS: None DESCRIPTION OF PROCEDURE: This patient is a 72 with history of peripheral vascular disease. There is pain and cyanotic changes in the foot and at this time is recommended to undergo transmetatarsal amputation. Risks and benefits were discussed including but not limited to bleeding, infection and poor wound healing. They seemingly understands and is willing to proceed. The patient was brought to the operating room under local IV sedation and previous block was performed. An incision at the mid foot was performed and plantar flap and subsequently deepened through the skin, fat, and tendons. Tendons were divided prior to plantar and dorsal aspect of the forefoot. The bone saw was used to transect the metatarsals. Electro cautery was used to remove the plantar portion of the tissues. Hemostasis was achieved with electrocautery. The rasp was utilized to remove sharp edges from the bone. The wound was irrigated. The flap was then reapproximated with interrupted sutures of 3-0 Vicryl in the subcutaneous space and skin with 3-0 nylon interrupted aretha ress suture. On the lateral portion of the wound due to the amount of gangrenous tissue, it was unable to be fully reapproximated therefore a wound VAC was placed. The resultant wound needing back measured 5.7 x 4 x 1 cm to the level of bone. Dressing applied. The patient tolerated the procedure well.
[2023-02-18 18:04] LABS: Glucose,Whole Blood 166 mg/dL (70-110)
[2023-02-18 18:48] LABS: Glucose,Whole Blood 181 mg/dL (70-110)
[2023-02-18 19:53] LABS: Glucose,Whole Blood 235 mg/dL (70-110)
[2023-02-18] MEDS: HYDROcodone/APAP 5-325MG 1 EACH TAB PO PRN (21:50)
[2023-02-19] MEDS: VANCOMYCIN 1,500 MG in SODIUM CHLORIDE 0.9% 500 ML 500 ML IVPB SCH (01:14)
[2023-02-19] MEDS: HYDROcodone/APAP 5-325MG 1 EACH TAB PO PRN ×3 (03:54→12:02)
[2023-02-19] MEDS: AMPICILLIN-SULBACTAM 3 GM in SODIUM CHLORIDE 0.9% 100 ML IVPB SCH ×2 (04:23→08:08)
--- NOTE | 2023-02-19 05:51 | P.PN ---
Subjective Progress Note Date: 02/18/23 72-year-old male with a known diabetic foot infection and gangrene came in with complaints of increased pain and redness of the left lower extremity most of the toes are gangrenous, with wet gangrene. Patient discontinue his antibiotics 3 days ago after which she is symptoms started to get worse. Patient is scheduled to get amputation procedure in about a week vascular surgery. Patient is bit hyponatremic does take hydrochlorothiazide and lisinopril for blood pressure. Patient does have peripheral edema. 02/17/2023 Patient is seen and evaluated in follow-up being followed by infectious disease along with vascular surgery. Patient maintained on antibiotics in the form of Unasyn and vancomycin and infectious disease recommending possible deep tissue and concerns of possibly requiring TMA. Patient was scheduled outpatient with vascular surgery for aortogram imaging and plan is for to proceed with this and also transmetatarsal amputation on the left foot. Patient is maintained on IV a ntibiotics and awaiting deep tissue cultures. Patient continues to report significant pain of the left foot will adjust pain medications. Patient is afebrile with no reported chest pain or shortness of breath. Patient is tolerating diet and will be nothing by mouth at midnight 02/18/2023 Patient is seen and evaluated in follow-up on the selective unit as he is post aortogram with Dr. Mcdonald and plans for left foot transmetatarsal amputation today. Patient is currently nothing by mouth maintained on IV antibiotics and preliminary culture showing gram-negative. Infectious disease is following and will continue current regimen of antibiotics while awaiting for deep tissue cultures. Will await surgical report with vascular surgery. Patient had some increased confusion yesterday and recommend holding OxyContin and will continue with Tylenol for now. Patient with increasing confusion at night and have added Seroquel and per nursing staff was effective will continue Seroquel at night as needed for now. Review of systems: Constitutional: No reports of fatigue, fever, or chills Cardiovascular: No reports of chest pain or palpitations Respiratory: No reports of shortness of breath or cough GI: No reports of nausea, vomiting, or diarrhea : No reports of dysuria or retention Neurovascular: reports of generalized weakness and continued severe pain of the left foot All medications have been reviewed PHYSICAL EXAMINATION: GENERAL: The patient is alert and oriented x3. Well developed, well nourished. Obese HEENT: Pupils are round and equally reacting to light. EOMI. No scleral icterus. No conjunctival pallor. Normocephalic, atraumatic. No pharyngeal erythema. No thyromegaly. CARDIOVASCULAR: S1 and S2 present. No murmurs, rubs, or gallops. PULMONARY: Chest is clear to auscultation, no wheezing or crackles. ABDOMEN: Soft, nontender, nondistended, normoactive bowel sounds. No palpable organomegaly. MUSCULOSKELETAL: No joint swelling or deformity. EXTREMITIES: No cyanosis, clubbing, patient does have bilateral lower extremity edema, minimal NEUROLOGICAL: Gross neurological examination did not reveal any focal deficits. SKIN: Gangrene of the left foot most of the toes, wet gangrene with discoloration Assessment: -Wet gangrene, and diabetic foot infection: Patient will need transmetatarsal amputation and plan is possibly for surgery next 1-2 days -Bilateral lower extremity edema secondary to venous stasis: Improved on IV Lasix -Increased confusion, likely secondary to medication effect, OxyContin Flexeril discontinued, mentation improved -Hypervolemic hyponatremia improving -Hypertension -Gastroesophageal reflux disease -Type 2 diabetes mellitus -DVT prophylaxis: Lovenox -GI prophylaxis -Full code Plan: Patient will continue with antibiotics with ID following and awaiting for finalized cultures of possible deep tissue or amputation Vascular surgery following an scheduled for transmetatarsal amputation this afternoon. Patient currently nothing by mouth Will continue to hold OxyContin and Flexeril as patient was confused although mentation appears improved today. We'll continue Seroquel as needed at night Continue monitoring Accu-Cheks before meals and at bedtime and continuing with current regimen Patient with bilateral lower extremity edema that has improved will continue oral Lasix Repeat lab ordered for a.m. Will consult PT/OT therapy for evaluation, patient may likely need ECF. son is his caregiver and patient's family hesitant on going to ECF. Will await surgical report and discuss further with family along with case management and discharge planning. The impression and plan of care has been dictated by Angelica Peres, Nurse Practitioner as directed. Dr. Edvin MD I have performed a history and examination and MDM of this patient, discussed the same with the dictator, and agree with the dictator's assessment and plan as written ,documented as a scribe. Based on total visit time, I have performed more than 50% of the visit. Objective - Vital Signs Vital signs: Vital Signs Temp 97.6 F 02/18/23 08:37 Pulse 83 02/18/23 08:37 Resp 18 02/18/23 08:37 BP 182/78 02/18/23 08:37 Pulse Ox 98 02/18/23 08:37 FiO2 Intake & Output 02/17/23 02/18/23 02/18/23 18:59 06:59 18:59 Intake Total 540 Output Total 1600 Balance 540 -1600 Intake: Oral 540 Output: Urine 1600 Other: Voiding Method Urinal External Catheter External Catheter # Voids 1 - Labs CBC & Chem 7: 02/18/23 08:41 02/18/23 08:41 Labs: Abnormal Lab Results - Last 24 Hours (Table) 02/17/23 02/17/23 02/17/23 Range/Units 11:39 12:38 16:16 WBC (3.8-10.6) k/uL RBC (4.30-5.90) m/uL Hgb (13.0-17.5) gm/dL Hct (39.0-53.0) % Neutrophils # (1.3-7.7) k/uL Eosinophils # (0-0.7) k/uL POC Glucose (mg/dL) 185 H 203 H (70-110) mg/dL Vancomycin Trough 39.6 H* ug/mL 02/17/23 02/18/23 02/18/23 Range/Units 19:48 05:55 08:41 WBC 14.1 H (3.8-10.6) k/uL RBC 4.01 L (4.30-5.90) m/uL Hgb 10.9 L (13.0-17.5) gm/dL Hct 33.5 L (39.0-53.0) % Neutrophils # 9.8 H (1.3-7.7) k/uL Eosinophils # 0.8 H (0-0.7) k/uL POC Glucose (mg/dL) 188 H 156 H (70-110) mg/dL Vancomycin Trough ug/mL Microbiology - Last 24 Hours (Table) 02/15/23 12:45 Blood Culture Gram Stain - Final Blood Blood Culture - Final Coagulase Negative Staph 02/16/23 15:20 Gram Stain - Preliminary Foot - Left Wound Culture - Preliminary Gram Neg Bacilli 02/15/23 13:00 Blood Culture - Preliminary Blood
[2023-02-19 06:04] LABS: Glucose,Whole Blood 145 mg/dL (70-110)
[2023-02-19] MEDS: INSULIN ASPART (NovoLOG) 100 UNIT/ML VIAL SQ SCH ×2 (06:06→12:02)
[2023-02-19 06:35] LABS: African American GFR (CKD) >90 (>60 ml/min/1.73 sqM); Anion Gap 9 mmol/L; Blood Urea Nitrogen 10 mg/dL (9-20); Calcium 8.7 mg/dL (8.4-10.2); Carbon Dioxide 25 mmol/L (22-30); Chloride 103 mmol/L (98-107); Glucose 146 mg/dL (74-99); Magnesium 1.8 mg/dL (1.6-2.3); Non-African American GFR(CKD) 88 (>60 ml/min/1.73 sqM); Potassium 3.7 mmol/L (3.5-5.1); Sodium 137 mmol/L (137-145)
[2023-02-19] MEDS: PANTOPRAZOLE 40 MG TABLET PO SCH (06:37)
[2023-02-19 06:48] LABS: Basophils % (A) 0 %; Eosinophils # (A) 0.7 k/uL (0-0.7); Eosinophils % (A) 7 %; HCT 30.2 % (39.0-53.0); HGB 10.1 gm/dL (13.0-17.5); Lymphocytes % (A) 17 %; MCH 27.5 pg (25.0-35.0); MCHC 33.3 g/dL (31.0-37.0); MCV 82.6 fL (80.0-100.0); Mean Platelet Volume 7.1; Monocytes # (A) 0.9 k/uL (0-1.0); Monocytes % (A) 8 %; Neutrophils # (A) 7.6 k/uL (1.3-7.7); Neutrophils % (A) 67 %; Platelet Count 319 k/uL (150-450); RBC 3.66 m/uL (4.30-5.90); RDW 13.2 % (11.5-15.5); WBC 11.3 k/uL (3.8-10.6)
[2023-02-19] MEDS: lisinopriL 20 MG TAB PO SCH (08:08)
[2023-02-19] MEDS: FUROSEMIDE 20 MG TAB PO SCH (08:08)
[2023-02-19] MEDS: TAMSULOSIN 0.4 MG CAP.ER.24H PO SCH (08:09)
[2023-02-19] MEDS: ENOXAPARIN 40 MG/0.4 ML SYRINGE SQ SCH (08:09)
[2023-02-19] MEDS: MEMANTINE 5 MG TAB PO SCH (08:09)
[2023-02-19] MEDS: amLODIPine 10 MG TAB PO SCH (08:09)
[2023-02-19] MEDS: atenoloL 50 MG TAB PO SCH (08:09)
[2023-02-19] MEDS ORDERED: SULFAMETHOX-TMP 800-160MG 1 EACH TAB PO SCH (10:15)
[2023-02-19 11:32] LABS: Glucose,Whole Blood 195 mg/dL (70-110)
--- NOTE | 2023-02-19 12:09 | P.PN ---
Subjective Progress Note Date: 02/19/23 Patient is seen and examined today in for follow-up. Yesterday he underwent a left transmetatarsal amputation. He is postop day #1. He is without any complaints at this time. Pain is well managed. He has been afebrile. Wound VAC is in place with good suction with serous drainage. He denies any pain of his left leg, no fevers, chills, bodyaches, nausea or vomiting. Currently on vancomycin and Unasyn. Wound culture finalized showing as Stenotrophomonas maltophilia. Patient also worked with physical therapy today and they recommend patient can go home with home care and family support. Objective - Vital Signs Vital signs: Vital Signs Temp 97.8 F 02/19/23 03:53 Pulse 74 02/19/23 03:53 Resp 18 02/19/23 03:53 BP 153/65 02/19/23 03:53 Pulse Ox 95 02/19/23 03:53 FiO2 Intake & Output 02/18/23 02/19/23 02/19/23 18:59 06:59 18:59 Intake Total 1300 Output Total 1975 400 Balance -675 -400 Intake: IV 1300 Output: Urine 1900 400 Estimated Blood Loss 75 Other: Voiding Method External Catheter External Catheter - Exam General appearance: The patient is alert, oriented, appears in no acute distress. HET: Head is normocephalic and atraumatic. Pupils are equal and reactive. Neck: Supple. Heart: Regular. Lungs: Equal expansion, normal respiratory effort. Abdomen: Soft, nontender, nondistended. Extremities: Left TMA with wound VAC in place with good suction and serous drainage. Mild erythema noted on dorsal aspect of foot. PT and DP signal present. Neurological: No focal deficits. Alert and oriented. - Labs CBC & Chem 7: 02/19/23 05:50 02/19/23 05:50 Labs: Abnormal Lab Results - Last 24 Hours (Table) 02/18/23 02/18/23 02/18/23 Range/Units 08:41 08:41 11:32 WBC 14.1 H (3.8-10.6) k/uL RBC 4.01 L (4.30-5.90) m/uL Hgb 10.9 L (13.0-17.5) gm/dL Hct 33.5 L (39.0-53.0) % Neutrophils # 9.8 H (1.3-7.7) k/uL Eosinophils # 0.8 H (0-0.7) k/uL Sodium 135 L (137-145) mmol/L Glucose 154 H (74-99) mg/dL POC Glucose (mg/dL) 151 H (70-110) mg/dL 02/18/23 02/18/23 02/18/23 Range/Units 14:29 18:03 18:46 WBC (3.8-10.6) k/uL RBC (4.30-5.90) m/uL Hgb (13.0-17.5) gm/dL Hct (39.0-53.0) % Neutrophils # (1.3-7.7) k/uL Eosinophils # (0-0.7) k/uL Sodium (137-145) mmol/L Glucose (74-99) mg/dL POC Glucose (mg/dL) 143 H 166 H 181 H (70-110) mg/dL 02/18/23 02/19/23 02/19/23 Range/Units 19:51 05:50 05:50 WBC 11.3 H (3.8-10.6) k/uL RBC 3.66 L (4.30-5.90) m/uL Hgb 10.1 L (13.0-17.5) gm/dL Hct 30.2 L (39.0-53.0) % Neutrophils # (1.3-7.7) k/uL Eosinophils # (0-0.7) k/uL Sodium (137-145) mmol/L Glucose 146 H (74-99) mg/dL POC Glucose (mg/dL) 235 H (70-110) mg/dL 02/19/23 Range/Units 05:58 WBC (3.8-10.6) k/uL RBC (4.30-5.90) m/uL Hgb (13.0-17.5) gm/dL Hct (39.0-53.0) % Neutrophils # (1.3-7.7) k/uL Eosinophils # (0-0.7) k/uL Sodium (137-145) mmol/L Glucose (74-99) mg/dL POC Glucose (mg/dL) 145 H (70-110) mg/dL Microbiology - Last 24 Hours (Table) 02/16/23 15:20 Gram Stain - Final Foot - Left Wound Culture - Final Stenotrophomonas maltophilia 02/15/23 13:00 Blood Culture - Preliminary Blood 02/15/23 12:45 Blood Culture Gram Stain - Final Blood Blood Culture - Final Coagulase Negative Staph Assessment and Plan Assessment: 1. Left foot chronic Diabetic wound with gangrene, postop day #1 for left transmetatarsal amputation with wound VAC application 2. Macie 5 left lower extremity peripheral arterial disease status post revascularization 3. History of SFA occlusive disease 4. Insulin-dependent diabetes mellitus 5. Hyperlipidemia 6. Hypertension Plan: 1. Non weight bearing left foot 2. Await recommendations from infectious disease if antibiotic therapy as needed for discharge 3. Change wound VAC Wednesday. 4. Patient is cleared from vascular surgery for discharge once otherwise medically stable 5. Recommend follow-up with wound care Thank you for this consultation. The impression and plan of care has been dictated as directed. I performed a history and examination of this patient, discussed the same with the dictator. I agree with the dictator's note ,documented as a scribe. Any additional findings or plans will be noted.
[2023-02-19] MEDS ORDERED: VANCOMYCIN TROUGH DUE 1 EACH MISC MISCELLANE ONE (13:00)
--- NOTE | 2023-02-19 13:35 | IR ---
EXAMINATION TYPE: IR [employer] femoral popliteal DATE OF EXAM: 02/17/2023 CLINICAL HISTORY: Left foot ulcer/pain, 14.4 minutes, 20.3 DAP Gycm2. Total air Kerma 78.2 mGy. TECHNIQUE: Fluoroscopy. COMPARISON: 10/13/2019. Fluoroscopy was provided to the referring clinician.
[2023-02-19 13:51] LABS: African American GFR (CKD) >90 (>60 ml/min/1.73 sqM); Non-African American GFR(CKD) >90 (>60 ml/min/1.73 sqM)
[2023-02-19 15:36] VITALS: BP 165/76; PULSE 74; TEMP 98.4
--- NOTE | 2023-02-19 21:12 | P.DS ---
Providers Date of admission: 02/15/23 14:39 Expected date of discharge: 02/19/23 Attending physician: Alexander Pardo Consults: 02/15/23 14:04 Consult Physician Routine Consulting Provider: Brent Murguia Consult Reason/Comments: Diabetic infection, gangrene Do you want consulting provider notified?: Yes Consult Physician Urgent Consulting Provider: Lexii Mcdonald Consult Reason/Comments: Diabetic infection, gangrene, established patient Do you want consulting provider notified?: Yes Primary care physician: Sal Ma Hospital Course: Final diagnosis -Wet gangrene, and diabetic foot infection: Status post transmetatarsal amputation left with cultures growing stenotrophomonas maltophilia -Bilateral lower extremity edema secondary to venous stasis: Improved -Increased confusion, likely secondary to medication effect, OxyContin Flexeril discontinued, mentation improved -Hypervolemic hyponatremia improving -Hypertension -Gastroesophageal reflux disease -Type 2 diabetes mellitus -DVT prophylaxis -GI prophylaxis -Full code Discharge disposition Patient is being discharged in a stable condition with guarded prognosis to . Patient will follow-up with Dr. Ma in the outpatient setting upon discharge. Patient is to continue with oral Bactrim twice daily for 1 week per ID recommendations and close outpatient follow-up with wound care center, home c are, and vascular surgery. Total time taken is greater than 35 minutes. Hospital course This is a 72-year-old male who was recently admitted with left diabetic foot infection with wet gangrene status post transmetatarsal amputation with vascular surgery. Patient also with cultures positive and infectious disease following will be continued on Bactrim twice daily for the next one week. Patient with wound VAC and will continue with wound care and Homecare in the outpatient setting. Patient reports to feeling improved mentation is improved would recommend discontinuing OxyContin and follow-up with primary care provider. Please refer to other consultation notes for further HPI. Currently no reports of chest pain, shortness of breath, or palpitations. Patient is afebrile. No reports of nausea or vomiting and patient is tolerating diet. Patient will be discharged home today. Physical exam: Gen: This is a 72-year-old male who is awake, alert and oriented 2-3, elderly- appearing, well-developed, well-nourished, obese HEENT: Head is atraumatic, normocephalic. Pupils equal, round. Sclerae is anicteric. NECK: Supple. No JVD. No lymphadenopathy. No thyromegaly. LUNGS: Clear to auscultation. No wheezes or rhonchi. No intercostal retractions. HEART: Regular rate and rhythm. No murmur. ABDOMEN: Soft. Obese. Bowel sounds are present. No masses. No tenderness. EXTREMITIES: No pedal edema. No calf tenderness. Left lower extremity with wound VAC applied and good seal noted NEUROLOGICAL: Patient is awake, alert and oriented x2-3. Cranial nerves 2 through 12 are grossly intact. Please refer to medication reconciliation sheet for a list of medications. The impression and plan of care has been dictated by Angelica Peres, Nurse Practitioner as directed. Dr. Edvin MD I have performed a history and examination and MDM of this patient, discussed the same with the dictator, and agree with the dictator's assessment and plan as written ,documented as a scribe. Based on total visit time, I have performed more than 50% of the visit. Patient Condition at Discharge: Fair Plan - Discharge Summary New Discharge Prescriptions: New atenoloL [Tenormin] 50 mg PO BID #60 tab Acetaminophen Tab [Tylenol] 650 mg PO Q6HR PRN tab PRN Reason: Mild Pain Or Fever > 100.5 lisinopriL [Zestril] 20 mg PO DAILY #30 tab HYDROcodone/APAP 5-325MG [Newton 5-325] 1 each PO Q4HR PRN #6 tab PRN Reason: Pain Sulfamethox-Tmp 800-160Mg [Bactrim DS 800-160 mg] 1 tab PO Q12HR 7 Days #14 tab Continue Insulin Regular, Human [NovoLIN R] See Protocol SQ TID-W/MEALS Memantine [Namenda] 5 mg PO BID metFORMIN HCL [metFORMIN HCL ER Osmotic] 1,000 mg PO DAILY amLODIPine [Norvasc] 10 mg PO DAILY Inulin/Chromium Picolinate [Fiber Gummies Chew] 1 tab PO DAILY Furosemide [Lasix] 20 mg PO DAILY Omeprazole 20 mg PO BID Tamsulosin [Flomax] 0.4 mg PO DAILY Discontinued oxyCODONE HCL [oxyCODONE HCL (IR)] 20 mg PO TID Cyclobenzaprine [Flexeril] 5 mg PO HS Lisinopril-Hctz 20-12.5 mg [Zestoretic 20-12.5] 1 tab PO DAILY PRN PRN Reason: BLOOD PRESSURE >160 Discharge Medication List Insulin Regular, Human [NovoLIN R] See Protocol SQ TID-W/MEALS 05/25/20 [History] Furosemide [Lasix] 20 mg PO DAILY 11/07/20 [History] Memantine [Namenda] 5 mg PO BID 11/07/20 [History] Omeprazole 20 mg PO BID 01/19/23 [History] Inulin/Chromium Picolinate [Fiber Gummies Chew] 1 tab PO DAILY 02/15/23 [History] Tamsulosin [Flomax] 0.4 mg PO DAILY 02/15/23 [History] amLODIPine [Norvasc] 10 mg PO DAILY 02/15/23 [History] metFORMIN HCL [metFORMIN HCL ER Osmotic] 1,000 mg PO DAILY 02/15/23 [History] Acetaminophen Tab [Tylenol] 650 mg PO Q6HR PRN tab 02/19/23 [Rx] HYDROcodone/APAP 5-325MG [Newton 5-325] 1 each PO Q4HR PRN #6 tab 02/19/23 [Rx] Sulfamethox-Tmp 800-160Mg [Bactrim DS 800-160 mg] 1 tab PO Q12HR 7 Days #14 tab 02/19/23 [Rx] atenoloL [Tenormin] 50 mg PO BID #60 tab 02/19/23 [Rx] lisinopriL [Zestril] 20 mg PO DAILY #30 tab 02/19/23 [Rx] Follow up Appointment(s)/Referral(s): Lexii Mcdonald DO [STAFF PHYSICIAN] - 10 Days (OFFICE CLOSED AT THIS TIME PLEASE CALL TO MAKE YOUR APPOINTMENT) [facility], [NON-STAFF] - 1 Week W[facility] [NON-STAFF] - 1 Week Sal Ma [Primary Care Provider] - 1-2 days (OFFICE CLOSED AT THIS TIME PLEASE CALL TO MAKE YOUR APPOINTMENT) Activity/Diet/Wound Care/Special Instructions: - Wound Vac - [phone] - call if you have questions regarding your wound vac. Change wound VAC dressing Mondays, Wednesdays and Fridays Follow-up with infectious disease and vascular surgery outpatient Follow-up with primary care provider on discharge Continue with home care and local wound care Continue with oral antibiotics per infectious disease recommendations until finished Discharge Disposition: HOME WITH HOME HEALTH SERVICES
== END 2023-02-19 17:25 | disposition home health service (06) | DRG 617 ==
LOC: EC 12:12 → SUPCPDRO 12:12 → 5NMEDONC 14:39 → 3SCARD 02-17 14:53
PROVIDERS: ADMIT Internal Medicine; ATTEND Internal Medicine
PROC: 047L3ZZ Dilation of Left Femoral Artery, Percutaneous Approach (ICD-10-PCS; 2023-02-17)
PROC: B41G1ZZ Fluoroscopy of Left Lower Extremity Arteries using Low Osmolar Contrast (ICD-10-PCS; 2023-02-17)
PROC: B44LZZ3 Ultrasonography of Femoral Artery, Intravascular (ICD-10-PCS; 2023-02-17)
PROC: 047L3Z1 Dilation of Left Femoral Artery using Drug-Coated Balloon, Percutaneous Approach (ICD-10-PCS; principal; 2023-02-17 13:00)
PROC: 0Y6N0Z9 Detachment at Left Foot, Partial 1st Ray, Open Approach (ICD-10-PCS; 2023-02-18)
PROC: 0Y6N0ZB Detachment at Left Foot, Partial 2nd Ray, Open Approach (ICD-10-PCS; 2023-02-18)
PROC: 0Y6N0ZC Detachment at Left Foot, Partial 3rd Ray, Open Approach (ICD-10-PCS; 2023-02-18)
PROC: 0Y6N0ZD Detachment at Left Foot, Partial 4th Ray, Open Approach (ICD-10-PCS; 2023-02-18)
PROC: 0Y6N0ZF Detachment at Left Foot, Partial 5th Ray, Open Approach (ICD-10-PCS; 2023-02-18)
DX: E11.628 Type 2 diabetes mellitus with other skin complications (principal); E11.52 Type 2 diabetes mellitus with diabetic peripheral angiopathy with gangrene; E87.1 Hypo-osmolality and hyponatremia; I96 Gangrene, not elsewhere classified; K50.90 Crohn's disease, unspecified, without complications; B96.89 Other specified bacterial agents as the cause of diseases classified elsewhere; E11.69 Type 2 diabetes mellitus with other specified complication; F03.90 Unspecified dementia, unspecified severity, without behavioral disturbance, psychotic disturbance, mood disturbance, and anxiety; E78.5 Hyperlipidemia, unspecified; L08.89 Other specified local infections of the skin and subcutaneous tissue; G89.29 Other chronic pain; I10 Essential (primary) hypertension; Z89.422 Acquired absence of other left toe(s); E87.70 Fluid overload, unspecified; M54.50 Low back pain, unspecified; K21.9 Gastro-esophageal reflux disease without esophagitis; I87.8 Other specified disorders of veins; Z88.5 Allergy status to narcotic agent; Z88.8 Allergy status to other drugs, medicaments and biological substances; Z79.4 Long term (current) use of insulin; Z79.899 Other long term (current) drug therapy; Z86.14 Personal history of Methicillin resistant Staphylococcus aureus infection; Z79.84 Long term (current) use of oral hypoglycemic drugs
CPT/HCPCS: 36415; 37224; 64450; 80048; 80053; 80202; 82565; 83605; 83735; 85025; 85652; 86140; 87040; 87070; 87075; 87077; 87186; 87205; 96365; 96366; 96368; 96375; 99285

== ENCOUNTER 2023-04-29 07:54 | Day surgery (SDC) | payer MEDICARE ==
[2023-04-23 11:19] VITALS: BMI 36.6
[~2023-04-29 07:54] MED LIST changes: -SODIUM CHLORIDE 0.9% 1,000 ML in EMPTY BAG 1 BAG IV ONE; +ceFAZolin 3 GM in SODIUM CHLORIDE 0.9% 100 ML IVPB PRN
[2023-04-29] MEDS ORDERED: LIDOCAINE 1% (10MG/ML) FOR IV START INTRADERMA PRN (08:17)
[2023-04-29] MEDS ORDERED: ONDANSETRON 4 MG/2 ML VIAL IVP ONE (08:17)
[2023-04-29] MEDS ORDERED: HYDROmorphone 0.5 MG/0.5 ML SYRINGE IVP PRN (08:17)
[2023-04-29] MEDS ORDERED: LACTATED RINGERS 1,000 ML IV SCH (08:17)
[2023-04-29 08:29] VITALS: TEMP 97.5
[2023-04-29 08:33] LABS: Glucose,Whole Blood 192 mg/dL (70-110)
[2023-04-29] MEDS ORDERED: MIDAZOLAM 2 MG/2 ML VIAL ONE (09:16)
[2023-04-29] MEDS ORDERED: diphenhydrAMINE 50 MG/ML 1 ML VIAL ONE (09:16)
[2023-04-29] MEDS ORDERED: PROPOFOL 10 MG/ML 20 ML VIAL IV ONE (09:16)
[2023-04-29] MEDS ORDERED: fentaNYL (PF) 50 MCG/ML 2 ML AMP ONE (09:16)
[2023-04-29] MEDS ORDERED: KETAMINE HCL IN 0.9 % NACL 50 MG/5 ML SYRINGE ONE (09:16)
--- NOTE | 2023-04-29 09:29 | P.GSHP ---
History of Present Illness H&P Date: 04/29/23 Chief Complaint: Ulcer left foot Patient is status post revascularization and transmetatarsal amputation left foot. He has undergone an extended period of time in wound care preparing the area of open wound on the dorsum of the lateral left foot. - Constitutional Constitutional: Denies chills, Denies fever - EENT Eyes: denies blurred vision, denies pain Ears, nose, mouth and throat: Denies headache, Denies sore throat - Cardiovascular Cardiovascular: Denies chest pain, Denies shortness of breath - Respiratory Respiratory: Denies cough, Denies 7 - Gastrointestinal Gastrointestinal: Denies abdominal pain, Denies diarrhea, Denies nausea, Denies vomiting - Genitourinary (Female) Genitourinary: Denies dysuria, Denies hematuria - Genitourinary (Male) Genitourinary: Denies dysuria, Denies hematuria - Musculoskeletal Musculoskeletal: Denies myalgias - Integumentary Integumentary: Denies pruritus, Denies rash - Neurological Comment: Significant diabetic neuropathy Neurological: Reports balance difficulties, Reports gait dysfunction, Reports numbness, Denies weakness - Psychiatric Psychiatric: Denies anxiety, Denies depression - Endocrine Comment: Fairly well controlled diabetes Endocrine: Denies fatigue, Denies weight change Past Medical History Past Medical History: Dementia, Diabetes Mellitus, Hyperlipidemia, Hypertension, Vascular Disorder Additional Past Medical History / Comment(s): IDDM type II, neuropathy bilateral feet, nonhealing ulcer L foot-seen in [facility], Crohns, IBS, back pain, chronic left thigh/sciatica pain. History of Any Multi-Drug Resistant Organisms: MRSA Date of last positivie culture/infection: 02/13/20 MDRO Source:: left foot wound Past Surgical History: Orthopedic Surgery Additional Past Surgical History / Comment(s): L 2nd toe amputation 06/2019 & debridement in 09/2019, L shoulder/collar bone crush injury with hardware, L knee surgery/hardware d/t injury, Left great toe debridement for wound Past Anesthesia/Blood Transfusion Reactions: No Reported Reaction Past Psychological History: No Psychological Hx Reported Additional Psychological History / Comment(s): . Smoking Status: Never smoker Past Alcohol Use History: Rare Past Drug Use History: None Reported - Past Family History Mother Family Medical History: Cancer Father Family Medical History: Cancer Medications and Allergies Home Medications Medication Instructions Recorded Confirmed Type Insulin Regular, Human [NovoLIN R] See Protocol SQ TID-W/MEALS 05/25/20 04/29/23 History Furosemide [Lasix] 20 mg PO DAILY 11/07/20 04/29/23 History Memantine [Namenda] 5 mg PO BID 11/07/20 04/29/23 History Omeprazole 20 mg PO BID 01/19/23 04/29/23 History Inulin/Chromium Picolinate [Fiber 1 tab PO DAILY 02/15/23 04/29/23 History Gummies Chew] Tamsulosin [Flomax] 0.4 mg PO DAILY 02/15/23 04/29/23 History amLODIPine [Norvasc] 10 mg PO DAILY 02/15/23 04/29/23 History metFORMIN HCL [metFORMIN HCL ER 1,000 mg PO DAILY 02/15/23 04/29/23 History Osmotic] atenoloL [Tenormin] 50 mg PO BID #60 tab 02/19/23 04/29/23 Rx lisinopriL [Zestril] 20 mg PO DAILY #30 tab 02/19/23 04/29/23 Rx oxyCODONE ER [OxyCONTIN] 20 mg PO TID 04/23/23 04/29/23 History Allergies Allergy/AdvReac Type Severity Reaction Status Date / Time naproxen Allergy Swelling Verified 04/29/23 08:30 gabapentin AdvReac Confusion Verified 04/29/23 08:30 Surgical - Exam Osteopathic Statement: *. No significant issues noted on an osteopathic structural exam other than those noted in the History and Physical/Consult. Vital Signs Temp Pulse Resp BP Pulse Ox 97.5 F L 63 18 139/62 97 04/29/23 08:21 04/29/23 08:21 04/29/23 08:21 04/29/23 08:21 04/29/23 08:21 - General well developed, well nourished, no distress - Eyes normal ocular movement, no icteric - ENT no hearing loss, no congestion - Neck no masses, trachea midline - Respiratory normal respiratory effort, clear to auscultation - Abdomen Abdomen: soft, non tender, no guarding, no rigid, no rebound - Integumentary no rash, no abnormal pigmentation - Neurologic no disoriented, no combative - Psychiatric oriented to time, oriented to person, oriented to place, speech is normal, memory intact Ulcerations lateral and medial on the dorsum of the left foot. Results - Labs Abnormal Lab Results - Last 24 Hours (Table) 04/29/23 Range/Units 08:30 POC Glucose (mg/dL) 192 H (70-110) mg/dL Assessment and Plan (1) Diabetic ulcer of left foot associated with diabetes mellitus due to underlying condition, with necrosis of bone Current Visit: No Status: Acute Code(s): E08.621 - DIABETES MELLITUS DUE TO UNDERLYING CONDITION W FOOT ULCER; L97.524 - NON-PRS CHRONIC ULCER OTH PRT LEFT FOOT W NECROSIS OF BONE SNOMED Code(s): 484274431 (2) Hypertension Current Visit: No Status: Acute Code(s): I10 - ESSENTIAL (PRIMARY) HYPERTENSION SNOMED Code(s): 25209066 (3) Morbid obesity Current Visit: No Status: Acute Code(s): E66.01 - MORBID (SEVERE) OBESITY DUE TO EXCESS CALORIES SNOMED Code(s): 838724866 Plan: we have discussed with the patient and his caregiver in detail the procedure of split-thickness skin graft with harvesting from the left thigh and placement on the dorsum of the left foot. The verbalize an understanding of the procedure and its risks and are willing to proceed.
--- NOTE | 2023-04-29 10:40 | P.OP ---
Date of Procedure: 04/29/23 Preoperative Diagnosis: Diabetic ulceration dorsum left foot. Postoperative Diagnosis: Same Procedure(s) Performed: Split-thickness skin graft left foot Anesthesia: MAC Surgeon: Shekhar Gibbons Estimated Blood Loss (ml): 3 Pathology: none sent Condition: stable Disposition: PACU Indications for Procedure: The patient has a 4.5 x 5 cm ulceration on the dorsum of the lateral left foot. Operative Findings: As noted the ulceration was 4 By 5 cm on the dorsum of the lateral left foot. It is well granulated. Description of Procedure: With the patient supine position, under benefit of IV sedation, we prepped and draped in standard fashion. We used a scissors and forceps to excise a bit of tension on an ulceration on the medial aspect. We a sharp curettes to debride the area of granulation freshening the area. We then took a 1 inch dermatome and with 10 1000s depth setting and removed and appropriately length section from the anterior aspect of the left thigh. This was meshed with the 1-3 mesher and placed on the area of the ulceration. Sections of her were cut and placed and the skin graft was flattened and smooth to cover the area of the ulceration. We then utilized Aquasol silver and Versed so 1 moistened with hydrogel to cover the skin graft. The Versed toe one was window pained in position with half inch Steri-Strips. We then covered with 4 x 4's and Curlex. The dressing was held in place with Coban. The patient tolerated the procedure well and was taken recovery area in stable condition. The wound was 455 cm's and about 0.3 cm in depth.
[2023-04-29 10:54] VITALS: RESP 16
[2023-04-29 11:44] VITALS: BP 167/69; PULSE 54
== END 2023-04-29 11:28 | disposition home or self-care (01) ==
LOC: OR 07:54
PROVIDERS: ATTEND Thoracic Surgery (Cardiothoracic Vascular Surgery)
DX: E11.621 Type 2 diabetes mellitus with foot ulcer (principal); L97.524 Non-pressure chronic ulcer of other part of left foot with necrosis of bone; E11.42 Type 2 diabetes mellitus with diabetic polyneuropathy; E66.01 Morbid (severe) obesity due to excess calories; G89.29 Other chronic pain; I10 Essential (primary) hypertension; F03.90 Unspecified dementia, unspecified severity, without behavioral disturbance, psychotic disturbance, mood disturbance, and anxiety; E78.5 Hyperlipidemia, unspecified; K58.9 Irritable bowel syndrome, unspecified; Z79.4 Long term (current) use of insulin; Z88.8 Allergy status to other drugs, medicaments and biological substances; Z79.84 Long term (current) use of oral hypoglycemic drugs; Z79.899 Other long term (current) drug therapy; Z88.6 Allergy status to analgesic agent; Z89.9 Acquired absence of limb, unspecified; Z68.36 Body mass index [BMI] 36.0-36.9, adult
CPT/HCPCS: 15100; J2250; J1200; J0690; J2405; J3010; J2704